=== PATIENT | male | born 1935 | race Caucasian/White ===

== ENCOUNTER 2019-06-09 07:48 | Inpatient (IN) | payer MEDICARE, SELFPAY ==
[2019-06-09] VITALS (8 sets, daily range): BP systolic 84–154; BP diastolic 40–87; PULSE 70–104; RESP 16–20; TEMP 36.6–36.8; O2SAT 96–100; BMI 33.0
--- NOTE | ~2019-06-09 | US_ITS ---
EXAMINATION: US thyroid DATE: 06/09/2019 13:23 INDICATION: Right thyroid nodule. TECHNIQUE: Multiple ultrasound images of the thyroid were obtained. COMPARISON: None. FINDINGS: The right thyroid lobe measures 4.8 x 2.3 x 3.2 cm. The left thyroid lobe measures 5.3 x 1.8 x 3.3 c m. There are multiple nodules in the thyroid. In the left thyroid lobe, there is a 15 mm solid, hypo echoic, efbio-mdvx-jcsx nodule with lobulated margin without echogenic foci (TI-RADS TR4). In the lef t thyroid lobe, there is a 12 mm solid, hypoechoic, pdulm-nkxl-zxyf nodule with lobulated margin with out echogenic foci (TR4). In the right thyroid lobe, there is a 15 mm solid and cystic, hypoechoic, w ggum-bxnh-hpiy nodule with smooth margin without echogenic foci (TR3). In the right thyroid lobe, the re is a 12 mm solid, hypoechoic, sddhv-taht-suug nodule with lobulated margin and punctate echogenic foci (TR5). IMPRESSION: 1. Thyroid nodules. Consider ultrasound-guided fine-needle aspiration of the 12 mm right thyroid nodu le and 15 mm left thyroid nodule. Reviewed, dictated and finalized at location A. IMPRESSION: 1. Thyroid nodules. Consider ultrasound-guided fine-needle aspiration of the 12 mm right thyroid nodule and 15 mm left thyroid nodule.
--- NOTE | ~2019-06-09 | XR_ITS ---
XR abdomen NG/feed tube insert INDICATION: Evaluate NG tube position. TECHNIQUE: Limited KUB perform for evaluating NG tube . COMPARISON: 10/29/2018 FINDINGS: NG tube tip in the stomach. Visualized bowel gas pattern is nonspecific. IMPRESSION: 1: NG tube tip in the stomach. Reviewed, dictated and finalized at location A.
--- NOTE | ~2019-06-09 | XR_ITS ---
EXAMINATION: XR UGI water soluble w sbs DATE: 06/10/2019 11:11 INDICATION: Small bowel obstruction. TECHNIQUE: The nasogastric tube was adjusted under fluoroscopic guidance. Water-soluble contrast was injected into the nasogastric tube. Fluoroscopy of the stomach and small bowel was performed. Fluoros copy exposure time was 0.2 minutes. Radiographs of the abdomen were obtained. The total number of rodrigo ges was 9. COMPARISON: CT abdomen and pelvis 06/09/2019 FINDINGS: UPPER GASTROINTESTINAL SERIES: The nasogastric tube tip is in the stomach. The stomach is normal. The duodenum is dilated. SMALL BOWEL SERIES: The proximal jejunum is dilated. The ileum is normal in caliber. Transit time to the colon was 30 min utes. IMPRESSION: 1. Dilated proximal small bowel without obstruction, consistent with adynamic ileus. 2. Nasogastric tube advancement, now with tip and proximal side port in the stomach. Reviewed, dictated and finalized at location A. IMPRESSION: 1. Dilated proximal small bowel without obstruction, consistent with adynamic i leus. 2. Nasogastric tube advancement, now with tip and proximal side port in the sto mach.
--- NOTE | ~2019-06-09 | XR_ITS ---
EXAMINATION: XR abdomen/kub 1V DATE: 06/10/2019 05:57 INDICATION: Small bowel obstruction. TECHNIQUE: A supine view of the abdomen on 2 radiographs was obtained. COMPARISON: CT abdomen and pelvis 06/09/2019 FINDINGS: There is dilated small bowel in left abdomen. The colon is normal in caliber. The nasogastr ic tube tip is in the stomach with proximal side port in the distal esophagus. There is a gallstone i n the gallbladder. IMPRESSION: 1. Persistently dilated small bowel in left abdomen, consistent with ileus versus small bowel obstruc tion. 2. Nasogastric tube tip in the stomach with proximal side port in the distal esophagus. Advancement 5 cm is recommended. 3. Cholelithiasis. Reviewed, dictated and finalized at location A. IMPRESSION: 1. Persistently dilated small bowel in left abdomen, consistent with ileus vers us small bowel obstruction. 2. Nasogastric tube tip in the stomach with proximal side port in the distal es ophagus. Advancement 5 cm is recommended. 3. Cholelithiasis.
--- NOTE | ~2019-06-09 | XR_ITS ---
XR abdomen NG/feed tube insert INDICATION: Evaluate NG tube position. TECHNIQUE: Limited KUB perform for evaluating NG tube . COMPARISON: 06/09/2019 FINDINGS: NG tube tip in the stomach. Visualized bowel gas pattern is unremarkable.There is a gallst one. IMPRESSION: 1: NG tube tip in the stomach. Reviewed, dictated and finalized at location A.
--- NOTE | ~2019-06-09 | CT_ITS ---
EXAMINATION: CT abdomen pelvis wo con DATE: 06/09/2019 08:34 INDICATION: Abdominal pain, nausea and vomiting. History of multiple bowel obstructions. TECHNIQUE: Computed tomography (CT) of the abdomen and pelvis was performed without intravenous contr ast. The dose-length product was 1131.66 mGy-cm. Automated exposure control and iterative reconstruct ion technique were employed. COMPARISON: CT dated 10/29/2018 FINDINGS: Bibasilar dependent atelectasis. Heart size normal. No significant pleural or pericardial e ffusion. There are gallstones. Calcified granulomas of the spleen. There is moderately distended stomach and p roximal small bowel with similar appearance to prior examination. No definitive transition point is i dentified, although the mid and distal small bowel are decompressed. Colonic diverticulosis without e vidence for diverticulitis. No lymphadenopathy. 1.7 cm right renal cyst. No lymphadenopathy. No free air or free fluid. Enlarged prostate gland. Bladder wall is mildly thickened, although decompressed. This is likely due to bladder outlet obstruction. There is lower lumbar spondylosis. IMPRESSION: 1. Similar appearance to prior CT dated 10/29/2018 with moderately dilated proximal small bowel withou t definitive transition point, suspicious for partial small bowel obstruction. 2: Cholelithiasis. 3: Enlarged prostate gland with chronic bladder wall thickening, likely hypertrophy secondary to outl et obstruction. Reviewed, dictated and finalized at location A. IMPRESSION: 1. Similar appearance to prior CT dated 10/29/2018 with moderately dilated proxi mal small bowel without definitive transition point, suspicious for partial sma ll bowel obstruction. 2: Cholelithiasis. 3: Enlarged prostate gland with chronic bladder wall thickening, likely hypertr ophy secondary to outlet obstruction.
--- NOTE | 2019-06-09 08:07 | ED.ABDPAIN ---
HPI - Abdominal Pain General Chief Complaint: Abdominal Pain Stated Complaint: Vomiting Time Seen by Provider: 06/09/19 07:50 Source: RN notes reviewed History of Present Illness HPI narrative: Patient presents emergency department from home for nausea vomiting. Patient states he began to have vomiting at approximately 1:30 AM today. He states numerous episodes of vomiting. States states he has associated diffuse abdominal pain. Patient states he has a history of numerous bowel obstructions before in the past. Denies any fevers or chills chest pain shortness of breath diarrhea or any other symptoms Related Data Allergies Allergy/AdvReac Type Severity Reaction Status Date / Time haloperidol Allergy Unknown Hallucinati Verified 06/09/19 08:08 ng Review of Systems Review of Systems: Narrative: Gen.: Denies fevers or chills ENT: Denies congestion Respiratory: Denies shortness of breath or cough CV: Denies chest pain or palpitations GI: See HPI denies burning, urgency, frequency or hematuria Musculoskeletal: Denies back pain or muscle pain Neuro: Denies numbness, tingling, weakness or focal weakness Skin: Denies rash Except as documented, all other systems reviewed and negative [facility] Past Medical History Medical History (Updated 06/09/19 @ 10:01 by Elio Painter DO) Hx of small bowel obstruction Type 2 diabetes mellitus with stage 1 chronic kidney disease Social History Social History Smoking status: Never smoker Second hand tobacco smoke exposure: No Alcohol intake: current Exam Narrative: Exam Narrative: APPEARANCE: No acute distress, nontoxic, resting in bed HEENT: Normocephalic, atraumatic, OMM RESPIRATORY: No respiratory distress, clear to auscultation bilaterally with no rhonchi wheezing or rales CARDIOVASCULAR: RRR s murmur ABDOMINAL: Soft, nondistended, diffusely tender to palpation, no rebound or guarding MUSCULOSKELETAl: Moves all extremities. No clubbing, cyanosis or edema. NEURO: Awake and alert. Following commands, speech normal, no focal deficits SKIN:: Warm, dry. Normal Color PSYCHIATRIC: Normal affect/mood Course Course Emergency Course: Reviewed old records Discussed Dr. Garcia presentation work-up. Agrees with plan for NG tube and will follow as disaster recovery consultant Discussed Dr Rossi presentation work-up. Agrees with admission at this time Discussed with patient and family results of workup and diagnosis. Discussed need for admission. Patient and family understand and agree to current treatment plan Vital Signs Vital signs: Vital Signs Temperature 97.9 F 06/09/19 07:50 Pulse Rate 104 H 06/09/19 07:50 Respiratory Rate 20 06/09/19 07:50 Blood Pressure 154/87 H 06/09/19 07:50 Pulse Oximetry 99 06/09/19 07:50 Temperature 97.9 F 06/09/19 07:50 Pulse Rate 104 H 06/09/19 07:50 Respiratory Rate 20 06/09/19 07:50 Blood Pressure 154/87 H 06/09/19 07:50 Pulse Oximetry 99 06/09/19 07:50 MDM - Abdominal Pain Lab Data Result diagrams: 06/09/19 08:14 06/09/19 08:14 Labs: Lab Results 06/09/19 06/09/19 06/09/19 Range/Units 08:14 08:14 08:14 WBC 14.7 H (4.5-10.0) K/mm3 RBC 5.15 (4.6-6.20) M/mm3 Hgb 15.0 (14.0-18.0) g/dL Hct 44.3 (42.0-52.0) % MCV 86.0 (80-100) fl MCH 29.1 (26-34) pg MCHC 33.9 (32-36) g/dl RDW 13.2 (11.5-14.5) % Plt Count 201 (150-375) k/mm3 MPV 9.1 (7.4-10.4) fl Immature Gran % (Auto) 0.3 (0-0.5) % Neut % (Auto) 72.3 (45.5-73.1) % Lymph % (Auto) 22.4 (18.3-44.2) % Burnet % (Auto) 4.2 (2.6-8.5) % Eos % (Auto) 0.5 (0-4.4) % Baso % (Auto) 0.3 (0.2-1.2) % Lymph # (Auto) 3.28 H (0.9-3.2) K/mm3 Burnet # (Auto) 0.6 (0.1-0.6) K/mm3 Eos # (Auto) 0.1 (0-0.3) K/mm3 Baso # (Auto) 0.1 (0.0-0.1) K/mm3 Abs Immat Gran (auto) 0.04 H (0.00-0.031) K/mm3 Absolute
[2019-06-09 08:21] LABS: Basophils Absolute Auto 0.1 K/mm3 (0.0-0.1); Basophils Percent Auto 0.3 % (0.2-1.2); Eosinophils Absolute Auto 0.1 K/mm3 (0-0.3); Eosinophils Percent Auto 0.5 % (0-4.4); Hematocrit 44.3 % (42.0-52.0); Immature Granulocyte Absolute 0.04 K/mm3 (0.00-0.031); Immature Granulocyte Percent A 0.3 % (0-0.5); Lymphocytes Absolute Auto 3.28 K/mm3 (0.9-3.2); Lymphocytes Percent Auto 22.4 % (18.3-44.2); Mean Corpuscular HGB Conc 33.9 g/dl (32-36); Mean Corpuscular Hemoglobin 29.1 pg (26-34); Mean Platelet Volume 9.1 fl (7.4-10.4); Monocytes Absolute Auto 0.6 K/mm3 (0.1-0.6); Monocytes Percent Auto 4.2 % (2.6-8.5); Neutrophils Absolute Auto 10.6 K/mm3 (1.3-6.7); Neutrophils Percent Auto 72.3 % (45.5-73.1); Platelet Count Result 201 k/mm3 (150-375); Red Blood Count 5.15 M/mm3 (4.6-6.20); Red Cell Distribution Width 13.2 % (11.5-14.5); White Blood Count 14.7 K/mm3 (4.5-10.0)
[2019-06-09] MEDS: SODIUM CHLORIDE 0.9% IV 1,000 ML 999 ML IV CONT (08:22)
[2019-06-09] MEDS: ONDANSETRON INJ 4 MG/2 ML VIAL IV PUSH ×4 (08:23→21:54)
[2019-06-09 08:31] LABS: INR 0.9; Prothrombin Time 12.1 Seconds (11.1-14.7)
[2019-06-09 08:32] LABS: Alanine Aminotransferase 22 U/L (4-50); Albumin Level 4.8 g/dL (3.5-5.1); Alkaline Phosphatase 55 U/L (38-126); Aspartate Amino Transferase 23 U/L (17-59); Bilirubin,Total 0.8 mg/dL (0.2-1.3); Blood Urea Nitrogen 20 mg/dL (9-20); Calcium 9.8 mg/dL (8.4-10.2); Carbon Dioxide 24 mmol/L (22-30); Chloride 101 mmol/L (98-107); Estimated CRCL calculation 50 ml/min; Estimated Glomerular Filt Rate 53; Glucose 234 mg/dL (75-110); Lipase 140 U/L (23-300); Partial Thromboplastin Time 22.7 SECONDS (22.3-36.8); Potassium 4.1 mmol/L (3.4-5.0); Sodium 138 mmol/L (137-145)
[2019-06-09] MEDS: BENZOCAINE/TETRACAINE SPRAY (*SP) 56 ML AEROSOL 1 SPRAY (09:42)
--- NOTE | 2019-06-09 10:02 | PM.CNGS ---
Assessment and Plan Assessment and plan (1) Small bowel obstruction: Code(s): K56.609 - Unspecified intestinal obstruction, unspecified as to partial versus complete obstruction Status: Acute Assessment and Plan: Continue NG suction, bowel rest, IV fluids and p.r.n. analgesics. I will follow with clinical exam as well as labs and x-rays. Hopefully he will resolve as he has multiple times in the past. There is always the potential that he may require surgical intervention again which of course would be very hazardous due to his history of a previous laparotomy with bowel perforation and reoperation 20 years ago. Thank you for asking me to see him in consultation. (2) Essential (primary) hypertension: Code(s): I10 - Essential (primary) hypertension Status: Chronic (3) Gastro-esophageal reflux disease without esophagitis: Code(s): K21.9 - Gastro-esophageal reflux disease without esophagitis Status: Chronic History of Present Illness Consult details Consult date: 06/09/19 Reason for consult: abdominal pain Narrative: The patient is an 84-year-old gentleman who is well known to me. He has a history of a small-bowel obstruction in 1998. He had adhesiolysis at that time. He then developed another small-bowel obstruction about 1 year later. This also required adhesiolysis. Unfortunately, after this surgery, he had a bowel perforation which required reoperation. He was quite ill for some time but eventually recovered. Since that time, he has had intermittent admissions for recurrent partial small-bowel obstruction. These have resolved with a brief course of IV fluids, NG tube suction, and bowel rest. He came to the emergency room this morning after developing diffuse abdominal pain and vomiting starting very early today at about 130 in the morning. He was noted in the emergency room to have diffuse tenderness with mild distension. His white blood cell count was elevated to 14,700. His CT scan showed evidence of a recurrent small-bowel obstruction although no real transition point was able to be visualized. The patient has had an NG tube placed. He is admitted now for treatment of his recurrent small-bowel obstruction. I am seeing him in consultation regarding this. I reviewed his abdominal film and the NG tube is in good position. He had a large volume of NG output in the emergency room and was feeling much better at the time of my evaluation. Review of Systems Review of Systems: All systems reviewed & are unremarkable except as noted in HPI and below Constitutional: Constitutional: Denies headache(s) ENT: Denies headache(s) Cardiovascular: Cardiovascular: Denies chest pain and Denies dyspnea Respiratory: Respiratory: Denies cough and Denies dyspnea Gastrointestinal: Gastrointestinal: Reports as per HPI Neurologic: Denies confusion and Denies headache(s) Psychiatric: Psychiatric: Denies confusion [facility] Past Medical History Medical History (Updated 06/09/19 @ 11:30 by Pramod Rossi MD) Diastolic CHF Diverticulosis Hx of diverticulitis Essential hypertension, benign GERD (gastroesophageal reflux disease) History of esophageal stricture s/p dilation Hx of small bowel obstruction 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
--- NOTE | 2019-06-09 10:15 | PC.NURSE ---
NG placement is confirmed per xray. Placed to suction note immediate return dark green fluid.
--- NOTE | 2019-06-09 10:25 | ADMGEN ---
This patient, Cali Vasquez, was admitted to Medical Room 349-01. Patient/family oriented to hospital policies and general routines including ID bracelet, bed and alarms, visiting hours, pain management, procedures, bathroom and other care routines, personal items, smoking policy, room service/diet, and visiting hours. Valuables list has been completed. Information on how to activate the Rapid Response Team has been discussed. Patient/Family are encouraged to report perceived risks to care and to ask questions if they do not understand what they are told or what they should do.
--- NOTE | 2019-06-09 10:37 | PM.IMHP ---
H&P: HPI History of Present Illness Chief complaint: small bowel obstruction Narrative: Cali Vasquez is a 84 year old male with hx of partial SBO here for nausea and vomiting and found to have recurrent partial SBO. Patient has frequent hospitalizations for partial small-bowel obstruction most recently in June and again in September of last year. Patient has been on MiraLax alternating with Metamucil over the past few months. He has been having 2-3 loose bowel movements a day on average. He did have some lower abdominal pain in March felt to have diverticulitis treated with antibiotics. Symptoms resolved. He has been doing well up until clinical rn liaison hours of admission. Patient states he has been eating cantaloupe and strawberries over the past few days. He had some mild abdominal pain last evening but awoke this morning around 130 in the morning with nausea and vomiting x5-6 times. He did have a small stool around that time. He took a suppository without much benefit. Because of the worsening abdominal pain and other symptoms he presented to the emergency room for evaluation. In the emergency room, he was hemodynamically stable. [place] [address] and a glucose of 234. CT of the abdomen and pelvis showing moderately dilated proximal small bowel suspicious for partial small-bowel obstruction. NG tube was placed in 1 L of fluid was removed. Patient feels much better today. He denies any fever, chills, chest pain, palpitations, shortness of breath, cough, melena, hematochezia, hematemesis, dysuria, hematuria, headache, sore throat, weight changes. Review of Systems Review of Systems: All systems reviewed & are unremarkable except as noted in HPI and below PMFSH Past Medical History Medical History (Updated 06/09/19 @ 11:30 by Pramod Rossi MD) Diastolic CHF Diverticulosis Hx of diverticulitis Essential hypertension, benign GERD (gastroesophageal reflux disease) History of esophageal stricture s/p dilation Hx of small bowel obstruction 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istory Social History (Updated 06/09/19 @ 11:24 by Pramod Rossi MD) Social History: Life long nonsmoker. No drug use. 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 Drinks alcohol infrequently. Full code. Nominates his to be the individual to make medical decision for him if he is unable. Smoking status: Never smoker Second hand tobacco smoke exposure: No Alcohol intake: current Drinks per week: 2 Substance use: never Spiritual care concerns: No Agree to blood products: Yes Meds Home Medications and Allergies Home Medications Medication Instructions Recorded Confirmed Type olmesartan 40 1 tablet PO DAILY #90 tablet 02/17/19 06/09/19 Rx mg-hydrochlorothiazide 12.5 mg tablet metoprolol tartrate 50 mg tablet 50 mg PO DAILY #180 tablet 02/23/19 06/09/19 Rx blood sugar diagnostic #50 each 04/13/19 06/09/19 Rx atorvastatin 10 mg tablet 10 mg PO DAILY #90 tablet 04/20/19 06/09/19 Rx omeprazole 40 mg capsule,delayed 40 mg PO DAILY #90 cap 04/20/19 06/09/19 Rx release sitagliptin 100 mg-metformin ER 1 tablet PO DAILY #90 tablet 05/31/19 06/09/19 Rx 1,000 mg tablet,extended [id number] Allergies Allergy/AdvReac Type Severity
[2019-06-09] MEDS: SODIUM CHLORIDE 0.9% IV 1,000 ML 125 ML IV CONT ×2 (10:40→19:49)
[2019-06-09] MEDS: METOPROLOL TARTRATE INJ 5 MG/5 ML VIAL IV PUSH ×2 (11:55→17:45)
[2019-06-09] MEDS: ENOXAPARIN 40 MG/0.4 ML SYRINGE SUB-Q (11:55)
[2019-06-09] MEDS: PANTOPRAZOLE SODIUM IV 40 MG VIAL IV PUSH (11:55)
[2019-06-09 12:22] LABS: Glucose Point of Care 147 (65-105)
[2019-06-09 16:31] LABS: Glucose Point of Care 141 (65-105)
[2019-06-09] MEDS: SODIUM CHLORIDE 0.9% IV 500 ML 999 ML IV CONT (21:26)
[2019-06-10] VITALS (7 sets, daily range): BP systolic 117–148; BP diastolic 57–74; PULSE 73–89; RESP 16–18; TEMP 36–36.4; O2SAT 96–100
[2019-06-10 00:19] LABS: Glucose Point of Care 157 (65-105)
[2019-06-10] MEDS: ONDANSETRON INJ 4 MG/2 ML VIAL IV PUSH ×2 (02:09→06:34)
[2019-06-10 05:33] LABS: Basophils Percent Auto 0.3 % (0.2-1.2); Eosinophils Absolute Auto 0.1 K/mm3 (0-0.3); Eosinophils Percent Auto 2.1 % (0-4.4); Hematocrit 42.3 % (42.0-52.0); Hemoglobin 13.8 g/dL (14.0-18.0); Immature Granulocyte Absolute 0.01 K/mm3 (0.00-0.031); Immature Granulocyte Percent A 0.2 % (0-0.5); Lymphocytes Absolute Auto 1.71 K/mm3 (0.9-3.2); Lymphocytes Percent Auto 29.7 % (18.3-44.2); Mean Corpuscular HGB Conc 32.6 g/dl (32-36); Mean Corpuscular Hemoglobin 28.9 pg (26-34); Mean Corpuscular Volume 88.7 fl (80-100); Mean Platelet Volume 9.2 fl (7.4-10.4); Monocytes Absolute Auto 0.7 K/mm3 (0.1-0.6); Monocytes Percent Auto 11.3 % (2.6-8.5); Neutrophils Absolute Auto 3.2 K/mm3 (1.3-6.7); Neutrophils Percent Auto 56.4 % (45.5-73.1); Platelet Count Result 156 k/mm3 (150-375); Red Blood Count 4.77 M/mm3 (4.6-6.20); Red Cell Distribution Width 13.2 % (11.5-14.5); White Blood Count 5.8 K/mm3 (4.5-10.0)
[2019-06-10 05:34] LABS: Alanine Aminotransferase 19 U/L (4-50); Alkaline Phosphatase 44 U/L (38-126); Aspartate Amino Transferase 19 U/L (17-59); Blood Urea Nitrogen 25 mg/dL (9-20); Calcium 8.5 mg/dL (8.4-10.2); Carbon Dioxide 25 mmol/L (22-30); Chloride 104 mmol/L (98-107); Estimated CRCL calculation 46 ml/min; Estimated Glomerular Filt Rate 48; Glucose 164 mg/dL (75-110); Potassium 4.2 mmol/L (3.4-5.0); Sodium 138 mmol/L (137-145)
[2019-06-10] MEDS: SODIUM CHLORIDE 0.9% IV 1,000 ML 125 ML IV CONT (05:51)
[2019-06-10 06:34] LABS: Glucose Point of Care 156 (65-105)
[2019-06-10] MEDS: METOPROLOL TARTRATE INJ 5 MG/5 ML VIAL IV PUSH ×3 (06:35→18:10)
[2019-06-10] MEDS: PANTOPRAZOLE SODIUM IV 40 MG VIAL IV PUSH (09:35)
[2019-06-10] MEDS: ENOXAPARIN 40 MG/0.4 ML SYRINGE SUB-Q (09:35)
--- NOTE | 2019-06-10 09:39 | PM.IMPN ---
Progress Note: A&P Assessment and Plan (1) Small bowel obstruction: Code(s): K56.609 - Unspecified intestinal obstruction, unspecified as to partial versus complete obstruction Status: Acute Assessment and Plan: CT scan 06/09/2019 showing moderately dilated proximal small bowel without definitive transition point most likely related to adhesions. NG tube was placed with symptomatic improvement. Patient is up walking the halls. Repeat KUB still showing dilated small bowel. Water-soluble upper GI ordered. Continue conservative management. (2) Essential (primary) hypertension: Code(s): I10 - Essential (primary) hypertension Status: Chronic Assessment and Plan: Patient with hypotension last night 84/52. Patient was given fluid bolus with improvement. Blood pressure more stable today. Home antihypertensive medications on hold. Will continue with the Lopressor IV for now. Resume oral medications when able. (3) Type 2 diabetes mellitus with stage 1 chronic kidney disease: Code(s): E11.22 - Type 2 diabetes mellitus with diabetic chronic kidney disease; N18.1 - Chronic kidney disease, stage 1 Status: Acute Assessment and Plan: Recent A1c 7.2 per patient. Glucose reviewed 06/10/2019. Glucose well controlled. Diabetic medications on hold. Continue sliding scale protocol. (4) Thyroid nodule: Code(s): E04.1 - Nontoxic single thyroid nodule Status: Acute Assessment and Plan: Possible thyroid nodule appreciated on exam. Thyroid ultrasound showing 2 thyroid nodules with the recommendation for biopsy. Plan for outpatietn referral. (5) Hyperlipidemia: Qualifiers: Hyperlipidemia type: unspecified Qualified Code(s): E78.5 - Hyperlipidemia, unspecified Code(s): E78.5 - Hyperlipidemia, unspecified Status: Acute Assessment and Plan: LFTs within normal limits. Atorvastatin on hold at this time. (6) Gastro-esophageal reflux disease without esophagitis: Code(s): K21.9 - Gastro-esophageal reflux disease without esophagitis Status: Chronic Assessment and Plan: Stable. Continue Protonix IV. Continue to monitor. (7) BPH (benign prostatic hyperplasia): Code(s): N40.0 - Benign prostatic hyperplasia without lower urinary tract symptoms Status: Acute Assessment and Plan: CT scan showing enlarged prostate gland with chronic bladder wall thickening. This was also seen in [address] scan so felt to be longstanding. Continue to monitor for outlet obstruction. (8) DVT prophylaxis: Code(s): Z29.9 - Encounter for prophylactic measures, unspecified Status: Acute Assessment and Plan: Alondra Subjective Date/time seen: 06/10/19 09:39 Interval history: 84yo male with hx of partial SBO here for nausea and vomiting and found to have recurrent partial SBO. Complains of nasal soreness. Also with nausea requiring Zofran. No flatus or BMs yet. Up walking. Had low BP overnight but patient asymptomatic. No CP or SOB. Exam Narrative: Exam Narrative: AF 97.5 148/72 89 16 96% Gen - NARD sitting up in a chair HEENT - NGT secured draining yellow brown fluid Chest - R>L bibasilar inspiratory crackles, nml RR CV - RRR S1/S2 Abd - soft, NT, ND, hypoactive BS Ext - No pedal edema Psych - Nml mood and affect Skin - Warm and dry Objective Data Vital Signs Vital Signs: Vital Signs - 24 hr 06/09/19 09:45 06/09/19 10:50 06/09/19 11:55 Temperature 98.2 F Pulse Rate 100 101 H 101 H Respiratory Rate 18 18 Blood Pressure 150/62 H 125/68 Pulse Oximetry 96 97 06/09/19 14:00 06/09/19 17:45 06/09/19 21:03 Temperature 98.2 F 98 F Pulse Rate 70 70 104 H Respiratory Rate 16 20 Blood Pressure 132/70 84/52 L Pulse Oximetry 100 96 06/09/19 22:00 06/10/19 00:20 06/10/19 05:48 Temperature 97.5 F L Pulse Rate 84 Respiratory Rate 16 Bl
[2019-06-10 13:05] LABS: Glucose Point of Care 137 (65-105)
[2019-06-10] MEDS: SODIUM CHLORIDE 0.9% IV 1,000 ML 80 ML IV CONT (16:38)
[2019-06-10 16:41] LABS: Glucose Point of Care 153 (65-105)
[2019-06-10 21:04] LABS: Glucose Point of Care 114 (65-105)
[2019-06-11 00:30] VITALS: PULSE 105
[2019-06-11] MEDS: METOPROLOL TARTRATE INJ 5 MG/5 ML VIAL IV PUSH ×2 (00:30→05:20)
[2019-06-11 00:36] VITALS: BP 137/74
[2019-06-11 04:28] VITALS: BP 113/63; PULSE 66; RESP 16; TEMP 36.5; O2SAT 98
[2019-06-11 05:20] VITALS: PULSE 66
[2019-06-11 05:28] LABS: Blood Urea Nitrogen 22 mg/dL (9-20); Calcium 7.8 mg/dL (8.4-10.2); Carbon Dioxide 25 mmol/L (22-30); Chloride 109 mmol/L (98-107); Estimated CRCL calculation 63 ml/min; Estimated Glomerular Filt Rate > 60; Glucose 151 mg/dL (75-110); Potassium 3.7 mmol/L (3.4-5.0); Sodium 138 mmol/L (137-145)
--- NOTE | 2019-06-11 07:21 | PM.PNGS ---
Progress Note: A&P Assessment and Plan (1) Small bowel obstruction: Code(s): K56.609 - Unspecified intestinal obstruction, unspecified as to partial versus complete obstruction Status: Acute Assessment and Plan: Fortunately this has resolved again. Patient can be discharged today. Resume usual diabetic diet. No surgical follow-up is needed. (2) Type 2 diabetes mellitus with stage 1 chronic kidney disease: Code(s): E11.22 - Type 2 diabetes mellitus with diabetic chronic kidney disease; N18.1 - Chronic kidney disease, stage 1 Status: Chronic Subjective Subjective Date/Time Seen: 06/11/19 07:21 Patient reports: no new complaints, feels better, pain is less, tolerating a regular diet and bowel movement Review of Systems Review of Systems: All systems reviewed & are unremarkable except as noted in HPI and below Constitutional: Constitutional: Denies headache(s) ENT: Denies headache(s) Cardiovascular: Cardiovascular: Denies chest pain and Denies dyspnea Respiratory: Respiratory: Denies cough and Denies dyspnea Gastrointestinal: Gastrointestinal: Reports as per HPI Exam Const: General: comfortable and no acute distress; No confusion Orientation/consciousness: patient oriented x3 and No confusion GI: GI Palp: Yes Soft to palpation, Yes Tenderness to palpation present (GI), No Guarding due to palpation present (GI) and No Rebound tenderness present Auscultation: normal bowel sounds Neuro: General: patient oriented x3, no focal motor deficits and No confusion Extrem: General: no calf tenderness and no edema Psych: Affect: normal affect Insight: Good insight present (Psych) Judgement: Good judgement present (Psych) Objective Data Vital Signs Vital Signs: Vital Signs - 24 hr 06/10/19 12:45 06/10/19 14:00 06/10/19 18:10 Temperature 36.0 C L Pulse Rate 89 80 85 Respiratory Rate 18 Blood Pressure 117/60 Pulse Oximetry 97 06/10/19 20:46 06/11/19 00:30 06/11/19 00:36 Temperature 36.4 C L Pulse Rate 73 105 H Respiratory Rate 18 Blood Pressure 141/74 H 137/74 Pulse Oximetry 100 06/11/19 04:28 06/11/19 05:20 Temperature 36.5 C Pulse Rate 66 66 Respiratory Rate 16 Blood Pressure 113/63 Pulse Oximetry 98 Intake/Output Intake/Output: Intake & Output 06/08/19 06/09/19 06/10/19 06/11/19 23:59 23:59 23:59 23:59 Intake Total 2500 2740 1500 Output Total 3100 1750 Balance -556 351 5349 Meds/Results Medications: Active Medications Generic Name Dose Route Start Last Admin Trade Name Freq PRN Reason Stop Dose Admin Dextrose 12.5 gm 06/09/19 11:36 Dextrose 50% Syringe IV PUSH PRN PRN Hypoglycemia Protocol Enoxaparin Sodium 40 mg 06/10/19 09:00 06/10/19 09:35 Lovenox SUB-Q 40 mg DAILY JACE Administration Fentanyl Citrate 25 mcg 06/09/19 10:16 Sublimaze IV PUSH Q2H PRN Pain Rated 7-10 Fentanyl Citrate 12.5 mcg 06/09/19 10:16 Sublimaze IV PUSH Q2H PRN Pain Rated 4-6 Glucagon 1 mg 06/09/19 11:36 Glucagon For Inj IM PRN PRN Hypoglycemia Protocol Glucose 15 gm 06/09/19 11:36 Glutose 15 PO PRN PRN Hypoglycemia Protocol Sodium Chloride 1,000 mls @ 80 mls/hr 06/09/19 09:20 06/11/19 05:51 Normal Saline Iv IV CONT 80 mls/hr .[id number] JACE Infusion Ibuprofen 800 mg in 200 mls @ 400 mls/hr 06/09/19 10:16 Caldolor 800 Mg/200 Ml IVPB Q6H PRN Pain Rated 1-3 Dextrose 1,000 mls @ 100 mls/hr 06/09/19 11:36 Dextrose 5% 1,000 Ml IVPB PRN PRN Hypoglycemia Protocol Insulin Aspart 2 - 5 units 06/09/19 12:00 06/10/19 16:37 Novolog SUB-Q Not Given TIDWM JACE Protocol Metoprolol Tartrate 5 mg 06/09/19 12:00 06/11/19 05:20 Lopressor Inj IV PUSH 5 mg Q6HR JACE Administration Naloxone HCl 0.1 mg 06/09/19 10:16 Narcan IV PUSH Q2M PRN Opiate Reversal Ondansetron
[2019-06-11 07:53] LABS: Glucose Point of Care 153 (65-105)
[2019-06-11] MEDS: ENOXAPARIN 40 MG/0.4 ML SYRINGE SUB-Q (08:06)
[2019-06-11] MEDS: PANTOPRAZOLE SODIUM IV 40 MG VIAL IV PUSH (08:07)
--- NOTE | 2019-06-11 10:00 | PM.DS ---
DS: Diagnosis Admitting Diagnosis Admitting Diagnosis: Unspecified intestinal obstruction, unspecified as to partial versus complete obstruction Discharge Diagnosis (1) Small bowel obstruction: Code(s): K56.609 - Unspecified intestinal obstruction, unspecified as to partial versus complete obstruction Status: Acute Assessment and Plan: CT scan 06/09/2019 showing moderately dilated proximal small bowel without definitive transition point most likely related to adhesions. NG tube was placed with symptomatic improvement. Patient was up walking the halls. Repeat KUB still showing dilated small bowel. Water-soluble upper GI ordered with a good number of BMs. NG tube removed and diet started. Tolerated this well and diet advanced. Patient seen by general surgery who felt patient could be discharged home safely. (2) Essential (primary) hypertension: Code(s): I10 - Essential (primary) hypertension Status: Chronic Assessment and Plan: Blood pressure stable today. He was covered with Lopressor IV. Home antihypertensive medications were on hold. (3) Type 2 diabetes mellitus with stage 1 chronic kidney disease: Code(s): E11.22 - Type 2 diabetes mellitus with diabetic chronic kidney disease; N18.1 - Chronic kidney disease, stage 1 Status: Chronic Assessment and Plan: Recent A1c 7.2 per patient. Glucose monitored and remained well controlled. Diabetic medications on hold. Covered with sliding scale protocol. (4) Thyroid nodule: Code(s): E04.1 - Nontoxic single thyroid nodule Status: Acute Assessment and Plan: Possible thyroid nodule appreciated on exam. Thyroid ultrasound showing 2 thyroid nodules with the recommendation for biopsy. TSH normal. Plan for outpatient referral. Discussed with primary care doctor. (5) Hyperlipidemia: Qualifiers: Hyperlipidemia type: unspecified Qualified Code(s): E78.5 - Hyperlipidemia, unspecified Code(s): E78.5 - Hyperlipidemia, unspecified Status: Acute Assessment and Plan: LFTs within normal limits. Atorvastatin was held. (6) Gastro-esophageal reflux disease without esophagitis: Code(s): K21.9 - Gastro-esophageal reflux disease without esophagitis Status: Chronic Assessment and Plan: Stable. Treated with Protonix IV. (7) BPH (benign prostatic hyperplasia): Code(s): N40.0 - Benign prostatic hyperplasia without lower urinary tract symptoms Status: Acute Assessment and Plan: CT scan showing enlarged prostate gland with chronic bladder wall thickening. This was also seen in [address] scan so felt to be longstanding. He was monitored for outlet obstruction. DS: Summary Hospital Course Reason for hospitalization: 84yo male here for pSBO. Debbi see H&P for details. Hospital Course: As above Time Spent with Patient Time attestation: Total time spent providing and/or coordinating discharge services:31 minutes Time spent: Greater than 30 minutes Exam Narrative: Exam Narrative: Patient feels well. No CP, SOB or cough. Gen - NARD sitting up in a chair Chest - mild Rt base inspiratory crackles, nml RR CV - RRR S1/S2 Abd - soft, NT, ND, +BS Ext - No pedal edema Skin - Warm and dry DS: Data Data Completed and Pending Labs on day of discharge: Labs from last 24 hours 06/11/19 06/11/19 06/10/19 07:50 04:54 20:00 Sodium 138 Potassium 3.7 Chloride 109 H Carbon Dioxide 25 BUN 22 H Creatinine 1.00 Estim Creat Clear Calc 63 Estimated GFR > 60 Glucose 151 H POC Capillary Glucose 153 H 114 H Calcium 7.8 L 06/10/19 06/10/19 16:33 12:46 Sodium Potassium Chloride Carbon Dioxide BUN Creatinine Estim Creat Clear Calc Estimated GFR Glucose POC Capillary Glucose 153 H 137 H Calcium Discharge Plan Discharge Attending physician on discharge: Ellie
[2019-06-11 11:10] LABS: Thyroid Stimulating Hormone Reflex 0.935 uIU/mL (0.465-4.68)
== END 2019-06-11 10:45 | disposition home or self-care (01) | DRG 389 ==
LOC: ANHED 09:24 → ANH3MED 09:40
PROVIDERS: Admitting Provider Internal Medicine; Emergency Provider Emergency Medicine; PCP Internal Medicine; Visit Provider Internal Medicine
DX: K56.50 Intestinal adhesions [bands], unspecified as to partial versus complete obstruction (principal); I50.32 Chronic diastolic (congestive) heart failure; I13.0 Hypertensive heart and chronic kidney disease with heart failure and stage 1 through stage 4 chronic kidney disease, or unspecified chronic kidney disease; K57.90 Diverticulosis of intestine, part unspecified, without perforation or abscess without bleeding; I10 Essential (primary) hypertension; K21.9 Gastro-esophageal reflux disease without esophagitis; E78.5 Hyperlipidemia, unspecified; K58.9 Irritable bowel syndrome, unspecified; E11.22 Type 2 diabetes mellitus with diabetic chronic kidney disease; Z90.49 Acquired absence of other specified parts of digestive tract; N18.1 Chronic kidney disease, stage 1; E04.1 Nontoxic single thyroid nodule; N40.0 Benign prostatic hyperplasia without lower urinary tract symptoms
CPT/HCPCS: 36415; 74018; 74176; 74240; 74248; 76536; 80048; 80053; 83605; 83690; 84443; 85025; 85610; 85730; 96361; 96374; 99285; A9270; C9113; J1650; J2405; J7030; J7040

== ENCOUNTER 2021-03-01 14:10 | Inpatient (IN) | payer MEDICARE, SELFPAY ==
[2021-03-01] VITALS (25 sets, daily range): BP systolic 116–159; BP diastolic 63–107; PULSE 86–115; RESP 10–38; TEMP 35.1; O2SAT 62–100
--- NOTE | ~2021-03-01 | CT_ITS ---
EXAMINATION: CT abdomen pelvis w con EXAM DATE: 03/01/2021 16:08 INDICATION: Abdominal pain, hx of SBO. TECHNIQUE: Spiral CT of the abdomen and pelvis was performed following intravenous injection of 100 m L Omnipaque 350. Axial, coronal and sagittal images of the abdomen and pelvis were reviewed. The do se-length product (DLP) for this examination was 1147.15 mGy-cm. The exposure was tailored according to patient size (auto mA exposure control), and iterative reconstruction (ASIR) was used as addition al dose reduction technique. Correlation is made to CT scan 06/09/2019. FINDINGS: Again there are multiple loops of severely distended jejunum, frothy contents consistent wi th fecal stasis. Dilation gradually tapers, ileum is nearly collapsed. Appearance most consistent wit h ileus versus recurrent partial small bowel obstruction; correlate with prior admission, hospital co urse. Stomach is also distended with air and fluid. The liver, spleen, adrenal glands and pancreas are unremarkable. Peripherally calcified gallstone in the gallbladder neck, otherwise unremarkable gallbladder. Portal and splenic veins are patent. Kid neys enhance symmetrically. There is no hydronephrosis. There is severe prostatomegaly, prostate me asuring 7 cm. Some diffuse bladder wall thickening, could indicate chronic cystitis. Acute cystitis not excludable. There is no retroperitoneal or pelvic lymphadenopathy. Small bilateral inguinal fa t-containing hernias. The appendix is normal. There is mild sigmoid colonic diverticulosis. There is no adjacent inflammat ory change to suggest diverticulitis. There is expected amount of colonic stool. No free intraperit brower gas. The heart is normal in size. There are no pericardial or pleural effusions. Mild basil ar intralobular septal thickening, suggesting interstitial lung disease. There are no osteoblastic o r osteolytic lesions identified. IMPRESSION: 1. Findings consistent with ileus versus recurrent partial small bowel obstruction. 2. Severe prostatomegaly. Bladder wall thickening consistent with chronic cystitis. 3. Mild sigmoid diverticulosis. 4. Cholelithiasis. Reviewed, dictated and finalized at location B. [facility]ERS IMPRESSION: 1. Findings consistent with ileus versus recurrent partial small bowel obstruc tion. 2. Severe prostatomegaly. Bladder wall thickening consistent with chronic cyst itis. 3. Mild sigmoid diverticulosis. 4. Cholelithiasis.
--- NOTE | ~2021-03-01 | XR_ITS ---
EXAMINATION: XR abdomen obstructive series EXAM DATE: 03/02/2021 07:30 INDICATION: partial SBO. TECHNIQUE: Frontal upright projection of the upper abdomen, frontal projection of the lower abdomen f or interpretation. There is no prior study for comparison. FINDINGS: No evidence of free intraperitoneal gas. Feeding tube is in position. Several loops of mod erately distended air-filled small bowel in the midabdomen, but with interval improvement. Some contr ast within the bowel. Peripherally calcified gallstone mild to moderate bony degenerative changes. IMPRESSION: Ileus or partial small bowel obstruction, mild improvement in distention. Feeding tube i n position. Reviewed, dictated and finalized at location B. ER FITTER IMPRESSION: Ileus or partial small bowel obstruction, mild improvement in dist ention. Feeding tube in position.
--- NOTE | ~2021-03-01 | XR_ITS ---
EXAMINATION: XR abdomen NG/feed tube insert INDICATION: Nasogastric tube placement TECHNIQUE: Portable AP KUB-NG at 1704 hours COMPARISON: CT from today FINDINGS: The nasogastric tube is in the stomach. There are multiple dilated loops of small bowel in the visualized upper abdomen. There is mild atelectasis of the lower lobes. Contrast from earlier CT partially opacifies the kidneys. IMPRESSION: 1. Nasogastric tube in the stomach. Reviewed, dictated and finalized at location F. WELDER
--- NOTE | ~2021-03-01 | XR_ITS ---
XR sm bowel follow through [facility] DATE: 03/02/2021 09:50 INDICATION: Partial small bowel obstruction TECHNIQUE: 450 cc Omnipaque 350 contrast material was administered through the existing nasogastric t ube, with serial overhead radiographic images of the abdomen up to 60 minutes afterward. Spot images of the terminal ileum. 0.3 minutes fluoroscopy time DAP: 112.936 10 images COMPARISON: 03/02/2021 obstruction series 03/01/2021 KUB 03/01/2021 CT abdomen pelvis FINDINGS: There is moderate dilatation of the jejunum proximally, possibly secondary to postoperative change of the mid small bowel noted at the anterior mid to lower abdomen right of midline on 03/01/19 CT abdomen pelvis examination.. The mid to distal small bowel is of normal caliber. The terminal i leum appears normal. Contrast material reaches the colon within 45 minutes, without obstruction. No s mall bowel mucosal fold thickening, stricture, ulceration, diverticulum or intraluminal mass lesion i s evident. IMPRESSION: Moderate nonobstructive dilatation of the proximal jejunum, possibly secondary to mid sma ll bowel resection; no evidence of bowel obstruction. Contrast material reaches the colon within 45 m inutes Reviewed, dictated and finalized at [facility] Reviewed, dictated and finalized at [facility] ER REPAIR TECHNICIAN IMPRESSION: Moderate nonobstructive dilatation of the proximal jejunum, possibl y secondary to mid small bowel resection; no evidence of bowel obstruction. Con trast material reaches the colon within 45 minutes
[2021-03-01] MEDS: ONDANSETRON INJ 4 MG/2 ML VIAL IV PUSH ×2 (14:34→18:53)
[2021-03-01] MEDS: SODIUM CHLORIDE 0.9% IV 1,000 ML 999 ML IV CONT (14:34)
[2021-03-01 14:55] LABS: Basophils Absolute Auto 0.1 K/mm3 (0.0-0.1); Basophils Percent Auto 0.5 % (0.2-1.2); Eosinophils Absolute Auto 0.1 K/mm3 (0-0.3); Eosinophils Percent Auto 0.6 % (0-4.4); Hematocrit 47.2 % (42.0-52.0); Hemoglobin 15.7 g/dL (14.0-18.0); Immature Granulocyte Absolute 0.05 K/mm3 (0.00-0.031); Immature Granulocyte Percent A 0.4 % (0-0.5); Mean Corpuscular HGB Conc 33.3 g/dl (32-36); Mean Corpuscular Volume 90.2 fl (80-100); Mean Platelet Volume 8.8 fl (7.4-10.4); Monocytes Absolute Auto 0.6 K/mm3 (0.1-0.6); Monocytes Percent Auto 4.7 % (2.6-8.5); Neutrophils Absolute Auto 9.2 K/mm3 (1.3-6.7); Neutrophils Percent Auto 73.8 % (45.5-73.1); Platelet Count Result 199 k/mm3 (150-375); Red Blood Count 5.23 M/mm3 (4.6-6.20); Red Cell Distribution Width 13.1 % (11.5-14.5); White Blood Count 12.5 K/mm3 (4.5-10.0)
[2021-03-01 15:06] LABS: Lactic Acid Reflex 1.2 mmol/L (0.7-2.1)
[2021-03-01 15:47] LABS: Alanine Aminotransferase 18 U/L (4-50); Albumin Level 4.1 g/dL (3.5-5.1); Alkaline Phosphatase 45 U/L (38-126); Anion Gap 11 mmol/L (8-16); Aspartate Amino Transferase 20 U/L (17-59); Bilirubin,Total 0.8 mg/dL (0.2-1.3); Blood Urea Nitrogen 19 mg/dL (9-20); Calcium 9.4 mg/dL (8.4-10.2); Carbon Dioxide 25 mmol/L (22-30); Chloride 100 mmol/L (98-107); Estimated CRCL calculation 47 ml/min; Estimated Glomerular Filt Rate 48; Glucose 146 mg/dL (65-110); Lipase 147 U/L (23-300); Potassium 4.2 mmol/L (3.4-5.0); Sodium 136 mmol/L (137-145)
--- NOTE | 2021-03-01 15:59 | ED.GENADULT ---
HPI - General Adult General Chief complaint: Abdominal Pain Stated complaint: N/V X2D, HX SBO Time Seen by Provider: 03/01/21 14:19 History of Present Illness HPI narrative: Patient 85-year-old gentleman who presents the emergency department with chief complaint of abdominal pain and nausea and vomiting. The patient reports that he has history of bowel obstructions in the past has had lysis of adhesions before done at our facility by Dr. Garcia the patient reports that today he started feeling very nauseated we will get a go see his primary care physician and started vomiting. Patient states that his abdomen is not as distended and not as painful as previous episodes. Related Data Home Medications Medication Instructions Recorded Confirmed omega-3 fatty acids 1,000 mg 1,000 mg PO DAILY 10/07/19 01/12/21 capsule Allergies Allergy/AdvReac Type Severity Reaction Status Date / Time haloperidol Allergy Unknown Hallucinati Verified 03/01/21 14:18 ng Review of Systems Review of Systems: A 10 system review of systems was completed on the patient and is negative except for what is stated in the HPI. Nursing and ancillary documentation was reviewed. 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 No drug use. 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 Drinks alcohol infrequently. Full code. Nominates his to be the individual to make medical decision for him if he is unable. Smoking status: Never smoker Second hand tobacco smoke exposure: No Alcohol intake: current Alcohol use details: A few beers over the last month Substance use: never Spiritual care concerns: No Agree to blood products: Yes Exam Narrative: GENERAL: Well-appearing, well-nourished, and in no acute distress. HEAD: Normocephalic, atraumatic. EYES: PERRLA and EOMI. ENT: Nares clear, no rhinorrhea or epistaxis. Mucous membranes moist. NECK: Supple. CHEST: Clear to auscultation. No respiratory distress. HEART: Regular rate and rhythm. No murmur heard. Normal peripheral pulses. ABDOMEN: Soft, minimal tenderness to palpation, nondistended, normal active bowel sounds. EXTREMITIES: Normal range of motion. No edema. SKIN: Warm, dry, no rash. NEURO: No focal deficits. Alert and oriented x3. PSYCH: Normal mood and affect. Course Vital Signs Vital signs: Vital Signs Temperature 35.1 C L 03/01/21 14:11 Pulse Rate 102 H 03/01/21 14:11 Respiratory Rate 18 03/01/21 14:11 Blood Pressure 153/66 H 03/01/21 14:11 Pulse Oximetry 99 03/01/21 14:11 Temperature 35.1 C L 03/01/21 14:11 Pulse Rate 100 03/01/21 16:49 Respiratory Rate 38 H 03/01/21 16:49 Blood Pressure 156/75 H 03/01/21 16:49 Pulse Oximetry 100 03/01/21 16:49 Medical Decision Making Vital Signs Vital Signs: Vital Signs Temperature 35.1 C L 03/01/21 14:11 Pulse R
[2021-03-01] MEDS: ONDANSETRON INJ 4 MG/2 ML VIAL (16:23)
[2021-03-01 16:27] LABS: Add Urine Microscopic? YES; Appearance Urine Clear (Clear); Bacteria Urine Trace /hpf; Bilirubin Urine 1+ (Negative); Blood Urine Negative (Negative); Color Urine Amber (Yellow); Glucose Urine UA 1+ mg/dL (Negative); Ketones Urine Negative (Negative); Leukocyte Esterase Ur Negative LEU/UL (Negative); Mucus Urine Few /lpf; Nitrate Urine Negative (Negative); Protein Urine 1+ mg/dL (Negative); RBC Urine 0-2 /hpf (0-2); Specific Grav Ur 1.028 (1.001-1.035); Squamous Epithelial Cell Urine Rare /hpf (Few); Urobilinogen Urine Negative mg/dL (<2.0); WBC Urine 0-3 /hpf
[2021-03-01] MEDS: MORPHINE SULFATE (*CRX) 4 MG/ML INJ IV PUSH (16:43)
--- NOTE | 2021-03-01 17:00 | PM.IMHP ---
H&P: HPI History of Present Illness Date/Time: 03/01/21 17:00 Chief Complaint: Nausea and vomiting. Narrative: This is a pleasant 85-year-old male with history of small-bowel obstruction who presented to the emergency department earlier today for evaluation of nausea and vomiting. He endorses nausea over the last 24 hours and this morning he spoke with his primary care provider as he was hoping to get a prescription for Zofran. Shortly thereafter he developed abdominal distension and discomfort and he had several episodes of emesis thereafter. The symptoms are similar to those he has had with previous small-bowel obstructions and thus he came to the emergency department where indeed he was found to have a partial small-bowel obstruction. An NG tube has since been inserted and yielded nearly 2 L of opaque brownish yellow fluid. He had normal bowel movements yesterday (typically 3 a day as he is pretty consistent with taking MiraLax or Metamucil each day) and reports having a very small bowel movement early this morning. At the time my evaluation he feels quite a bit better with decompression. He denies fever, chills, sweats, chest pain, and shortness of breath. Review of Systems Review of Systems: Twelve systems were reviewed and are negative except for as per HPI. [facility] Past Medical History Medical History (Updated 03/01/21 @ 21:50 by Charito Tsang PA-C) Benign prostatic hyperplasia Diastolic CHF Diverticulosis With history of diverticulitis. Esophageal stricture Status post dilatation. 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 Type 2 diabetes mellitus with stage 1 chronic kidney disease Surgical History Surgical History (Updated 03/01/21 @ 21:50 by Charito Tsang PA-C) History of cholecystectomy History of laparotomy With adhesiolysis in 1998 and 2006. History of removal of cyst From chest wall. History of resection of small bowel (2006) With anastomosis. Family History Family History Father Family history of lung cancer Family history of malignant neoplasm Mother Family history of malignant neoplasm of breast in first degree relative Family history of malignant neoplasm Social History Social History (Updated 03/01/21 @ 21:45 by Charito G. Gerling, PA-C) Social History: The patient is as of late 2020. He lives in his own home in [place] and cares for his late 's 2 cats. 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 He is a lifelong nonsmoker and drinks alcohol infrequently. No drug use. He designates his son Barrett as his surrogate decision makers. Code status: Full code. Meds Home Medications and Allergies Home Medications Medication Instructions Recorded Confirmed Type blood sugar diagnostic #50 each 04/13/19 01/12/21 Rx blood-glucose meter #1 each 06/21/19 01/12/21 Rx metronidazole 500 mg tablet 500 mg PO Q8H #21 tablet 10/07/19 01/12/21 Rx omega-3 fatty acids 1,000 mg 1,000 mg PO DAILY 10/07/19 01/12/21 History capsule blood sugar diagnostic #100 each 02/21/20 01/12/21 Rx atorvastatin 10 mg tablet See Rx Instructions .ROUTE 04/04/20 01/12/21 Rx .COMPLEX #90 tablet olmesartan 40 See Rx Instructions .ROUTE 04/04/20 01/12/21 Rx mg-hydrochlorothiazide 12.5 mg .COMPLEX #90 tablet tablet omeprazole 40 mg capsule,delayed See Rx Instructions .ROUTE 04/04/20 01/12/21 Rx release .COMPLEX #90 cap sitagliptin 100 mg tablet See Rx Instructions .ROUTE 04/04/20 01/12/21 Rx .COMPLEX #90 tablet metoprolol tartrate 50 mg tablet 50 mg PO DAILY #180 tablet 08/18/20 01/12/21 Rx lancets 30 gauge #100 each 10/03/20 01/12/21 Rx glipizide 5 mg tablet 2.5 mg PO DAILY #45 tablet 01/15/21 Rx Allergies Allergy/AdvReac Type Severity Reaction Status Date / T
[2021-03-01] MEDS: LIDOCAINE HCL 2% GEL UROJET 10 ML PKG (17:59)
[2021-03-01 18:03] LABS: SARS-CoV-2 RNA PCR Negative
[2021-03-01] MEDS: SODIUM CHLORIDE 0.9% IV 1,000 ML 125 ML IV CONT (18:56)
--- NOTE | 2021-03-01 22:31 | ADMGEN ---
This patient, Cali aVsquez, was admitted to 3 [facility] Surg Room 315-01. Patient/family oriented to hospital policies and general routines including ID bracelet, bed and alarms, visiting hours, pain management, procedures, bathroom and other care routines, personal items, smoking policy, room service/diet, and visiting hours. Information on how to activate the Rapid Response Team has been discussed. Patient/Family are encouraged to report perceived risks to care and to ask questions if they do not understand what they are told or what they should do.
[2021-03-02 05:22] VITALS: PULSE 100; RESP 13; O2SAT 98
[2021-03-02 06:00] VITALS: BP 119/58; PULSE 82; RESP 16; TEMP 36.3; O2SAT 99
[2021-03-02 06:55] LABS: Hematocrit 43.8 % (42.0-52.0); Hemoglobin 14.8 g/dL (14.0-18.0); Mean Corpuscular HGB Conc 33.8 g/dl (32-36); Mean Corpuscular Hemoglobin 30.4 pg (26-34); Mean Corpuscular Volume 89.9 fl (80-100); Mean Platelet Volume 8.7 fl (7.4-10.4); Platelet Count Result 161 k/mm3 (150-375); Red Blood Count 4.87 M/mm3 (4.6-6.20); Red Cell Distribution Width 13.2 % (11.5-14.5); White Blood Count 9.5 K/mm3 (4.5-10.0)
[2021-03-02 07:07] LABS: Anion Gap 10 mmol/L (8-16); Blood Urea Nitrogen 24 mg/dL (9-20); Carbon Dioxide 25 mmol/L (22-30); Chloride 102 mmol/L (98-107); Estimated CRCL calculation 44 ml/min; Estimated Glomerular Filt Rate 45; Potassium 4.2 mmol/L (3.4-5.0); Sodium 137 mmol/L (137-145)
[2021-03-02 07:08] LABS: Glucose 135 mg/dL (65-110); Magnesium 1.9 mg/dL (1.6-2.3)
[2021-03-02 08:00] VITALS: PULSE 82; RESP 16; O2SAT 99
[2021-03-02 08:16] LABS: Glucose Point of Care 137 mg/dl (65-105)
[2021-03-02] MEDS: SODIUM CHLORIDE 0.9% IV 1,000 ML 125 ML IV CONT (08:16)
[2021-03-02] MEDS: PANTOPRAZOLE SODIUM IV 40 MG VIAL IV PUSH (08:18)
--- NOTE | 2021-03-02 08:29 | PM.CNGS ---
Assessment and Plan Assessment and plan (1) Small bowel obstruction: Code(s): K56.609 - Unspecified intestinal obstruction, unspecified as to partial versus complete obstruction Status: Acute Assessment and Plan: exam benign this am, cont bowel rest, NG decompression for now, will get SBS for further evaluation History of Present Illness Consult details Consult date: 03/02/21 Reason for consult: abdominal pain Requesting physician: Chica Roberts PA-C Narrative: Pt is a 85 y/o M presenting to ED yesterday c/o crampy abd pain, N/V. Pt is well known to our service having presented many times for SBO. Pt has had multiple abd surgeries in the past. Pt reports this particular episode has been coming on for the last 24-48 hours. Pt reports abd dist, crampy pain, and N/V. Pt reports he was really unable to keep much down. Pt has since been admitted and NG has been placed. Pt reports he feels much better at this time. Pt reports last BM was yesterday am. Review of Systems Constitutional: Constitutional: Reports anorexia, Denies chills, Reports fatigue, Denies fever(s), Denies increased appetite, Reports lethargy, Denies malaise, Reports poor appetite, Denies stops breathing during sleep, Reports weakness, Denies weight gain and Denies weight loss Eyes: Eyes: Reports no additional eye complaints ENT: Reports system reviewed and no additional complaints, except as documented Cardiovascular: Cardiovascular: Reports no additional cardiovascular complaints Respiratory: Respiratory: Reports no additional respiratory complaints Gastrointestinal: Gastrointestinal: Reports as per HPI, Reports abdominal pain, Reports belching, Reports bloating, Reports constipation, Reports GI cramping, Reports early satiety, Reports nausea and Reports vomiting Genitourinary: Genitourinary: Reports no additional male genitourinary complaints Musculoskeletal: Musculoskeletal: Reports no additional musculoskeletal complaints Integumentary/Breasts: Skin/Breast: Reports system reviewed and no additional complaints, except as docu Neurologic: Reports system reviewed and no additional complaints, except as documented Psychiatric: Psychiatric: Reports no additional psychiatric complaints Endocrine: Endocrine: Reports no additional endocrine complaints Hematologic/Lymphatic: Hematologic/Lymphatic: Reports no additional hematologic/lymphatic complaints Allergic/Immunologic: Allergic/Immunologic: Reports no additional allergic/immunologic complaints PMFSH Past Medical History Medical History Benign prostatic hyperplasia Diastolic CHF Diverticulosis With history of diverticulitis. Esophageal stricture Status post dilatation. 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 Type 2 diabetes mellitus with stage 1 chronic kidney disease Surgical History Surgical History History of cholecystectomy History of laparotomy With adhesiolysis in 1998 and 2006. History of removal of cyst From chest wall. History of resection of small bowel (2006) With anastomosis. Family History Family History Father Family history of lung cancer Family history of malignant neoplasm Mother Family history of malignant neoplasm of breast in first degree relative Family history of malignant neoplasm Social History Social History Social History: The patient is as of late 2020. He lives in his own home in [place] and cares for his late 's 2 cats. 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 He is a lifelong nonsmoker and drinks alcohol infrequently. No drug use. He designates his so
--- NOTE | 2021-03-02 10:33 | PC.NURSE ---
N.o received MD Mario bueno NG, clr liquid diet advice as tolerated to dM diet, pull NG if clr liquid tolerated then advice diet as tolerated.Possible d.c home this evening.
--- NOTE | 2021-03-02 11:56 | PC.NURSE ---
NG tube pulled pt tolerating dm diet well.
[2021-03-02 12:09] LABS: Glucose Point of Care 214 mg/dl (65-105)
[2021-03-02] MEDS: INSULIN ASPART (*BKC) 100 UNITS/ML SUB-Q (12:35)
--- NOTE | 2021-03-14 10:32 | PM.DS ---
DS: Admitting Diagnosis Discharge Date 03/02/21 DS: Discharge Diagnosis Discharge Diagnosis (1) Partial small bowel obstruction: Code(s): K56.600 - Partial intestinal obstruction, unspecified as to cause Status: Acute Assessment and Plan: CT shows findings of ileus verses recurrent partial small-bowel obstruction. NG tube has been inserted for decompression and he reports feeling much better at this time. Continue bowel rest. Repeat obstructive series in a.m. (2) Benign prostatic hyperplasia: Code(s): N40.0 - Benign prostatic hyperplasia without lower urinary tract symptoms Status: Acute Assessment and Plan: No acute issues. CT shows severe prostatomegaly and thickened bladder wall consistent with chronic cystitis. (3) Gastroesophageal reflux disease: Code(s): K21.9 - Gastro-esophageal reflux disease without esophagitis Status: Acute Assessment and Plan: Change omeprazole to Protonix IV while NPO. (4) Essential (primary) hypertension: Code(s): I10 - Essential (primary) hypertension Status: Chronic Assessment and Plan: Blood pressures were reviewed and they are reasonable. Monitor closely as he is NPO will not be receiving his antihypertensives. (5) Type 2 diabetes mellitus with stage 1 chronic kidney disease: Code(s): E11.22 - Type 2 diabetes mellitus with diabetic chronic kidney disease; N18.1 - Chronic kidney disease, stage 1 Status: Chronic Assessment and Plan: Initiate sliding scale insulin, Accu-Cheks, and hypoglycemic protocol. DS: Summary Time Spent with Patient Time attestation: Total time spent providing and/or coordinating discharge services: 25min Exam Narrative: General: Mildly ill-appearing male sitting up in bed. Weight: 120 kg. BMI: 35.9. HEENT: PERRL, EOMI. Sclerae anicteric. Conjunctiva moderately injected. Oral mucosa moist. NG tube in the right naris. Tacky mucous membranes Neck: Supple. No JVD. Respiratory: Lungs are clear to auscultation bilaterally. Cardiovascular: Regular rate and rhythm with S1-S2. Gastrointestinal: Abdomen is mildly distended with hypoactive bowel sounds. No significant tenderness to palpation over the abdomen. No guarding or rebound tenderness. Skin: Warm and dry. No rash or lesions on limited exam. Extremities: No cyanosis, clubbing, or significant edema. Radial and pedal pulses intact. Neurological: Alert. Cranial nerves 2-12 are grossly intact. No gross focal deficits to casual conversation. Psychiatric: Appropriate mood and affect. Discharge Plan Discharge Attending physician on discharge: Karol Mao Consulting providers: Geeta Martin ; Galen Boogie ; Glen Ascencio ; Charito Tsang ; Chalino Valentin Discharging Clinician: Chica Roberts Anticipated Discharge Date/Time: 03/02/21 14:08 Patient Disposition: Home, Self-Care Activity: as tolerated Diet: low fiber Discharge Instructions: Chica Roberts PA-C Hospitalist You were admitted into the hospital for a partial small-bowel obstruction. You had an NG tube placed which helped with removing all of the food and fluid that had built up. You are feeling much better at this time and your small-bowel follow-through showed no obstruction at this time. Your otherwise tolerating a diet without any issues. Your stable for discharge at this time. Follow up with your Primary Care Provider within 1 week of discharge to further evaluate you on your recovery. Return to the ER if you have any new or worsening symptoms of chest pain, shortness of breath, fever, chills, abdominal pain, vomiting, diarrhea or any other concerning symptoms. Good luck with your recovery! Patient Instructions: Bowel Obstruction (DC) Stand Alone Forms: General Discharge Information
--- NOTE | 2021-03-28 17:44 | PM.DS ---
DS: Admitting Diagnosis Discharge Date 03/02/21 Admitting Diagnosis Abd distention/vomiting DS: Discharge Diagnosis Discharge Diagnosis (1) Partial small bowel obstruction: Code(s): K56.600 - Partial intestinal obstruction, unspecified as to cause Status: Acute Assessment and Plan: Patient is an 85-year-old man with a history of small-bowel obstruction, CHF, hypertension, dyslipidemia, diabetes with CKD, who presented to the emergency room for evaluation of nausea and vomiting for the last 24 hours. Symptoms felt similar to his prior small-bowel obstructions and after he began vomiting he needed to come to the emergency room for further evaluation. Initial vitals showed elevated blood pressure 153/66, slight tachycardia at 102 beats per minute, afebrile, normal oxygen saturation 99% on room air. Initial labs showed slight leukocytosis at 12,000, normal H&H, slight elevation neutrophil count is 73%. Baseline creatinine of 1.4, BUN normal at 19, normal lactic acid, normal LFTs. Normal lipase. Urinalysis shows no signs of infection. Negative COVID testing. Abdominal CT abdomen pelvis showed findings consistent with ileus versus recurrent small-bowel obstruction. Severe prostatomegaly. Bladder wall thickening consistent with chronic cystitis. An NG tube was placed and 2 L of material was suctioned out of his stomach. Patient was admitted into the hospital with a consult to General surgery with NG tube in place and IV fluid hydration. Surgery ordered a small-bowel follow-through which showed Moderate nonobstructive dilatation of the proximal jejunum, possibly secondary to mid small bowel resection; no evidence of bowel obstruction. Contrast material reaches the colon within 45 minutes. General surgery lab the patient to eat a regular diet any tolerated well without any issues. Patient is feeling much better he was able to be discharged home in stable condition to continue eating a regular diet and follow-up with General surgery if he has any more issues or concerns. Follow-up PCP in 1 week. Return to ER warnings given. The patient understands agrees the plan all questions answered. (2) Benign prostatic hyperplasia: Code(s): N40.0 - Benign prostatic hyperplasia without lower urinary tract symptoms Status: Acute Assessment and Plan: No acute issues. CT shows severe prostatomegaly and thickened bladder wall consistent with chronic cystitis. (3) Gastroesophageal reflux disease: Code(s): K21.9 - Gastro-esophageal reflux disease without esophagitis Status: Acute Assessment and Plan: PPI (4) Essential (primary) hypertension: Code(s): I10 - Essential (primary) hypertension Status: Chronic Assessment and Plan: Blood pressures were reviewed and they are reasonable. Continue on home medications. (5) Type 2 diabetes mellitus with stage 1 chronic kidney disease: Code(s): E11.22 - Type 2 diabetes mellitus with diabetic chronic kidney disease; N18.1 - Chronic kidney disease, stage 1 Status: Chronic Assessment and Plan: Continue on diabetes regimen at discharge DS: Summary Hospital Course Hospital Course: See above Status at Discharge Cognitive/behavioral status at discharge: Stable, improved. Time Spent with Patient Time attestation: Total time spent providing and/or coordinating discharge services: Time spent: Greater than 30 minutes Exam Narrative: General: 85-year-old man sitting up in the chair with his normal clothes on waiting to be discharged home. Appears comfortable. In no acute distress. Skin: No jaundice or cyanosis. Good skin turgor. Neck: Full range of motion. Supple. Respiratory: Lungs are clear to auscultation bilaterally. No bony chest wall tenderness. Cardiovascular: The heart has a regular rate and rhythm without murmur. Lower extremities: No lower extremity edema. Distal pulses are easily palp
== END 2021-03-02 14:45 | disposition home or self-care (01) | DRG 389 ==
LOC: ANHED 17:29 → ANH2MED 20:48 → ANH3MEDSUR 20:54
PROVIDERS: Physician Assistant; Admitting Provider Internal Medicine; Emergency Provider Emergency Medicine; PCP Internal Medicine; Visit Provider Internal Medicine
DX: K56.600 Partial intestinal obstruction, unspecified as to cause (principal); I13.0 Hypertensive heart and chronic kidney disease with heart failure and stage 1 through stage 4 chronic kidney disease, or unspecified chronic kidney disease; I50.32 Chronic diastolic (congestive) heart failure; E11.22 Type 2 diabetes mellitus with diabetic chronic kidney disease; N18.1 Chronic kidney disease, stage 1; Z20.822 Contact with and (suspected) exposure to COVID-19; K21.9 Gastro-esophageal reflux disease without esophagitis; K58.9 Irritable bowel syndrome, unspecified; K57.90 Diverticulosis of intestine, part unspecified, without perforation or abscess without bleeding; N40.0 Benign prostatic hyperplasia without lower urinary tract symptoms; E78.5 Hyperlipidemia, unspecified; Z79.84 Long term (current) use of oral hypoglycemic drugs; Z79.899 Other long term (current) drug therapy
CPT/HCPCS: 36415; 74019; 74177; 74250; 80048; 80053; 81001; 82948; 83605; 83690; 83735; 85025; 85027; 96361; 96374; 96375; 96376; 99285; C9113; C9803; G0378; J1815; J2270; J2405; J7030; Q9967; U0003; U0005

== ENCOUNTER 2021-11-06 08:15 | Outpatient (CLI) | payer MEDICARE, SELFPAY ==
--- NOTE | 2021-11-06 11:00 | NEURO_ITS ---
IM[RESSION: History of numbness/tingling over digits 1-3 This is an abnormal electrodiagnostic study due to the presence of: # Severe right carpal tunnel syndrome. # Right ulnar neuropathy (with sensorimotor involvement). # EMG examination showed evidence of active denervation involving the right abductor pollicis longus muscle. # Clinical correlation is recommended. Nerve Conduction Studies Anti Sensory Summary Table Stim Site NR Peak (ms) P-T Amp (?V) Site1 Site2 Delta-P (ms) Dist (cm) George (m/s) Right Median Anti Sensory (2-3nd Digit) Wrist NR Wrist 2-3nd Digit 14.0 Wrist NR Wrist 2-3nd Digit 14.0 Right Radial Anti Sensory (Base 1st Digit) Wrist 2.4 16.3 Wrist Base 1st Digit 2.4 0.0 Right Ulnar Anti Sensory (5th Digit) Wrist 3.4 8.9 Wrist 5th Digit 3.4 14.0 41 Motor Summary Table Stim Site NR Onset (ms) O-P Amp (mV) Site1 Site2 Delta-0 (ms) Dist (cm) George (m/s) Right Median Motor (Abd Poll Brev) Wrist 9.1 1.7 Right Ulnar Motor (Abd Dig Minimi) Wrist 3.8 2.8 A Elbow Wrist 6.0 34.5 57 A Elbow 9.8 1.5 B Elbow Wrist 3.8 26.0 68 B Elbow 7.6 1.6 F Wave Studies NR F-Lat (ms) L-R F-Lat (ms) Right Median (Mrkrs) (Abd Poll Brev) 25.20 Right Ulnar (Mrkrs) (Abd Dig Min) 20.61 EMG Side Muscle Nerve Root Ins Act Fibs Amp Dur Recrt Comment Right 1stDorInt Ulnar C8-T1 Nml Nml Nml Nml Nml Right Ext Indicis Radial (Post Int) C7-8 Nml Nml Nml Nml Nml Right Ext Digitorum Radial (Post Int) C7-8 Nml Nml Nml Nml Nml Right BrachioRad Radial C5-6 Nml Nml Nml Nml Nml Right PronatorTeres Median C6-7 Nml Nml Nml Nml Nml Right Abd Poll Brev Median C8-9 Inc Inc Nml Nml Nml . MTDD
== END 2021-11-06 08:16 | disposition home or self-care (01) ==
LOC: ANHNEURO 08:16
PROVIDERS: PCP Internal Medicine; Visit Provider Orthopaedic Surgery
DX: G56.01 Carpal tunnel syndrome, right upper limb (principal)
CPT/HCPCS: 95886; 95909

== ENCOUNTER 2022-04-05 10:58 | Inpatient (IN) | payer MEDICARE, SELFPAY ==
--- NOTE | ~2022-04-05 | XR_ITS ---
XR abdomen/kub 1V DATE: 04/06/2022 10:50 INDICATION: Evaluate NG tube position; NG tube not draining TECHNIQUE: Supine AP views COMPARISON: 04/06/2022 portable AP view at 0547 hours FINDINGS: The NG tube appears to make an acute nearly 180 degree right turn suggesting possible kink just beyond the diaphragmatic hiatus. The distal tip of the NG tube overlies the distal body of the s tomach. Large calcified gallstone. IMPRESSION: Possible kinked NG tube just beyond the diaphragmatic hiatus Reviewed, dictated and finalized at [facility]. Reviewed, dictated and finalized at location A. INE CANDLE MOLDER
--- NOTE | ~2022-04-05 | XR_ITS ---
EXAM: XR abdomen NG/feed tube rechec DATE: 04/07/2022 14:17 HISTORY: advanced ng placement . COMPARISON: 04/07/2022. FINDINGS: NG tube, tip in the gastric antrum, side port at the gastric body. Subsegmental bibasilar lung opacities. Dilated bowel loop over the left mid abdomen. No organomegaly. No abnormal abdominal calcification. Degenerative changes in the spine. IMPRESSION: NG tube terminates in the stomach. Reviewed, dictated and finalized at location [facility]. L SUPPORT SPECIALIST
--- NOTE | ~2022-04-05 | CT_ITS ---
EXAMINATION: CT abdomen pelvis w con DATE: 04/05/2022 13:03 INDICATION: Obstruction. TECHNIQUE: Computed tomography (CT) of the abdomen and pelvis was performed with 100 cc Omnipaque 350 intravenous contrast. The dose-length product was 1049.51 mGy-cm. Automated exposure control and ite rative reconstruction technique were employed. COMPARISON: CT dated 03/01/2021. FINDINGS: There is moderate distention of the stomach, duodenum and jejunum with probable transition in the left abdomen. The mid and distal small bowel are decompressed. The colon is decompressed. Fatty infiltration of the liver. Several small subcentimeter hypodensities of the liver, most likely benign. There are gallstones. There are calcified granulomas of the spleen. The pancreas, adrenal gla nds are unremarkable. There are bilateral renal cysts. There is atherosclerosis of the aorta without aneurysm. No lymphadenopathy. Bladder wall is thickened, likely secondary to outlet obstruction from enlarged prostate gland. No lymphadenopathy. No free air or free fluid. There is moderate lower lumba r spondylosis. IMPRESSION: 1. Small bowel obstruction. 2: Bladder wall thickening, likely due to outlet obstruction from enlarged prostate gland. 3: Cholelithiasis. Reviewed, dictated and finalized at location [facility]. UCT SAFETY TECHNICAL ASSISTANT IMPRESSION: 1. Small bowel obstruction. 2: Bladder wall thickening, likely due to outlet obstruction from enlarged pros francisco gland. 3: Cholelithiasis.
--- NOTE | ~2022-04-05 | XR_ITS ---
XR abdomen NG/feed tube rechec DATE: 04/07/2022 13:44 INDICATION: Recheck NG tube position TECHNIQUE: Portable upright AP view on April 07, 2022 at 1341 hours COMPARISON: None FINDINGS: NG tube tip overlies the gastric fundus, the proximal side-port approximately 2 cm proximal to the diaphragmatic hiatus. Calcified gallstone. Gas distended small bowel. IMPRESSION: Proximal side-port of NG tube is 2 cm proximal to the diaphragmatic hiatus, the distal ti p of the NG tube overlying the gastric fundus Reviewed, dictated and finalized at [facility]. Reviewed, dictated and finalized at location A. ROUTE DRIVER IMPRESSION: Proximal side-port of NG tube is 2 cm proximal to the diaphragmatic hiatus, the distal tip of the NG tube overlying the gastric fundus
--- NOTE | ~2022-04-05 | XR_ITS ---
XR abdomen NG/feed tube insert INDICATION: Evaluate NG tube position. TECHNIQUE: Limited KUB perform for evaluating NG tube . COMPARISON: 03/02/2021 FINDINGS: NG tube tip in the stomach. Visualized bowel gas pattern is unremarkable.There is residual contrast in nondilated renal collecting systems. IMPRESSION: 1: NG tube tip in the stomach. Reviewed, dictated and finalized at location [facility]. DER WORKER
--- NOTE | ~2022-04-05 | XR_ITS ---
XR abdomen/kub 1V DATE: 04/07/2022 06:35 INDICATION: Small bowel obstruction TECHNIQUE: 3 portable supine AP views of the abdomen and pelvis COMPARISON: 04/06/2022 KUB April 05, 2022 CT abdomen pelvis FINDINGS: NG tube in gastric fundus. There are some mildly dilated gas distended small bowel segments overlying the central and left mid t o upper abdomen. The psoas shadows are intact. No visceromegaly is evident. No significant abnormal calcification is n oted. IMPRESSION: NG tube in stomach Persistent partial small bowel obstruction is suspected Reviewed, dictated and finalized at [facility]. Reviewed, dictated and finalized at location A. TIZER OPERATOR
--- NOTE | ~2022-04-05 | XR_ITS ---
XR abdomen/kub 1V DATE: 04/06/2022 06:02 INDICATION: Small bowel obstruction TECHNIQUE: 2 portable supine AP views COMPARISON: April 05, 2022 KUB FINDINGS: NG tube tip in body of stomach. 1.8 cm calcified gallstone. Mildly gas distended small bowel overlies the left midabdomen. The psoas shadows are intact. No visceromegaly is evident. Heart size appears within normal limits. IMPRESSION: Mild small bowel distention NG tube in stomach Cholelithiasis Reviewed, dictated and finalized at [facility]. Reviewed, dictated and finalized at location A. APPARATUS SPRINKLER INSPECTOR
--- NOTE | ~2022-04-05 | XR_ITS ---
EXAMINATION: XR sm bowel follow through DATE: 04/08/2022 14:06 INDICATION: Small bowel obstruction. TECHNIQUE: Oral contrast was administered, and a time course of radiographs of the abdomen was obtain ed. Fluoroscopy of the small bowel was not performed. Fluoroscopy exposure time was 0 minutes. The to bassam number of images was 3. COMPARISON: CT abdomen and pelvis 04/05/2022 FINDINGS: The nasogastric tube tip is in the stomach. There are no dilated loops of bowel. Transit time from th e stomach to proximal colon was approximately 30 minutes. IMPRESSION: 1. Normal small bowel series. Reviewed, dictated and finalized at location A. RINARY PRACTICE MANAGER
--- NOTE | ~2022-04-05 | XR_ITS ---
Supine views of the abdomen Clinical history: Small bowel obstruction Findings: NG tube in place. Several minimally distended small bowel loops noted in the left midabdome n. No free air. No abnormal mass lesion or calcification is seen. Osseous structures are intact. Impression: NG tube with several minimally distended left-sided small bowel loops. Reviewed, dictated and finalized at [facility]. NTIST PROPAGATOR Impression: NG tube with several minimally distended left-sided small bowel loops.
--- NOTE | ~2022-04-05 | XR_ITS ---
EXAM: XR abdomen NG/feed tube insert DATE: 04/06/2022 14:50 HISTORY: NG tube placement . COMPARISON: Same date at 10:46 AM. FINDINGS: Streaky bibasilar scar/atelectasis. NG tube, tip and side port project over the stomach. U nremarkable bowel gas pattern. IMPRESSION: NG tube, in good position. Reviewed, dictated and finalized at location [facility]. REVIEWER IMPRESSION: NG tube, in good position.
[2022-04-05 10:59] VITALS: BP 125/69; PULSE 87; RESP 18; TEMP 35.7; O2SAT 98
[2022-04-05 11:16] LABS: Basophils Absolute Auto 0.1 K/mm3 (0.0-0.1); Basophils Percent Auto 0.4 % (0.2-1.2); Eosinophils Absolute Auto 0.1 K/mm3 (0-0.3); Hematocrit 44.7 % (42.0-52.0); Hemoglobin 15.6 g/dL (14.0-18.0); Immature Granulocyte Absolute 0.05 K/mm3 (0.00-0.031); Immature Granulocyte Percent A 0.4 % (0-0.5); Lymphocytes Absolute Auto 1.71 K/mm3 (0.9-3.2); Lymphocytes Percent Auto 12.6 % (18.3-44.2); Mean Corpuscular HGB Conc 34.9 g/dl (32-36); Mean Corpuscular Hemoglobin 30.5 pg (26-34); Mean Corpuscular Volume 87.3 fl (80-100); Mean Platelet Volume 8.4 fl (7.4-10.4); Monocytes Absolute Auto 0.3 K/mm3 (0.1-0.6); Monocytes Percent Auto 2.5 % (2.6-8.5); Neutrophils Absolute Auto 11.2 K/mm3 (1.3-6.7); Neutrophils Percent Auto 83.1 % (45.5-73.1); Platelet Count Result 201 k/mm3 (150-375); Red Blood Count 5.12 M/mm3 (4.6-6.20); Red Cell Distribution Width 13.5 % (11.5-14.5); White Blood Count 13.5 K/mm3 (4.5-10.0)
[2022-04-05 11:26] LABS: Alanine Aminotransferase 24 U/L (6-50); Albumin Level 4.5 g/dL (3.5-5.1); Alkaline Phosphatase 46 U/L (38-126); Anion Gap 6 mmol/L (8-16); Aspartate Amino Transferase 22 U/L (17-59); Bilirubin,Total 0.8 mg/dL (0.2-1.3); Blood Urea Nitrogen 14 mg/dL (9-20); Carbon Dioxide 28 mmol/L (22-30); Chloride 100 mmol/L (98-107); Estimated CRCL calculation 56 ml/min; Estimated Glomerular Filt Rate > 60; Glucose 173 mg/dL (65-110); Lipase 254 U/L (23-300); Potassium 3.9 mmol/L (3.4-5.0); Sodium 134 mmol/L (137-145)
[2022-04-05 12:45] VITALS: O2SAT 94
[2022-04-05 13:14] LABS: Appearance Urine Clear (Clear); Bacteria Urine None Seen /hpf; Bilirubin Urine Negative (Negative); Blood Urine Negative (Negative); Color Urine Dark Yellow (Yellow); Glucose Urine UA Negative (Negative); Ketones Urine Trace mg/dL (Negative); Leukocyte Esterase Ur Negative LEU/UL (Negative); Mucus Urine Present /lpf; Nitrate Urine Negative (Negative); Protein Urine 1+ mg/dL (Negative); Specific Grav Ur 1.024 (1.001-1.035); Squamous Epithelial Cell Urine None seen /hpf (Few); Urobilinogen Urine 0.2 mg/dL (<2.0); WBC Urine 0-5 /hpf
[2022-04-05 13:22] LABS: Hyaline Casts Urine Present /lpf
--- NOTE | 2022-04-05 13:23 | ED.ABDPAIN ---
HPI - Abdominal Pain General Chief Complaint: Abdominal Pain Stated Complaint: vomiting-history of SBO Time Seen by Provider: 04/05/22 12:29 History of Present Illness HPI narrative: Patient is an 86-year-old male who presents ER with abdominal pain and vomiting. Patient has history of small bowel obstruction. She has been seen by Dr. Garcia in the past. Reports he ate some pizza last night and then today started having the discomfort in his abdomen. No fevers or chills or sweats. 4 episodes of emesis today. No alleviating factors. Patient reports passing a small amount of gas this morning. Related Data Home Medications Medication Instructions Recorded Confirmed omega-3 fatty acids 1,000 mg 1,000 mg PO DAILY 10/07/19 04/05/22 capsule (Fish Oil Concentrate) metoprolol tartrate 50 mg tablet 50 mg PO DAILY 04/05/22 04/05/22 Allergies Allergy/AdvReac Type Severity Reaction Status Date / Time haloperidol Allergy Unknown Hallucinati Verified 01/18/22 12:56 ng Review of Systems Review of Systems: All systems reviewed & are unremarkable except as noted in HPI and below Constitutional: Constitutional: Denies chills, Denies fatigue and Denies fever(s) ENT: Denies nasal congestion and Denies sore throat Cardiovascular: Cardiovascular: Denies chest pain and Denies radiating jaw, neck or arm pain Respiratory: Respiratory: Denies cough and Denies dyspnea Gastrointestinal: Gastrointestinal: Reports abdominal pain, Denies diarrhea, Reports nausea and Reports vomiting PMF Past Medical History Medical History Benign prostatic hyperplasia Diastolic CHF Diverticulosis With history of diverticulitis. Esophageal stricture Status post dilatation. 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 Type 2 diabetes mellitus with stage 1 chronic kidney disease Surgical History Surgical History History of carpal tunnel surgery of right wrist History of cholecystectomy History of laparotomy With adhesiolysis in 1998 and 2006. History of removal of cyst From chest wall. History of resection of small bowel (2006) With anastomosis. Family History Family History Father Family history of lung cancer Family history of malignant neoplasm Mother Family history of malignant neoplasm of breast in first degree relative Family history of malignant neoplasm Social History Social History (Updated 04/05/22 @ 14:53 by Charito Tsang PA-C) Social History: The patient is as of late 2020. He lives in his own home in [place]. 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 No drug use. He designates his sons Jay and Angel as his surrogate decision makers. Code status: Full code. Smoking status: Never smoker Alcohol intake: current Drinks per week: 2 Substance use: never Lack of Transportation: No Lack of Food: Never True Current Housing: I Have Housing Concerned About Future Housing: No Difficulty Paying Gas/Electric Bills: No Difficulty Paying for Meds: No Currently Unemployed: No Education: Master's Degree or Higher Difficulty w/ Childcare or Family Care: No Spiritual care concerns: No Exam Narrative: GENERAL: Well-appearing, well-nourished, and in no acute distress. HEAD: Normocephalic, atraumatic. ENT: Mucous membranes moist. NECK: Supple. CHEST: Clear to auscultation. No respiratory distress. HEART: Regular rate and rhythm. Normal peripheral pulses. ABDOMEN: Soft, nontender, mildly distended with hypoactive bowel sounds. EXTREMITIES: Normal range of motion. No edema. SKIN: Warm, dry, no mel
[2022-04-05 13:30] LABS: Add Urine Microscopic? YES
[2022-04-05] MEDS: ONDANSETRON INJ 4 MG/2 ML VIAL IV PUSH ×2 (13:57→19:41)
[2022-04-05] MEDS: BENZOCAINE/TETRACAINE SPRAY (*SP) 56 ML AEROSOL 1 SPRAY (13:57)
--- NOTE | 2022-04-05 14:00 | PM.IMHP ---
H&P: HPI History of Present Illness Date/Time: 04/05/22 14:00 Chief Complaint: Nausea and vomiting. Narrative: This is a very pleasant 86-year-old gentleman with history of small-bowel obstructions, hypertension, and diabetes who presented to the emergency department from home for evaluation of nausea and vomiting. Patient provides the following history. Around 09:00 he developed nausea followed by multiple episodes of emesis in addition to generalized abdominal distension and discomfort. Symptoms are the same as those he has experienced with prior bowel obstructions and CT of the abdomen/pelvis indeed showed evidence of small-bowel obstruction with moderate distension of the stomach, duodenum, and jejunum with probable transition the left abdomen. An NG tube has since been inserted and in a short period of time at least 500 mL of opaque brownish fluid have drained. He reports having a normal bowel movement in the last 24 hours. Vital signs have been stable. No significant electrolyte noted on labs. He is being admitted in this setting for further care and surgery consultation. Review of Systems Review of Systems: Twelve systems were reviewed. No fever, chills, or sweats. No recent cold or flu symptoms. No chest pain or shortness of breath. Denies hematemesis. Except as documented, all other systems were reviewed and are negative. [facility] Past Medical History Medical History Benign prostatic hyperplasia Diastolic CHF Diverticulosis With history of diverticulitis. Esophageal stricture Status post dilatation. 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 Type 2 diabetes mellitus with stage 1 chronic kidney disease Surgical History Surgical History History of carpal tunnel surgery of right wrist History of cholecystectomy History of laparotomy With adhesiolysis in 1998 and 2006. History of removal of cyst From chest wall. History of resection of small bowel (2006) With anastomosis. Family History Family History Father Family history of lung cancer Family history of malignant neoplasm Mother Family history of malignant neoplasm of breast in first degree relative Family history of malignant neoplasm Social History Social History (Updated 04/05/22 @ 14:53 by Charito Tsang PA-C) Social History: The patient is as of late 2020. He lives in his own home in [place]. 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 No drug use. He designates his sons Jay and Angel as his surrogate decision makers. Code status: Full code. Lack of Transportation: No Lack of Food: Never True Current Housing: I Have Housing Concerned About Future Housing: No Difficulty Paying Gas/Electric Bills: No Difficulty Paying for Meds: No Currently Unemployed: No Education: Master's Degree or Higher Difficulty w/ Childcare or Family Care: No Spiritual care concerns: No Meds Home Medications and Allergies Home Medications Medication Instructions Recorded Confirmed Type omega-3 fatty acids 1,000 mg 1,000 mg PO DAILY 10/07/19 01/18/22 History capsule (Fish Oil Concentrate) blood sugar diagnostic (OneTouch #100 ea 04/24/21 01/18/22 Rx Ultra Test strips) glipizide 5 mg tablet 2.5 mg PO DAILY #45 tabs 07/19/21 01/18/22 Rx atorvastatin 10 mg tablet 10 mg PO QPM #90 tabs 09/26/21 01/18/22 Rx omeprazole 40 mg capsule,delayed 40 mg PO DAILY #90 caps 09/26/21 01/18/22 Rx release sitagliptin phosphate 100 mg 100 mg PO DAILY #90 tabs 09/26/21 01/18/22 Rx tablet (Januvia) blood sugar diagnostic (OneTouch #100 strips 10/22/2101/18
[2022-04-05 14:19] LABS: Influenza A QL RT-PCR Negative (Negative); Influenza B QL RT-PCR Negative (Negative); SARS-CoV-2 RNA PCR Negative
[2022-04-05] MEDS: SODIUM CHLORIDE 0.9% IV 1,000 ML 100 ML IV CONT (14:38)
--- NOTE | 2022-04-05 15:57 | ADMGEN ---
This patient, Cali Vasquez, was admitted to [facility] Surg Room [id number]. Patient/family oriented to hospital policies and general routines including ID bracelet, bed and alarms, visiting hours, pain management, procedures, bathroom and other care routines, personal items, smoking policy, room service/diet, and visiting hours. Information on how to activate the Rapid Response Team has been discussed. Patient/Family are encouraged to report perceived risks to care and to ask questions if they do not understand what they are told or what they should do.
[2022-04-05 16:00] VITALS: BP 136/72; PULSE 92; RESP 16; TEMP 36.4; O2SAT 99
[2022-04-05 17:00] LABS: Glucose Point of Care 126 mg/dl (65-105)
--- NOTE | 2022-04-05 19:17 | PM.CNGS ---
Assessment and Plan Assessment and plan (1) Small bowel obstruction: Code(s): K56.609 - Unspecified intestinal obstruction, unspecified as to partial versus complete obstruction Status: Acute Assessment and Plan: Hopefully will resolve as it has many times in the past. He would very much like to make an appointment with his eye doctor on Friday. I hope we can accommodate. Continue NPO except ice chips, NG suction, serial plain films of the abdomen and IV fluids. 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 He started having episodes of mild abdominal pain and nausea. He then started vomiting. He has had multiple bowel obstructions and pretty much nose when he has another 1. He has had about 4 episodes of vomiting. In the emergency room he had a CT scan which confirmed a small bowel obstruction. A nasogastric tube was placed in a large amount of gastric content came out. Since being admitted to the floor he has also had at least another 400 cc of NG tube output and definitely feels better. He had really very little abdominal pain. He is seen now in consultation regarding recurrent small-bowel obstruction. Review of Systems Review of Systems: All systems reviewed & are unremarkable except as noted in HPI and below (P HPI and those items noted below) Constitutional: Constitutional: Denies chills and Denies fever(s) Cardiovascular: Cardiovascular: Denies chest pain, Denies diaphoresis, Denies dyspnea and Denies paroxysmal nocturnal dyspnea Respiratory: Respiratory: Denies chest congestion, Denies cough and Denies dyspnea Integumentary/Breasts: Skin/Breast: Denies lesions and Denies rash [facility] Past Medical History Medical History Benign prostatic hyperplasia Diastolic CHF Diverticulosis With history of diverticulitis. Esophageal stricture Status post dilatation. 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 Type 2 diabetes mellitus with stage 1 chronic kidney disease Surgical History Surgical History History of carpal tunnel surgery of right wrist History of cholecystectomy History of laparotomy With adhesiolysis in 1998 and 2006. History of removal of cyst From chest wall. History of resection of small bowel (2006) With anastomosis. Family History Family History Father Family history of lung cancer Family history of malignant neoplasm Mother Family history of malignant neoplasm of breast in first degree relative Family history of malignant neoplasm Social History Social History (Updated 04/05/22 @ 14:53 by Charito Tsang PA-C) Social History: The patient is as of late 2020. He lives in his own home in [place]. 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 No drug use. He designates his sons Jay and Angel as his surrogate decision makers. Code status: Full code. Smoking status: Never smoker Alcohol intake: current Drinks per week: 2 Substance use: never Lack of Transportation: No Lack of Food: Never True Current Housing: I Have Housing Concerned About Future Housing: No Difficulty Paying Gas/Electric Bills: No Difficulty Paying for Meds: No Currently Unemployed: No Education: Master's Degree or Higher Difficulty w/ Childcare or Family Care: No Spiritual care concerns: No Meds Home Medications and Allergies Home Medications Medi
[2022-04-05 20:00] VITALS: BP 140/62; PULSE 84; RESP 16; TEMP 35.8; O2SAT 97
[2022-04-06] VITALS: BP 135/61; PULSE 92; RESP 20; TEMP 36.3; O2SAT 96
--- NOTE | 2022-04-06 01:06 | PC.NURSE ---
According to pt chart the pt left the ER at 1623. The chart is still on the ED tracker at 0107 and will be removed by this RN at this time.
[2022-04-06 01:12] LABS: Glucose Point of Care 132 mg/dl (65-105)
[2022-04-06] MEDS: SODIUM CHLORIDE 0.9% IV 1,000 ML 100 ML IV CONT ×2 (03:13→16:23)
[2022-04-06 04:00] VITALS: BP 132/99; PULSE 110; RESP 20; TEMP 35.5; O2SAT 97
[2022-04-06] MEDS: ONDANSETRON INJ 4 MG/2 ML VIAL IV PUSH ×2 (05:01→16:30)
[2022-04-06 06:12] LABS: Glucose Point of Care 177 mg/dl (65-105)
[2022-04-06 08:06] LABS: Hematocrit 42.6 % (42.0-52.0); Hemoglobin 14.3 g/dL (14.0-18.0); Mean Corpuscular HGB Conc 33.6 g/dl (32-36); Mean Corpuscular Hemoglobin 30.6 pg (26-34); Mean Corpuscular Volume 91.2 fl (80-100); Mean Platelet Volume 8.9 fl (7.4-10.4); Platelet Count Result 168 k/mm3 (150-375); Red Blood Count 4.67 M/mm3 (4.6-6.20); Red Cell Distribution Width 13.6 % (11.5-14.5); White Blood Count 9.3 K/mm3 (4.5-10.0)
[2022-04-06] MEDS: PANTOPRAZOLE SODIUM IV 40 MG VIAL IV PUSH (08:10)
[2022-04-06] MEDS: ENOXAPARIN 40 MG/0.4 ML SYRINGE SUB-Q (08:11)
[2022-04-06 08:12] LABS: Anion Gap 6 mmol/L (8-16); Blood Urea Nitrogen 19 mg/dL (9-20); Calcium 9.1 mg/dL (8.4-10.2); Carbon Dioxide 29 mmol/L (22-30); Chloride 103 mmol/L (98-107); Estimated CRCL calculation 51 ml/min; Estimated Glomerular Filt Rate 58; Glucose 145 mg/dL (65-110); Potassium 3.9 mmol/L (3.4-5.0); Sodium 138 mmol/L (137-145)
[2022-04-06 08:20] VITALS: BP 120/68; PULSE 93; RESP 18; TEMP 36.3; O2SAT 96
--- NOTE | 2022-04-06 11:42 | PM.IMPN ---
Progress Note: A&P Assessment and Plan (1) Small bowel obstruction: Code(s): K56.609 - Unspecified intestinal obstruction, unspecified as to partial versus complete obstruction Status: Acute (2) Type 2 diabetes mellitus with stage 1 chronic kidney disease: Code(s): E11.22 - Type 2 diabetes mellitus with diabetic chronic kidney disease; N18.1 - Chronic kidney disease, stage 1 Status: Chronic (3) Essential (primary) hypertension: Code(s): I10 - Essential (primary) hypertension Status: Chronic (4) Benign prostatic hyperplasia: Code(s): N40.0 - Benign prostatic hyperplasia without lower urinary tract symptoms Status: Acute Plan The patient presented to the emergency department for evaluation of nausea, vomiting, and abdominal discomfort which started about 09:00. Labs, imaging, and all reports were personally reviewed. CT of the abdomen and pelvis shows evidence of small-bowel obstruction as per HPI. NG tube has been inserted for decompression, hopefully this will resolve with supportive treatment. General surgery has been consulted as well. He has not any significant amounts of pain but IV Tylenol is available as needed. Random glucose today was 173. Hold oral hypoglycemics as he is currently NPO. Initiate sliding scale insulin, Accu-Cheks, and hypoglycemic protocol. Recent hemoglobin A1c was 5.7%. Blood pressures are stable and will be monitored closely while he is NPO. No acute issues with urinary retention. Subjective Date/time seen: 04/06/22 11:42 No new complaints Exam Narrative: General:?Mildly ill-appearing male sitting up in bed. Weight: 112.49 kg. BMI: 33.6. HEENT:??PERRL, EOMI.? Sclerae anicteric. NG tube in the right naris draining opaque brown fluid. There is a small amount of blood coming from the right naris as well. Tacky mucous membranes Neck:??Supple. No JVD. Respiratory:?Lungs are clear to auscultation bilaterally. Cardiovascular:??Regular rate and rhythm with S1-S2. Gastrointestinal:??Abdomen is mildly distended with quiet bowel sounds. No significant tenderness to palpation over the abdomen.? No guarding or rebound tenderness. Skin:??Warm and dry.? No rash or lesions on limited exam. Extremities:??No cyanosis, clubbing, or significant edema. Radial and pedal pulses intact. Neurological:??Alert.? Cranial nerves 2-12 are grossly intact. No gross focal deficits to casual conversation. Psychiatric:?Appropriate mood and affect. Objective Data Vital Signs Vital Signs: Vital Signs - 24 hr 04/05/22 12:45 04/05/22 16:12 04/05/22 16:00 Temperature 97.5 F L Pulse Rate 92 Respiratory Rate 16 Blood Pressure 136/72 Pulse Oximetry 94 99 Oxygen Delivery Room Air 04/05/22 20:00 04/06/22 00:00 04/06/22 04:00 Temperature 96.5 F L 97.3 F L 96 F L Pulse Rate 84 92 110 H Respiratory Rate 16 20 20 Blood Pressure 140/62 135/61 132/99 H Pulse Oximetry 97 96 97 Oxygen Delivery 04/06/22 08:20 04/06/22 08:15 Temperature 97.4 F L Pulse Rate 93 Respiratory Rate 18 Blood Pressure 120/68 Pulse Oximetry 96 Oxygen Delivery Room Air Intake/Output Intake/Output: Intake & Output 04/03/22 04/04/22 04/05/22 04/06/22 23:59 23:59 23:59 23:59 Intake Total 1000 50 Output Total 1150 Balance 1000 -1100 Meds/Results Medications: Active Medications Generic Name Dose Route Start Last Admin Trade Name Freq PRN Reason Stop Dose Admin Dextrose 12.5 gm 04/05/22 15:01 Dextrose 50% 25 Gm/50 Ml Syringe IV PUSH PRN PRN Hypoglycemia Protocol Enoxaparin Sodium 40 mg 04/06/22 09:00 04/06/22 08:11 Enoxaparin 40 Mg/0.4 Ml Syringe SUB-Q 40 mg DAILY JACE Administration Glucagon 1 mg 04/05/22 15:01 Glucagon For Inj 1 Mg Vial IM PRN PRN Hypoglycemia Protocol Glucose 15 gm 04/05/22 15:01 Glucose Oral Gel 15 Gm Of Glucse In 37.5 Gm Tube PO PRN PRN Hypoglycemia Protocol Acetaminop
[2022-04-06 11:53] LABS: Glucose Point of Care 135 mg/dl (65-105)
[2022-04-06 12:00] VITALS: BP 115/53; PULSE 122; RESP 18; TEMP 36.1; O2SAT 99
--- NOTE | 2022-04-06 13:55 | PC.NURSE ---
NG was not suctioning right. order for KUB which came back as a kink in tubing. this nurse and another nurse attempted to get tubing straightened, ng still not suctioning right. pt requested that we take current ng out and give him awhile and place a new one. ng tube removed. pt tolerated well.
--- NOTE | 2022-04-06 15:33 | PM.PNGS ---
Progress Note: A&P Assessment and Plan (1) Small bowel obstruction: Code(s): K56.609 - Unspecified intestinal obstruction, unspecified as to partial versus complete obstruction Status: Acute Assessment and Plan: Making progress but does not appear to be cleared as yet. Will continue NG to suction, IV fluids, labs serial exam and KUB. Probably get water-soluble small bowel series tomorrow. Subjective Subjective Date/Time Seen: 04/06/22 15:33 Patient reports: feels better, pain is less, no flatus, no bowel movement and afebrile Interval history: NG tube came out and has been replaced. KUB shows new NG tube in good position. Small bowel dilatation has improved. He had over a 1000 cc out the NG tube since midnight. Review of Systems Review of Systems: All systems reviewed & are unremarkable except as noted in HPI and below (HPI and those items noted below) Constitutional: Constitutional: Denies chills and Denies fever(s) Cardiovascular: Cardiovascular: Denies chest pain, Denies diaphoresis, Denies dyspnea and Denies paroxysmal nocturnal dyspnea Respiratory: Respiratory: Denies chest congestion, Denies cough and Denies dyspnea Integumentary/Breasts: Skin/Breast: Denies lesions and Denies rash Exam Const: General: comfortable and no acute distress; No confusion Orientation/consciousness: patient oriented x3 and No confusion GI: Inspection: distended and scar GI Palp: Yes Soft to palpation, No Tenderness to palpation present (GI) (Less distended and less tender today. Very soft), No Guarding due to palpation present (GI) and No Rebound tenderness present Auscultation: absent bowel sounds Neuro: General: patient oriented x3, no focal motor deficits and No confusion Extrem: General: no calf tenderness and no edema Psych: Affect: normal affect Insight: Good insight present (Psych) Judgement: Good judgement present (Psych) Objective Data Vital Signs Vital Signs: Vital Signs - 24 hr 04/05/22 16:12 04/05/22 16:00 04/05/22 20:00 Temperature 36.4 C L 35.8 C L Pulse Rate 92 84 Respiratory Rate 16 16 Blood Pressure 136/72 140/62 Pulse Oximetry 99 97 Oxygen Delivery Room Air 04/06/22 00:00 04/06/22 04:00 04/06/22 08:20 Temperature 36.3 C L 35.5 C L 36.3 C L Pulse Rate 92 110 H 93 Respiratory Rate 20 20 18 Blood Pressure 135/61 132/99 H 120/68 Pulse Oximetry 96 97 96 Oxygen Delivery 04/06/22 08:15 04/06/22 12:00 Temperature 36.1 C L Pulse Rate 122 H Respiratory Rate 18 Blood Pressure 115/53 L Pulse Oximetry 99 Oxygen Delivery Room Air Intake/Output Intake/Output: Intake & Output 04/03/22 04/04/22 04/05/22 04/06/22 23:59 23:59 23:59 23:59 Intake Total 1000 50 Output Total 1150 Balance 1000 -1100 Meds/Results Medications: Active Medications Generic Name Dose Route Start Last Admin Trade Name Freq PRN Reason Stop Dose Admin Dextrose 12.5 gm 04/05/22 15:01 Dextrose 50% 25 Gm/50 Ml Syringe IV PUSH PRN PRN Hypoglycemia Protocol Enoxaparin Sodium 40 mg 04/06/22 09:00 04/06/22 08:11 Enoxaparin 40 Mg/0.4 Ml Syringe SUB-Q 40 mg DAILY JACE Administration Glucagon 1 mg 04/05/22 15:01 Glucagon For Inj 1 Mg Vial IM PRN PRN Hypoglycemia Protocol Glucose 15 gm 04/05/22 15:01 Glucose Oral Gel 15 Gm Of Glucse In 37.5 Gm Tube PO PRN PRN Hypoglycemia Protocol Sodium Chloride 1,000 mls @ 100 mls/hr 04/05/22 13:35 04/06/22 03:13 Normal Saline Iv IV CONT 100 mls/hr .Q10H JACE Administration Dextrose 1,000 mls @ 100 mls/hr 04/05/22 15:01 Dextrose 5% 1,000 Ml IVPB PRN PRN Hypoglycemia Protocol Insulin Aspart 2 - 5 units 04/05/22 18:00 04/06/22 11:54 Insulin Aspart (*Bkc) 100 Units/Ml SUB-Q Not Given Q6HR JACE Protocol Morphine Sulfate 2 mg 04/05/22 15:03 Morphine Sulfate (*Crx) 2 Mg/Ml Inj IV PUSH Q4H PRN Pain Rated 7-10
[2022-04-06 16:00] VITALS: BP 124/69; PULSE 103; RESP 16; TEMP 36.4; O2SAT 97
[2022-04-06 17:50] LABS: Glucose Point of Care 147 mg/dl (65-105)
[2022-04-06 20:00] VITALS: BP 105/61; PULSE 130; RESP 14; TEMP 36.1; O2SAT 96
[2022-04-07] VITALS (7 sets, daily range): BP systolic 111–150; BP diastolic 61–97; PULSE 101–125; RESP 14–20; TEMP 35.7–37.1; O2SAT 99–100
[2022-04-07 01:01] LABS: Glucose Point of Care 176 mg/dl (65-105)
[2022-04-07 07:05] LABS: Glucose Point of Care 152 mg/dl (65-105)
[2022-04-07 07:38] LABS: Hematocrit 42.5 % (42.0-52.0); Hemoglobin 14.1 g/dL (14.0-18.0); Mean Corpuscular HGB Conc 33.2 g/dl (32-36); Mean Corpuscular Volume 90.4 fl (80-100); Mean Platelet Volume 8.9 fl (7.4-10.4); Platelet Count Result 177 k/mm3 (150-375); Red Cell Distribution Width 13.5 % (11.5-14.5); White Blood Count 6.9 K/mm3 (4.5-10.0)
[2022-04-07 07:55] LABS: Anion Gap 9 mmol/L (8-16); Blood Urea Nitrogen 32 mg/dL (9-20); Calcium 9.2 mg/dL (8.4-10.2); Carbon Dioxide 28 mmol/L (22-30); Chloride 100 mmol/L (98-107); Estimated CRCL calculation 39 ml/min; Estimated Glomerular Filt Rate 41; Glucose 144 mg/dL (65-110); Potassium 3.8 mmol/L (3.4-5.0); Sodium 137 mmol/L (137-145)
[2022-04-07] MEDS: SODIUM CHLORIDE 0.9% IV 1,000 ML 100 ML IV CONT (08:00)
[2022-04-07] MEDS: ENOXAPARIN 40 MG/0.4 ML SYRINGE SUB-Q (08:01)
[2022-04-07] MEDS: PANTOPRAZOLE SODIUM IV 40 MG VIAL IV PUSH (08:01)
[2022-04-07] MEDS: SODIUM CHLORIDE 0.9% IV 1,000 ML 999 ML IV CONT (09:43)
--- NOTE | 2022-04-07 11:11 | PM.IMPN ---
Progress Note: A&P Assessment and Plan (1) Small bowel obstruction: Code(s): K56.609 - Unspecified intestinal obstruction, unspecified as to partial versus complete obstruction Status: Acute (2) Type 2 diabetes mellitus with stage 1 chronic kidney disease: Code(s): E11.22 - Type 2 diabetes mellitus with diabetic chronic kidney disease; N18.1 - Chronic kidney disease, stage 1 Status: Chronic (3) Essential (primary) hypertension: Code(s): I10 - Essential (primary) hypertension Status: Chronic (4) Benign prostatic hyperplasia: Code(s): N40.0 - Benign prostatic hyperplasia without lower urinary tract symptoms Status: Acute Plan The patient presented to the emergency department for evaluation of nausea, vomiting, and abdominal discomfort which started about 09:00. Labs, imaging, and all reports were personally reviewed. CT of the abdomen and pelvis shows evidence of small-bowel obstruction as per HPI. NG tube has been inserted for decompression, hopefully this will resolve with supportive treatment. General surgery has been consulted as well. He has not any significant amounts of pain but IV Tylenol is available as needed. Random glucose today was 173. Hold oral hypoglycemics as he is currently NPO. Initiate sliding scale insulin, Accu-Cheks, and hypoglycemic protocol. Recent hemoglobin A1c was 5.7%. Blood pressures are stable and will be monitored closely while he is NPO. No acute issues with urinary retention. Subjective Date/time seen: 04/07/22 11:11 No new complaints. NG tube still in place Exam Narrative: General:?Mildly ill-appearing male sitting up in bed. Weight: 112.49 kg. BMI: 33.6. HEENT:??PERRL, EOMI.? Sclerae anicteric. NG tube in the right naris draining opaque brown fluid. There is a small amount of blood coming from the right naris as well. Tacky mucous membranes Neck:??Supple. No JVD. Respiratory:?Lungs are clear to auscultation bilaterally. Cardiovascular:??Regular rate and rhythm with S1-S2. Gastrointestinal:??Abdomen is mildly distended with quiet bowel sounds. No significant tenderness to palpation over the abdomen.? No guarding or rebound tenderness. Skin:??Warm and dry.? No rash or lesions on limited exam. Extremities:??No cyanosis, clubbing, or significant edema. Radial and pedal pulses intact. Neurological:??Alert.? Cranial nerves 2-12 are grossly intact. No gross focal deficits to casual conversation. Psychiatric:?Appropriate mood and affect. Objective Data Vital Signs Vital Signs: Vital Signs - 24 hr 04/06/22 12:00 04/06/22 16:00 04/06/22 20:00 Temperature 97 F L 97.6 F 96.9 F L Pulse Rate 122 H 103 H 130 H Respiratory Rate 18 16 14 Blood Pressure 115/53 L 124/69 105/61 Pulse Oximetry 99 97 96 Oxygen Delivery 04/07/22 00:00 04/07/22 04:00 04/07/22 06:01 Temperature 97.1 F L 97.2 F L 98.7 F Pulse Rate 125 H 121 H Respiratory Rate 14 14 Blood Pressure 111/61 146/73 H Pulse Oximetry 99 100 Oxygen Delivery 04/07/22 08:00 04/07/22 08:00 Temperature 97.7 F Pulse Rate 101 H Respiratory Rate 14 Blood Pressure 135/71 Pulse Oximetry 100 Oxygen Delivery Room Air Intake/Output Intake/Output: Intake & Output 04/04/22 04/05/22 04/06/22 04/07/22 23:59 23:59 23:59 23:59 Intake Total 1000 1050 1000 Output Total 2500 900 Balance 1000 -1450 100 Meds/Results Medications: Active Medications Generic Name Dose Route Start Last Admin Trade Name Freq PRN Reason Stop Dose Admin Dextrose 12.5 gm 04/05/22 15:01 Dextrose 50% 25 Gm/50 Ml Syringe IV PUSH PRN PRN Hypoglycemia Protocol Enoxaparin Sodium 40 mg 04/06/22 09:00 04/07/22 08:01 Enoxaparin 40 Mg/0.4 Ml Syringe SUB-Q 40 mg DAILY JACE Administration Glucagon 1 mg 04/05/22 15:01 Glucagon For Inj 1 Mg Vial IM PRN PRN Hypoglycemia Protocol Glucose 15 gm 04/05/22 15:01 Glucose Oral Gel 15 Gm Of Glucse In 37.5 Gm
[2022-04-07] MEDS: KCL 20 MEQ/D5/0.9% SOD CHL 1,000 ML 150 ML IV CONT ×2 (11:13→17:50)
[2022-04-07 12:04] LABS: Glucose Point of Care 154 mg/dl (65-105)
--- NOTE | 2022-04-07 14:12 | PM.PNGS ---
Progress Note: A&P Assessment and Plan (1) Small bowel obstruction: Code(s): K56.609 - Unspecified intestinal obstruction, unspecified as to partial versus complete obstruction Status: Acute Assessment and Plan: NG to be repositioned. Very high NG outputs yesterday and so far today. By exam and imaging, patient still has significant ileus if not small-bowel obstruction. Continue NG suction and NPO except ice chips. His NG output does not look bloody particularly in the tube. He is on Protonix for GERD anyway. H&H has remained stable. Large NG output has caused 2. And 3 below. (2) LEAH (acute kidney injury): Code(s): N17.9 - Acute kidney failure, unspecified Status: Acute Assessment and Plan: Creatinine has increased to 1.6. BUN increased to 32. Will give bolus normal saline and increase IV fluids. Continue to monitor with daily labs. (3) Volume depletion, gastrointestinal loss: Code(s): E86.9 - Volume depletion, unspecified Status: Acute Assessment and Plan: See above, tachycardic last night with heart rates as high as 120. (4) Gastroesophageal reflux disease: Code(s): K21.9 - Gastro-esophageal reflux disease without esophagitis Status: Chronic Assessment and Plan: On IV Protonix. Subjective Subjective Date/Time Seen: 04/07/22 14:12 Patient reports: feels better, pain is less (No abdominal pain at all), flatus, no bowel movement and afebrile Review of Systems Review of Systems: All systems reviewed & are unremarkable except as noted in HPI and below (HPI and those items noted below) Constitutional: Constitutional: Denies chills and Denies fever(s) Cardiovascular: Cardiovascular: Denies chest pain, Denies diaphoresis, Denies dyspnea and Denies paroxysmal nocturnal dyspnea Respiratory: Respiratory: Denies chest congestion, Denies cough and Denies dyspnea Integumentary/Breasts: Skin/Breast: Denies lesions and Denies rash Exam Const: General: cooperative, comfortable, no acute distress, alert and awake; No confusion Orientation/consciousness: patient oriented x3 and No confusion GI: Inspection: distended, scar and no visible herniation GI Palp: Yes Soft to palpation, No Tenderness to palpation present (GI), No Guarding due to palpation present (GI), No Hernia present, No Palpable mass present, No Rebound tenderness present and Yes Other GI palpation findings present (Nursing reports NG output looked red. Output in canister slightly dark) Auscultation: absent bowel sounds Neuro: General: patient oriented x3, no focal motor deficits and No confusion Extrem: General: no calf tenderness and no edema Psych: Affect: normal affect Insight: Good insight present (Psych) Judgement: Good judgement present (Psych) Objective Data Vital Signs Vital Signs: Vital Signs - 24 hr 04/06/22 16:00 04/06/22 20:00 04/07/22 00:00 Temperature 36.4 C 36.1 C L 36.2 C L Pulse Rate 103 H 130 H 125 H Respiratory Rate 16 14 14 Blood Pressure 124/69 105/61 111/61 Pulse Oximetry 97 96 99 Oxygen Delivery 04/07/22 04:00 04/07/22 06:01 04/07/22 08:00 Temperature 36.2 C L 37.1 C 36.5 C Pulse Rate 121 H 101 H Respiratory Rate 14 14 Blood Pressure 146/73 H 135/71 Pulse Oximetry 100 100 Oxygen Delivery 04/07/22 08:00 04/07/22 12:00 Temperature 36.5 C Pulse Rate 111 H Respiratory Rate 14 Blood Pressure 119/66 Pulse Oximetry 100 Oxygen Delivery Room Air More tachycardic last night Intake/Output Intake/Output: Intake & Output 04/04/22 04/05/22 04/06/22 04/07/22 23:59 23:59 23:59 23:59 Intake Total 1000 1050 2000 Output Total 2500 900 Balance 1000 -1450 1100 Large NG output yesterday, 2750 Meds/Results Medications: Active Medications Generic Name Dose Route Start Last Admin Trade Name Freq PRN Reason Stop Dose Admin Dextrose 12.5 gm 04/05/22 15:01 Dextrose 50% 25 Gm/50 Ml Syringe IV PUSH PRN PRN
[2022-04-07 18:11] LABS: Glucose Point of Care 163 mg/dl (65-105)
[2022-04-08] VITALS: BP 171/97; PULSE 94; RESP 18; TEMP 36.6; O2SAT 97
[2022-04-08 00:46] LABS: Glucose Point of Care 152 mg/dl (65-105)
[2022-04-08] MEDS: KCL 20 MEQ/D5/0.9% SOD CHL 1,000 ML 150 ML IV CONT (03:59)
[2022-04-08 04:00] VITALS: BP 153/57; PULSE 87; RESP 18; TEMP 36.1; O2SAT 96
[2022-04-08 06:18] LABS: Glucose Point of Care 167 mg/dl (65-105)
[2022-04-08 06:33] LABS: Basophils Percent Auto 0.4 % (0.2-1.2); Eosinophils Absolute Auto 0.1 K/mm3 (0-0.3); Eosinophils Percent Auto 1.2 % (0-4.4); Hematocrit 38.5 % (42.0-52.0); Hemoglobin 12.9 g/dL (14.0-18.0); Immature Granulocyte Absolute 0.02 K/mm3 (0.00-0.031); Immature Granulocyte Percent A 0.3 % (0-0.5); Lymphocytes Percent Auto 27.4 % (18.3-44.2); Mean Corpuscular HGB Conc 33.5 g/dl (32-36); Mean Corpuscular Hemoglobin 30.5 pg (26-34); Mean Platelet Volume 8.7 fl (7.4-10.4); Monocytes Absolute Auto 0.7 K/mm3 (0.1-0.6); Monocytes Percent Auto 9.7 % (2.6-8.5); Neutrophils Absolute Auto 4.2 K/mm3 (1.3-6.7); Platelet Count Result 145 k/mm3 (150-375); Red Blood Count 4.23 M/mm3 (4.6-6.20); Red Cell Distribution Width 13.5 % (11.5-14.5); White Blood Count 6.9 K/mm3 (4.5-10.0)
[2022-04-08 07:03] LABS: Anion Gap 2 mmol/L (8-16); Blood Urea Nitrogen 22 mg/dL (9-20); Calcium 8.6 mg/dL (8.4-10.2); Carbon Dioxide 29 mmol/L (22-30); Chloride 106 mmol/L (98-107); Estimated CRCL calculation 67 ml/min; Estimated Glomerular Filt Rate > 60; Glucose 164 mg/dL (65-110); Potassium 3.7 mmol/L (3.4-5.0); Sodium 137 mmol/L (137-145)
[2022-04-08] MEDS: PANTOPRAZOLE SODIUM IV 40 MG VIAL IV PUSH (08:12)
[2022-04-08] MEDS: ENOXAPARIN 40 MG/0.4 ML SYRINGE SUB-Q (08:12)
[2022-04-08 08:25] VITALS: BP 145/69; PULSE 107; RESP 17; TEMP 36.2; O2SAT 100
--- NOTE | 2022-04-08 11:11 | PM.IMPN ---
Progress Note: A&P Assessment and Plan (1) Small bowel obstruction: Code(s): K56.609 - Unspecified intestinal obstruction, unspecified as to partial versus complete obstruction Status: Deleted Assessment and Plan: Continue conservative treatment with NG tube to low intermittent suction. Abdominal x-rays reviewed. Management per surgery (2) Type 2 diabetes mellitus with stage 1 chronic kidney disease: Code(s): E11.22 - Type 2 diabetes mellitus with diabetic chronic kidney disease; N18.1 - Chronic kidney disease, stage 1 Status: Chronic (3) Essential (primary) hypertension: Code(s): I10 - Essential (primary) hypertension Status: Chronic (4) Benign prostatic hyperplasia: Code(s): N40.0 - Benign prostatic hyperplasia without lower urinary tract symptoms Status: Acute Subjective Date/time seen: 04/08/22 11:11 no new complaints Exam Narrative: General:?Mildly ill-appearing male sitting up in bed. Weight: 112.49 kg. BMI: 33.6. HEENT:??PERRL, EOMI.? Sclerae anicteric. NG tube in the right naris draining opaque brown fluid. There is a small amount of blood coming from the right naris as well. Tacky mucous membranes Neck:??Supple. No JVD. Respiratory:?Lungs are clear to auscultation bilaterally. Cardiovascular:??Regular rate and rhythm with S1-S2. Gastrointestinal:??Abdomen is mildly distended with quiet bowel sounds. No significant tenderness to palpation over the abdomen.? No guarding or rebound tenderness. Skin:??Warm and dry.? No rash or lesions on limited exam. Extremities:??No cyanosis, clubbing, or significant edema. Radial and pedal pulses intact. Neurological:??Alert.? Cranial nerves 2-12 are grossly intact. No gross focal deficits to casual conversation. Psychiatric:?Appropriate mood and affect. Objective Data Vital Signs Vital Signs: Vital Signs - 24 hr 04/07/22 12:00 04/07/22 16:00 04/07/22 20:00 Temperature 97.7 F 96.6 F L 96.3 F L Pulse Rate 111 H 120 H 119 H Respiratory Rate 14 20 14 Blood Pressure 119/66 145/75 H 150/97 H Pulse Oximetry 100 100 100 Oxygen Delivery 04/08/22 00:00 04/08/22 04:00 04/08/22 08:25 Temperature 97.8 F 96.9 F L 97.1 F L Pulse Rate 94 87 107 H Respiratory Rate 18 18 17 Blood Pressure 171/97 H 153/57 H 145/69 H Pulse Oximetry 97 96 100 Oxygen Delivery 04/08/22 08:00 Temperature Pulse Rate Respiratory Rate Blood Pressure Pulse Oximetry Oxygen Delivery Room Air Intake/Output Intake/Output: Intake & Output 04/05/22 04/06/22 04/07/22 04/08/22 23:59 23:59 23:59 23:59 Intake Total 1000 1050 3000 1250 Output Total 2500 1800 1310 Balance 1000 -1450 1200 -60 Meds/Results Medications: Active Medications Generic Name Dose Route Start Last Admin Trade Name Freq PRN Reason Stop Dose Admin Dextrose 12.5 gm 04/05/22 15:01 Dextrose 50% 25 Gm/50 Ml Syringe IV PUSH PRN PRN Hypoglycemia Protocol Enoxaparin Sodium 40 mg 04/06/22 09:00 04/08/22 08:12 Enoxaparin 40 Mg/0.4 Ml Syringe SUB-Q 40 mg DAILY JACE Administration Glucagon 1 mg 04/05/22 15:01 Glucagon For Inj 1 Mg Vial IM PRN PRN Hypoglycemia Protocol Glucose 15 gm 04/05/22 15:01 Glucose Oral Gel 15 Gm Of Glucse In 37.5 Gm Tube PO PRN PRN Hypoglycemia Protocol Dextrose 1,000 mls @ 100 mls/hr 04/05/22 15:01 Dextrose 5% 1,000 Ml IVPB PRN PRN Hypoglycemia Protocol Potassium Chloride/Dextrose/Sod Cl 1,000 mls @ 150 mls/hr 04/07/22 09:35 04/08/22 03:59 Kcl 20 Meq/D5/0.9% Sod Chl IV CONT 150 mls/hr .[id number] JACE Administration Insulin Aspart 2 - 5 units 04/05/22 18:00 04/08/22 06:06 Insulin Aspart (*Bkc) 100 Units/Ml SUB-Q Not Given Q6HR [facility] Protocol Morphine Sulfate 2 mg 04/05/22 15:03 Morphine Sulfate (*Crx) 2 Mg/Ml Inj IV PUSH Q4H PRN Pain Rated 7-10 Ondansetron HCl 4 mg 04/05/22 13:33 04/06/22 16:30 Ond
--- NOTE | 2022-04-08 12:35 | PM.PNGS ---
Progress Note: A&P Assessment and Plan (1) Small bowel obstruction: Code(s): K56.609 - Unspecified intestinal obstruction, unspecified as to partial versus complete obstruction Status: Acute Assessment and Plan: patient now has good bowel sounds, no pain, no abdominal distension. Will get water-soluble small bowel series this afternoon. (2) Volume depletion, gastrointestinal loss: Code(s): E86.9 - Volume depletion, unspecified Status: Acute Assessment and Plan: Much improved, continue IV fluids at 150cc/h for now (3) LEAH (acute kidney injury): Code(s): N17.9 - Acute kidney failure, unspecified Status: Acute Assessment and Plan: improved, creatinine down to 0.9 today (4) Gastroesophageal reflux disease: Code(s): K21.9 - Gastro-esophageal reflux disease without esophagitis Status: Chronic Assessment and Plan: remains on IV Protonix. Subjective Subjective Date/Time Seen: 04/08/22 12:35 Patient reports: feels better, pain is less (No abdominal pain again this morning), flatus, no bowel movement and afebrile Interval history: patient admits he is eating a lot of ice chips. Thinks this may be the reason for the high NG tube output. Review of Systems Review of Systems: All systems reviewed & are unremarkable except as noted in HPI and below ( HPI and those items noted below) Constitutional: Constitutional: Denies chills and Denies fever(s) Cardiovascular: Cardiovascular: Denies chest pain, Denies diaphoresis, Denies dyspnea and Denies paroxysmal nocturnal dyspnea Respiratory: Respiratory: Denies chest congestion, Denies cough and Denies dyspnea Integumentary/Breasts: Skin/Breast: Denies lesions and Denies rash Exam Const: General: comfortable and no acute distress; No confusion Orientation/consciousness: patient oriented x3 and No confusion GI: Inspection: non-distended, scar and no visible herniation GI Palp: Yes Soft to palpation, No Tenderness to palpation present (GI), No Guarding due to palpation present (GI), No Hernia present, No Palpable mass present and No Rebound tenderness present Auscultation: normal bowel sounds Neuro: General: patient oriented x3, no focal motor deficits and No confusion Extrem: General: no calf tenderness and no edema Psych: Affect: normal affect Insight: Good insight present (Psych) Judgement: Good judgement present (Psych) Objective Data Vital Signs Vital Signs: Vital Signs - 24 hr 04/07/22 16:00 04/07/22 20:00 04/08/22 00:00 Temperature 35.9 C L 35.7 C L 36.6 C Pulse Rate 120 H 119 H 94 Respiratory Rate 20 14 18 Blood Pressure 145/75 H 150/97 H 171/97 H Pulse Oximetry 100 100 97 Oxygen Delivery 04/08/22 04:00 04/08/22 08:25 04/08/22 08:00 Temperature 36.1 C L 36.2 C L Pulse Rate 87 107 H Respiratory Rate 18 17 Blood Pressure 153/57 H 145/69 H Pulse Oximetry 96 100 Oxygen Delivery Room Air Intake/Output Intake/Output: Intake & Output 04/05/22 04/06/22 04/07/22 04/08/22 23:59 23:59 23:59 23:59 Intake Total 1000 1050 3000 1250 Output Total 2500 1800 1310 Balance 1000 -1450 1200 -60 NG output 1000 cc yesterday, 700 cc since midnight Meds/Results Medications: Active Medications Generic Name Dose Route Start Last Admin Trade Name Freq PRN Reason Stop Dose Admin Dextrose 12.5 gm 04/05/22 15:01 Dextrose 50% 25 Gm/50 Ml Syringe IV PUSH PRN PRN Hypoglycemia Protocol Enoxaparin Sodium 40 mg 04/06/22 09:00 04/08/22 08:12 Enoxaparin 40 Mg/0.4 Ml Syringe SUB-Q 40 mg DAILY JACE Administration Glucagon 1 mg 04/05/22 15:01 Glucagon For Inj 1 Mg Vial IM PRN PRN Hypoglycemia Protocol Glucose 15 gm 04/05/22 15:01 Glucose Oral Gel 15 Gm Of Glucse In 37.5 Gm Tube PO PRN PRN Hypoglycemia Protocol Dextrose 1,000 mls @ 100 mls/hr 04/05/22 15:01 Dextrose 5% 1,000 Ml IVPB PRN PRN
[2022-04-08 12:43] VITALS: BP 150/68; PULSE 101; RESP 17; TEMP 36.6; O2SAT 100
[2022-04-08 12:46] LABS: Glucose Point of Care 168 mg/dl (65-105)
[2022-04-08 17:16] VITALS: BP 127/81; PULSE 140; RESP 16; TEMP 36.7; O2SAT 94
[2022-04-08 20:00] VITALS: BP 118/39; PULSE 111; RESP 14; TEMP 36.2; O2SAT 100
[2022-04-08] MEDS: KCL 20 MEQ/D5/0.9% SOD CHL 1,000 ML 80 ML IV CONT (23:39)
[2022-04-08 23:59] LABS: Glucose Point of Care 165 mg/dl (65-105)
[2022-04-09] VITALS: BP 137/78; PULSE 96; RESP 18; TEMP 35.7; O2SAT 100
[2022-04-09 04:00] VITALS: BP 133/93; PULSE 82; RESP 12; TEMP 35.9; O2SAT 100
[2022-04-09] MEDS: ENOXAPARIN 40 MG/0.4 ML SYRINGE SUB-Q (08:39)
[2022-04-09] MEDS: PANTOPRAZOLE 40 MG TABLET PO (08:39)
--- NOTE | 2022-04-09 10:49 | PM.DS ---
DS: Admitting Diagnosis Discharge Date April 09, 2022 Admitting Diagnosis Small-bowel obstruction DS: Discharge Diagnosis Discharge Diagnosis (1) Small bowel obstruction: Code(s): K56.609 - Unspecified intestinal obstruction, unspecified as to partial versus complete obstruction Status: Deleted Assessment and Plan: Continue conservative treatment with NG tube to low intermittent suction. Abdominal x-rays reviewed. Management per surgery (2) Type 2 diabetes mellitus with stage 1 chronic kidney disease: Code(s): E11.22 - Type 2 diabetes mellitus with diabetic chronic kidney disease; N18.1 - Chronic kidney disease, stage 1 Status: Chronic (3) Essential (primary) hypertension: Code(s): I10 - Essential (primary) hypertension Status: Chronic (4) Benign prostatic hyperplasia: Code(s): N40.0 - Benign prostatic hyperplasia without lower urinary tract symptoms Status: Acute DS: Summary Hospital Course Hospital Course: Patient is a 6-year-old gentleman came to small-bowel obstruction. He was treated with conservative therapy including NG tube to suction. Surgery was consulted. Patient did exceptionally well with conservative treatment. He is tolerating a normal diet can be discharged home. Follow-up with surgery after discharge Time Spent with Patient Time attestation: Total time spent providing and/or coordinating discharge services: Exam Narrative: General:?Mildly ill-appearing male sitting up in bed. Weight: 112.49 kg. BMI: 33.6. HEENT:??PERRL, EOMI.? Sclerae anicteric. NG tube in the right naris draining opaque brown fluid. There is a small amount of blood coming from the right naris as well. Tacky mucous membranes Neck:??Supple. No JVD. Respiratory:?Lungs are clear to auscultation bilaterally. Cardiovascular:??Regular rate and rhythm with S1-S2. Gastrointestinal:??Abdomen is mildly distended with quiet bowel sounds. No significant tenderness to palpation over the abdomen.? No guarding or rebound tenderness. Skin:??Warm and dry.? No rash or lesions on limited exam. Extremities:??No cyanosis, clubbing, or significant edema. Radial and pedal pulses intact. Neurological:??Alert.? Cranial nerves 2-12 are grossly intact. No gross focal deficits to casual conversation. Psychiatric:?Appropriate mood and affect. DS: Data Data Completed and Pending Labs on day of discharge: Labs from last 24 hours 04/08/22 04/08/22 23:39 12:40 POC Capillary Glucose 165 H 168 H Discharge Plan Discharge Attending physician on discharge: Archie Mcfarlane Consulting providers: Tulio Garcia Discharging Clinician: Archie Mcfarlane Patient Disposition: Home, Self-Care Activity: no preference Diet: as tolerated Patient Instructions: Antibiotic Form Stand Alone Forms: General Discharge Information Follow-up/Referrals: Tulio Garcia MD [Physician] - Discharge Medications: Continued omega-3 fatty acids [Fish Oil Concentrate] 1,000 mg capsule 1,000 mg PO DAILY metoprolol tartrate 50 mg tablet 50 mg PO DAILY (DME) OneTouch Ultra Test Strip See Rx Instructions .Route Qty: 100 2RF Rx Instructions: Use to check blood blood sugar once per day glipizide 5 mg tablet 2.5 mg PO DAILY Qty: 45 1RF Rx Instructions: with dinner atorvastatin 10 mg tablet 10 mg PO QPM Qty: 90 1RF omeprazole 40 mg capsule,delayed release(DR/EC) 40 mg PO DAILY Qty: 90 1RF Rx Instructions: TAKE 1 CAPSULE BY MOUTH DAILY Januvia 100 mg tablet 100 mg PO DAILY Qty: 90 1RF Rx Instructions: TAKE 1 TABLET BY MOUTH DAILY (DME) OneTouch Verio test strips Strip See Rx Instructions .ROUTE .COMPLEX Qty: 100 1RF Dose Instruction: USE TO TEST ONCE A DAY Rx Instructions: USE TO TEST ONCE A DAY (DME) lancets Misc See Rx Instructions .Route Qty: 100 1RF Rx Instructions: As directed
--- NOTE | 2022-04-09 11:23 | PM.PNGS ---
Progress Note: A&P Assessment and Plan (1) Small bowel obstruction: Code(s): K56.609 - Unspecified intestinal obstruction, unspecified as to partial versus complete obstruction Status: Acute Assessment and Plan: Continues to improve. SBS was normal. Diet has been advanced and he is tolerating solids today. Okay from our standpoint to discharge the patient. Follow-up only as needed. (2) Volume depletion, gastrointestinal loss: Code(s): E86.9 - Volume depletion, unspecified Status: Acute (3) LEAH (acute kidney injury): Code(s): N17.9 - Acute kidney failure, unspecified Status: Acute Assessment and Plan: Resolved. (4) Gastroesophageal reflux disease: Code(s): K21.9 - Gastro-esophageal reflux disease without esophagitis Status: Chronic Plan I have discussed the patient's case and plan of care with Dr. Garcia. Subjective Subjective Date/Time Seen: 04/09/22 11:23 Patient reports: no new complaints, tolerating a regular diet, flatus and bowel movement Interval history: Patient feeling well today. No new complaints. Tolerating his diet. No acute events overnight. Exam Const: General: comfortable, no acute distress and awake Orientation/consciousness: patient oriented x3 GI: Inspection: non-distended GI Palp: Yes Soft to palpation, No Tenderness to palpation present (GI) and No Guarding due to palpation present (GI) Auscultation: normal bowel sounds Objective Data Vital Signs Vital Signs: Vital Signs - 24 hr 04/08/22 12:43 04/08/22 17:16 04/08/22 20:00 Temperature 97.8 F 98.0 F 97.1 F L Pulse Rate 101 H 140 H 111 H Respiratory Rate 17 16 14 Blood Pressure 150/68 H 127/81 118/39 L Pulse Oximetry 100 94 100 Oxygen Delivery 04/09/22 00:00 04/09/22 04:00 04/09/22 08:35 Temperature 96.2 F L 96.7 F L Pulse Rate 96 82 Respiratory Rate 18 12 Blood Pressure 137/78 133/93 H Pulse Oximetry 100 100 Oxygen Delivery Room Air Intake/Output Intake/Output: Intake & Output 04/06/22 04/07/22 04/08/22 04/09/22 23:59 23:59 23:59 23:59 Intake Total 1050 3000 3210 1984 Output Total 2500 1800 1510 Balance -1450 1200 1700 1983 Meds/Results Medications: Active Medications Generic Name Dose Route Start Last Admin Trade Name Freq PRN Reason Stop Dose Admin Dextrose 12.5 gm 04/05/22 15:01 Dextrose 50% 25 Gm/50 Ml Syringe IV PUSH PRN PRN Hypoglycemia Protocol Enoxaparin Sodium 40 mg 04/06/22 09:00 04/09/22 08:39 Enoxaparin 40 Mg/0.4 Ml Syringe SUB-Q 40 mg DAILY JACE Administration Glucagon 1 mg 04/05/22 15:01 Glucagon For Inj 1 Mg Vial IM PRN PRN Hypoglycemia Protocol Glucose 15 gm 04/05/22 15:01 Glucose Oral Gel 15 Gm Of Glucse In 37.5 Gm Tube PO PRN PRN Hypoglycemia Protocol Dextrose 1,000 mls @ 100 mls/hr 04/05/22 15:01 Dextrose 5% 1,000 Ml IVPB PRN PRN Hypoglycemia Protocol Potassium Chloride/Dextrose/Sod Cl 1,000 mls @ 80 mls/hr 04/07/22 09:35 04/09/22 11:00 Kcl 20 Meq/D5/0.9% Sod Chl IV CONT 0 mls/hr .[id number] JACE Infusion Insulin Aspart 2 - 5 units 04/05/22 18:00 04/09/22 07:49 Insulin Aspart (*Bkc) 100 Units/Ml SUB-Q Not Given Q6HR [facility] Protocol Morphine Sulfate 2 mg 04/05/22 15:03 Morphine Sulfate (*Crx) 2 Mg/Ml Inj IV PUSH Q4H PRN Pain Rated 7-10 Ondansetron HCl 4 mg 04/05/22 13:33 04/06/22 16:30 Ondansetron Inj 4 Mg/2 Ml Vial IV PUSH 4 mg Q4H PRN Administration Nausea Pantoprazole Sodium 40 mg 04/09/22 09:00 04/09/22 08:39 Pantoprazole 40 Mg Tablet PO 40 mg QAM JACE Administration Radiology Results: ITS Impressions Abdomen/Pelvis CT 04/05/22 13:05 IMPRESSION: 1. Small bowel obstruction. 2: Bladder wall thickening, likely due to outlet obstruction from enlarged prostate gland. 3: Cholelithiasis. Abdomen X-Ray 04/08/22 06:39 Impression: NG
== END 2022-04-09 12:00 | disposition home or self-care (01) | DRG 389 ==
LOC: ANHED 12:58 → ANH3MEDSUR 15:16
PROVIDERS: Surgery; Admitting Provider Internal Medicine; Emergency Provider Emergency Medicine; PCP Internal Medicine; Visit Provider Chiropractor
DX: K56.609 Unspecified intestinal obstruction, unspecified as to partial versus complete obstruction (principal); I13.0 Hypertensive heart and chronic kidney disease with heart failure and stage 1 through stage 4 chronic kidney disease, or unspecified chronic kidney disease; I50.32 Chronic diastolic (congestive) heart failure; N17.9 Acute kidney failure, unspecified; E11.22 Type 2 diabetes mellitus with diabetic chronic kidney disease; N18.1 Chronic kidney disease, stage 1; N40.0 Benign prostatic hyperplasia without lower urinary tract symptoms; I12.9 Hypertensive chronic kidney disease with stage 1 through stage 4 chronic kidney disease, or unspecified chronic kidney disease; K21.9 Gastro-esophageal reflux disease without esophagitis; K58.9 Irritable bowel syndrome, unspecified; K57.90 Diverticulosis of intestine, part unspecified, without perforation or abscess without bleeding; Z90.49 Acquired absence of other specified parts of digestive tract; Z20.822 Contact with and (suspected) exposure to COVID-19
CPT/HCPCS: 36415; 74018; 74177; 74250; 80048; 80053; 81001; 82948; 83690; 85025; 85027; 87636; 99285; A9270; C9113; J1650; J2405; J3480; J7030; Q9967

== ENCOUNTER 2022-07-03 10:34 | Inpatient (IN) | payer MEDICARE, SELFPAY ==
[2022-07-03] VITALS (13 sets, daily range): BP systolic 74–116; BP diastolic 58–70; PULSE 81–93; RESP 16–19; TEMP 36.5–36.6; O2SAT 97–100; BMI 33.5
--- NOTE | ~2022-07-03 | XR_ITS ---
Supine and upright views of the abdomen Clinical history: Adynamic ileus Findings: Bowel gas pattern is nonspecific. No evidence for obstruction or free air. No abnormal mass lesion or calcification is seen. Osseous structures are intact. Impression: Nonspecific bowel gas pattern. Reviewed, dictated and finalized at [facility]. Impression: Nonspecific bowel gas pattern.
--- NOTE | ~2022-07-03 | CT_ITS ---
EXAMINATION: CT abdomen pelvis w con DATE: 07/03/2022 13:35 INDICATION: Bowel obstruction. TECHNIQUE: Computed tomography (CT) of the abdomen and pelvis was performed with 100 mL Omnipaque 350 intravenous contrast. Automated exposure control and iterative reconstruction technique were employe d. The dose-length product was 1126.00 mGy-cm. COMPARISON: CT abdomen and pelvis 04/05/2022 FINDINGS: The visualized portions of the lung bases demonstrate mild emphysema and mild chronic inter stitial lung disease. No pleural effusion. Calcified subcarinal lymph nodes are consistent with old g ranulomatous disease. The heart size is normal. There are coronary artery calcifications. The calcifi cations aortic valve. No pericardial effusion. There are cysts in the liver measuring up to 7 mm. The re is a gallstone in the gallbladder, which is normal in size. Calcifications in the spleen are consi stent with old granulomatous disease. The pancreas and adrenal glands are normal. There are cysts in the kidneys measuring up to 2.6 cm on the right. There is diffuse bladder wall thickening, likely sec ondary to chronic outlet obstruction from the severely enlarged prostate. There is diverticulosis of the colon without evidence of diverticulitis. The appendix is normal. There are dilated loops of smal l bowel without focal transition point, likely adynamic ileus. There are no pathologically enlarged l ymph nodes. There is no free intraperitoneal fluid. There is prominent fat in the inguinal canals guille t may be hernias. There is severe lumbar spondylosis. There is a benign bone island in L1 vertebral b cuca. There is a hemangioma in L3 vertebral body. IMPRESSION: 1. Dilated small bowel without focal transition point, likely adynamic ileus. Reviewed, dictated and finalized at location A.
[2022-07-03 11:54] LABS: Basophils Percent Auto 0.5 % (0.2-1.2); Eosinophils Percent Auto 0.5 % (0-4.4); Hematocrit 41.8 % (42.0-52.0); Hemoglobin 14.1 g/dL (14.0-18.0); Immature Granulocyte Absolute 0.01 K/mm3 (0.00-0.031); Immature Granulocyte Percent A 0.2 % (0-0.5); Lymphocytes Absolute Auto 1.08 K/mm3 (0.9-3.2); Lymphocytes Percent Auto 16.3 % (18.3-44.2); Mean Corpuscular HGB Conc 33.7 g/dl (32-36); Mean Corpuscular Hemoglobin 30.3 pg (26-34); Mean Corpuscular Volume 89.9 fl (80-100); Mean Platelet Volume 8.7 fl (7.4-10.4); Monocytes Absolute Auto 0.8 K/mm3 (0.1-0.6); Monocytes Percent Auto 12.3 % (2.6-8.5); Neutrophils Absolute Auto 4.7 K/mm3 (1.3-6.7); Neutrophils Percent Auto 70.2 % (45.5-73.1); Platelet Count Result 156 k/mm3 (150-375); Red Blood Count 4.65 M/mm3 (4.6-6.20); Red Cell Distribution Width 13.1 % (11.5-14.5); White Blood Count 6.6 K/mm3 (4.5-10.0)
[2022-07-03 12:04] LABS: Alanine Aminotransferase 21 U/L (6-50); Albumin Level 4.2 g/dL (3.5-5.1); Alkaline Phosphatase 35 U/L (38-126); Anion Gap 11 mmol/L (8-16); Aspartate Amino Transferase 25 U/L (17-59); Bilirubin,Total 1.3 mg/dL (0.2-1.3); Blood Urea Nitrogen 29 mg/dL (9-20); Calcium 8.5 mg/dL (8.4-10.2); Carbon Dioxide 26 mmol/L (22-30); Chloride 96 mmol/L (98-107); Estimated CRCL calculation 44 ml/min; Estimated Glomerular Filt Rate 48; Glucose 158 mg/dL (65-110); Lipase 139 U/L (23-300); Potassium 4.2 mmol/L (3.4-5.0); Sodium 133 mmol/L (137-145)
[2022-07-03 12:28] LABS: Appearance Urine Cloudy (Clear); Bilirubin Urine 2+ (Negative); Blood Urine Negative (Negative); Color Urine Dark Yellow (Yellow); Glucose Urine UA Negative (Negative); Ketones Urine Trace mg/dL (Negative); Leukocyte Esterase Ur Trace LEU/UL (Negative); Nitrate Urine Negative (Negative); Protein Urine 1+ mg/dL (Negative); Specific Grav Ur 1.028 (1.001-1.035); Squamous Epithelial Cell Urine None seen /hpf (Few); WBC Urine 0-5 /hpf; pH Urine 5.5 (5.0-9.0)
[2022-07-03 12:34] LABS: Calcium Carbonate Crystals Ur Present /hpf
[2022-07-03 12:36] LABS: Add Urine Microscopic? YES; Bacteria Urine 2+ /hpf
--- NOTE | 2022-07-03 13:12 | ED.NAVMDI ---
HPI - Nausea/Vomiting/Diarrhea General Chief complaint: Nausea/Vomiting/Diarrhea Stated complaint: blockage in my small intestine Time Seen by Provider: 07/03/22 13:00 Source: patient History of Present Illness HPI Narrative: Patient is 87 years old white male referred to the emergency room from his family physician office because of nausea, vomiting and diarrhea. Patient is telling me that he developed dry heaves all day yesterday, today vomited 4 times. Patient reports watery diarrhea 6 times yesterday and 6 times today. He denies any abdominal pain. History of recurrent small bowel obstruction. He denies any fever or chills, chest pain, back pain or abdominal pain. Related Data Home Medications Medication Instructions Recorded Confirmed omega-3 fatty acids 1,000 mg 1,000 mg PO DAILY 10/07/19 04/05/22 capsule (Fish Oil Concentrate) Allergies Allergy/AdvReac Type Severity Reaction Status Date / Time haloperidol AdvReac Unknown Hallucinati Verified 07/03/22 08:06 ng Review of Systems Review of Systems: All systems reviewed & are unremarkable except as noted in HPI and below PMFSH Past Medical History Medical History Benign prostatic hyperplasia Diastolic CHF Diverticulosis With history of diverticulitis. Esophageal stricture Status post dilatation. 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 Type 2 diabetes mellitus with stage 1 chronic kidney disease Surgical History Surgical History History of carpal tunnel surgery of right wrist History of cholecystectomy History of laparotomy With adhesiolysis in 1998 and 2006. History of removal of cyst From chest wall. History of resection of small bowel (2006) With anastomosis. Family History Family History Father Family history of lung cancer Family history of malignant neoplasm Mother Family history of malignant neoplasm of breast in first degree relative Family history of malignant neoplasm Social History Social History Social History: The patient is as of late 2020. He lives in his own home in [place]. 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 No drug use. He designates his sons Jay and Angel as his surrogate decision makers. Code status: Full code. Smoking status: Never smoker Alcohol intake: current Drinks per week: 2 Substance use: never Lack of Transportation: No Lack of Food: Never True Current Housing: I Have Housing Concerned About Future Housing: No Difficulty Paying Gas/Electric Bills: No Difficulty Paying for Meds: No Currently Unemployed: No Education: Master's Degree or Higher Difficulty w/ Childcare or Family Care: No Spiritual care concerns: No Exam Narrative: General appearance: Well-developed, well-nourished, does not look in pain or distress Skin: Normal color Head: Normocephalic, nontraumatic Eyes: Clear conjunctiva ENT: Oropharynx normal, ears normal, nose normal Neck: Supple, nontender Chest and respiratory: Airway patent, no respiratory distress, no accessory muscle use Heart: Regular rate/rhythm Abdomen: Soft, nontender, no organomegaly, increased bowel sounds Vascular: Normal peripheral pulses, normal capillary refill. Musculoskeletal: Normal range of motion, nontender back Neurologic: Alert and oriented ?3, QA ANALYST is normal as tested, no gross motor deficit
[2022-07-03] MEDS: SODIUM CHLORIDE 0.9% IV 1,000 ML 999 ML IV CONT (13:41)
[2022-07-03] MEDS: ONDANSETRON INJ 4 MG/2 ML VIAL IV PUSH (13:41)
--- NOTE | 2022-07-03 15:33 | PC.NURSE ---
NGT dc per Dr. Barron.
[2022-07-03] MEDS: SODIUM CHLORIDE 0.9% IV 1,000 ML 100 ML IV CONT ×2 (16:09→18:22)
--- NOTE | 2022-07-03 17:51 | ADMGEN ---
This patient, Cali Vasquez, was admitted to Virtual Bed 3rd Floor-3. Patient/family oriented to hospital policies and general routines including ID bracelet, bed and alarms, visiting hours, pain management, procedures, bathroom and other care routines, personal items, smoking policy, room service/diet, and visiting hours. Information on how to activate the Rapid Response Team has been discussed. Patient/Family are encouraged to report perceived risks to care and to ask questions if they do not understand what they are told or what they should do.
[2022-07-03 21:06] LABS: Glucose Point of Care 142 mg/dl (65-105)
--- NOTE | 2022-07-03 22:57 | PM.IMHP ---
H&P: HPI History of Present Illness Date/Time: 07/03/22 16:30 Chief Complaint: Nausea, dry heaves, vomiting, and diarrhea. Narrative: This is a very pleasant?87-year-old gentleman with history of small-bowel obstructions, hypertension, and diabetes who presented to the emergency department from his doctor's office for evaluation of nausea, dry heaves, vomiting, and diarrhea. He began having nausea yesterday with occasional dry heaves. He took several doses of Taya-Hardin without much benefit and he ended up having a couple of episodes of emesis. He has also had 5 to 6 loose, watery stools over the last couple of days which is unusual for him. He made an appointment with his doctor due to pretty significant nausea and given his history of bowel obstructions in the fact that he was vomiting, he was instructed to come to the ED. He is not having any significant abdominal pain or distension and he symptoms are not similar to when he has had previous bowel obstructions. He lives alone and denies sick contacts. He has had no fever, chills, or sweats. He denies recent travel antibiotic use. He has not noticed any blood or mucus in his stool. No hematemesis. No chest pain or shortness of breath. Vital signs were stable on arrival to the ED. Labs showed evidence of dehydration with hyponatremia and an increase in BUN and creatinine. CT scan showed dilated small bowel without focal transition point, likely adynamic ileus. He received normal saline and Zofran with improvement in his symptoms. He is being admitted overnight for continued supportive care and close monitoring given his history of obstruction. Review of Systems Review of Systems: Twelve systems were reviewed and are negative except for as per HPI. [facility] Past Medical History Medical History Benign prostatic hyperplasia Diastolic CHF Diverticulosis With history of diverticulitis. Esophageal stricture Status post dilatation. 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 Type 2 diabetes mellitus with stage 1 chronic kidney disease Surgical History Surgical History History of carpal tunnel surgery of right wrist History of cholecystectomy History of laparotomy With adhesiolysis in 1998 and 2006. History of removal of cyst From chest wall. History of resection of small bowel (2006) With anastomosis. Family History Family History Father Family history of lung cancer Family history of malignant neoplasm Mother Family history of malignant neoplasm of breast in first degree relative Family history of malignant neoplasm Social History Social History (Updated 07/03/22 @ 23:02 by Charito Tsang PA-C) Social History: The patient is as of late 2020. He lives in his own home in [place]. He has 2 cats at home. 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 No drug use. He designates his sons Jay and Angel as his surrogate decision makers. Code status: Full code. Lack of Transportation: No Lack of Food: Never True Current Housing: I Have Housing Concerned About Future Housing: No Difficulty Paying Gas/Electric Bills: No Difficulty Paying for Meds: No Currently Unemployed: No Education: Master's Degree or Higher Difficulty w/ Childcare or Family Care: No Spiritual care concerns: No Meds Home Medications and Allergies Home Medications Medication Instructions Recorded Confirmed Type omega-3 fatty acids 1,000 mg 1,200 mg PO BID 10/07/19 07/03/22 History capsule (Fish Oil Concentrate) atorvastatin 10 mg tablet 10 mg PO QPM #90 tabs 05/20/22 07/03/22 Rx metoprolol tartrate 50 mg
[2022-07-04] MEDS: ONDANSETRON INJ 4 MG/2 ML VIAL IV PUSH ×5 (01:37→21:28)
[2022-07-04 04:27] VITALS: BP 136/62; PULSE 100; RESP 16; TEMP 36.4; O2SAT 99
[2022-07-04 05:53] LABS: Hematocrit 42.1 % (42.0-52.0); Hemoglobin 13.8 g/dL (14.0-18.0); Mean Corpuscular HGB Conc 32.8 g/dl (32-36); Mean Corpuscular Hemoglobin 29.9 pg (26-34); Mean Corpuscular Volume 91.1 fl (80-100); Mean Platelet Volume 8.6 fl (7.4-10.4); Platelet Count Result 149 k/mm3 (150-375); Red Blood Count 4.62 M/mm3 (4.6-6.20); Red Cell Distribution Width 13.2 % (11.5-14.5); White Blood Count 5.2 K/mm3 (4.5-10.0)
[2022-07-04 05:58] LABS: Hemoglobin A1C 5.5 % (<5.7)
[2022-07-04 06:01] LABS: Anion Gap 8 mmol/L (8-16); Blood Urea Nitrogen 25 mg/dL (9-20); Calcium 8.1 mg/dL (8.4-10.2); Carbon Dioxide 29 mmol/L (22-30); Chloride 97 mmol/L (98-107); Estimated CRCL calculation 61 ml/min; Estimated Glomerular Filt Rate > 60; Glucose 134 mg/dL (65-110); Magnesium 1.7 mg/dL (1.6-2.3); Sodium 134 mmol/L (137-145)
[2022-07-04 07:02] LABS: Thyroid Stimulating Hormone Reflex 0.936 uIU/mL (0.465-4.68)
[2022-07-04 07:40] VITALS: O2SAT 97
[2022-07-04 08:07] LABS: Glucose Point of Care 138 mg/dl (65-105)
[2022-07-04] MEDS: PANTOPRAZOLE SODIUM IV 40 MG VIAL IV PUSH (08:29)
[2022-07-04] MEDS: SODIUM CHLORIDE 0.9% IV 1,000 ML 100 ML IV CONT (08:33)
--- NOTE | 2022-07-04 12:01 | PM.IMPN ---
Progress Note: A&P Assessment and Plan (1) Adynamic ileus: Code(s): K56.0 - Paralytic ileus Status: Acute Assessment and Plan: CT scans shows findings of adynamic ileus. Continue supportive care with antiemetics as needed. Continue full liquid diet. Advance as tolerated. (2) Dehydration: Code(s): E86.0 - Dehydration Status: Acute Assessment and Plan: Resolved. Discontinue IV fluids. (3) Type 2 diabetes mellitus: Code(s): E11.9 - Type 2 diabetes mellitus without complications Status: Acute Assessment and Plan: Hold glipizide. Initiate sliding scale insulin, Accu-Cheks, and hypoglycemic protocol. (4) Essential (primary) hypertension: Code(s): I10 - Essential (primary) hypertension Status: Chronic Assessment and Plan: Blood pressure was as low as 74/60 in the emergency department. It has improved significantly with IV fluids. Hold antihypertensives for now and continue to monitor closely. (5) Gastroesophageal reflux disease: Code(s): K21.9 - Gastro-esophageal reflux disease without esophagitis Status: Chronic Assessment and Plan: He is on omeprazole at home. Start Protonix IV Subjective Date/time seen: 07/04/22 12:01 Interval history: No abdominal pain. Had 2 small bowel movements this morning Review of Systems Review of Systems: Twelve systems were reviewed and are negative except for as per HPI. Exam Narrative: General:?Mildly ill-appearing male sitting in a chair. Weight: 112. Three 3 kg. BMI: 33.6. HEENT:??PERRL, EOMI.? Sclerae anicteric. Changes of prior cataract surgery. Tacky mucous membranes. Neck:??Supple. No JVD. Respiratory:?Lungs are clear to auscultation bilaterally. Cardiovascular:??Regular rate and rhythm with S1-S2. Gastrointestinal:??Abdomen is mildly distended with hypoactive bowel sounds. No significant tenderness to palpation over the abdomen.? No guarding or rebound tenderness. Skin:??Warm and dry.? No rash or lesions on limited exam. Extremities:??No cyanosis, clubbing, or significant edema. Radial and pedal pulses intact. Neurological:??Alert.? Cranial nerves 2-12 are grossly intact. No gross focal deficits to casual conversation. Psychiatric:?Pleasant and cooperative with appropriate mood and affect. Objective Data Vital Signs Vital Signs: Vital Signs - 24 hr 07/03/22 12:08 07/03/22 12:09 07/03/22 12:11 Temperature Pulse Rate 82 92 93 Respiratory Rate Blood Pressure 98/58 L 102/63 74/60 L Pulse Oximetry Oxygen Delivery 07/03/22 12:10 07/03/22 12:45 07/03/22 13:15 Temperature Pulse Rate 85 81 83 Respiratory Rate 16 19 19 Blood Pressure 102/63 112/67 109/65 Pulse Oximetry 99 99 99 Oxygen Delivery 07/03/22 14:21 07/03/22 15:17 07/03/22 16:30 Temperature 97.8 F Pulse Rate 86 88 89 Respiratory Rate 19 17 16 Blood Pressure 107/66 104/61 108/70 Pulse Oximetry 98 98 98 Oxygen Delivery 07/03/22 18:38 07/03/22 20:42 07/03/22 20:00 Temperature 97.7 F Pulse Rate 88 88 Respiratory Rate 18 18 Blood Pressure 116/60 Pulse Oximetry 100 100 Oxygen Delivery Room Air Room Air 07/04/22 04:27 07/03/22 21:26 07/04/22 07:40 Temperature 97.5 F L Pulse Rate 100 Respiratory Rate 16 Blood Pressure 136/62 Pulse Oximetry 99 99 97 Oxygen Delivery Room Air Room Air 07/04/22 08:00 Temperature Pulse Rate Respiratory Rate Blood Pressure Pulse Oximetry Oxygen Delivery Room Air Intake/Output Intake/Output: Intake & Output 07/01/22 07/02/22 07/03/22 07/04/22 23:59 23:59 23:59 23:59 Intake Total 1999 1600 / 1600 Balance 1999 / 1599 Meds/Results Medications: Active Medications Generic Name Dose Route Start Last Admin Trade Name Freq PRN Reason Stop Dose Admin Acetaminophen 650 mg 07/03/22 15:42 Acetaminophen 325 Mg Tablet PO Q4H PRN Mild Pain (1-3
[2022-07-04 12:26] LABS: Glucose Point of Care 158 mg/dl (65-105)
[2022-07-04 14:00] VITALS: BP 143/61; PULSE 104; RESP 16; TEMP 36.8; O2SAT 97
[2022-07-04 17:18] LABS: Glucose Point of Care 133 mg/dl (65-105)
[2022-07-04 19:41] LABS: Glucose Point of Care 150 mg/dl (65-105)
[2022-07-04 20:01] VITALS: BP 116/57; PULSE 109; RESP 16; TEMP 36.9; O2SAT 99
[2022-07-05 06:00] VITALS: BP 133/69; PULSE 87; RESP 16; O2SAT 99
[2022-07-05 08:33] LABS: Glucose Point of Care 180 mg/dl (65-105)
[2022-07-05] MEDS: PANTOPRAZOLE SODIUM IV 40 MG VIAL IV PUSH (08:51)
--- NOTE | 2022-07-05 10:33 | PM.DS ---
DS: Admitting Diagnosis Discharge Date 07/05/2022 Admitting Diagnosis Ileus LEAH DS: Discharge Diagnosis Discharge Diagnosis (1) Adynamic ileus: Code(s): K56.0 - Paralytic ileus Status: Acute (2) Type 2 diabetes mellitus with stage 1 chronic kidney disease: Code(s): E11.22 - Type 2 diabetes mellitus with diabetic chronic kidney disease; N18.1 - Chronic kidney disease, stage 1 Status: Chronic DS: Summary Hospital Course Hospital Course: This is a very pleasant?87-year-old gentleman with history of small-bowel obstructions, hypertension, and diabetes who presented to the emergency department from his doctor's office for evaluation of nausea, dry heaves, vomiting, and diarrhea. He has also had 5 to 6 loose, watery stools over the last couple of days which is unusual for him. Vital signs were stable on arrival to the ED. Labs showed evidence of dehydration with hyponatremia and an increase in BUN and creatinine. CT scan showed dilated small bowel without focal transition point, likely adynamic ileus. He received normal saline and Zofran with improvement in his symptoms. Patient was continued on IV fluids overnight. His LEAH resolved. He was gradually started on clear liquid diet and diet was advanced to full diet. At this time he is tolerating a regular diet and reports some nausea but no other complaints. Patient is clinically stable and is being discharged home Time Spent with Patient Time attestation: Total time spent providing and/or coordinating discharge services: Exam Narrative: General:?Mildly ill-appearing male sitting in a chair. Weight: 112. Three 3 kg. BMI: 33.6. HEENT:??PERRL, EOMI.? Sclerae anicteric. Changes of prior cataract surgery. Tacky mucous membranes. Neck:??Supple. No JVD. Respiratory:?Lungs are clear to auscultation bilaterally. Cardiovascular:??Regular rate and rhythm with S1-S2. Gastrointestinal:??Abdomen is mildly distended with hypoactive bowel sounds. No significant tenderness to palpation over the abdomen.? No guarding or rebound tenderness. Skin:??Warm and dry.? No rash or lesions on limited exam. Extremities:??No cyanosis, clubbing, or significant edema. Radial and pedal pulses intact. Neurological:??Alert.? Cranial nerves 2-12 are grossly intact. No gross focal deficits to casual conversation. Psychiatric:?Pleasant and cooperative with appropriate mood and affect. DS: Data Data Completed and Pending Labs on day of discharge: Labs from last 24 hours 07/05/22 07/04/22 07/04/22 08:24 19:38 17:16 POC Capillary Glucose 180 H 150 H 133 H 07/04/22 12:23 POC Capillary Glucose 158 H Discharge Plan Discharge Discharging Clinician: Nilson Louise Anticipated Discharge Date/Time: 07/05/22 10:32 Patient Disposition: Home, Self-Care Activity: no preference Diet: heart healthy Patient Instructions: Antibiotic Form Stand Alone Forms: General Discharge Information Follow-up/Referrals: Wilfrid Valentin MD [Primary Care Provider] - Discharge Medications: New ondansetron 4 mg tablet,disintegrating 4 mg PO Q8H PRN (Reason: nausea and vomiting) Qty: 10 0RF Continued omega-3 fatty acids [Fish Oil Concentrate] 1,000 mg capsule 1,200 mg PO BID glipizide 5 mg tablet 2.5 mg PO HS Rx Instructions: with dinner naproxen sodium [Aleve] 220 mg Tablet 220 mg PO BID PRN (Reason: Pain) diphenhydramine-acetaminophen [Tylenol PM Extra Strength] 25-500 mg Tablet 1 tablet PO HS PRN (Reason: Insomnia) atorvastatin 10 mg tablet 10 mg PO QPM Qty: 90 1RF metoprolol tartrate 50 mg tablet 50 mg PO DAILY Qty: 90 1RF Januvia 100 mg tablet 100 mg PO DAILY Qty: 90 1RF Rx Instructions: TAKE 1 TABLET BY MOUTH DAILY omeprazole 40 mg capsule,delayed release(DR/EC) 40 mg PO DAILY Qty: 90 1RF Rx Instructions: TAKE 1 CAPSULE BY MOUTH DAILY olmesartan-hydrochlorothiazide 40-12.5 mg tablet
--- NOTE | 2022-07-05 13:34 | PC.NURSE ---
Pt called having problems with the prescription for zofran. Call made to pharmacy, medication confirmed. Called back to pt. Informed him that meds will be ready soon.
== END 2022-07-05 11:51 | disposition home or self-care (01) | DRG 389 ==
LOC: ANHED 14:03 → ANH3MEDSUR 16:27 → ANH3MED 18:03
PROVIDERS: Emergency Medicine; Physician Assistant; Admitting Provider Family Medicine; Emergency Provider Emergency Medicine; PCP Family Medicine; Visit Provider Hospitalist
DX: K56.0 Paralytic ileus (principal); E87.1 Hypo-osmolality and hyponatremia; I13.0 Hypertensive heart and chronic kidney disease with heart failure and stage 1 through stage 4 chronic kidney disease, or unspecified chronic kidney disease; I50.32 Chronic diastolic (congestive) heart failure; N18.1 Chronic kidney disease, stage 1; E11.22 Type 2 diabetes mellitus with diabetic chronic kidney disease; I12.9 Hypertensive chronic kidney disease with stage 1 through stage 4 chronic kidney disease, or unspecified chronic kidney disease; N40.0 Benign prostatic hyperplasia without lower urinary tract symptoms; K52.9 Noninfective gastroenteritis and colitis, unspecified; E86.0 Dehydration; K57.90 Diverticulosis of intestine, part unspecified, without perforation or abscess without bleeding; K21.9 Gastro-esophageal reflux disease without esophagitis; K58.9 Irritable bowel syndrome, unspecified; Z90.49 Acquired absence of other specified parts of digestive tract
CPT/HCPCS: 36415; 74019; 74177; 80048; 80053; 81001; 82948; 83036; 83690; 83735; 84443; 85025; 85027; 96361; 96374; 96375; 96376; 99285; C9113; G0378; J2405; J7030; Q9967

== ENCOUNTER 2022-09-26 13:30 | Outpatient (CLI) | payer MEDICARE, SELFPAY ==
[2022-09-26 14:29] LABS: SARS-CoV-2 RNA PCR Positive (Negative)
== END 2022-09-26 13:31 | disposition home or self-care (01) ==
LOC: ANHLAB 13:32
PROVIDERS: PCP Nurse Practitioner; Visit Provider Nurse Practitioner
DX: R68.89 Other general symptoms and signs (principal); U07.1 COVID-19
CPT/HCPCS: 87635

== ENCOUNTER 2023-01-09 12:30 | Outpatient (CLI) | payer MEDICARE, SELFPAY | END 2023-01-09 12:31 | disposition home or self-care (01) | LOC: ANHAUDIO 12:32 | PROVIDERS: PCP Nurse Practitioner; Visit Provider Otolaryngology | DX: H90.12 Conductive hearing loss, unilateral, left ear, with unrestricted hearing on the contralateral side (principal); H72.92 Unspecified perforation of tympanic membrane, left ear; H90.41 Sensorineural hearing loss, unilateral, right ear, with unrestricted hearing on the contralateral side; H90.72 Mixed conductive and sensorineural hearing loss, unilateral, left ear, with unrestricted hearing on the contralateral side | CPT/HCPCS: 92557; 92567 ==

== ENCOUNTER 2023-01-17 09:45 | Outpatient (CLI) | payer MEDICARE, SELFPAY | END 2023-01-17 09:46 | disposition home or self-care (01) | LOC: ANHAUDIO 09:46 | PROVIDERS: PCP Nurse Practitioner | DX: Z01.110 Encounter for hearing examination following failed hearing screening (principal) | CPT/HCPCS: 99199 ==

== ENCOUNTER 2023-03-14 12:49 | Outpatient (RCR) | payer MEDICARE, SELFPAY | END 2023-03-14 23:59 | disposition home or self-care (01) | LOC: ANHAUDIO 12:49 | PROVIDERS: PCP Nurse Practitioner; Visit Provider Nurse Practitioner | DX: Z46.1 Encounter for fitting and adjustment of hearing aid (principal) | CPT/HCPCS: 99199; V5261 ==

== ENCOUNTER 2023-06-11 00:38 | Emergency (ER) | payer MEDICARE, SELFPAY ==
[2023-06-11 00:41] VITALS: BP 157/89; PULSE 77; RESP 16; TEMP 36.2; O2SAT 98
--- NOTE | 2023-06-11 02:00 | ED.GENADULT ---
HPI - General Adult General Chief complaint: Urogenital-Male Stated complaint: hematuria Time Seen by Provider: 06/11/23 01:53 History of Present Illness HPI narrative: This is an 88-year-old male presenting with painless hematuria. At 4:00 p.m. today is notice some blood in his trousers. He then went to the bathroom and had mary ann blood come out of his penis. No pain. No dysuria urgency or frequency. No history of kidney cancer. He does have prostate issues for which he sees Dr. Villanueva. No fever chills nausea vomiting diarrhea or pain. no issues initiating stream. no blood thinners Related Data Home Medications Medication Instructions Recorded Confirmed omega-3 fatty acids 1,000 mg 1,200 mg PO BID 10/07/19 05/13/23 capsule (Fish Oil Concentrate) naproxen sodium 220 mg tablet 220 mg PO BID PRN Pain 07/03/22 05/13/23 (Aleve) Allergies Allergy/AdvReac Type Severity Reaction Status Date / Time haloperidol AdvReac Unknown Hallucinati Verified 05/13/23 14:19 ng PMF Past Medical History Medical History Benign prostatic hyperplasia Diastolic CHF Diverticulosis With history of diverticulitis. Esophageal stricture Status post dilatation. 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 Type 2 diabetes mellitus with stage 1 chronic kidney disease Surgical History Surgical History History of carpal tunnel surgery of right wrist History of cholecystectomy History of laparotomy With adhesiolysis in 1998 and 2006. History of removal of cyst From chest wall. History of resection of small bowel (2006) With anastomosis. Family History Family History Father Family history of lung cancer Family history of malignant neoplasm Mother Family history of malignant neoplasm of breast in first degree relative Family history of malignant neoplasm Breast cancer Sibling Brain cancer Social History Social History Social History: The patient is as of late 2020. He lives in his own home in [place]. He has 2 cats at home. 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 No drug use. He designates his sons Jay and Angel as his surrogate decision makers. Code status: Full code. Caffeine-coffee Smoking status: Never smoker Alcohol intake: current Drinks per week: 2 Alcohol use details: occasionally Substance use: never Substance use type: does not use Lack of Transportation: No Lack of Food: Never True Current Housing: I Have Housing Concerned About Future Housing: No Difficulty Paying Gas/Electric Bills: No Difficulty Paying for Meds: No Currently Unemployed: No Education: Master's Degree or Higher Difficulty w/ Childcare or Family Care: No Spiritual care concerns: No Exam Narrative: APPEARANCE: No apparent distress. Head: atraumatic. EYES: EOMI, NOSE: Atraumatic NECK: Trachea midline RESPIRATORY: No increased rate of breathing CARDIOVASCULAR: RRR, ABDOMINAL: Non-distended , soft nontender no guarding or rebound. No suprapubic fullness. No CVA tenderness. General exam, grossly normal external some dried blood at the urinary meatus, testicle exam normal MUSCULOSKELETAl: No obvious deformities NEURO: Alert. Moving 4/4 extremities SKIN:: Warm, dry. Normal color PSYCHIATRIC: Normal affect Course Vital Signs Vital signs: Vital Signs Temperature 97.1 F L 06/11/23 00:41 Pulse Rate 77 06/11/23 00:41 Respiratory Rate 16 06/11/23 00:41 Blood Pressure 157/89 H 06/11/23 00:41 Pulse Oximetry 98 06/11/23 00:41 Oxygen Delivery Room Air
[2023-06-11 02:05] VITALS: BP 148/83; PULSE 71; RESP 16; TEMP 36.8; O2SAT 99
[2023-06-11 02:18] LABS: Add Urine Microscopic? YES; Appearance Urine Clear (Clear); Bacteria Urine None Seen /hpf; Bilirubin Urine Negative (Negative); Blood Urine 3+ (Negative); Color Urine Yellow (Yellow); Glucose Urine UA Negative (Negative); Ketones Urine Negative (Negative); Leukocyte Esterase Ur Negative LEU/UL (Negative); Nitrate Urine Negative (Negative); Non Pathogenic Casts 0-2; Protein Urine Negative (Negative); RBC Urine >100 /hpf (0-2); Specific Grav Ur 1.011 (1.001-1.035); Squamous Epithelial Cell Urine None Seen /hpf (Few); Urobilinogen Urine 0.2 mg/dL (<2.0); WBC Urine 0-5 /hpf (0-3); pH Urine 6.5 (5.0-9.0)
== END 2023-06-11 02:46 | disposition home or self-care (01) ==
LOC: ANHED 02:41
PROVIDERS: Emergency Provider Emergency Medicine; PCP Nurse Practitioner
DX: R31.9 Hematuria, unspecified (principal); I50.30 Unspecified diastolic (congestive) heart failure; K21.9 Gastro-esophageal reflux disease without esophagitis; E11.22 Type 2 diabetes mellitus with diabetic chronic kidney disease; I13.0 Hypertensive heart and chronic kidney disease with heart failure and stage 1 through stage 4 chronic kidney disease, or unspecified chronic kidney disease; N18.1 Chronic kidney disease, stage 1
CPT/HCPCS: 81001; 99283

== ENCOUNTER 2023-06-27 19:54 | Observation (INO) | payer MEDICARE, SELFPAY ==
--- NOTE | ~2023-06-27 | XR_ITS ---
EXAMINATION: XR abdomen/kub 1V DATE: 06/28/2023 08:41 INDICATION: Adynamic ileus. TECHNIQUE: A supine view of the abdomen on 2 radiographs was obtained. COMPARISON: Abdomen radiographs 07/04/2022, CT abdomen and pelvis 06/27/2023 FINDINGS: There is dilated jejunum in the left abdomen. The colon is normal in caliber. There is a ga llstone in the gallbladder. IMPRESSION: 1. Dilated jejunum again seen, likely adynamic ileus. 2. Cholelithiasis. Reviewed, dictated and finalized at location A.
--- NOTE | ~2023-06-27 | CT_ITS ---
EXAMINATION: CT abdomen pelvis w con DATE: 06/27/2023 21:46 INDICATION: Nausea and vomiting. TECHNIQUE: Computed tomography (CT) of the abdomen and pelvis was performed with 100 mL Omnipaque 350 intravenous contrast. Automated exposure control and iterative reconstruction technique were employe d. The dose-length product was 1280.49 mGy-cm. COMPARISON: CT abdomen and pelvis 07/03/2022 FINDINGS: The visualized portions of the lung bases demonstrate emphysema and chronic interstitial daniela ng disease. No pleural effusion. The heart size is normal. There are calcifications of the aortic jennifer ve and coronary arteries. No pericardial effusion. Calcified left hilar lymph nodes are consistent wi th old granulomatous disease. Calcifications in the liver and spleen are consistent with old granulom atous disease. There are cysts in the liver measuring up to 5 mm. There is a gallstone in the gallbla dder, which is normal in size. The pancreas and adrenal glands are normal. There are cysts in the kid neys measuring up to 2.7 cm on the right. The prostate is severely enlarged. There is diffuse bladder wall thickening, likely secondary to chronic outlet obstruction. There is diverticulosis of the colo n without evidence of diverticulitis. The appendix is a right-sided spigelian hernia. There are dilat ed loops of small bowel without focal transition point, consistent with adynamic ileus. There is prom inent fat in the inguinal canals that may be hernias. There are no pathologically enlarged lymph node s. There is no free intraperitoneal fluid. There is severe lower lumbar spondylosis. IMPRESSION: 1. Dilated proximal small bowel without focal transition point, consistent with adynamic ileus. 2. Right-sided spigelian hernia containing the appendix. Reviewed, dictated and finalized at location E.
[2023-06-27 19:56] VITALS: BP 169/107; PULSE 118; RESP 20; TEMP 36.8; O2SAT 99
--- NOTE | 2023-06-27 20:07 | ED.NAVMDI ---
HPI - Nausea/Vomiting/Diarrhea General Chief complaint: Nausea/Vomiting/Diarrhea <ALEYDA Lim Last Filed: 06/28/23 00:30> Stated complaint: vomiting <ALEYDA Lim Last Filed: 06/28/23 00:30> Time Seen by Provider: 06/27/23 20:04 <ALEYDA Lim Last Filed: 06/28/23 00:30> Source: patient <ALEYDA Lim Last Filed: 06/28/23 00:30> Mode of arrival: ambulatory <ALEYDA Lim Last Filed: 06/28/23 00:30> Limitations: no limitations <ALEYDA Lim Last Filed: 06/28/23 00:30> History of Present Illness HPI Narrative: Patient is an 88-year-old male who presents the ED with report of nausea and vomiting. Patient reports he has been nauseous most of the day today. Has history of similar symptoms in the past related to bowel obstructions. Hx small bowel resection, diverticulitis, adhesiolysis. He took Zofran at home with minimal relief. Began vomiting upon arrival to the ED. He denies significant abdominal pain or distension. He has had several bowel movements today, soft. Denies rectal bleeding or melena. Denies fevers. Denies urinary complaints. <ALEYDA Lim Last Filed: 06/28/23 00:30> Related Data Home medications: Home Medications Medication Instructions Recorded Confirmed omega-3 fatty acids 1,000 mg 1,200 mg PO BID 10/07/19 05/13/23 capsule (Fish Oil Concentrate) naproxen sodium 220 mg tablet 220 mg PO BID PRN Pain 07/03/22 05/13/23 (Aleve) <ALEYDA Lim Last Filed: 06/28/23 00:30> Allergies/Adverse reactions: Allergies Allergy/AdvReac Type Severity Reaction Status Date / Time haloperidol AdvReac Unknown Hallucinati Verified 06/27/23 20:01 ng <ALEYDA Lim Last Filed: 06/28/23 00:30> Review of Systems Review of Systems: CONSTITUTIONAL: Denies fever, chills, or sweats. GASTROINTESTINAL: See HPI. GENITOURINARY: Denies dysuria or hematuria. <Deisi Boateng PA-C - Last Filed: 06/28/23 00:30> All systems reviewed & are unremarkable except as noted in HPI and below <Deisi Boateng PA-C - Last Filed: 06/28/23 00:30> [facility] Past Medical History Medical History: Medical History Benign prostatic hyperplasia Diastolic CHF Diverticulosis With history of diverticulitis. Esophageal stricture Status post dilatation. 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 Type 2 diabetes mellitus with stage 1 chronic kidney disease <Deisi Boateng PA-C - Last Filed: 06/28/23 00:30> Surgical History Surgical History: Surgical History History of carpal tunnel surgery of right wrist History of cholecystectomy History of laparotomy With adhesiolysis in 1998 and 2006. History of removal of cyst From chest wall. History of resection of small bowel (2006) With anastomosis. <Deisi Boateng PA-C - Last Filed: 06/28/23 00:30> Family History Family History: Family History Father Family history of lung cancer Family history of malignant neoplasm Mother Family history of malignant neoplasm of breast in first degree relative Family history of malignant neoplasm Breast cancer Sibling Brain cancer <Deisi Boateng PA-C - Last Filed: 06/28/23 00:30> Social History Social History: Social History Social History: The patient is as of late 2020. He lives in his own home in [place]. He has 2 cats at home. 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
[2023-06-27 20:41] LABS: Basophils Percent Auto 0.3 % (0.2-1.2); Eosinophils Absolute Auto 0.1 K/mm3 (0-0.3); Eosinophils Percent Auto 0.9 % (0-4.4); Hematocrit 44.8 % (42.0-52.0); Immature Granulocyte Absolute 0.02 K/mm3 (0.00-0.031); Immature Granulocyte Percent A 0.3 % (0-0.5); Lymphocytes Absolute Auto 0.73 K/mm3 (0.9-3.2); Lymphocytes Percent Auto 10.5 % (18.3-44.2); Mean Corpuscular HGB Conc 33.5 g/dl (32-36); Mean Corpuscular Hemoglobin 29.8 pg (26-34); Mean Corpuscular Volume 88.9 fl (80-100); Mean Platelet Volume 8.3 fl (7.4-10.4); Monocytes Absolute Auto 0.2 K/mm3 (0.1-0.6); Monocytes Percent Auto 3.2 % (2.6-8.5); Neutrophils Absolute Auto 5.9 K/mm3 (1.3-6.7); Neutrophils Percent Auto 84.8 % (45.5-73.1); Platelet Count Result 124 k/mm3 (150-375); Red Blood Count 5.04 M/mm3 (4.6-6.20); Red Cell Distribution Width 13.6 % (11.5-14.5)
[2023-06-27 20:45] VITALS: PULSE 108; RESP 22; O2SAT 97
[2023-06-27 20:51] LABS: Appearance Urine Clear (Clear); Bacteria Urine None Seen /hpf; Bilirubin Urine 1+ (Negative); Blood Urine Negative (Negative); Color Urine Dark Yellow (Yellow); Glucose Urine UA Negative (Negative); Ketones Urine Trace mg/dL (Negative); Leukocyte Esterase Ur Negative LEU/UL (Negative); Need Manual Microscopic Reviewed; Nitrate Urine Negative (Negative); Protein Urine 1+ mg/dL (Negative); Specific Grav Ur 1.027 (1.001-1.035); Squamous Epithelial Cell Urine None Seen /hpf (Few); WBC Urine 0-5 /hpf (0-3); pH Urine 6.5 (5.0-9.0)
[2023-06-27 20:52] LABS: Add Urine Microscopic? YES
[2023-06-27 20:52] LABS: Alanine Aminotransferase 23 U/L (6-50); Alkaline Phosphatase 46 U/L (38-126); Anion Gap 5 mmol/L (4-12); Aspartate Amino Transferase 26 U/L (17-59); Bilirubin,Total 1.2 mg/dL (0.2-1.3); Blood Urea Nitrogen 25 mg/dL (9-20); Calcium 9.1 mg/dL (8.4-10.2); Carbon Dioxide 27 mmol/L (22-30); Chloride 99 mmol/L (98-107); Estimated CRCL calculation 48 ml/min; Estimated Glomerular Filt Rate 52; Glucose 147 mg/dL (65-110); Lactic Acid Reflex 1.4 mmol/L (0.7-2.0); Lipase 172 U/L (23-300); Potassium 4.6 mmol/L (3.4-5.0); Sodium 131 mmol/L (137-145)
[2023-06-27 20:58] VITALS: PULSE 102; RESP 20; O2SAT 96
[2023-06-27] MEDS: SODIUM CHLORIDE 0.9% IV 1,000 ML 999 ML IV CONT (20:58)
[2023-06-27 22:33] VITALS: PULSE 108; RESP 25; O2SAT 95
--- NOTE | 2023-06-27 23:06 | PC.NURSE ---
patient care and report given to STANISLAV Kay. all questions answered.
--- NOTE | 2023-06-27 23:12 | PC.NURSE ---
this rn assumed care of patient. this rn took patient report from STANISLAV Ag.
[2023-06-27] MEDS: ONDANSETRON INJ 4 MG/2 ML VIAL IV PUSH (23:19)
[2023-06-27] MEDS: SODIUM CHLORIDE 0.9% IV 1,000 ML 100 ML IV CONT (23:19)
[2023-06-27 23:36] VITALS: BP 134/72; PULSE 101; RESP 24; O2SAT 99
[2023-06-28] VITALS (9 sets, daily range): BP systolic 110–129; BP diastolic 54–62; PULSE 81–95; RESP 16–18; TEMP 36.4–36.8; O2SAT 94–98; BMI 35.3
--- NOTE | 2023-06-28 01:09 | ADMGEN ---
This patient, Cali Vasquez, was admitted to Medical Room 256-01. Patient/family oriented to hospital policies and general routines including ID bracelet, bed and alarms, visiting hours, pain management, procedures, bathroom and other care routines, personal items, smoking policy, room service/diet, and visiting hours. Information on how to activate the Rapid Response Team has been discussed. Patient/Family are encouraged to report perceived risks to care and to ask questions if they do not understand what they are told or what they should do.
--- NOTE | 2023-06-28 08:10 | PM.IMHP ---
H&P: HPI History of Present Illness Date/Time: 06/28/23 08:10 Chief Complaint: Abdominal pain Narrative: This is an 88-year-old male with a past medical history of BPH, diastolic CHF, diverticulosis, esophageal stricture post dilatation, hypertension, GERD, IBS, diabetes, CKD, and history of small-bowel resection with multiple recurrent small bowel obstructions presents to the ER overnight with complaints of abdominal pain. [facility] Past Medical History Medical History Benign prostatic hyperplasia Diastolic CHF Diverticulosis With history of diverticulitis. Esophageal stricture Status post dilatation. 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 Type 2 diabetes mellitus with stage 1 chronic kidney disease Surgical History Surgical History History of carpal tunnel surgery of right wrist History of cholecystectomy History of laparotomy With adhesiolysis in 1998 and 2006. History of removal of cyst From chest wall. History of resection of small bowel (2006) With anastomosis. Family History Family History Father Family history of lung cancer Family history of malignant neoplasm Mother Family history of malignant neoplasm of breast in first degree relative Family history of malignant neoplasm Breast cancer Sibling Brain cancer Social History Social History Social History: The patient is as of late 2020. He lives in his own home in [place]. He has 2 cats at home. 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 No drug use. He designates his sons Jay and Angel as his surrogate decision makers. Code status: Full code. Caffeine-coffee Smoking status: Never smoker Second hand tobacco smoke exposure: No Alcohol intake: current Drinks per week: 2 Alcohol use details: occasionally Substance use: never Substance use type: does not use Do You Feel Safe in your Home?: Yes Lack of Transportation: No Lack of Food: Never True Current Housing: I Have Housing Concerned About Future Housing: No Difficulty Paying Gas/Electric Bills: No Difficulty Paying for Meds: No Currently Unemployed: No Education: Master's Degree or Higher Difficulty w/ Childcare or Family Care: No Spiritual care concerns: No Meds Home Medications and Allergies Home Medications Medication Instructions Recorded Confirmed Type omega-3 fatty acids 1,000 mg 1,200 mg PO BID 10/07/19 06/28/23 History capsule (Fish Oil Concentrate) naproxen sodium 220 mg tablet 220 mg PO BID PRN Pain 07/03/22 06/28/23 History (Aleve) lancets 30 gauge #200 ea 11/26/22 06/28/23 Rx atorvastatin 10 mg tablet 10 mg PO QPM #90 tabs 11/28/22 06/28/23 Rx metoprolol tartrate 50 mg tablet 50 mg PO DAILY #90 tabs 11/28/22 06/28/23 Rx olmesartan 40 1 tablet PO DAILY #90 tabs 11/28/22 06/28/23 Rx mg-hydrochlorothiazide 12.5 mg tablet omeprazole 40 mg capsule,delayed 40 mg PO DAILY #90 caps 11/28/22 06/28/23 Rx release sitagliptin phosphate 100 mg 100 mg PO DAILY #90 tabs 11/28/22 06/28/23 Rx tablet (Januvia) blood sugar diagnostic (OneTouch #100 strips 04/21/23 06/28/23 Rx Verio test strips) glipizide 2.5 mg tablet 2.5 mg PO BID #60 tabs 05/13/23 06/28/23 Rx diphenhydramine HCl 25 mg capsule 50 mg PO HS PRN Sleep 06/28/23 06/28/23 History (Benadryl) Allergies Allergy/AdvReac Type Severity Reaction Status Date / Time haloperidol AdvReac Unknown Hallucinati Verified 06/27/23 20:01 ng Vital Signs Vital Signs - 24 hr 06/27/23 19:56 06/27/23 20:58 06/27/23 20:45
[2023-06-28] MEDS: SODIUM CHLORIDE 0.9% IV 1,000 ML 100 ML IV CONT ×2 (09:41→20:06)
[2023-06-28 11:55] LABS: Glucose Point of Care 113 mg/dl (65-105)
--- NOTE | 2023-06-28 13:46 | PM.IMHP ---
H&P: HPI History of Present Illness Date/Time: 06/28/23 13:46 Chief Complaint: Nausea/vomiting Narrative: Patient is an 88-year-old male who presented to the emergency department with complaints nausea vomiting. Patient states that the nausea has been continuous for most of the day prior to arrival however he also then began vomiting with no relief. Patient reports he has had multiple bowel obstructions, diverticulitis adhesiolysis in the past and was concerned for another bowel obstruction. Per ER notes patient was vomiting upon arrival but since have subsided with Zofran. Patient does have a past medical history of HLD, diabetes, HTN, BPH, and recurrent SBO. Patient had normal wbc's, lipase is WNL, mild hyponatremia likely secondary to dehydration, however CT abdomen did show dilated proximal small bowel without focal transition point consistent with paralytic ileus. Upon assessment patient reports he has stool x4 liquid now but feels fine with no further nausea or vomiting. Patient states he feels good no nausea no vomiting denies chest pain shortness a breath, dizziness or weakness. KUB this a.m. still shows paralytic ileus however that was prior to patient's stools, surgery consulted for any further recommendations will advance patient's diet as tolerated and continue with abdominal series. Review of Systems Review of Systems: All systems reviewed & are unremarkable except as noted in HPI and below PMFSH Past Medical History Medical History Benign prostatic hyperplasia Diastolic CHF Diverticulosis With history of diverticulitis. Esophageal stricture Status post dilatation. 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 Type 2 diabetes mellitus with stage 1 chronic kidney disease Surgical History Surgical History History of carpal tunnel surgery of right wrist History of cholecystectomy History of laparotomy With adhesiolysis in 1998 and 2006. History of removal of cyst From chest wall. History of resection of small bowel (2006) With anastomosis. Family History Family History Father Family history of lung cancer Family history of malignant neoplasm Mother Family history of malignant neoplasm of breast in first degree relative Family history of malignant neoplasm Breast cancer Sibling Brain cancer Social History Social History Social History: The patient is as of late 2020. He lives in his own home in [place]. He has 2 cats at home. 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 No drug use. He designates his sons Jay and Angel as his surrogate decision makers. Code status: Full code. Caffeine-coffee Smoking status: Never smoker Second hand tobacco smoke exposure: No Alcohol intake: current Drinks per week: 2 Alcohol use details: occasionally Substance use: never Substance use type: does not use Do You Feel Safe in your Home?: Yes Lack of Transportation: No Lack of Food: Never True Current Housing: I Have Housing Concerned About Future Housing: No Difficulty Paying Gas/Electric Bills: No Difficulty Paying for Meds: No Currently Unemployed: No Education: Master's Degree or Higher Difficulty w/ Childcare or Family Care: No Spiritual care concerns: No Meds Home Medications and Allergies Home Medications Medication Instructions Recorded Confirmed Type omega-3 fatty acids 1,000 mg 1,200 mg PO BID 10/07/19 06/28/23 History capsule (Fish Oil Concentrate) naproxen sodium 220 mg tablet 220 mg PO BID PRN Pain 07/03/2206/10
[2023-06-28 14:30] LABS: Hemoglobin 14.2 g/dL (14.0-18.0); Mean Corpuscular HGB Conc 32.3 g/dl (32-36); Mean Corpuscular Hemoglobin 29.4 pg (26-34); Mean Corpuscular Volume 91.1 fl (80-100); Mean Platelet Volume 8.5 fl (7.4-10.4); Platelet Count Result 111 k/mm3 (150-375); Red Blood Count 4.83 M/mm3 (4.6-6.20); Red Cell Distribution Width 13.7 % (11.5-14.5); White Blood Count 3.6 K/mm3 (4.5-10.0)
[2023-06-28 14:34] LABS: Alanine Aminotransferase 48 U/L (6-50); Albumin Level 3.8 g/dL (3.5-5.1); Alkaline Phosphatase 44 U/L (38-126); Anion Gap 7 mmol/L (4-12); Aspartate Amino Transferase 51 U/L (17-59); Blood Urea Nitrogen 21 mg/dL (9-20); Calcium 8.5 mg/dL (8.4-10.2); Carbon Dioxide 24 mmol/L (22-30); Chloride 103 mmol/L (98-107); Estimated CRCL calculation 61 ml/min; Estimated Glomerular Filt Rate > 60; Glucose 116 mg/dL (65-110); Potassium 4.2 mmol/L (3.4-5.0); Sodium 134 mmol/L (137-145)
[2023-06-28] MEDS: PANTOPRAZOLE SODIUM IV 40 MG VIAL IV PUSH ×2 (14:56→20:06)
--- NOTE | 2023-06-28 15:20 | WPDCN ---
Assessment and Plan Assessment and plan (1) Adynamic ileus: Code(s): K56.0 - Paralytic ileus Status: Acute Assessment and Plan: Patient admitted with abdominal pain as well as some nausea vomiting. This has now all resolved. He is began to have bowel movements again. He certainly could have had low-grade partial small-bowel obstruction. He certainly has had many surgeries and has reasons to have abdominal adhesions. He had also had adynamic ileus for some unknown reason. In any case he is now resolved and having bowel movement. I would do is go ahead advancing diet and see how he does. No obvious need for surgical intervention at this time. HPI Data of Consult Date/Time: 06/28/23 15:20 Requesting Physician: Deyanira Le DO Primary Care Provider: Yusuf Herndon APRN Consult Narrative Reason for consult: Abdominal pain, nausea and vomiting Narrative: Cali Vasquez is a 88 year old male was admitted to the hospital with abdominal pain and nausea vomiting. He has had multiple abdominal surgeries in the past many of which had been performed by Dr. Garcia going back to 1998. Patient has had prior episodes of partial bowel obstruction resolved without surgical management. CT scan abdomen pelvis showed mildly dilated loops of small bowel without transition point. White blood count normal. No tachycardia fever. Lactic acid level is normal. Since he has been admitted patient has had multiple bowel movements now. His pain is completely resolved he has no nausea. He has tolerated few sips of liquids without problems. KUB this morning show just a mildly dilated jejunum. Review of Systems Review of Systems: The remainder of the review of systems to include constitutional, HEENT, cardiovascular, respiratory, GI, , integumentary, musculoskeletal, endocrine, immunologic, hematologic, psychiatric, and neurologic are all negative except for which is mentioned above in the HPI. [facility] Past Medical History Medical History Benign prostatic hyperplasia Diastolic CHF Diverticulosis With history of diverticulitis. Esophageal stricture Status post dilatation. 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 Type 2 diabetes mellitus with stage 1 chronic kidney disease Surgical History Surgical History History of carpal tunnel surgery of right wrist History of cholecystectomy History of laparotomy With adhesiolysis in 1998 and 2006. History of removal of cyst From chest wall. History of resection of small bowel (2006) With anastomosis. Family History Family History Father Family history of lung cancer Family history of malignant neoplasm Mother Family history of malignant neoplasm of breast in first degree relative Family history of malignant neoplasm Breast cancer Sibling Brain cancer Social History Social History Social History: The patient is as of late 2020. He lives in his own home in [place]. He has 2 cats at home. 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 No drug use. He designates his sons Jay and Angel as his surrogate decision makers. Code status: Full code. Caffeine-coffee Smoking status: Never smoker Second hand tobacco smoke exposure: No Alcohol intake: current Drinks per week: 2 Alcohol use details: occasionally Substance use: never Substance use type: does not use Do You Feel Safe in your Home?: Yes Lack of Transportation: No Lack of Food: Never True Current Housing: I Have Housing Concerned About Future Housi
[2023-06-28 16:44] LABS: Glucose Point of Care 112 mg/dl (65-105)
[2023-06-28] MEDS: ATORVASTATIN 10 MG TABLET PO (17:06)
[2023-06-28 21:28] LABS: Glucose Point of Care 91 mg/dl (65-105)
[2023-06-29] VITALS: PULSE 84
[2023-06-29 04:00] VITALS: PULSE 81
[2023-06-29 05:21] LABS: Hematocrit 41.8 % (42.0-52.0); Hemoglobin 13.7 g/dL (14.0-18.0); Mean Corpuscular HGB Conc 32.8 g/dl (32-36); Mean Corpuscular Volume 91.5 fl (80-100); Mean Platelet Volume 8.4 fl (7.4-10.4); Platelet Count Result 113 k/mm3 (150-375); Red Blood Count 4.57 M/mm3 (4.6-6.20); Red Cell Distribution Width 13.6 % (11.5-14.5); White Blood Count 4.1 K/mm3 (4.5-10.0)
[2023-06-29 05:24] VITALS: BP 134/69; PULSE 80; RESP 18; TEMP 36.4; O2SAT 95
[2023-06-29 05:51] LABS: Alanine Aminotransferase 45 U/L (6-50); Albumin Level 3.2 g/dL (3.5-5.1); Alkaline Phosphatase 41 U/L (38-126); Anion Gap 3 mmol/L (4-12); Aspartate Amino Transferase 36 U/L (17-59); Bilirubin,Total 0.6 mg/dL (0.2-1.3); Blood Urea Nitrogen 15 mg/dL (9-20); Calcium 8.4 mg/dL (8.4-10.2); Carbon Dioxide 29 mmol/L (22-30); Chloride 103 mmol/L (98-107); Estimated CRCL calculation 61 ml/min; Estimated Glomerular Filt Rate > 60; Glucose 125 mg/dL (65-110); Potassium 4.3 mmol/L (3.4-5.0); Sodium 135 mmol/L (137-145)
[2023-06-29 06:26] LABS: Glucose Point of Care 135 mg/dl (65-105)
[2023-06-29 08:00] VITALS: PULSE 77
[2023-06-29 08:03] LABS: Glucose Point of Care 158 mg/dl (65-105)
[2023-06-29] MEDS: OLMESARTAN MEDOXOMIL 20 MG TABLET 40 MG PO (08:11)
[2023-06-29 08:12] VITALS: PULSE 77
[2023-06-29] MEDS: PANTOPRAZOLE SODIUM IV 40 MG VIAL IV PUSH (08:12)
[2023-06-29] MEDS: METOPROLOL TARTRATE 50 MG TAB PO (08:12)
[2023-06-29] MEDS: hydroCHLOROthiazide 12.5 MG CAPSULE PO (08:12)
--- NOTE | 2023-06-29 10:12 | PM.DS ---
DS: Admitting Diagnosis Discharge Date 06/29/2023 Admitting Diagnosis adynamic ileus DS: Discharge Diagnosis Discharge Diagnosis (1) Adynamic ileus: Code(s): K56.0 - Paralytic ileus Status: Acute (2) Type 2 diabetes mellitus: Qualifiers: Diabetes mellitus complication status: without complication Diabetes mellitus entry examiner insulin use: without entry examiner use Qualified Code(s): E11.9 - Type 2 diabetes mellitus without complications Code(s): E11.9 - Type 2 diabetes mellitus without complications Status: Acute (3) Gastroesophageal reflux disease: Code(s): K21.9 - Gastro-esophageal reflux disease without esophagitis Status: Chronic (4) Mixed hyperlipidemia: Code(s): E78.2 - Mixed hyperlipidemia Status: Acute (5) CKD (chronic kidney disease): Code(s): N18.9 - Chronic kidney disease, unspecified Status: Acute Plan Adynamic ileus CT showing a dilated proximal small bowel without focal transition point consistent with paralytic ileus Patient with history small-bowel resection 2006 Surgery consulted Will continue with conservative management Will advance diet as tolerated after having BM IV fluids Pain control Antiemetics KUB abdominal series daily Diabetes Accu-Cheks a.c. HS sliding scale insulin hold oral diabetic medications Diabetic diet when tolerated Optimize Dago inhibitors and statins. Watch for hypoglycemia/hypoglycemic protocol ordered Hyponatremia Secondary to dehydration IV fluids Encouraged oral hydration when tolerating HX HTN: Resume beta-brook HX HLD: Resumed patient's home statin HX GERD: Omeprazole switch to pantoprazole IV Disposition: Discharge to home DS: Summary Hospital Course Reason for hospitalization: adynamic ileus Hospital Course: Patient is an 88-year-old male who presented to the emergency department with complaints nausea vomiting.? Patient states that the nausea has been continuous for most of the day prior to arrival however he also then began vomiting with no relief.? Patient reports he has had multiple bowel obstructions, diverticulitis adhesiolysis in the past and was concerned for another bowel obstruction.? Per ER notes patient was vomiting upon arrival but since have subsided with Zofran.? Patient does have a past medical history of HLD, diabetes, HTN, BPH, and recurrent SBO.? Patient had normal wbc's, lipase is WNL, mild hyponatremia likely secondary to dehydration, however CT abdomen did show dilated proximal small bowel without focal transition point consistent with paralytic ileus.? Upon assessment patient reports he has stool x4 liquid now but feels fine with no further nausea or vomiting.? Patient states he feels good no nausea no vomiting denies chest pain shortness a breath, dizziness or weakness.? KUB this a.m. still shows paralytic ileus however that was prior to patient's stools, surgery consulted for any further recommendations will advance patient's diet as tolerated and continue with abdominal series. 06/28: DISCHARGED Patient was tolerating oral intake with no complaints or abdominal pain reported continue BMs in in gas in overall improvement was discharged home and follow-up with GI or surgery outpatient as needed. Patient educated to seek medical attention however if nausea vomiting or constipation return. Status at Discharge Functional status at discharge: independent ambulation Time Spent with Patient Time attestation: Total time spent providing and/or coordinating discharge services: Time spent: Less than 30 minutes Exam Narrative: Physical Exam: GENERAL: Alert and oriented x 3. No acute distress. EYES: EOMI. No scleral icterus. PERRLA. HEENT: Moist mucous membranes. LUNGS: Clear to auscultation bilaterally. No accessory muscle use. CARDIOVASCULAR: Regular rate and rhythm. No murmur. No JVD. S1-S2 ABDOMEN: Soft, no ten
== END 2023-06-29 10:48 | disposition home or self-care (01) ==
LOC: ANHED 21:04 → ANH2MED 06-28 00:30
PROVIDERS: Nurse Practitioner Family; Admitting Provider Internal Medicine; Emergency Provider Physician Assistant; PCP Nurse Practitioner; Visit Provider General Practice
DX: K56.0 Paralytic ileus (principal); E87.1 Hypo-osmolality and hyponatremia; E86.0 Dehydration; I13.0 Hypertensive heart and chronic kidney disease with heart failure and stage 1 through stage 4 chronic kidney disease, or unspecified chronic kidney disease; I50.30 Unspecified diastolic (congestive) heart failure; E11.22 Type 2 diabetes mellitus with diabetic chronic kidney disease; N18.1 Chronic kidney disease, stage 1; K21.9 Gastro-esophageal reflux disease without esophagitis; E78.5 Hyperlipidemia, unspecified; N40.0 Benign prostatic hyperplasia without lower urinary tract symptoms; K58.9 Irritable bowel syndrome, unspecified; Z90.49 Acquired absence of other specified parts of digestive tract; Z87.19 Personal history of other diseases of the digestive system; Z98.0 Intestinal bypass and anastomosis status; Z79.84 Long term (current) use of oral hypoglycemic drugs
CPT/HCPCS: 36415; 74018; 74177; 80053; 81001; 82948; 83605; 83690; 85025; 85027; 96361; 96374; 96376; 99285; A9270; C9113; G0378; J2405; J7030; Q9967

== ENCOUNTER 2023-10-08 09:00 | Inpatient (IN) | payer MEDICARE, SELFPAY ==
--- NOTE | ~2023-10-08 | XR_ITS ---
EXAMINATION: XR abdomen gastric tube insert DATE: 10/08/2023 13:38 INDICATION: Nasogastric tube placement TECHNIQUE: A supine view of the abdomen and lower chest was obtained for evaluation of feeding tube placement. COMPARISON: None. FINDINGS: Nasogastric tube tip in proximal side port in the body of the stomach. Mildly dilated loops of gas-fi lled small bowel in the central abdomen. Minimal bibasilar atelectasis. Heart size is normal. IMPRESSION: 1. Nasogastric tube in stomach. Reviewed, dictated and finalized at location A.
--- NOTE | ~2023-10-08 | XR_ITS ---
EXAMINATION: XR sm bowel follow through DATE: 10/09/2023 12:16 INDICATION: Recurrent small bowel obstruction. TECHNIQUE: Oral contrast was administered, and a time course of radiographs of the abdomen was obtain ed. Fluoroscopy of the small bowel was not performed. Fluoroscopy exposure time was 0 minutes. The to bassam number of images was 6. COMPARISON: Small bowel series 04/08/2022, CT abdomen and pelvis 10/08/23 FINDINGS: The nasogastric tube tip is in the stomach. There are dilated loops of proximal small bowel. Transit time from the stomach to proximal colon was approximately 1 hour 45 minutes. IMPRESSION: 1. Persistently dilated proximal small bowel, consistent with adynamic ileus. Reviewed, dictated and finalized at location A.
--- NOTE | ~2023-10-08 | CT_ITS ---
CT of the Abdomen and Pelvis: Indication: Nausea and vomiting Technique: 2.5 mm axial scans were obtained through the abdomen and pelvis following intravenous adm inistration of 100 cc of Omnipaque 350. Dose reduction technique was used on this scan by utilizing a utomated exposure control and iterative reconstruction technique. The dose-length product (DLP) was 1 412.19 mGy-cm. COMPARISON: 06/27/2023 Findings: Scans through the lung bases demonstrate mild bibasilar peripheral chronic interstitial ch anges. The liver, spleen, pancreas, adrenals and kidneys are within normal limits. Calcified gallstone prese nt. There are atherosclerotic calcifications of the aorta. No lymphadenopathy. There are proximal dilated small bowel loops with probable transition point in the anterior mid abdom en. Appearance is similar to prior exam. Large bowel unremarkable. Images through the pelvis were performed. Urinary bladder unremarkable. Prostate gland is markedly en larged. No ascites. Impression: Proximal dilated small bowel loops with relative transition the anterior mid abdomen, similar to prio r exam. 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 Reviewed, dictated and finalized at location M. Impression: Proximal dilated small bowel loops with relative transition the anterior mid ab domen, similar to prior exam. Findings suggest chronic partial small bowel obst ruction.
[2023-10-08 09:28] VITALS: BP 110/60; PULSE 98; RESP 16; TEMP 36.6; O2SAT 98
[2023-10-08 09:31] LABS: Basophils Percent Auto 0.3 % (0.2-1.2); Eosinophils Absolute Auto 0.1 K/mm3 (0-0.3); Eosinophils Percent Auto 0.8 % (0-4.4); Hemoglobin 16.3 g/dL (14.0-18.0); Immature Granulocyte Absolute 0.03 K/mm3 (0.00-0.031); Immature Granulocyte Percent A 0.3 % (0-0.5); Lymphocytes Absolute Auto 1.25 K/mm3 (0.9-3.2); Lymphocytes Percent Auto 11.9 % (18.3-44.2); Mean Corpuscular Hemoglobin 30.2 pg (26-34); Mean Corpuscular Volume 88.9 fl (80-100); Mean Platelet Volume 8.8 fl (7.4-10.4); Monocytes Absolute Auto 0.6 K/mm3 (0.1-0.6); Monocytes Percent Auto 6.1 % (2.6-8.5); Neutrophils Absolute Auto 8.5 K/mm3 (1.3-6.7); Neutrophils Percent Auto 80.6 % (45.5-73.1); Platelet Count Result 137 k/mm3 (150-375); Red Cell Distribution Width 13.2 % (11.5-14.5); White Blood Count 10.5 K/mm3 (4.5-10.0)
[2023-10-08] MEDS: ONDANSETRON INJ 4 MG/2 ML VIAL IV PUSH ×2 (09:33→12:18)
[2023-10-08 09:34] LABS: Add Urine Microscopic? YES; Appearance Urine Clear (Clear); Bacteria Urine None Seen /hpf; Bilirubin Urine Negative (Negative); Blood Urine Negative (Negative); Color Urine Dark Yellow (Yellow); Glucose Urine UA Negative (Negative); Ketones Urine Trace mg/dL (Negative); Leukocyte Esterase Ur Negative LEU/UL (Negative); Nitrate Urine Negative (Negative); Protein Urine 1+ mg/dL (Negative); RBC Urine 0-2 /hpf (0-2); Specific Grav Ur 1.029 (1.001-1.035); Squamous Epithelial Cell Urine None Seen /hpf (Few); WBC Urine 0-5 /hpf (0-3)
[2023-10-08 09:39] LABS: Alanine Aminotransferase 21 U/L (6-50); Albumin Level 4.1 g/dL (3.5-5.1); Alkaline Phosphatase 58 U/L (38-126); Anion Gap 13 mmol/L (4-12); Aspartate Amino Transferase 29 U/L (17-59); Bilirubin,Total 1.1 mg/dL (0.2-1.3); Blood Urea Nitrogen 24 mg/dL (9-20); Calcium 9.1 mg/dL (8.4-10.2); Carbon Dioxide 24 mmol/L (22-30); Chloride 96 mmol/L (98-107); Estimated CRCL calculation 48 ml/min; Estimated Glomerular Filt Rate 52; Glucose 157 mg/dL (65-110); Lactic Acid Reflex 1.3 mmol/L (0.7-2.0); Lipase 103 U/L (23-300); Potassium 4.2 mmol/L (3.4-5.0); Sodium 133 mmol/L (137-145)
--- NOTE | 2023-10-08 09:43 | ED.GENADULT ---
HPI - General Adult General Chief complaint: Nausea/Vomiting/Diarrhea Stated complaint: ?SBO Time Seen by Provider: 10/08/23 09:06 History of Present Illness HPI narrative: 88-year-old male presents emergency department for evaluation for abdominal distension, diarrhea. Patient states on Friday he began developing symptoms. Patient reports he does have a significant history of small-bowel obstructions. Patient's most recent obstruction requiring surgery was done in 2006 and that was here at [place]. Patient states that he was having some diarrhea on Friday and began taking some Pepto-Bismol and this did slow down his bowels. Related Data Home Medications Medication Instructions Recorded Confirmed omega-3 fatty acids 1,000 mg 1,200 mg PO BID 10/07/19 10/08/23 capsule (Fish Oil Concentrate) naproxen sodium 220 mg tablet 220 mg PO BID PRN Pain 07/03/22 10/08/23 (Aleve) Allergies Allergy/AdvReac Type Severity Reaction Status Date / Time haloperidol AdvReac Unknown Hallucinati Verified 10/08/23 14:56 ng Review of Systems Review of Systems: All systems reviewed & are unremarkable except as noted in HPI and below PMFSH Past Medical History Medical History Benign prostatic hyperplasia Diastolic CHF Diverticulosis With history of diverticulitis. Esophageal stricture Status post dilatation. 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 Type 2 diabetes mellitus with stage 1 chronic kidney disease Surgical History Surgical History History of carpal tunnel surgery of right wrist History of cholecystectomy History of laparotomy With adhesiolysis in 1998 and 2006. History of removal of cyst From chest wall. History of resection of small bowel (2006) With anastomosis. Family History Family History Father Family history of lung cancer Family history of malignant neoplasm Mother Family history of malignant neoplasm of breast in first degree relative Family history of malignant neoplasm Breast cancer Sibling Brain cancer Social History Social History Social History: The patient is as of late 2020. He lives in his own home in [place]. He has 2 cats at home. 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 No drug use. He designates his sons Jay and Angel as his surrogate decision makers. Code status: Full code. Caffeine-coffee Smoking status: Never smoker Second hand tobacco smoke exposure: No Alcohol intake: never Drinks per week: 2 Alcohol use details: occasionally Substance use: never Substance use type: does not use Do You Feel Safe in your Home?: Yes Lack of Transportation: No Lack of Food: Never True Current Housing: I Have Housing Concerned About Future Housing: No Difficulty Paying Gas/Electric Bills: No Difficulty Paying for Meds: No Currently Unemployed: No Education: Don't Know Difficulty w/ Childcare or Family Care: No Spiritual care concerns: No Exam Narrative: APPEARANCE: Well appearing, no pain, no distress, well-nourished. HEAD: normocephalic, atraumatic. EYES: PERRLA/EOMI, conjunctivae clear. NOSE: Normal no drainage EARS:TMS clear with good light reflex. THROAT: Pharynx clear, no exudate. NECK: Supple. No adenopathy, no masses. RESPIRATORY: Airway patent, respirations nonlabored. Clear to auscultation bilaterally, no rales, rhonchi, wheezing. CARDIOVASCULAR: Regular rate and rhythm without murmurs rubs or gallops. ABDOMINAL: Soft nontender normal bowel sounds MUSCULOSKELETAL: Moves all extremities. Strength/ROM intact, No e
[2023-10-08 11:11] VITALS: BP 110/60; PULSE 87; RESP 18; O2SAT 95
[2023-10-08] MEDS: SODIUM CHLORIDE 0.9% IV 1,000 ML 125 ML IV CONT (12:18)
[2023-10-08] MEDS: BENZOCAINE/TETRACAINE SPRAY (*SP) 56 ML AEROSOL 1 SPRAY (13:49)
[2023-10-08 13:55] VITALS: TEMP 37.1
--- NOTE | 2023-10-08 14:25 | ADMGEN ---
This patient, Cali Vasquez, was admitted to Medical Room 257-01. Patient/family oriented to hospital policies and general routines including ID bracelet, bed and alarms, visiting hours, pain management, procedures, bathroom and other care routines, personal items, smoking policy, room service/diet, and visiting hours. Information on how to activate the Rapid Response Team has been discussed. Patient/Family are encouraged to report perceived risks to care and to ask questions if they do not understand what they are told or what they should do.
--- NOTE | 2023-10-08 14:54 | PM.IMHP ---
H&P: HPI History of Present Illness Date/Time: 10/08/23 14:54 Chief Complaint: Nausea and Vomiting Narrative: 88 y/o M presents here with nausea and vomiting with PMH of BPH, CHF, diverticulosis, esophageal stricture s/p dilation, hypertension, GERD, IBS, multiple small-bowel obstructions, and type 2 diabetes. The patient presents here for further evaluation of nausea and vomiting. Initially started with constipation, last BM was 3-4 days ago. Then developed diarrhea over the last few days, starting on Friday (10/05). Patient took Pepto-Bismol which resolved his diarrhea. He reports 1 episode of emesis, and nonbilious/nonbloody, this morning at 06:00 a.m. Endorsed brief subjective feverish feeling that resolved with sitting in front of a fan. Patient denies no associated abdominal pain, fever, chills, or body aches. Patient became concerned due to his history of multiple bowel obstructions with most recent in 2006 that required surgical intervention, done at [facility]. After arrival, patient has been able to produce one normal bowel movement around 2:00 p.m. this afternoon. Reports he has not been experiencing any of the usual abdominal pain that he has with obstructions. No current complaints. Initial VS at presentation: 97.9? F, HR 90, R 16, 110/60, and 98% on RA. ED workup showed: WBC 10.5, no anemia, sodium 133, creatinine 1.3 and GFR 52 (previously 1.3 and GFR 53 on 07/30/2023), lactic 1.3, UA showed 1+ protein and trace ketones. CT of the abdomen/pelvis showed proximal dilated small bowel loops with relative transition in the anterior mid abdomen, similar to previous exam. Finding suggestive of chronic partial small-bowel obstruction. Review of Systems Review of Systems: All systems reviewed & are unremarkable except as noted in HPI and below PMFSH Past Medical History Medical History Benign prostatic hyperplasia Diastolic CHF Diverticulosis With history of diverticulitis. Esophageal stricture Status post dilatation. 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 Type 2 diabetes mellitus with stage 1 chronic kidney disease Surgical History Surgical History History of carpal tunnel surgery of right wrist History of cholecystectomy History of laparotomy With adhesiolysis in 1998 and 2006. History of removal of cyst From chest wall. History of resection of small bowel (2006) With anastomosis. Family History Family History Father Family history of lung cancer Family history of malignant neoplasm Mother Family history of malignant neoplasm of breast in first degree relative Family history of malignant neoplasm Breast cancer Sibling Brain cancer Social History Social History Social History: The patient is as of late 2020. He lives in his own home in [place]. He has 2 cats at home. 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 No drug use. He designates his sons Jay and Angel as his surrogate decision makers. Code status: Full code. Caffeine-coffee Smoking status: Never smoker Second hand tobacco smoke exposure: No Alcohol intake: never Drinks per week: 2 Alcohol use details: occasionally Substance use: never Substance use type: does not use Do You Feel Safe in your Home?: Yes Lack of Transportation: No Lack of Food: Never True Current Housing: I Have Housing Concerned About Future Housing: No Difficulty Paying Gas/Electric Bills: No Difficulty Paying for Meds: No Currently Unemployed: No Education: Don't Know Difficulty w/ Childcare or Family C
[2023-10-08 15:11] VITALS: BP 107/56; PULSE 95; RESP 16; TEMP 36.5; O2SAT 97
[2023-10-08 16:00] VITALS: PULSE 95; RESP 16; O2SAT 97
[2023-10-08] MEDS: OFLOXACIN 0.3% OPHTH SOLN 5 ML BTL 2 DROP EACH EAR (18:15)
[2023-10-08 18:26] LABS: Glucose Point of Care 121 mg/dl (65-105)
[2023-10-08 20:15] VITALS: BP 140/70; PULSE 81; RESP 20; TEMP 37.1; O2SAT 95
[2023-10-08] MEDS: LACTATED RINGERS 1,000 ML 100 ML IV CONT (23:38)
[2023-10-09 00:32] LABS: Glucose Point of Care 119 mg/dl (65-105)
[2023-10-09 05:10] LABS: Basophils Percent Auto 0.7 % (0.2-1.2); Eosinophils Absolute Auto 0.2 K/mm3 (0-0.3); Eosinophils Percent Auto 2.7 % (0-4.4); Hematocrit 45.2 % (42.0-52.0); Hemoglobin 15.4 g/dL (14.0-18.0); Immature Granulocyte Absolute 0.02 K/mm3 (0.00-0.031); Immature Granulocyte Percent A 0.3 % (0-0.5); Lymphocytes Absolute Auto 1.47 K/mm3 (0.9-3.2); Lymphocytes Percent Auto 24.6 % (18.3-44.2); Mean Corpuscular HGB Conc 34.1 g/dl (32-36); Mean Corpuscular Volume 91.1 fl (80-100); Mean Platelet Volume 8.7 fl (7.4-10.4); Monocytes Absolute Auto 0.7 K/mm3 (0.1-0.6); Monocytes Percent Auto 12.4 % (2.6-8.5); Neutrophils Absolute Auto 3.6 K/mm3 (1.3-6.7); Neutrophils Percent Auto 59.3 % (45.5-73.1); Platelet Count Result 129 k/mm3 (150-375); Red Blood Count 4.96 M/mm3 (4.6-6.20); Red Cell Distribution Width 13.3 % (11.5-14.5)
[2023-10-09 05:28] LABS: Alanine Aminotransferase 41 U/L (6-50); Albumin Level 3.8 g/dL (3.5-5.1); Alkaline Phosphatase 51 U/L (38-126); Anion Gap 10 mmol/L (4-12); Aspartate Amino Transferase 47 U/L (17-59); Bilirubin,Total 1.2 mg/dL (0.2-1.3); Blood Urea Nitrogen 26 mg/dL (9-20); Carbon Dioxide 28 mmol/L (22-30); Chloride 96 mmol/L (98-107); Estimated CRCL calculation 45 ml/min; Estimated Glomerular Filt Rate 48; Glucose 134 mg/dL (65-110); Potassium 4.3 mmol/L (3.4-5.0); Sodium 134 mmol/L (137-145)
[2023-10-09 05:39] VITALS: BP 117/66; PULSE 100; RESP 20; TEMP 36.2; O2SAT 96
[2023-10-09 07:19] LABS: Glucose Point of Care 140 mg/dl (65-105)
--- NOTE | 2023-10-09 07:39 | P.PNIM_ITS ---
Progress Note: A&P Assessment and Plan (1) SBO (small bowel obstruction): Code(s): K56.609 - Unspecified intestinal obstruction, unspecified as to partial versus complete obstruction Status: Acute Assessment and Plan: * CT abd/pelvis: Proximal dilated small bowel loops with relative transition the anterior mid abdomen, similar to prior exam. 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 * NG placed, confirmation via KUB. NPO. Nonessential PO medications held, resume once no longer NPO as appropriate. * CT showing a dilated proximal small bowel without focal transition point consistent with paralytic ileus * Patient with history small-bowel resection 2006 * Surgery consulted * Will continue with conservative management * Will advance diet as tolerated after having BM * IV fluids * Pain control * Antiemetics * water-soluble small bowel follow-through contrast study (2) Adynamic ileus: Code(s): K56.0 - Paralytic ileus Status: Acute Assessment and Plan: SEE ABOVE (3) CKD (chronic kidney disease): Qualifiers: Chronic kidney disease stage: unspecified stage Qualified Code(s): N18.9 - Chronic kidney disease, unspecified Code(s): N18.9 - Chronic kidney disease, unspecified Status: Chronic Assessment and Plan: * creatinine 1.3 and GFR 52, previously 1.3 and GFR 53 on 07/30/2023 * baseline appears to be 1-1.3 * trend renal function * trend electrolytes, correct as needed (4) Type 2 diabetes mellitus: Qualifiers: Diabetes mellitus complication status: without complication Diabetes mellitus long term care pharmacist insulin use: without long term care pharmacist use Qualified Code(s): E11.9 - Type 2 diabetes mellitus without complications Code(s): E11.9 - Type 2 diabetes mellitus without complications Status: Chronic Assessment and Plan: * hypoglycemia protocol * POC blood glucose Q6H until no longer NPO * home medication: hold glipizide and Januvia, resume once no longer NPO * correct regimen ordered - low dose TIDWM * A1C 6.2% on 07/30/23 (5) Essential (primary) hypertension: Code(s): I10 - Essential (primary) hypertension Status: Chronic Assessment and Plan: * chronic, currently 110/60 * home medications: continue metoprolol, holding home losartan - hydrochlorothiazide. * Hydralazine p.r.n. for hypertension in place. * Bp per unit protocol Plan Code status: Full code per patient DVT prophylaxis: SCD Stress ulcer prophylaxis: Protonix 40 daily PT/OT notes: Ambulatory Disposition: Patient continues admission for SBO chronic patient to discharge back home when medically stable Time Spent With Patient Time with patient: 15 - 25 minutes Subjective Date/time seen: 10/09/23 07:39 Interval history: Admission: Medical Record 88 y/o M presents here with nausea and vomiting with PMH of BPH, CHF,
--- NOTE | 2023-10-09 07:39 | PM.IMPN ---
Progress Note: A&P Assessment and Plan (1) SBO (small bowel obstruction): Code(s): K56.609 - Unspecified intestinal obstruction, unspecified as to partial versus complete obstruction Status: Acute Assessment and Plan: CT abd/pelvis: Proximal dilated small bowel loops with relative transition the anterior mid abdomen, similar to prior exam. 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 NG placed, confirmation via KUB. NPO. Nonessential PO medications held, resume once no longer NPO as appropriate. CT showing a dilated proximal small bowel without focal transition point consistent with paralytic ileus Patient with history small-bowel resection 2006 Surgery consulted Will continue with conservative management Will advance diet as tolerated after having BM IV fluids Pain control Antiemetics water-soluble small bowel follow-through contrast study (2) Adynamic ileus: Code(s): K56.0 - Paralytic ileus Status: Acute Assessment and Plan: SEE ABOVE (3) CKD (chronic kidney disease): Qualifiers: Chronic kidney disease stage: unspecified stage Qualified Code(s): N18.9 - Chronic kidney disease, unspecified Code(s): N18.9 - Chronic kidney disease, unspecified Status: Chronic Assessment and Plan: creatinine 1.3 and GFR 52, previously 1.3 and GFR 53 on 07/30/2023 baseline appears to be 1-1.3 trend renal function trend electrolytes, correct as needed (4) Type 2 diabetes mellitus: Qualifiers: Diabetes mellitus complication status: without complication Diabetes mellitus termination clerk insulin use: without termination clerk use Qualified Code(s): E11.9 - Type 2 diabetes mellitus without complications Code(s): E11.9 - Type 2 diabetes mellitus without complications Status: Chronic Assessment and Plan: hypoglycemia protocol POC blood glucose Q6H until no longer NPO home medication: hold glipizide and Januvia, resume once no longer NPO correct regimen ordered - low dose TIDWM A1C 6.2% on 07/30/23 (5) Essential (primary) hypertension: Code(s): I10 - Essential (primary) hypertension Status: Chronic Assessment and Plan: chronic, currently 110/60 home medications: continue metoprolol, holding home losartan -hydrochlorothiazide. Hydralazine p.r.n. for hypertension in place. Bp per unit protocol Plan Code status: Full code per patient DVT prophylaxis: SCD Stress ulcer prophylaxis: Protonix 40 daily PT/OT notes: Ambulatory Disposition: Patient continues admission for SBO chronic patient to discharge back home when medically stable Time Spent With Patient Time with patient: 15 - 25 minutes Subjective Date/time seen: 10/09/23 07:39 Interval history: Admission: Medical Record 88 y/o M presents here with nausea and vomiting with PMH of BPH, CHF, diverticulosis, esophageal stricture s/p dilation, hypertension, GERD, IBS, multiple small-bowel obstructions, and type 2 diabetes. The patient presents here for further evaluation of nausea and vomiting. Initially started with constipation, last BM was 3-4 days ago. Then developed diarrhea over the last few days, starting on Friday (10/05). Patient took Pepto-Bismol which resolved his diarrhea. He reports 1 episode of emesis, and nonbilious/nonbloody, this morning at 06:00 a.m. Endorsed brief subjective feverish feeling that resolved with sitting in front of a fan. Patient denies no associated abdominal pain, fever, chills, or body aches. Patient became concerned due to his history of multiple bowel obstructions with most recent in 2006 that required surgical intervention, done at [facility]. After arrival, patient has been able to produce one normal bowel movement around 2:00 p.m. this afternoon. Reports he has not been experiencing any of the usual abdominal pain that he has with obstructio
--- NOTE | 2023-10-09 09:31 | WPDCN ---
Assessment and Plan Assessment and plan (1) SBO (small bowel obstruction): Code(s): K56.609 - Unspecified intestinal obstruction, unspecified as to partial versus complete obstruction Status: Acute Assessment and Plan: Patient has recurrent partial small-bowel obstruction. He has had many episodes like this in the past and usually resolves without operative management. He has no evidence of acute surgical abdomen this time and he is being decompress a nasogastric tube. He has not had any more bowel movements. We will go ahead and get a water-soluble small bowel follow-through study. If it goes through without significant obstruction then removed nasogastric tube later today and started on clear liquids. He has had many admissions for partial small-bowel obstructions likely due to adhesions. His last laparotomy in 2006 for adhesiolysis resulted in a bowel resection anastomotic leak and a prolonged stay in the hospital with significant debilitation afterwards. For this reason he is understandably not very interested in operative management for his recurrent small-bowel obstructions unless is absolutely necessary. Continue supportive management. Surgery will follow. HPI Data of Consult Date/Time: 10/08/23 Requesting Physician: Tammi Pyle APRN Primary Care Provider: Yusuf Herndon APRN Consult Narrative Reason for consult: Recurrent small-bowel obstruction Narrative: Cali Vasquez is a 88 year old male who was admitted on October 08, 2023 for recurrent small-bowel obstruction. I saw him in the evening of October 07 and at that time he was very comfortable with a nasogastric tube in place. 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 Many of those admissions have been for partial small-bowel obstructions which resolved without any operative management. He stated started having some abdominal pain and nausea yesterday. He felt like his typical small-bowel obstruction type symptoms he consented to the emergency room. In the emergency room he was found have a normal white blood cell count and normal electrolytes. His creatinine was a little elevated 1.3. Historically his creatinine is about 1 so he seemed to be a little dry. CT scan abdomen pelvis was done showing transition port in the mid abdomen with dilated proximal small bowel. No free air noted. Appearance is very similar to his previous CT showing partial small-bowel obstructions. Later on the day of admission after he was on the floor he has a had a large bowel movement which was of normal consistency and nonbloody. He does not feel particularly distended. Review of Systems Review of Systems: The remainder of the review of systems to include constitutional, HEENT, cardiovascular, respiratory, GI, , integumentary, musculoskeletal, endocrine, immunologic, hematologic, psychiatric, and neurologic are all negative except for which is mentioned above in the HPI. [facility] Past Medical History Medical History Benign prostatic hyperplasia Diastolic CHF Diverticulosis With history of diverticulitis. Esophageal stricture Status post dilatation. 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 Type 2 diabetes mellitus with stage 1 chronic kidney disease Surgical History Surgical History History of carpal tunnel surgery of right wrist History of cholecystectomy History of laparotomy With adhesiolysis in 1998 and 2006. History of removal of cyst From chest wall. History of resection of small bowel (2006) With anastomosis. Family History Family History (Reviewed 10/08/23 @ 17:13 by Kayleen Youngblood APRN
--- NOTE | 2023-10-09 09:39 | WPDPN ---
Progress Note: A&P Assessment and Plan (1) SBO (small bowel obstruction): Code(s): K56.609 - Unspecified intestinal obstruction, unspecified as to partial versus complete obstruction Status: Acute Assessment and Plan: Patient seems to be about the same today as last evening. White blood count is normal. She has had a bowel movement passing flatus yet this morning. We will go ahead and get a water-soluble small bowel follow-through contrast study through the nasogastric tube today. If it goes to quickly than remove NG tube and advance diet. Subjective Date/time seen: 10/09/23 09:39 Interval history: Patient without really acute changes today was abdomen. He stated he had an episode of hematuria this morning. He seen in the past by Dr. Villanueva for this problem. He has not had a bowel movement since yesterday is not passing any flatus. However it does not seem to be any more distended or having any more nausea. He is sitting up in a chair and his nasogastric tube currently is disconnected as he was ambulated to the bathroom. Exam Const: General: comfortable and no acute distress GI: Other: Abdomen is soft mildly distended. Unchanged from last evening's exam. Minimal tenderness throughout. No guarding. Objective Data Vital Signs Vital Signs: Vital Signs - 24 hr 10/08/23 11:11 10/08/23 13:55 10/08/23 15:11 Temperature 37.1 C 36.5 C Pulse Rate 87 95 Respiratory Rate 18 16 Blood Pressure 110/60 107/56 L Pulse Oximetry 95 97 Oxygen Delivery 10/08/23 16:00 10/08/23 20:15 10/09/23 05:39 Temperature 37.1 C 36.2 C L Pulse Rate 95 81 100 Respiratory Rate 16 20 20 Blood Pressure 140/70 117/66 Pulse Oximetry 97 95 96 Oxygen Delivery Room Air Intake/Output Intake/Output: Intake & Output 10/06/23 10/07/23 10/08/23 10/09/23 23:59 23:59 23:59 23:59 Intake Total 1000 Balance 1000 Meds/Results Medications: Active Medications Generic Name Dose Route Start Last Admin Trade Name Freq PRN Reason Stop Dose Admin Dextrose 12.5 gm 10/08/23 15:16 Dextrose 50% 25 Gm/50 Ml Syringe IV PUSH PRN PRN Hypoglycemia Protocol Glucagon 1 mg 10/08/23 15:16 Glucagon For Inj 1 Mg Vial IM PRN PRN Hypoglycemia Protocol Glucose 15 gm 10/08/23 15:16 Glucose Oral Gel 15 Gm Of Glucse In 37.5 Gm Tube PO PRN PRN Hypoglycemia Protocol Hydralazine HCl 10 mg 10/08/23 15:14 Hydralazine Hcl 20 Mg/Ml Vial IV PUSH Q8H PRN BP greater than 180/90 Dextrose 1,000 mls @ 100 mls/hr 10/08/23 15:16 Dextrose 5% 1,000 Ml IVPB PRN PRN Hypoglycemia Protocol Insulin Aspart 2 - 5 units 10/08/23 17:00 10/08/23 18:15 Insulin Aspart (*Bkc) 100 Units/Ml SUB-Q Not Given TIDWM [facility] Protocol Metoprolol Tartrate 50 mg 10/09/23 09:00 Metoprolol Tartrate 50 Mg Tab PO DAILY JACE Ofloxacin 2 drop 10/08/23 17:00 10/08/23 18:15 Ofloxacin 0.3% Ophth Soln 5 Ml Btl EACH EAR 2 drop TID JACE Administration Ondansetron HCl 4 mg 10/08/23 11:31 10/08/23 12:18 Ondansetron Inj 4 Mg/2 Ml Vial IV PUSH 4 mg Q4H PRN Administration Nausea Pantoprazole Sodium 40 mg 10/09/23 09:00 Pantoprazole Sodium Iv 40 Mg Vial IV PUSH QAM [facility] Radiology Results: ITS Impressions Abdomen/Pelvis CT 10/08/23 10:16 Impression: Proximal dilated small bowel loops with relative transition the anterior mid abdomen, similar to prior exam. 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 Abdomen X-Ray 10/08/23 14:05 IMPRESSION: 1. Nasogastric tube in stomach. Labs Labs: Laboratory Results - last 24 hr 10/08/23 10/08/23 10/09/23 09:24 18:23 00:08 WBC RBC Hgb Hct MCV MCH MCHC RDW Plt Count MPV Immature Gran % (Auto) Neut % (Auto) Lymph % (Auto) Howard % (Auto) Eos % (Auto) Baso % (Auto)
[2023-10-09] MEDS: PANTOPRAZOLE SODIUM IV 40 MG VIAL IV PUSH (09:56)
[2023-10-09] MEDS: OFLOXACIN 0.3% OPHTH SOLN 5 ML BTL 2 DROP EACH EAR (09:56)
[2023-10-09 10:00] VITALS: O2SAT 96
[2023-10-09] MEDS: ONDANSETRON INJ 4 MG/2 ML VIAL IV PUSH (10:00)
[2023-10-09 10:02] VITALS: PULSE 103
[2023-10-09] MEDS: METOPROLOL TARTRATE 50 MG TAB PO (10:02)
[2023-10-09 12:06] LABS: Glucose Point of Care 158 mg/dl (65-105)
--- NOTE | 2023-10-09 12:35 | PC.NURSE ---
Nurse entered pts room to find ng tube tape not holding ng in place. This nurse wanted to advance and fix ng tube. Pt refused. NG tube fell out while attempting to explain to pt the importance of the tube.
[2023-10-09 14:00] VITALS: BP 121/60; PULSE 83; RESP 16; TEMP 36.4; O2SAT 98
[2023-10-09 17:57] LABS: Glucose Point of Care 118 mg/dl (65-105)
[2023-10-09 20:45] VITALS: BP 138/67; PULSE 82; RESP 20; TEMP 37.6; O2SAT 97
[2023-10-09 23:48] LABS: Glucose Point of Care 132 mg/dl (65-105)
[2023-10-10 06:00] VITALS: BP 126/48; PULSE 77; RESP 20; TEMP 36.4; O2SAT 100
[2023-10-10 06:25] LABS: Glucose Point of Care 126 mg/dl (65-105)
[2023-10-10 08:23] LABS: Glucose Point of Care 131 mg/dl (65-105)
[2023-10-10 08:52] VITALS: PULSE 80
[2023-10-10] MEDS: PANTOPRAZOLE SODIUM IV 40 MG VIAL IV PUSH (08:52)
[2023-10-10] MEDS: METOPROLOL TARTRATE 50 MG TAB PO (08:52)
[2023-10-10 08:55] LABS: Hematocrit 45.5 % (42.0-52.0); Hemoglobin 15.1 g/dL (14.0-18.0); Mean Corpuscular HGB Conc 33.2 g/dl (32-36); Mean Corpuscular Hemoglobin 30.4 pg (26-34); Mean Corpuscular Volume 91.7 fl (80-100); Platelet Count Result 136 k/mm3 (150-375); Red Blood Count 4.96 M/mm3 (4.6-6.20); Red Cell Distribution Width 13.3 % (11.5-14.5)
[2023-10-10 09:15] LABS: Alanine Aminotransferase 32 U/L (6-50); Albumin Level 3.9 g/dL (3.5-5.1); Alkaline Phosphatase 48 U/L (38-126); Anion Gap 9 mmol/L (4-12); Aspartate Amino Transferase 29 U/L (17-59); Bilirubin,Total 0.9 mg/dL (0.2-1.3); Blood Urea Nitrogen 32 mg/dL (9-20); Calcium 8.9 mg/dL (8.4-10.2); Carbon Dioxide 29 mmol/L (22-30); Chloride 98 mmol/L (98-107); Estimated CRCL calculation 56 ml/min; Estimated Glomerular Filt Rate > 60; Glucose 139 mg/dL (65-110); Potassium 4.1 mmol/L (3.4-5.0); Sodium 136 mmol/L (137-145)
--- NOTE | 2023-10-10 10:06 | WPDPN ---
Progress Note: A&P Assessment and Plan (1) SBO (small bowel obstruction): Code(s): K56.609 - Unspecified intestinal obstruction, unspecified as to partial versus complete obstruction Status: Acute Assessment and Plan: Partial small-bowel obstruction seems to be resolving. Can advance to solid food today. If tolerating solid food then he can discharge home this afternoon. Patient does not need to follow up in the surgery Clinic after discharge. Subjective Date/time seen: 10/10/23 10:06 Interval history: Patient continues do well. Having bowel movements. No nausea or vomiting. He tolerated clear liquids last night and full liquids this morning. Small bowel series yesterday showed passage of contrast in the colon without evidence of significant bowel obstruction. Exam GI: Other: Abdomen is obese but soft. No tenderness to palpation. Benign. Objective Data Vital Signs Vital Signs: Vital Signs - 24 hr 10/09/23 14:00 10/09/23 20:45 10/10/23 06:00 Temperature 36.4 C 37.6 C 36.4 C Pulse Rate 83 82 77 Respiratory Rate 16 20 20 Blood Pressure 121/60 138/67 126/48 L Pulse Oximetry 98 97 100 10/10/23 08:52 Temperature Pulse Rate 80 Respiratory Rate Blood Pressure Pulse Oximetry Intake/Output Intake/Output: Intake & Output 10/07/23 10/08/23 10/09/23 10/10/23 23:59 23:59 23:59 23:59 Intake Total 1000 480 540 Output Total 4 Balance 1000 480 536 Meds/Results Medications: Active Medications Generic Name Dose Route Start Last Admin Trade Name Freq PRN Reason Stop Dose Admin Dextrose 12.5 gm 10/08/23 15:16 Dextrose 50% 25 Gm/50 Ml Syringe IV PUSH PRN PRN Hypoglycemia Protocol Glucagon 1 mg 10/08/23 15:16 Glucagon For Inj 1 Mg Vial IM PRN PRN Hypoglycemia Protocol Glucose 15 gm 10/08/23 15:16 Glucose Oral Gel 15 Gm Of Glucse In 37.5 Gm Tube PO PRN PRN Hypoglycemia Protocol Hydralazine HCl 10 mg 10/08/23 15:14 Hydralazine Hcl 20 Mg/Ml Vial IV PUSH Q8H PRN BP greater than 180/90 Dextrose 1,000 mls @ 100 mls/hr 10/08/23 15:16 Dextrose 5% 1,000 Ml IVPB PRN PRN Hypoglycemia Protocol Insulin Aspart 2 - 5 units 10/08/23 17:00 10/10/23 08:25 Insulin Aspart (*Bkc) 100 Units/Ml SUB-Q Not Given TIDWM [facility] Protocol Metoprolol Tartrate 50 mg 10/09/23 09:00 10/10/23 08:52 Metoprolol Tartrate 50 Mg Tab PO 50 mg DAILY JACE Administration Ofloxacin 2 drop 10/08/23 17:00 10/10/23 09:03 Ofloxacin 0.3% Ophth Soln 5 Ml Btl EACH EAR Not Given TID JACE Ondansetron HCl 4 mg 10/08/23 11:31 10/09/23 10:00 Ondansetron Inj 4 Mg/2 Ml Vial IV PUSH 4 mg Q4H PRN Administration Nausea Pantoprazole Sodium 40 mg 10/09/23 09:00 10/10/23 08:52 Pantoprazole Sodium Iv 40 Mg Vial IV PUSH 40 mg QAM JACE Administration Radiology Results: ITS Impressions Abdomen/Pelvis CT 10/08/23 10:16 Impression: Proximal dilated small bowel loops with relative transition the anterior mid abdomen, similar to prior exam. 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 Abdomen X-Ray 10/08/23 14:05 IMPRESSION: 1. Nasogastric tube in stomach. Small Bowel X-Ray 10/09/23 15:14 IMPRESSION: 1. Persistently dilated proximal small bowel, consistent with adynamic ileus. Labs Labs: Laboratory Results - last 24 hr 10/09/23 10/09/23 10/09/23 11:54 17:52 23:37 WBC RBC Hgb Hct MCV MCH MCHC RDW Plt Count MPV Sodium Potassium Chloride Carbon Dioxide Anion Gap BUN Creatinine Estim Creat Clear Calc Estimated GFR Glucose POC Capillary Glucose 158 H 118 H 132 H Calcium Total Bilirubin AST ALT Alkaline Phosphatase Total Protein Albumin 10/10/23 10/10/23 10/10/23 06:01 08:18 08:29 WBC 6.0 RBC 4.96 Hgb
--- NOTE | 2023-10-10 11:27 | P.DS_ITS ---
DS: Admitting Diagnosis Discharge Date 10/10/2023 Admitting Diagnosis SBO DS: Discharge Diagnosis Discharge Diagnosis (1) SBO (small bowel obstruction): Code(s): K56.609 - Unspecified intestinal obstruction, unspecified as to partial versus complete obstruction Status: Acute Assessment and Plan: * CT abd/pelvis: Proximal dilated small bowel loops with relative transition the anterior mid abdomen, similar to prior exam. 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 * NG placed, confirmation via KUB. NPO. Nonessential PO medications held, resume once no longer NPO as appropriate. * CT showing a dilated proximal small bowel without focal transition point consistent with paralytic ileus * Patient with history small-bowel resection 2006 * Surgery consulted * Will continue with conservative management * Will advance diet as tolerated after having BM * IV fluids * Pain control * Antiemetics * water-soluble small bowel follow-through contrast study (2) Adynamic ileus: Code(s): K56.0 - Paralytic ileus Status: Acute Assessment and Plan: SEE ABOVE (3) CKD (chronic kidney disease): Qualifiers: Chronic kidney disease stage: unspecified stage Qualified Code(s): N18.9 - Chronic kidney disease, unspecified Code(s): N18.9 - Chronic kidney disease, unspecified Status: Chronic Assessment and Plan: * creatinine 1.3 and GFR 52, previously 1.3 and GFR 53 on 07/30/2023 * baseline appears to be 1-1.3 * trend renal function * trend electrolytes, correct as needed (4) Type 2 diabetes mellitus: Qualifiers: Diabetes mellitus complication status: without complication Diabetes mellitus [facility] insulin use: without project coordinator use Qualified Code(s): E11.9 - Type 2 diabetes mellitus without complications Code(s): E11.9 - Type 2 diabetes mellitus without complications Status: Chronic Assessment and Plan: * hypoglycemia protocol * POC blood glucose Q6H until no longer NPO * home medication: hold glipizide and Januvia, resume once no longer NPO * correct regimen ordered - low dose TIDWM * A1C 6.2% on 07/30/23 (5) Essential (primary) hypertension: Code(s): I10 - Essential (primary) hypertension Status: Chronic Assessment and Plan: * chronic, currently 110/60 * home medications: continue metoprolol, holding home losartan - hydrochlorothiazide. * Hydralazine p.r.n. for hypertension in place. * Bp per unit protocol Plan Disposition: Patient discharged to home DS: Summary Hospital Course Reason for hospitalization: Adynamic ileus/Partial SBO Hospital Course: 88 y/o M presents here with nausea and vomiting with PMH of BPH, CHF, diverticulosis, esophageal stricture s/p dilation, hypertension, GERD, IBS, multiple small-bowel obstructions, and type 2 diabetes. The patient presents here
--- NOTE | 2023-10-10 11:27 | PM.DS ---
DS: Admitting Diagnosis Discharge Date 10/10/2023 Admitting Diagnosis SBO DS: Discharge Diagnosis Discharge Diagnosis (1) SBO (small bowel obstruction): Code(s): K56.609 - Unspecified intestinal obstruction, unspecified as to partial versus complete obstruction Status: Acute Assessment and Plan: CT abd/pelvis: Proximal dilated small bowel loops with relative transition the anterior mid abdomen, similar to prior exam. 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 NG placed, confirmation via KUB. NPO. Nonessential PO medications held, resume once no longer NPO as appropriate. CT showing a dilated proximal small bowel without focal transition point consistent with paralytic ileus Patient with history small-bowel resection 2006 Surgery consulted Will continue with conservative management Will advance diet as tolerated after having BM IV fluids Pain control Antiemetics water-soluble small bowel follow-through contrast study (2) Adynamic ileus: Code(s): K56.0 - Paralytic ileus Status: Acute Assessment and Plan: SEE ABOVE (3) CKD (chronic kidney disease): Qualifiers: Chronic kidney disease stage: unspecified stage Qualified Code(s): N18.9 - Chronic kidney disease, unspecified Code(s): N18.9 - Chronic kidney disease, unspecified Status: Chronic Assessment and Plan: creatinine 1.3 and GFR 52, previously 1.3 and GFR 53 on 07/30/2023 baseline appears to be 1-1.3 trend renal function trend electrolytes, correct as needed (4) Type 2 diabetes mellitus: Qualifiers: Diabetes mellitus complication status: without complication Diabetes mellitus superintendent marine oil terminal insulin use: without superintendent marine oil terminal use Qualified Code(s): E11.9 - Type 2 diabetes mellitus without complications Code(s): E11.9 - Type 2 diabetes mellitus without complications Status: Chronic Assessment and Plan: hypoglycemia protocol POC blood glucose Q6H until no longer NPO home medication: hold glipizide and Januvia, resume once no longer NPO correct regimen ordered - low dose TIDWM A1C 6.2% on 07/30/23 (5) Essential (primary) hypertension: Code(s): I10 - Essential (primary) hypertension Status: Chronic Assessment and Plan: chronic, currently 110/60 home medications: continue metoprolol, holding home losartan -hydrochlorothiazide. Hydralazine p.r.n. for hypertension in place. Bp per unit protocol Plan Disposition: Patient discharged to home DS: Summary Hospital Course Reason for hospitalization: Adynamic ileus/Partial SBO Hospital Course: 88 y/o M presents here with nausea and vomiting with PMH of BPH, CHF, diverticulosis, esophageal stricture s/p dilation, hypertension, GERD, IBS, multiple small-bowel obstructions, and type 2 diabetes. The patient presents here for further evaluation of nausea and vomiting. Initially started with constipation, last BM was 3-4 days ago. Then developed diarrhea over the last few days, starting on Friday (10/05). Patient took Pepto-Bismol which resolved his diarrhea. He reports 1 episode of emesis, and nonbilious/nonbloody, this morning at 06:00 a.m. Endorsed brief subjective feverish feeling that resolved with sitting in front of a fan. Patient denies no associated abdominal pain, fever, chills, or body aches. Patient became concerned due to his history of multiple bowel obstructions with most recent in 2006 that required surgical intervention, done at [facility]. After arrival, patient has been able to produce one normal bowel movement around 2:00 p.m. this afternoon. Reports he has not been experiencing any of the usual abdominal pain that he has with obstructions. No current complaints. 10/09/23: Assumed Care Patient has chronic adynamic ileus with multiple admissions for SBO. BM reported yesterday, normal WBC and afebr
== END 2023-10-10 13:00 | disposition home or self-care (01) | DRG 389 ==
LOC: ANHED 11:30 → ANH3MEDSUR 12:36 → ANH2MED 13:06
PROVIDERS: Student in an Organized Health Care Education/Training Program; Admitting Provider General Practice; Emergency Provider Emergency Medicine; PCP Nurse Practitioner; Visit Provider Nurse Practitioner Family
DX: K56.0 Paralytic ileus (principal); I13.0 Hypertensive heart and chronic kidney disease with heart failure and stage 1 through stage 4 chronic kidney disease, or unspecified chronic kidney disease; I50.32 Chronic diastolic (congestive) heart failure; K57.90 Diverticulosis of intestine, part unspecified, without perforation or abscess without bleeding; E11.22 Type 2 diabetes mellitus with diabetic chronic kidney disease; K21.9 Gastro-esophageal reflux disease without esophagitis; K58.9 Irritable bowel syndrome, unspecified; N18.1 Chronic kidney disease, stage 1; N40.0 Benign prostatic hyperplasia without lower urinary tract symptoms; Z79.84 Long term (current) use of oral hypoglycemic drugs
CPT/HCPCS: 36415; 74177; 74250; 80053; 81001; 82948; 83605; 83690; 85025; 85027; 96361; 96374; 96375; 96376; 99285; A9270; G0378; J2405; J2470; J7030; J7120; Q9967

== ENCOUNTER 2024-02-24 09:00 | Inpatient (IN) | payer MEDICARE, SELFPAY ==
[2024-02-24] VITALS (7 sets, daily range): BP systolic 132–148; BP diastolic 64–87; PULSE 83–93; RESP 13–20; TEMP 36.4–37; O2SAT 92–100; BMI 34.8
--- NOTE | ~2024-02-24 | XR_ITS ---
EXAMINATION: XR abdomen obstructive series DATE: 02/25/2024 07:51 INDICATION: Small bowel obstruction. TECHNIQUE: Upright and supine views of the abdomen were obtained. COMPARISON: Small bowel series 10/09/23, CT abdomen and pelvis 02/24/2024. FINDINGS: There are dilated loops of jejunum. The colon is normal in caliber. The nasogastric tube ti p is in the stomach with proximal side-port in the distal esophagus. No free intraperitoneal gas. IMPRESSION: 1. Persistently dilated jejunum, consistent with small bowel obstruction. 2. Nasogastric tube tip in the stomach with proximal side port in the distal esophagus. Advancement 5 cm is recommended. Reviewed, dictated and finalized at location [] ER BLENDER AND POURER IMPRESSION: 1. Persistently dilated jejunum, consistent with small bowel obstruction. 2. Nasogastric tube tip in the stomach with proximal side port in the distal es ophagus. Advancement 5 cm is recommended.
--- NOTE | ~2024-02-24 | XR_ITS ---
XR abdomen gastric tube insert Ordering provider: Paulina Yusuf PA-C History: . ng placement verification . Comparison: None. FINDINGS/impression: BOWEL: Nasogastric tube is seen in the stomach and kinking back into the esophagus. Nonobstructive kita wel gas pattern. Reviewed, dictated and finalized at location A. BUNCH TRIMMER
--- NOTE | ~2024-02-24 | XR_ITS ---
EXAMINATION: XR sm bowel follow through WS DATE: 02/25/2024 13:59 INDICATION: Small bowel obstruction TECHNIQUE: Water-soluble oral contrast was administered, and sequential radiographs of the abdomen we re obtained until oral contrast was noted to be in the proximal colon. COMPARISON: CT dated 02/24/2024 FINDINGS: Nasogastric tube extends into the stomach. There is mild dilation of the duodenum and proximal jejunu m on the initial imaging which decreases to normal caliber on the subsequent imaging with progression of contrast into the more distal small bowel. Transit time from the stomach to proximal colon was ap proximately 2 hours. There is normal caliber and mucosal fold pattern throughout the small bowel on t he prior imaging. Terminal ileum is normal. Calcified gallstone in the right upper quadrant. IMPRESSION: 1. Normal small bowel follow-through. 2. Cholelithiasis. Reviewed, dictated and finalized at location B. SPRING SETTER
--- NOTE | ~2024-02-24 | CT_ITS ---
EXAMINATION: CT abdomen pelvis w con DATE: 02/24/2024 09:40 INDICATION: Small bowel obstruction. TECHNIQUE: Computed tomography (CT) of the abdomen and pelvis was performed with 100 mL Omnipaque 350 intravenous contrast. Automated exposure control and iterative reconstruction technique were employe d. The dose-length product was 1357.82 mGy-cm. COMPARISON: CT abdomen and pelvis 10/08/2023 FINDINGS: The visualized portions of the lung bases demonstrate mild emphysema and mild chronic inter stitial lung disease. No pleural effusion. Calcified left hilar and mediastinal lymph nodes are consi stent with old granulomatous disease. The heart size is normal. There are calcifications of the aorti c valve. There are coronary artery calcifications. No pericardial effusion. There are cysts in the li kash measuring up to 8 mm. Calcifications in the liver and spleen are consistent with old granulomatou s disease. There is a gallstone in the gallbladder, which is normal in size. The pancreas and adrenal glands are normal. There are cysts in the kidneys measuring up to 2.8 cm on the right. The prostate is severely enlarged. There is diffuse bladder wall thickening, likely secondary to chronic outlet ob struction. There is diverticulosis of the colon without evidence of diverticulitis. The appendix is n ormal. The tip of the appendix is in a spigelian hernia. There are dilated loops of small bowel jejun um with transition point in left upper quadrant. There are no pathologically enlarged lymph nodes. Th ere is no free intraperitoneal fluid. There is severe lower thoracic spondylosis and lower lumbar spo ndylosis. There is a benign bone island in L1 vertebral body. IMPRESSION: 1. Small bowel obstruction with transition point in jejunum in left upper quadrant. 2. 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 Reviewed, dictated and finalized at location A. STANT PROFESSOR IN FAMILY STUDIES IMPRESSION: 1. Small bowel obstruction with transition point in jejunum in left upper quadr ant. 2. 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
--- NOTE | ~2024-02-24 | XR_ITS ---
EXAMINATION: XR abdomen gastric tube rechec DATE: 02/24/2024 12:09 INDICATION: Nasogastric tube recheck. TECHNIQUE: A supine view of the abdomen and lower chest was obtained for evaluation of feeding tube placement. COMPARISON: None. FINDINGS: Nasogastric tube extends to near the gastroesophageal junction where it coils back upon itself with d istal tip in the mid esophagus. No dilated loops of bowel in the visualized abdomen. IMPRESSION: 1. Is a gastric tube coiled back upon itself in the distal esophagus. Recommend withdrawal and advanc ement. Reviewed, dictated and finalized at location B. ECT CONTROL ANALYST IMPRESSION: 1. Is a gastric tube coiled back upon itself in the distal esophagus. Recommend withdrawal and advancement.
--- NOTE | ~2024-02-24 | XR_ITS ---
XR abdomen gastric tube rechec Ordering provider: Paulina Yusuf PA-C History: . recheck . Comparison: None. FINDINGS/impression: BOWEL: Nasogastric tube is seen with the tip in the stomach. The sidehole is near to the gastroesopha geal junction. Nonobstructive bowel gas pattern. Reviewed, dictated and finalized at location A. ICAL WASTE MANAGEMENT TECHNICIAN
[2024-02-24 09:30] LABS: Basophils Absolute Auto 0.1 K/mm3 (0.0-0.1); Basophils Percent Auto 0.5 % (0.2-1.2); Eosinophils Absolute Auto 0.1 K/mm3 (0-0.3); Eosinophils Percent Auto 1.3 % (0-4.4); Hematocrit 47.5 % (42.0-52.0); Hemoglobin 16.2 g/dL (14.0-18.0); Immature Granulocyte Absolute 0.04 K/mm3 (0.00-0.031); Immature Granulocyte Percent A 0.4 % (0-0.5); Lymphocytes Absolute Auto 1.67 K/mm3 (0.9-3.2); Mean Corpuscular HGB Conc 34.1 g/dl (32-36); Mean Corpuscular Hemoglobin 30.6 pg (26-34); Mean Corpuscular Volume 89.6 fl (80-100); Mean Platelet Volume 8.7 fl (7.4-10.4); Monocytes Absolute Auto 0.4 K/mm3 (0.1-0.6); Monocytes Percent Auto 3.3 % (2.6-8.5); Neutrophils Absolute Auto 8.2 K/mm3 (1.3-6.7); Neutrophils Percent Auto 78.5 % (45.5-73.1); Platelet Count Result 156 k/mm3 (150-375); Red Cell Distribution Width 13.3 % (11.5-14.5); White Blood Count 10.5 K/mm3 (4.5-10.0)
[2024-02-24 09:32] LABS: Estimated CRCL calculation 51 ml/min; Estimated Glomerular Filt Rate 57
[2024-02-24 09:39] LABS: Lactic Acid Reflex 1.6 mmol/L (0.7-2.0)
[2024-02-24 09:40] LABS: Alanine Aminotransferase 21 U/L (6-50); Albumin Level 4.1 g/dL (3.5-5.1); Alkaline Phosphatase 55 U/L (38-126); Anion Gap 6 mmol/L (4-12); Aspartate Amino Transferase 21 U/L (17-59); Bilirubin,Total 0.9 mg/dL (0.2-1.3); Blood Urea Nitrogen 18 mg/dL (9-20); Calcium 9.5 mg/dL (8.4-10.2); Carbon Dioxide 28 mmol/L (22-30); Chloride 101 mmol/L (98-107); Estimated CRCL calculation 57 ml/min; Estimated Glomerular Filt Rate > 60; Glucose 173 mg/dL (65-110); Lipase 146 U/L (23-300); Potassium 4.3 mmol/L (3.4-5.0); Sodium 135 mmol/L (137-145)
[2024-02-24] MEDS: ONDANSETRON INJ 4 MG/2 ML VIAL IV PUSH ×2 (09:46→22:50)
--- NOTE | 2024-02-24 10:14 | ED_ITS ---
HPI - Nausea/Vomiting/Diarrhea General Chief complaint: Nausea/Vomiting/Diarrhea Stated complaint: poss sbo Time Seen by Provider: 02/24/24 09:14 Source: patient Mode of arrival: ambulatory Limitations: no limitations History of Present Illness HPI Narrative: This is an 88-year-old male that presents to the emergency department for possible small-bowel obstruction. Reports extensive history of obstructions. He follows with our general surgeons here. Reports this morning he started to developed abdominal bloating, discomfort, nausea and vomiting. Similar to his previous obstructions. Denies fevers. Related Data Home Medications ?Medication ?Instructions ?Recorded ?Confirmed ?Last Taken ?Type omega-3 fatty acids 1,000 mg 1,200 mg PO BID 10/07/19 02/18/24 Unknown History capsule (Fish Oil Concentrate) naproxen sodium 220 mg tablet 220 mg PO BID PRN Pain 07/03/22 02/18/24 Unknown History (Aleve) Allergies Allergy/AdvReac Type Severity Reaction Status Date / Time haloperidol AdvReac Unknown Hallucinati Verified 02/24/24 09:42 ng Review of Systems 2 Review of Systems: CONSTITUTIONAL: Denies fever GASTROINTESTINAL: Reports abdominal pain, nausea, vomiting All systems reviewed & are unremarkable except as noted in HPI and below PMFSH Past Medical History Medical History Small bowel obstruction 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 Esophageal stricture Status post dilatation. Gastroesophageal reflux disease Benign prostatic hyperplasia Essential hypertension, benign Diastolic CHF Diverticulosis With history of diverticulitis. Irritable bowel syndrome Type 2 diabetes mellitus with stage 1 chronic kidney disease Surgical History Surgical History History of carpal tunnel surgery of right wrist History of removal of cyst From chest wall. History of resection of small bowel (2006) With anastomosis. History of cholecystectomy History of laparotomy With adhesiolysis in 1998 and 2006. Family History Family History Father Family history of lung cancer Family history of malignant neoplasm Mother Family history of malignant neoplasm of breast in first degree relative Family history of malignant neoplasm Breast cancer Sibling Brain cancer Social History Social History Social History: The patient is as of late 2020. He lives in his own home in [place]. He has 2 cats at home. 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 No drug use. He designates his sons Jay and Angel as his surrogate decision makers. Code status: Full code. Caffeine-coffee Smoking status: Never smoker Second hand tobacco smoke exposure: No Alcohol intake: never Drinks per week: 2 Alcohol use details: occasionally Substance use: never Substance use type: does not use Do You Feel Safe in your Home?: Yes Lack of Transportation: No Lack of Food: Never True Current Housing: I Have Housing Concerned About Future Housing: No Difficulty Paying Gas/Electric Bills: No Difficulty Paying for Meds: No Currently Unemployed: No Education: Don't Know Difficulty w/ Childcare or Family Care: No Spiritual care concerns: No Exam 2 Narrative: GENERAL: Uncomfortable, well-nourished, and in no acute distress. HEAD: Normocephalic, atraumatic. EYES: EOMI. ENT: Nares clear, no rhinorrhea or epistaxis. Mucous membranes dry. Oropharynx without tonsillar hypertrophy exudate or other lesions. CHEST: Clear to auscultation. No respiratory distress. No wheezes rales or rhonchi HEART: Regular rate and rhythm. No murmur heard. Normal peripheral pulses. ABDOMEN: Distended, tender to palpation throughout the abdomen, without guarding. Hypoactive bowel sounds. EXTREMITIES: Normal range of motion. No edema. SKIN: Warm, dry, no rash. NEURO: No focal deficits. Alert and oriented x3. PSYCH: Normal mood and affect Course Course Emergency Course: Patient updated on his workup and recommendation for admission Consultations Consultation #1: Spoke with general surgery who will consult Date: 02/24/24 Consultation #2: Spoke with hospitalist about patient and workup who accepts admission Date: 02/24/24 Vital Signs Vital signs: Vital Signs Temperature 97.5 F L 02/24/24 09:05 Pulse Rate 83 02/24/24 09:05 Respiratory Rate 16 02/24/24 09:05 Blood Pressure 148/80 H 02/24/24 09:05 Pulse Oximetry 97 02/24/24 09:05 Temperature 97.6 F 02/24/24 13:34 Pulse Rate 93 02/24/24 13:34 Respiratory Rate 17 02/24/24 13:34 Blood Pressure 134/80 02/24/24 13:34 Pulse Oximetry 99 02/24/24 13:34 MDM - Nausea/Vomiting/Diarrhea MDM Narrative Medical decision making narrative: Patient presents to the emergency department for abdominal pain, nausea vomiting. History of small-bowel obstruction. He is afebrile and nontoxic appearing. His vitals are stable. CBC with mild leukocytosis to 10.5. Metabolic panel without concerning findings. Lipase is normal. CT abdomen and pelvis shows a small-bowel obstruction with transition point in jejunum. NG tube was placed. We did have to replace it, but eventually got good placement shown by KUB. Spoke with general surgery who will consult. Spoke with hospitalist about patient and workup who accepts admission Differential Diagnosis Differential diagnosis: Likely food poisoning, gastroenteritis, dehydration and other (SBO, ileus) Lab Data Attestation: I reviewed the patient's lab results. 02/24/24 09:23 02/24/24 09:31 Labs: Lab Results 02/24/24 02/24/24 Range/Units 09:23 09:31 WBC 10.5 H (4.5-10.0) K/mm3 RBC 5.30 (4.6-6.20) M/mm3 Hgb 16.2 (14.0-18.0) g/dL Hct 47.5 (42.0-52.0) % MCV 89.6 (80-100) fl MCH 30.6 (26-34) pg MCHC 34.1 (32-36) g/dl RDW 13.3 (11.5-14.5) % Plt Count 156 (150-375) k/mm3 MPV 8.7 (7.4-10.4) fl Immature Gran % (Auto) 0.4 (0-0.5) % Neut % (Auto) 78.5 H (45.5-73.1) % Lymph % (Auto) 16.0 L (18.3-44.2) % [place] % (Auto) 3.3 (2.6-8.5) % Eos % (Auto) 1.3 (0-4.4) % Baso % (Auto) 0.5 (0.2-1.2) % Lymph # (Auto) 1.67 (0.9-3.2) K/mm3 [place] # (Auto) 0.4 (0.1-0.6) K/mm3 Eos # (Auto) 0.1 (0-0.3) K/mm3 Baso # (Auto) 0.1 (0.0-0.1) K/mm3 Abs Immat Gran (auto) 0.04 H (0.00-0.031) K/mm3 Absolute Neuts (auto) 8.2 H (1.3-6.7) K/mm3 Absolute Nucleated RBC 0.000 (0.0-0.012) K/mm3 Nucleated RBC % 0.0 (0.0-0.2) % Sodium 135 L (137-145) mmol/L Potassium 4.3 (3.4-5.0) mmol/L Chloride 101 (98-107) mmol/L Carbon Dioxide 28 (22-30) mmol/L Anion Gap 6 (4-12) mmol/L BUN 18 D (9-20) mg/dL Creatinine 1.06 1.20 (0.7-1.3) mg/dL Estim Creat Clear Calc 57 51 ml/min Estimated GFR > 60 57 L (59 - ) Glucose 173 H (65-110) mg/dL Lactic Acid 1.6 (0.7-2.0) mmol/L Calcium 9.5 (8.4-10.2) mg/dL Total Bilirubin 0.9 (0.2-1.3) mg/dL AST 21 (17-59) U/L ALT 21 (6-50) U/L Alkaline Phosphatase 55 (38-126) U/L Total Protein 7.0 (6.3-8.2) g/dL Albumin 4.1 (3.5-5.1) g/dL Lipase 146 (23-300) U/L Imaging Data Radiologist's impression: ITS Impressions Abdomen/Pelvis CT 02/24/24 09:40 IMPRESSION: 1. Small bowel obstruction with transition point in jejunum in left upper quadrant. 2. 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 Abdomen X-Ray 02/24/24 12:10 IMPRESSION: 1. Is a gastric tube coiled back upon itself in the distal esophagus. Recommend withdrawal and advancement. ITS Impressions Abdomen/Pelvis CT 02/24/24 09:40 IMPRESSION: 1. Small bowel obstruction with transition point in jejunum in left upper quadrant. 2. 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 Abdomen X-Ray 02/24/24 12:10 IMPRESSION: 1. Is a gastric tube coiled back upon itself in the distal esophagus. Recommend withdrawal and advancement. Critical Care Time Critical Care Time Critical Care Time: No Discharge Plan Discharge Clinical Impression: Small bowel obstruction Patient Disposition: Still a Patient Condition: Stable
[2024-02-24] MEDS: SODIUM CHLORIDE 0.9% IV 500 ML 999 ML IV CONT (12:27)
--- NOTE | 2024-02-24 12:45 | P.HP_ITS ---
H&P: HPI History of Present Illness Date/Time: 02/24/24 12:45 Chief Complaint: Nausea and vomiting. Narrative: This is a very pleasant?88-year-old gentleman with history of multiple small- bowel obstructions, hypertension, and diabetes who presented to the emergency department for evaluation of nausea and vomiting. The patient provides the following history. He was not feeling well when he got up this morning with symptoms to include abdominal bloating generalized discomfort, nausea, and multiple episodes of emesis. These symptoms are similar to prior episodes of bowel obstructions and he came in for evaluation. He denies fever, chills sweats, chest pain, shortness of breath, diarrhea, melena, and hematochezia. At the time of my evaluation he is feeling better after his gastric contents have been drained. In the ED: He was afebrile on arrival with stable vital signs. Labs were significant for WBC count of 10.5, sodium 135, BUN 18, creatinine 1.20. CT of the abdomen pelvis showed a small-bowel obstruction with transition point in the jejunum in the left upper quadrant and a right-sided spigelian hernia containing the tip of the appendix. NG tube was inserted for decompression and he is being admitted in this setting for supportive care, close monitoring, and surgery consultation. Review of Systems Review of Systems: 12 systems were reviewed and are negative except for as per HPI. [facility] Past Medical History Medical History Small bowel obstruction 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 Esophageal stricture Status post dilatation. Gastroesophageal reflux disease Benign prostatic hyperplasia Essential hypertension, benign Diastolic CHF Diverticulosis With history of diverticulitis. Irritable bowel syndrome Type 2 diabetes mellitus with stage 1 chronic kidney disease Surgical History Surgical History History of carpal tunnel surgery of right wrist History of removal of cyst From chest wall. History of resection of small bowel (2006) With anastomosis. History of cholecystectomy History of laparotomy With adhesiolysis in 1998 and 2006. Family History Family History (Updated 02/24/24 @ 14:39 by Charito Tsang PA-C) Father Family history of lung cancer Family history of malignant neoplasm Mother Family history of malignant neoplasm of breast in first degree relative Family history of malignant neoplasm Breast cancer Sibling Brain cancer Other Colon polyp Social History Social History (Updated 02/24/24 @ 14:40 by Charito Tsang PA-C) Social History: Surrogate medical decision maker: Jay and Angel Vasquez (sons). Code status: Full code. Smoking status: Never smoker Second hand tobacco smoke exposure: No Alcohol intake: current Drinks per week: 2 Alcohol use details: occasionally Substance use: never Substance use type: does not use Last use: 02/18/24 Do You Feel Safe in your Home?: Yes Lack of Transportation: No Lack of Food: Never True Current Housing: I Have Housing Concerned About Future Housing: No Difficulty Paying Gas/Electric Bills: No Difficulty Paying for Meds: No Currently Unemployed: No Education: Decline to Answer Difficulty w/ Childcare or Family Care: No Additional living arrangements comments: as of late 2020. He lives in his own home in [place]. He has 2 sons. 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 Spiritual care concerns: No Meds Home Medications and Allergies Home Medications ?Medication ?Instructions ?Recorded ?Confirmed ?Type omega-3 fatty acids 1,000 mg 1,200 mg PO BID 10/07/19 02/24/24 History capsule (Fish Oil Concentrate) naproxen sodium 220 mg tablet 220 mg PO BID PRN Pain 07/03/22 02/24/24 History (Aleve) blood sugar diagnostic (OneTouch #100 strips 11/05/23 02/24/24 Rx Verio test strips) ofloxacin 0.3 % eye drops 4 drp otic (ear) TID chronic 12/01/23 02/24/24 Rx otitis media #10 mL glipizide 2.5 mg tablet 2.5 mg PO BID #180 tabs 01/12/24 02/24/24 Rx olmesartan 40 1 tablet PO DAILY #90 tabs 02/13/24 02/24/24 Rx mg-hydrochlorothiazide 12.5 mg tablet sitagliptin phosphate 100 mg 100 mg PO DAILY #90 tabs 02/13/24 02/24/24 Rx tablet (Januvia) omeprazole 40 mg capsule,delayed 40 mg PO DAILY #90 caps 02/17/24 02/24/24 Rx release tadalafil 20 mg tablet 20 mg PO DAILY PRN sexual activity 02/18/24 02/24/24 Rx #14 tabs atorvastatin 10 mg tablet 10 mg PO QHS 02/24/24 02/24/24 History metoprolol tartrate 50 mg tablet 50 mg PO QHS 02/24/24 02/24/24 History ofloxacin 0.3 % eye drops 2 drp otic (ear) TID PRN ear wax 02/24/24 02/24/24 History Allergies Allergy/AdvReac Type Severity Reaction Status Date / Time haloperidol AdvReac Unknown Hallucinati Verified 02/24/24 09:42 ng Vital Signs Vital Signs - 24 hr 02/24/24 09:05 02/24/24 12:19 Temperature 97.5 F L Pulse Rate 83 83 Respiratory Rate 16 16 Blood Pressure 148/80 H 143/64 H Pulse Oximetry 97 97 Exam Narrative: General:?Mildly ill-appearing male lying on his left side in bed. Weight: 116.5 kg. BMI: 34.8. HEENT:??PERRL, EOMI.? Sclerae anicteric. Changes of prior cataract surgery. Ta cky mucous membranes. NG tube in the right naris draining opaque brown fluid with scattered particulate matter. Neck:??Supple. No JVD. Respiratory:?Lungs are clear to auscultation bilaterally. Cardiovascular:??Regular rate and rhythm with S1-S2. Gastrointestinal:??Abdomen is mildly distended with hypoactive bowel sounds. No significant tenderness to palpation over the abdomen.? No guarding or rebound tenderness. Skin:??Warm and dry.? No rash or lesions on limited exam. Extremities:??No cyanosis, clubbing, or significant edema. Radial and pedal pulses intact. Neurological:??Alert.? Cranial nerves 2-12 are grossly intact. No gross focal deficits to casual conversation. Psychiatric:?Pleasant and cooperative with appropriate mood and affect. H&P: Results Labs Labs: Short CBC 02/24/24 Range/Units 09:23 WBC 10.5 H (4.5-10.0) K/mm3 Hgb 16.2 (14.0-18.0) g/dL Hct 47.5 (42.0-52.0) % Plt Count 156 (150-375) k/mm3 [facility] 02/24/24 02/24/24 09:23 09:31 Sodium 135 L Potassium 4.3 Chloride 101 Carbon Dioxide 28 BUN 18 D Creatinine 1.06 1.20 Glucose 173 H Calcium 9.5 Liver Function 02/24/24 Range/Units 09:23 Total Bilirubin 0.9 (0.2-1.3) mg/dL AST 21 (17-59) U/L ALT 21 (6-50) U/L Alkaline Phosphatase 55 (38-126) U/L Albumin 4.1 (3.5-5.1) g/dL Assessment and Plan Assessment and plan (1) Small bowel obstruction: Code(s): K56.609 - Unspecified intestinal obstruction, unspecified as to partial versus complete obstruction Status: Acute 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 - Ventral hernia without obstruction or gangrene Status: Acute (3) Type 2 diabetes mellitus: Qualifiers: Diabetes mellitus complication status: without complication Diabetes mellitus terminal worker insulin use: without skilled nursing use Qualified Code(s): E11.9 - Type 2 diabetes mellitus without complications Code(s): E11.9 - Type 2 diabetes mellitus without complications Status: Chronic (4) Essential (primary) hypertension: Code(s): I10 - Essential (primary) hypertension Status: Chronic Plan The patient presented to the emergency department for evaluation of nausea, vomiting, and abdominal bloating since this morning as detailed HPI. Labs, imaging, EKG, and all reports were personally reviewed. he has had numerous small bowel obstructions in CT once again demonstrates the same. He has had multiple surgeries including a bowel resection and laparotomy with adhesi olysis.NG tube has been inserted for decompression and he will be on bowel rest. Analgesics and antiemetics are available as needed. Surgery has been consulted and their input is appreciated. His home medications will be reviewed and transition to IV form if available. Initiate sliding scale insulin, Accu-Cheks, and hypoglycemic protocol. Vital signs were reviewed and they are stable. Findings and treatment plan were discussed with the patient. Questions were solicited and answered to satisfaction. The patient's medical management will be taken over by the hospitalist team in a.m. Quality VTE Prophylaxis VTE prophylaxis: mechanical ordered If No VTE Prophylaxis Answer both mechanical and pharmacologic: Reason no pharmacologic proph: medical contraindication (hold for now in case he requires surgery) Hospitalist MIPS Advance Care Plan I have confirmed that the patient's Advanced Care Plan is present, code status is documented, or surrogate decision maker is listed in patient medical record.: Yes Medication Reconciliation I have utilized all available resources to obtain, update and review the patients current medications (includes all prescriptions, OTC, herbals, cannabis, and nutritional supplements).: Yes
--- NOTE | 2024-02-24 13:02 | P.CONGS_ITS ---
Assessment and Plan Assessment and plan (1) Small bowel obstruction: Code(s): K56.609 - Unspecified intestinal obstruction, unspecified as to partial versus complete obstruction Status: Acute Assessment and Plan: * CT showing evidence of a small bowel obstruction with transition point in the jejunum in the LUQ. He has had multiple abdominal surgeries and multiple previous small bowel obstructions, majority of which resolved with conservative management. His abdominal exam is benign. No indication for urgent surgical intervention. We would recommend to continue conservative management with NG tube decompression, bowel rest, and IV fluids for hydration. Will continue to monitor with serial abdominal exams and imaging as needed. (2) Type 2 diabetes mellitus with stage 1 chronic kidney disease: Code(s): E11.22 - Type 2 diabetes mellitus with diabetic chronic kidney disease; N18.1 - Chronic kidney disease, stage 1 Status: Chronic (3) Essential (primary) hypertension: Code(s): I10 - Essential (primary) hypertension Status: Chronic (4) Benign prostatic hyperplasia: Code(s): N40.0 - Benign prostatic hyperplasia without lower urinary tract symptoms Status: Acute (5) Spigelian hernia: Code(s): K43.9 - Ventral hernia without obstruction or gangrene Status: Acute Assessment and Plan: * Right-sided spigelian hernia noted on CT containing the distal tip of the appendix. He is not having any abdominal pain or tenderness in the RLQ on exam. Although his appendix is within the hernia, it does not appear dilated or inflamed. This appears to be an incidental findings and does not require any intervention at this time, but discussed these findings with the patient. Plan I have discussed the patient's case and plan of care with Dr. Xavier. History of Present Illness Consult details Consult date: 02/24/24 Reason for consult: other (Small bowel obstruction) Requesting physician: Paulina Yusuf PA-C Narrative: This is an 88-year-old man who is well known to our service from multiple previous small bowel obstructions, who we have been asked to see in surgical consultation for another small bowel obstruction. His initial surgery was a laparotomy in [address] Garcia for small bowel obstruction with single band adhesiolysis. He has had multiple small bowel obstructions since his initial surgery with only one episode requiring surgical intervention in 2006. He had a laparotomy with extensive adhesiolysis. He developed sepsis and peritonitis one week postop with findings of a bowel perforation, and subsequently was taken back to surgery for small bowel resection. He denies any additional abdominal surgeries, but reports a total of 30 previous small bowel obstructions that otherwise have been treated conservatively. This morning, he woke up with nausea and did not eat breakfast. He reports having two small formed BMs at home. He then began vomiting with multiple episodes of NBNB emesis. His symptoms felt similar to previous bowel obstructions and he came into the ED for evaluation. He denies any abdominal pain with this episode and reports there have been past episodes where he has only had nausea and vomiting. In the ED, he is afebrile and vital signs stable. Labs showed WBC count of 10,500. Lactic acid normal. CT Scan of the abdomen/pelvis showed small bowel obstruction with transition point in jejunum in the LUQ, as well as a right- sided spigelian hernia containing the tip of the appendix. He is now seen in the ER for surgical consultation. They have attempted NG tube placement with it coiled in the distal esophagus on plain films. Nursing is going to attempt to replace NG. He reports having a bowel movement once in the ER that was small but formed. Still not having any abdominal pain. 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 Esophageal stricture Status post dilatation. Gastroesophageal reflux disease Benign prostatic hyperplasia Essential hypertension, benign Diastolic CHF Diverticulosis With history of diverticulitis. Irritable bowel syndrome Type 2 diabetes mellitus with stage 1 chronic kidney disease Surgical History Surgical History History of carpal tunnel surgery of right wrist History of removal of cyst From chest wall. History of resection of small bowel (2006) With anastomosis. History of cholecystectomy History of laparotomy With adhesiolysis in 1998 and 2006. Family History Family History Father Family history of lung cancer Family history of malignant neoplasm Mother Family history of malignant neoplasm of breast in first degree relative Family history of malignant neoplasm Breast cancer Sibling Brain cancer Social History Social History Social History: The patient is as of late 2020. He lives in his own home in [place]. He has 2 cats at home. 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 No drug use. He designates his sons Jay and Angel as his surrogate decision makers. Code status: Full code. Caffeine-coffee Smoking status: Never smoker Second hand tobacco smoke exposure: No Alcohol intake: never Drinks per week: 2 Alcohol use details: occasionally Substance use: never Substance use type: does not use Do You Feel Safe in your Home?: Yes Lack of Transportation: No Lack of Food: Never True Current Housing: I Have Housing Concerned About Future Housing: No Difficulty Paying Gas/Electric Bills: No Difficulty Paying for Meds: No Currently Unemployed: No Education: Don't Know Difficulty w/ Childcare or Family Care: No Spiritual care concerns: No Meds Home Medications and Allergies Home Medications ?Medication ?Instructions ?Recorded ?Confirmed ?Type omega-3 fatty acids 1,000 mg 1,200 mg PO BID 10/07/19 02/18/24 History capsule (Fish Oil Concentrate) naproxen sodium 220 mg tablet 220 mg PO BID PRN Pain 07/03/22 02/18/24 History (Aleve) ofloxacin 0.3 % eye drops 2 drp otic (ear) TID #10 mL 08/26/23 02/18/24 Rx blood sugar diagnostic (OneTouch #100 strips 11/05/23 02/18/24 Rx Verio test strips) ofloxacin 0.3 % eye drops 4 drp otic (ear) TID chronic 12/01/23 02/18/24 Rx otitis media #10 mL glipizide 2.5 mg tablet 2.5 mg PO BID #180 tabs 01/12/24 02/18/24 Rx atorvastatin 10 mg tablet 10 mg PO QPM #90 tabs 02/13/24 02/18/24 Rx metoprolol tartrate 50 mg tablet 50 mg PO DAILY #90 tabs 02/13/24 02/18/24 Rx olmesartan 40 1 tablet PO DAILY #90 tabs 02/13/24 02/18/24 Rx mg-hydrochlorothiazide 12.5 mg tablet sitagliptin phosphate 100 mg 100 mg PO DAILY #90 tabs 02/13/24 02/18/24 Rx tablet (Januvia) omeprazole 40 mg capsule,delayed 40 mg PO DAILY #90 caps 02/17/24 02/18/24 Rx release tadalafil 20 mg tablet 20 mg PO DAILY PRN sexual activity 02/18/24 02/18/24 Rx #14 tabs Allergies Allergy/AdvReac Type Severity Reaction Status Date / Time haloperidol AdvReac Unknown Hallucinati Verified 02/24/24 09:42 ng Vital Signs Vital Signs - 24 hr 02/24/24 09:05 02/24/24 12:19 Temperature 97.5 F L Pulse Rate 83 83 Respiratory Rate 16 16 Blood Pressure 148/80 H 143/64 H Pulse Oximetry 97 97 Exam 2 Const: General: comfortable and no acute distress Nutritional Appearance: o verweight Orientation/consciousness: patient oriented x3 HENMT: Head: normocephalic and atraumatic Ears: hearing grossly normal bilaterally Mouth: Yes moist mucous membranes Eyes: General: appearance normal, both eyes and all related structures P upils: Equal, round and reactive pupils present Neck: Neck: normal visual inspection and full ROM Resp: Effort & Inspection: no respiratory distress Auscultation: clear to auscultation bilaterally Cardio: Rate: regular rate Rhythm: regular rhythm Heart sounds: S1 normal heart sound present and S2 normal heart sound present Peripheral pulses: Peripheral pulses 2+ throughout GI: Inspection: distended, obesity, scar (wide midline scar with scarring from what looks like retention sutures) and no visible herniation GI Palp: Yes Soft to palpation, No Tenderness to palpation present (GI), No Guarding due to palpation present (GI) and No Rebound tenderness present Percussion: Yes tympanic to percussion Auscultation: Hypoactive bowel sounds present R ectal Exam: deferred Skin: General skin exam: normal color Neuro: General: moves all extremities and no focal motor deficits Speech: n ormal speech Motor exam (neuro): 5/5 motor strength present throughout Extrem: General: normal to inspection and no edema Psych: Mental Status: mental status grossly normal Attitude: cooperative Insight: Good insight present (Psych) Judgement: Good judgement present (Psych) Results Labs 02/24/24 09:23 02/24/24 09:31 Labs: Abnormal lab results 02/24/24 02/24/24 Range/Units 09:23 09:31 WBC 10.5 H (4.5-10.0) K/mm3 Neut % (Auto) 78.5 H (45.5-73.1) % Lymph % (Auto) 16.0 L (18.3-44.2) % Abs Immat Gran (auto) 0.04 H (0.00-0.031) K/mm3 Absolute Neuts (auto) 8.2 H (1.3-6.7) K/mm3 Sodium 135 L (137-145) mmol/L Estimated GFR 57 L (59 - ) Glucose 173 H (65-110) mg/dL Diabetes panel 02/24/24 02/24/24 Range/Units 09:23 09:31 Sodium 135 L (137-145) mmol/L Potassium 4.3 (3.4-5.0) mmol/L Chloride 101 (98-107) mmol/L Carbon Dioxide 28 (22-30) mmol/L BUN 18 D (9-20) mg/dL Creatinine 1.06 1.20 (0.7-1.3) mg/dL Glucose 173 H (65-110) mg/dL Calcium 9.5 (8.4-10.2) mg/dL AST 21 (17-59) U/L ALT 21 (6-50) U/L Alkaline Phosphatase 55 (38-126) U/L Total Protein 7.0 (6.3-8.2) g/dL Albumin 4.1 (3.5-5.1) g/dL Calcium panel 02/24/24 Range/Units 09:23 Calcium 9.5 (8.4-10.2) mg/dL Albumin 4.1 (3.5-5.1) g/dL Pituitary panel 02/24/24 02/24/24 Range/Units 09:23 09:31 Sodium 135 L (137-145) mmol/L Potassium 4.3 (3.4-5.0) mmol/L Chloride 101 (98-107) mmol/L Carbon Dioxide 28 (22-30) mmol/L BUN 18 D (9-20) mg/dL Creatinine 1.06 1.20 (0.7-1.3) mg/dL Glucose 173 H (65-110) mg/dL Calcium 9.5 (8.4-10.2) mg/dL Adrenal panel 02/24/24 02/24/24 Range/Units 09:23 09:31 Sodium 135 L (137-145) mmol/L Potassium 4.3 (3.4-5.0) mmol/L Chloride 101 (98-107) mmol/L Carbon Dioxide 28 (22-30) mmol/L BUN 18 D (9-20) mg/dL Creatinine 1.06 1.20 (0.7-1.3) mg/dL Glucose 173 H (65-110) mg/dL Calcium 9.5 (8.4-10.2) mg/dL Total Bilirubin 0.9 (0.2-1.3) mg/dL AST 21 (17-59) U/L ALT 21 (6-50) U/L Alkaline Phosphatase 55 (38-126) U/L Total Protein 7.0 (6.3-8.2) g/dL Albumin 4.1 (3.5-5.1) g/dL All other labs normal. Imaging Additional studies: ITS Impressions Abdomen/Pelvis CT 02/24/24 09:40 IMPRESSION: 1. Small bowel obstruction with transition point in jejunum in left upper quadrant. 2. 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 Abdomen X-Ray 02/24/24 12:10 IMPRESSION: 1. Is a gastric tube coiled back upon itself in the distal esophagus. Recommend withdrawal and advancement.
[2024-02-24] MEDS: SODIUM CHLORIDE 0.9% IV 1,000 ML 100 ML IV CONT (16:26)
[2024-02-24 18:42] LABS: Glucose Point of Care 144 mg/dl (65-105)
[2024-02-24 23:55] LABS: Glucose Point of Care 186 mg/dl (65-105)
[2024-02-25] MEDS: SODIUM CHLORIDE 0.9% IV 1,000 ML 100 ML IV CONT (03:24)
[2024-02-25 04:17] LABS: Hemoglobin A1C 6.3 % (<5.7)
[2024-02-25 05:28] LABS: Glucose Point of Care 160 mg/dl (65-105)
[2024-02-25 06:00] VITALS: BP 139/77; PULSE 94; RESP 14; TEMP 36.2; O2SAT 95
[2024-02-25 06:38] LABS: Hematocrit 47.8 % (42.0-52.0); Hemoglobin 15.6 g/dL (14.0-18.0); Mean Corpuscular HGB Conc 32.6 g/dl (32-36); Mean Corpuscular Hemoglobin 29.8 pg (26-34); Mean Corpuscular Volume 91.4 fl (80-100); Mean Platelet Volume 8.6 fl (7.4-10.4); Platelet Count Result 138 k/mm3 (150-375); Red Blood Count 5.23 M/mm3 (4.6-6.20); Red Cell Distribution Width 13.3 % (11.5-14.5); White Blood Count 6.3 K/mm3 (4.5-10.0)
[2024-02-25 07:13] LABS: Anion Gap 6 mmol/L (4-12); Blood Urea Nitrogen 28 mg/dL (9-20); Calcium 9.2 mg/dL (8.4-10.2); Carbon Dioxide 29 mmol/L (22-30); Chloride 100 mmol/L (98-107); Estimated CRCL calculation 40 ml/min; Estimated Glomerular Filt Rate 43; Glucose 154 mg/dL (65-110); Potassium 4.9 mmol/L (3.4-5.0); Sodium 135 mmol/L (137-145)
[2024-02-25 10:27] VITALS: BMI 34.6
--- NOTE | 2024-02-25 10:49 | PM.PNGS ---
Progress Note: A&P Assessment and Plan (1) Small bowel obstruction: Code(s): K56.609 - Unspecified intestinal obstruction, unspecified as to partial versus complete obstruction Status: Acute Assessment and Plan: Appears to be likely a partial SBO. Bowel function returning, but X-ray shows dilated proximal jejunum and he was still having significant NG output. Will get Gastrografin SBFT today to further assess. Hopefully will resolve with continued conservative management. Surgery will be reserved for signs of complete bowel obstruction. 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 - Ventral hernia without obstruction or gangrene Status: Acute (3) Type 2 diabetes mellitus: Qualifiers: Diabetes mellitus ferryboat captain insulin use: without ferryboat captain use Diabetes mellitus complication status: without complication Qualified Code(s): E11.9 - Type 2 diabetes mellitus without complications Code(s): E11.9 - Type 2 diabetes mellitus without complications Status: Chronic (4) Essential (primary) hypertension: Code(s): I10 - Essential (primary) hypertension Status: Chronic (5) CKD (chronic kidney disease): Qualifiers: Chronic kidney disease stage: unspecified stage Qualified Code(s): N18.9 - Chronic kidney disease, unspecified Code(s): N18.9 - Chronic kidney disease, unspecified Status: Chronic Subjective Subjective Date/Time Seen: 02/25/24 10:49 Interval history: Had 2 BM's yesterday and a BM this AM. Still having significant NG output though. No abdominal pain or bloating. Exam GI: Inspection: distended and obesity GI Palp: Yes Soft to palpation, No Tenderness to palpation present (GI) and No Guarding due to palpation present (GI) Objective Data Vital Signs Vital Signs: Vital Signs - 24 hr 02/24/24 12:19 02/24/24 13:13 02/24/24 13:34 Temperature 97.6 F Pulse Rate 83 90 93 Respiratory Rate 16 15 17 Blood Pressure 143/64 H 143/87 H 134/80 Pulse Oximetry 97 100 99 Oxygen Delivery 02/24/24 14:20 02/24/24 20:00 02/24/24 20:45 Temperature 97.7 F 98.6 F Pulse Rate 88 89 89 Respiratory Rate 20 13 13 Blood Pressure 139/69 132/67 Pulse Oximetry 97 92 92 Oxygen Delivery Room Air 02/25/24 06:00 Temperature 97.1 F L Pulse Rate 94 Respiratory Rate 14 Blood Pressure 139/77 Pulse Oximetry 95 Oxygen Delivery Intake/Output Intake/Output: Intake & Output 02/22/24 02/23/24 02/24/24 02/25/24 23:59 23:59 23:59 23:59 Intake Total 500 1000 Output Total 1650 1800 Balance -1150 -800 Meds/Results Medications: Active Medications Generic Name Dose Route Start Last Admin Trade Name Freq PRN Reason Stop Dose Admin Dextrose 12.5 gm 02/24/24 14:42 Dextrose 50% 25 Gm/50 Ml Syringe IV PUSH PRN PRN Hypoglycemia Protocol Glucagon 1 mg 02/24/24 14:42 Glucagon For Inj 1 Mg Vial IM PRN PRN Hypoglycemia Protocol Glucose 15 gm 02/24/24 14:42 Glucose Oral Gel 15 Gm Of Glucse In 37.5 Gm Tube PO PRN PRN Hypoglycemia Protocol Sodium Chloride 1,000 mls @ 100 mls/hr 02/24/24 12:35 02/25/24 03:24 Normal Saline Iv IV CONT 100 mls/hr .Q10H JACE Administration Dextrose 1,000 mls @ 100 mls/hr 02/24/24 14:42 Dextrose 5% 1,000 Ml IVPB PRN PRN Hypoglycemia Protocol Insulin Aspart 3 - 6 units 02/24/24 18:00 02/25/24 05:30 Insulin Aspart (*Bkc) 100 Units/Ml SUB-Q Not Given Q6HR [facility] Protocol Morphine Sulfate 2 mg 02/24/24 14:42 Morphine Sulfate (*Crx) 2 Mg/Ml Inj IV PUSH Q2H PRN Pain Rated 7-10 Ondansetron HCl 4 mg 02/24/24 14:42 02/24/24 22:50 Ondansetron Inj 4 Mg/2 Ml Vial IV PUSH 4 mg Q6H PRN Administration Nausea And Vomiting Pantoprazole Sodium 40 mg 02/25/24 09:00 Pantoprazole Sodium Iv 40 Mg Vial IV PUSH QAM [facility] Radiology Results: ITS Impressions Abdomen/Pelvis CT 02/24/24 09:40 IMPRESSION: 1. Small bowel obstruction with transition point in jejunum in left upper quadrant. 2. 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 Abdomen X-Ray 02/25/24 08:07 IMPRESSION: 1. Persistently dilated jejunum, consistent with small bowel obstruction. 2. Nasogastric tube tip in the stomach with proximal side port in the distal esophagus. Advancement 5 cm is recommended. Labs Labs: Laboratory Results - last 24 hr 02/24/24 02/24/24 02/24/24 09:22 18:40 23:50 WBC RBC Hgb Hct MCV MCH MCHC RDW Plt Count MPV Sodium Potassium Chloride Carbon Dioxide Anion Gap BUN Creatinine Estim Creat Clear Calc Estimated GFR Glucose POC Capillary Glucose 144 H 186 H Hemoglobin A1c 6.3 H Calcium Magnesium 02/25/24 02/25/24 05:22 06:23 WBC 6.3 RBC 5.23 Hgb 15.6 Hct 47.8 MCV 91.4 MCH 29.8 MCHC 32.6 RDW 13.3 Plt Count 138 L MPV 8.6 Sodium 135 L Potassium 4.9 Chloride 100 Carbon Dioxide 29 Anion Gap 6 BUN 28 H D Creatinine 1.53 H Estim Creat Clear Calc 40 Estimated GFR 43 L Glucose 154 H POC Capillary Glucose 160 H Hemoglobin A1c Calcium 9.2 Magnesium 2.0
--- NOTE | 2024-02-25 11:29 | P.PNIM_ITS ---
Progress Note: A&P Assessment and Plan (1) Small bowel obstruction: Code(s): K56.609 - Unspecified intestinal obstruction, unspecified as to partial versus complete obstruction Status: Acute Assessment and Plan: * Surgery following. * NG tube decompression, bowel rest, and IV fluids for hydration. * Gastrografin SBFT today. * Pantoprazole 40 mg IV daily. 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 (3) Type 2 diabetes mellitus: Qualifiers: Diabetes mellitus complication status: without complication Diabetes mellitus exterminator termite insulin use: without jail use Qualified Code(s): E11.9 - Type 2 diabetes mellitus without complications Code(s): E11.9 - Type 2 diabetes mellitus without complications Status: Chronic Assessment and Plan: * SSI. Hypoglycemic protocol. (4) Essential (primary) hypertension: Code(s): I10 - Essential (primary) hypertension Status: Chronic Assessment and Plan: * NPO * Monitor blood pressures, last 139/77. Subjective Date/time seen: 02/25/24 11:29 Interval history: Patient denies abdominal pain, shortness of breath, nausea, or vomiting. Patient reports that this is his 31st small bowel obstruction. Patient reports that they are going to check abdomen with contrast today. Review of Systems Review of Systems: All systems reviewed & are unremarkable except as noted in HPI and below Exam Const: General: comfortable and no acute distress Eyes: Sclera: sclerae normal Resp: Effort & Inspection: normal respiratory effort Auscultation: clear to auscultation bilaterally Cardio: Rate: regular rate Rhythm: regular rhythm GI: Inspection: distended GI Palp: Yes Soft to palpation and No Tenderness to palpation present (GI) Other: obesity. hypo active bowel sounds. Skin: General skin exam: no rashes or lesions noted Neuro: Speech: normal speech Extrem: General: no pedal edema Psych: Mental Status: mental status grossly normal Affect: normal affect Objective Data Vital Signs Vital Signs: Vital Signs - 24 hr 02/24/24 12:19 02/24/24 13:13 02/24/24 13:34 Temperature 97.6 F Pulse Rate 83 90 93 Respiratory Rate 16 15 17 Blood Pressure 143/64 H 143/87 H 134/80 Pulse Oximetry 97 100 99 Oxygen Delivery 02/24/24 14:20 02/24/24 20:00 02/24/24 20:45 Temperature 97.7 F 98.6 F Pulse Rate 88 89 89 Respiratory Rate 20 13 13 Blood Pressure 139/69 132/67 Pulse Oximetry 97 92 92 Oxygen Delivery Room Air 02/25/24 06:00 Temperature 97.1 F L Pulse Rate 94 Respiratory Rate 14 Blood Pressure 139/77 Pulse Oximetry 95 Oxygen Delivery Intake/Output Intake/Output: Intake & Output 02/22/24 02/23/24 02/24/24 02/25/24 23:59 23:59 23:59 23:59 Intake Total 500 1000 Output Total 1650 1800 Balance -1150 -800 Meds/Results Medications: Active Medications Generic Name Dose Route Start Last Admin Trade Name Freq PRN Reason Stop Dose Admin Dextrose 12.5 gm 02/24/24 14:42 Dextrose 50% 25 Gm/50 Ml Syringe IV PUSH PRN PRN Hypoglycemia Protocol Glucagon 1 mg 02/24/24 14:42 Glucagon For Inj 1 Mg Vial IM PRN PRN Hypoglycemia Protocol Glucose 15 gm 02/24/24 14:42 Glucose Oral Gel 15 Gm Of Glucse In 37.5 Gm Tube PO PRN PRN Hypoglycemia Protocol Sodium Chloride 1,000 mls @ 100 mls/hr 02/24/24 12:35 02/25/24 03:24 Normal Saline Iv IV CONT 100 mls/hr .Q10H JACE Administration Dextrose 1,000 mls @ 100 mls/hr 02/24/24 14:42 Dextrose 5% 1,000 Ml IVPB PRN PRN Hypoglycemia Protocol Insulin Aspart 3 - 6 units 02/24/24 18:00 02/25/24 05:30 Insulin Aspart (*Bkc) 100 Units/Ml SUB-Q Not Given Q6HR [facility] Protocol Morphine Sulfate 2 mg 02/24/24 14:42 Morphine Sulfate (*Crx) 2 Mg/Ml Inj IV PUSH Q2H PRN Pain Rated 7-10 Ondansetron HCl 4 mg 02/24/24 14:42 02/24/24 22:50 Ondansetron Inj 4 Mg/2 Ml Vial IV PUSH 4 mg Q6H PRN Administration Nausea And Vomiting Pantoprazole Sodium 40 mg 02/25/24 09:00 Pantoprazole Sodium Iv 40 Mg Vial IV PUSH QAM [facility] Radiology Results: ITS Impressions Abdomen/Pelvis CT 02/24/24 09:40 IMPRESSION: 1. Small bowel obstruction with transition point in jejunum in left upper quadrant. 2. 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 Abdomen X-Ray 02/25/24 08:07 IMPRESSION: 1. Persistently dilated jejunum, consistent with small bowel obstruction. 2. Nasogastric tube tip in the stomach with proximal side port in the distal esophagus. Advancement 5 cm is recommended. Labs Labs: Laboratory Results - last 24 hr 02/24/24 02/24/24 02/24/24 09:22 18:40 23:50 WBC RBC Hgb Hct MCV MCH MCHC RDW Plt Count MPV Sodium Potassium Chloride Carbon Dioxide Anion Gap BUN Creatinine Estim Creat Clear Calc Estimated GFR Glucose POC Capillary Glucose 144 H 186 H Hemoglobin A1c 6.3 H Calcium Magnesium 02/25/24 02/25/24 05:22 06:23 WBC 6.3 RBC 5.23 Hgb 15.6 Hct 47.8 MCV 91.4 MCH 29.8 MCHC 32.6 RDW 13.3 Plt Count 138 L MPV 8.6 Sodium 135 L Potassium 4.9 Chloride 100 Carbon Dioxide 29 Anion Gap 6 BUN 28 H D Creatinine 1.53 H Estim Creat Clear Calc 40 Estimated GFR 43 L Glucose 154 H POC Capillary Glucose 160 H Hemoglobin A1c Calcium 9.2 Magnesium 2.0 Quality VTE Prophylaxis VTE prophylaxis: mechanical ordered
[2024-02-25 17:03] LABS: Glucose Point of Care 196 mg/dl (65-105)
[2024-02-25 17:32] VITALS: BP 166/81; PULSE 105; RESP 20; TEMP 36.2; O2SAT 96
[2024-02-25 20:00] VITALS: PULSE 100; RESP 16; O2SAT 94
[2024-02-25 21:33] VITALS: BP 132/69; PULSE 100; RESP 16; TEMP 36.2; O2SAT 94
[2024-02-26 00:02] LABS: Glucose Point of Care 161 mg/dl (65-105)
[2024-02-26 05:33] LABS: Glucose Point of Care 165 mg/dl (65-105)
[2024-02-26 05:40] VITALS: BP 142/72; PULSE 86; RESP 12; TEMP 36.3; O2SAT 96
[2024-02-26 07:02] LABS: Basophils Percent Auto 0.6 % (0.2-1.2); Eosinophils Absolute Auto 0.1 K/mm3 (0-0.3); Eosinophils Percent Auto 2.2 % (0-4.4); Hematocrit 44.8 % (42.0-52.0); Hemoglobin 14.7 g/dL (14.0-18.0); Immature Granulocyte Absolute 0.02 K/mm3 (0.00-0.031); Immature Granulocyte Percent A 0.3 % (0-0.5); Lymphocytes Absolute Auto 2.05 K/mm3 (0.9-3.2); Lymphocytes Percent Auto 32.7 % (18.3-44.2); Mean Corpuscular HGB Conc 32.8 g/dl (32-36); Mean Corpuscular Volume 91.4 fl (80-100); Monocytes Absolute Auto 0.7 K/mm3 (0.1-0.6); Monocytes Percent Auto 11.8 % (2.6-8.5); Neutrophils Absolute Auto 3.3 K/mm3 (1.3-6.7); Neutrophils Percent Auto 52.4 % (45.5-73.1); Platelet Count Result 141 k/mm3 (150-375); Red Cell Distribution Width 13.3 % (11.5-14.5); White Blood Count 6.3 K/mm3 (4.5-10.0)
[2024-02-26 07:11] LABS: Alanine Aminotransferase 19 U/L (6-50); Albumin Level 3.7 g/dL (3.5-5.1); Alkaline Phosphatase 54 U/L (38-126); Anion Gap 6 mmol/L (4-12); Aspartate Amino Transferase 17 U/L (17-59); Blood Urea Nitrogen 34 mg/dL (9-20); Calcium 9.1 mg/dL (8.4-10.2); Carbon Dioxide 31 mmol/L (22-30); Chloride 99 mmol/L (98-107); Estimated CRCL calculation 50 ml/min; Estimated Glomerular Filt Rate 56; Glucose 148 mg/dL (65-110); Sodium 136 mmol/L (137-145)
[2024-02-26 07:55] LABS: Glucose Point of Care 168 mg/dl (65-105)
[2024-02-26] MEDS: PANTOPRAZOLE SODIUM IV 40 MG VIAL IV PUSH (09:08)
--- NOTE | 2024-02-26 10:35 | P.PNGS_ITS ---
Progress Note: A&P Assessment and Plan (1) Small bowel obstruction: Code(s): K56.609 - Unspecified intestinal obstruction, unspecified as to partial versus complete obstruction Status: Acute Assessment and Plan: * Resolving. SBS normal yesterday and NG tube was removed. Bowels are moving. Tolerated full liquids for breakfast. * Will advance to a soft diet for lunch. * If he is able to tolerate solids, then he can be discharged later today from a surgical standpoint. F/u with surgery only PRN. 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 - Ventral hernia without obstruction or gangrene Status: Acute (3) Type 2 diabetes mellitus: Qualifiers: Diabetes mellitus nursing home insulin use: without nursing home use Diabetes mellitus complication status: without complication Qualified Code(s): E11.9 - Type 2 diabetes mellitus without complications Code(s): E11.9 - Type 2 diabetes mellitus without complications Status: Chronic (4) Essential (primary) hypertension: Code(s): I10 - Essential (primary) hypertension Status: Chronic (5) CKD (chronic kidney disease): Qualifiers: Chronic kidney disease stage: unspecified stage Qualified Code(s): N18.9 - Chronic kidney disease, unspecified Code(s): N18.9 - Chronic kidney disease, unspecified Status: Chronic Plan I have discussed the patient's case and plan of care with Dr. Xavier. Subjective Subjective Date/Time Seen: 02/26/24 10:35 Patient reports: no new complaints, feels better, tolerating liquids well, flatus, bowel movement and afebrile Interval history: Patient seen this morning after having full liquids for breakfast. He is tolerating liquids well without any nausea, vomiting, or bloating. Still no abdominal pain. Moving his bowels with multiple BMs yesterday and he has had at least 1 this morning. Exam Const: General: comfortable and no acute distress GI: Inspection: non-distended GI Palp: Yes Soft to palpation, No Tenderness to palpation present (GI), No Guarding due to palpation present (GI) and No Rebound tenderness present Auscultation: normal bowel sounds Objective Data Vital Signs Vital Signs: Vital Signs - 24 hr 02/25/24 17:32 02/25/24 20:00 02/25/24 21:33 Temperature 97.2 F L 97.2 F L Pulse Rate 105 H 100 100 Respiratory Rate 20 16 16 Blood Pressure 166/81 H 132/69 Pulse Oximetry 96 94 94 Oxygen Delivery Room Air 02/26/24 05:40 02/26/24 08:00 Temperature 97.3 F L Pulse Rate 86 Respiratory Rate 12 Blood Pressure 142/72 H Pulse Oximetry 96 Oxygen Delivery Room Air Intake/Output Intake/Output: Intake & Output 02/23/24 02/24/24 02/25/24 02/26/24 23:59 23:59 23:59 23:59 Intake Total 500 2440 1695 Output Total 1650 1800 Balance -8144 933 1071 Meds/Results Medications: Active Medications Generic Name Dose Route Start Last Admin Trade Name Freq PRN Reason Stop Dose Admin Dextrose 12.5 gm 02/24/24 14:42 Dextrose 50% 25 Gm/50 Ml Syringe IV PUSH PRN PRN Hypoglycemia Protocol Glucagon 1 mg 02/24/24 14:42 Glucagon For Inj 1 Mg Vial IM PRN PRN Hypoglycemia Protocol Glucose 15 gm 02/24/24 14:42 Glucose Oral Gel 15 Gm Of Glucse In 37.5 Gm Tube PO PRN PRN Hypoglycemia Protocol Dextrose 1,000 mls @ 100 mls/hr 02/24/24 14:42 Dextrose 5% 1,000 Ml IVPB PRN PRN Hypoglycemia Protocol Morphine Sulfate 2 mg 02/24/24 14:42 Morphine Sulfate (*Crx) 2 Mg/Ml Inj IV PUSH Q2H PRN Pain Rated 7-10 Ondansetron HCl 4 mg 02/24/24 14:42 02/24/24 22:50 Ondansetron Inj 4 Mg/2 Ml Vial IV PUSH 4 mg Q6H PRN Administration Nausea And Vomiting Pantoprazole Sodium 40 mg 02/25/24 09:00 02/26/24 09:08 Pantoprazole Sodium Iv 40 Mg Vial IV PUSH 40 mg QAM JACE Administration Radiology Results: ITS Impressions Abdomen/Pelvis CT 02/24/24 09:40 IMPRESSION: 1. Small bowel obstruction with transition point in jejunum in left upper quadrant. 2. 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 Abdomen X-Ray 02/25/24 08:07 IMPRESSION: 1. Persistently dilated jejunum, consistent with small bowel obstruction. 2. Nasogastric tube tip in the stomach with proximal side port in the distal esophagus. Advancement 5 cm is recommended. Small Bowel X-Ray 02/25/24 14:35 IMPRESSION: 1. Normal small bowel follow-through. 2. Cholelithiasis. Labs Labs: Laboratory Results - last 24 hr 02/25/24 02/25/24 02/26/24 16:49 23:54 05:19 WBC RBC Hgb Hct MCV MCH MCHC RDW Plt Count MPV Immature Gran % (Auto) Neut % (Auto) Lymph % (Auto) [place] % (Auto) Eos % (Auto) Baso % (Auto) Lymph # (Auto) [place] # (Auto) Eos # (Auto) Baso # (Auto) Abs Immat Gran (auto) Absolute Neuts (auto) Absolute Nucleated RBC Nucleated RBC % Sodium Potassium Chloride Carbon Dioxide Anion Gap BUN Creatinine Estim Creat Clear Calc Estimated GFR Glucose POC Capillary Glucose 196 H 161 H 165 H Calcium Total Bilirubin AST ALT Alkaline Phosphatase Total Protein Albumin 02/26/24 02/26/24 06:12 07:43 WBC 6.3 RBC 4.90 Hgb 14.7 Hct 44.8 MCV 91.4 MCH 30.0 MCHC 32.8 RDW 13.3 Plt Count 141 L MPV 9.0 Immature Gran % (Auto) 0.3 Neut % (Auto) 52.4 Lymph % (Auto) 32.7 [place] % (Auto) 11.8 H Eos % (Auto) 2.2 Baso % (Auto) 0.6 Lymph # (Auto) 2.05 [place] # (Auto) 0.7 H Eos # (Auto) 0.1 Baso # (Auto) 0.0 Abs Immat Gran (auto) 0.02 Absolute Neuts (auto) 3.3 Absolute Nucleated RBC 0.000 Nucleated RBC % 0.0 Sodium 136 L Potassium 4.0 Chloride 99 Carbon Dioxide 31 H Anion Gap 6 BUN 34 H Creatinine 1.23 Estim Creat Clear Calc 50 Estimated GFR 56 L Glucose 148 H POC Capillary Glucose 168 H Calcium 9.1 Total Bilirubin 1.0 AST 17 ALT 19 Alkaline Phosphatase 54 Total Protein 6.0 L Albumin 3.7
--- NOTE | 2024-02-26 11:53 | P.DS_ITS ---
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 - Ventral hernia without obstruction or gangrene Status: Acute (3) Type 2 diabetes mellitus: Qualifiers: Diabetes mellitus moth exterminator insulin use: without moth exterminator use Diabetes mellitus complication status: without complication Qualified Code(s): E11.9 - Type 2 diabetes mellitus without complications Code(s): E11.9 - Type 2 diabetes mellitus without complications Status: Chronic (4) CKD (chronic kidney disease): Qualifiers: Chronic kidney disease stage: unspecified stage Qualified Code(s): N18.9 - Chronic kidney disease, unspecified Code(s): N18.9 - Chronic kidney disease, unspecified Status: Chronic DS: Summary Hospital Course Hospital Course: * CT abdomen pelvis with contrast: IMPRESSION: 1. Small bowel obstruction with transition point in jejunum in left upper quadrant. 2. 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 * NGT placed to suction. * 02/25/24 Small bowel follow through showed IMPRESSION: 1. Normal small bowel follow-through. 2. Cholelithiasis. * NG tube removed * Tolerated full liquids for breakfast and low fiber diet for lunch. * Follow up with surgery PRN. Status at Discharge Functional status at discharge: independent ambulation Overall status at discharge: patient is progressing back to baseline Time Spent with Patient Time attestation: Total time spent providing and/or coordinating discharge services: Exam Const: General: comfortable and no acute distress Eyes: Sclera: sclerae normal Resp: Effort & Inspection: normal respiratory effort Auscultation: clear to auscultation bilaterally Cardio: Rate: regular rate Rhythm: regular rhythm GI: GI Palp: Yes Soft to palpation Auscultation: normal bowel sounds Skin: General skin exam: no rashes or lesions noted Psych: Mental Status: mental status grossly normal Affect: normal affect DS: Data Data Completed and Pending Labs on day of discharge: Labs from last 24 hours 02/26/24 02/26/24 02/26/24 07:43 06:12 05:19 WBC 6.3 RBC 4.90 Hgb 14.7 Hct 44.8 MCV 91.4 MCH 30.0 MCHC 32.8 RDW 13.3 Plt Count 141 L MPV 9.0 Immature Gran % (Auto) 0.3 Neut % (Auto) 52.4 Lymph % (Auto) 32.7 [place] % (Auto) 11.8 H Eos % (Auto) 2.2 Baso % (Auto) 0.6 Lymph # (Auto) 2.05 [place] # (Auto) 0.7 H Eos # (Auto) 0.1 Baso # (Auto) 0.0 Abs Immat Gran (auto) 0.02 Absolute Neuts (auto) 3.3 Absolute Nucleated RBC 0.000 Nucleated RBC % 0.0 Sodium 136 L Potassium 4.0 Chloride 99 Carbon Dioxide 31 H Anion Gap 6 BUN 34 H Creatinine 1.23 Estim Creat Clear Calc 50 Estimated GFR 56 L Glucose 148 H POC Capillary Glucose 168 H 165 H Calcium 9.1 Total Bilirubin 1.0 AST 17 ALT 19 Alkaline Phosphatase 54 Total Protein 6.0 L Albumin 3.7 02/25/24 02/25/24 23:54 16:49 WBC RBC Hgb Hct MCV MCH MCHC RDW Plt Count MPV Immature Gran % (Auto) Neut % (Auto) Lymph % (Auto) [place] % (Auto) Eos % (Auto) Baso % (Auto) Lymph # (Auto) [place] # (Auto) Eos # (Auto) Baso # (Auto) Abs Immat Gran (auto) Absolute Neuts (auto) Absolute Nucleated RBC Nucleated RBC % Sodium Potassium Chloride Carbon Dioxide Anion Gap BUN Creatinine Estim Creat Clear Calc Estimated GFR Glucose POC Capillary Glucose 161 H 196 H Calcium Total Bilirubin AST ALT Alkaline Phosphatase Total Protein Albumin Discharge Plan Discharge Attending physician on discharge: Julian Jones Consulting providers: Santi Xavier Discharging Clinician: Maria Dolores Reyes Anticipated Discharge Date/Time: 02/26/24 14:00 Patient Disposition: Home, Self-Care Activity: may shower and as tolerated Diet: low fiber Discharge Instructions: Seek care immediately if: * You have severe abdominal pain that does not get better. * The heart is beating faster than normal for you. * You have a fever greater than 101.5. * You have nausea and vomiting. * Your abdomen is enlarged. * You cannot pass a bowel movement or gas. * You lose weight without trying. * You have blood in your bowel movement. * You have questions or concerns about your care. * Follow-up with the primary care physician within 1-2 weeks * Follow-up with surgery only if needed and having issues. Dr. Xavier [phone]. Thank you for choosing [facility] for your healthcare needs Patient Instructions: Low Fiber Diet (DC), Bowel Obstruction (DC) Patient Language: [place] Stand Alone Forms: General Discharge Information Follow-up/Referrals: Yusuf Herndon APRN [Primary Care Provider] - 1 Week Discharge Medications: Continued omega-3 fatty acids [Fish Oil Concentrate] 1,000 mg capsule 1,200 mg PO BID tadalafil 20 mg tablet 20 mg PO DAILY PRN (Reason: sexual activity) Qty: 14 0RF Rx Instructions: administer approximately 30min before sexual activity; do not use more than 1 dose per 24hrs ofloxacin 0.3 % drops 4 drp otic (ear) TID Qty: 10 2RF Rx Instructions: put 4 drops in draining ear t.i.d. with ear up for 1 minute afterwards naproxen sodium [Aleve] 220 mg Tablet 220 mg PO BID PRN (Reason: Pain) atorvastatin 10 mg tablet 10 mg PO QHS ofloxacin 0.3 % drops 2 drp otic (ear) TID PRN (Reason: ear wax) Rx Instructions: put 4 drops in left ear with ear up toward the ceiling 3 times daily prn metoprolol tartrate 50 mg tablet 50 mg PO QHS (DME) OneTouch Verio test strips Strip See Rx Instructions .ROUTE .COMPLEX Qty: 100 1RF Dose Instruction: USE TO TEST ONCE A DAY Rx Instructions: USE TO TEST ONCE A DAY glipizide 2.5 mg tablet 2.5 mg PO BID Qty: 180 1RF olmesartan-hydrochlorothiazide 40-12.5 mg tablet 1 tablet PO DAILY Qty: 90 1RF Januvia 100 mg tablet 100 mg PO DAILY Qty: 90 1RF Rx Instructions: TAKE 1 TABLET BY MOUTH DAILY omeprazole 40 mg capsule,delayed release(DR/EC) 40 mg PO DAILY Qty: 90 1RF Rx Instructions: TAKE 1 CAPSULE BY MOUTH DAILY Date of admission: 02/24/24 12:35 Primary Care Provider: Yusuf Herndon Admitting Provider: Taqueria Casanova Attending physician on admission: Taqueria Casanova Condition: Stable Hospitalist MIPS Heart Failure (Exclusion) Patient has history of Heart Transplant or Left Ventricular Assistive Device?: No IF YES, STOP HERE Heart Failure (Qualifier) Patient has current or prior documentation of LVEF less than or equal to 40%, or mod/servere depressed LVSF?: No IF NO, STOP HERE
[2024-02-26 11:59] LABS: Glucose Point of Care 236 mg/dl (65-105)
== END 2024-02-26 14:00 | disposition home or self-care (01) | DRG 389 ==
LOC: ANHED 12:50 → ANH3MEDSUR 13:08
PROVIDERS: Emergency Medicine; Physician Assistant; Admitting Provider Hospitalist; Emergency Provider Physician Assistant; PCP Nurse Practitioner; Visit Provider Nurse Practitioner Family
DX: K56.609 Unspecified intestinal obstruction, unspecified as to partial versus complete obstruction (principal); I50.32 Chronic diastolic (congestive) heart failure; I12.9 Hypertensive chronic kidney disease with stage 1 through stage 4 chronic kidney disease, or unspecified chronic kidney disease; E11.22 Type 2 diabetes mellitus with diabetic chronic kidney disease; N18.1 Chronic kidney disease, stage 1; K22.2 Esophageal obstruction; K21.9 Gastro-esophageal reflux disease without esophagitis; K57.30 Diverticulosis of large intestine without perforation or abscess without bleeding; K58.9 Irritable bowel syndrome, unspecified; N40.0 Benign prostatic hyperplasia without lower urinary tract symptoms; K43.9 Ventral hernia without obstruction or gangrene
CPT/HCPCS: 36415; 74019; 74177; 74250; 80048; 80053; 82948; 83036; 83605; 83690; 83735; 85025; 85027; 96374; 99285; A9270; J2405; J2470; J7030; J7040; Q9967

== ENCOUNTER 2024-03-09 09:17 | Outpatient (CLI) | payer MEDICARE, SELFPAY ==
--- NOTE | ~2024-03-09 | XR_ITS ---
Clinical Indication: Cough PA and lateral views of the chest: Comparison: 10/18/2006 Findings: There is bibasilar interstitial prominence. No other consolidation or pleural effusion evid ent. Cardiomediastinal silhouette is within normal limits. Bones and soft tissues are unremarkable. 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 Reviewed, dictated and finalized at location . 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
--- OUTSIDE RECORDS SUMMARY | 2024-03-09 09:44 | XMS_ITS | Continuity of Care Document ---
Author Organization [facility] Address [address] [place] [address] [place] [address] Phone Care Team Providers Care Powder Nipper Name Role Phone Ambreen Isaac Unavailable Unavailable Procedures Procedure Date Eye Exam Established Pt Eye Exam & Treatment Refraction Advance Directives Directive Yes / No Effective Date File Name No Information Encounters Encounter Description Practice Location Reason(s) For Visit Diagnoses Date Provider Providers Copied on Encounter [facility], [address] [place] [address] [address], [place], [place], [id number], tel:[phone] [facility] No Information 2-201 0 Marlin Willams [address] , [address], [place], [place], [facility], . tel:[phone] [facility], [address] [place] [address] [address], [place], [place], [id number], tel:[phone] [facility] No Information 9-201 0 Marlin Willams [address] , [address], [place], [address], [place]. tel:[phone] Referring Provider: Ry Montes MD , [address] [facility] [address], [place], [address]. tel:[phone] Family History Family Member Type Diagnosis Age At Onset No Information Payers Payer name Insurance type Covered green party ID Authoriza tion(s) [place] [id number] Social History Type Description Quantity Date Captured [...]
== END 2024-03-09 09:18 | disposition home or self-care (01) ==
PROVIDERS: PCP Nurse Practitioner; Visit Provider Nurse Practitioner
DX: R06.02 Shortness of breath (principal)
CPT/HCPCS: 71046

== ENCOUNTER 2024-04-02 04:48 | Emergency (ER) | payer MEDICARE, SELFPAY ==
[2024-04-02 04:57] LABS: Influenza A QL RT-PCR Negative (Negative); Influenza B QL RT-PCR Negative (Negative); RSV RNA, RT-PCR Negative (Negative); SARS-CoV-2 RNA PCR Negative (Negative)
[2024-04-02 05:01] LABS: Basophils Percent Auto 0.4 % (0.2-1.2); Eosinophils Absolute Auto 0.3 K/mm3 (0-0.3); Eosinophils Percent Auto 2.5 % (0-4.4); Hematocrit 40.6 % (42.0-52.0); Hemoglobin 13.5 g/dL (14.0-18.0); Immature Granulocyte Absolute 0.03 K/mm3 (0.00-0.031); Immature Granulocyte Percent A 0.3 % (0-0.5); Lymphocytes Absolute Auto 2.13 K/mm3 (0.9-3.2); Lymphocytes Percent Auto 21.1 % (18.3-44.2); Mean Corpuscular HGB Conc 33.3 g/dl (32-36); Mean Corpuscular Hemoglobin 29.5 pg (26-34); Mean Corpuscular Volume 88.8 fl (80-100); Mean Platelet Volume 8.6 fl (7.4-10.4); Monocytes Absolute Auto 0.6 K/mm3 (0.1-0.6); Monocytes Percent Auto 5.6 % (2.6-8.5); Neutrophils Absolute Auto 7.1 K/mm3 (1.3-6.7); Neutrophils Percent Auto 70.1 % (45.5-73.1); Platelet Count Result 157 k/mm3 (150-375); Red Blood Count 4.57 M/mm3 (4.6-6.20); Red Cell Distribution Width 13.9 % (11.5-14.5); White Blood Count 10.1 K/mm3 (4.5-10.0)
--- OUTSIDE RECORDS SUMMARY | 2024-04-02 05:04 | XMS_ITS | Continuity of Care Document ---
Author Organization [facility] Address [address] [place] [address] [place] [address] Phone Care Team Providers Care Hostess Party Sales Representative Name Role Phone Ambreen Isaac Unavailable Unavailable Procedures Procedure Date Eye Exam Established Pt Eye Exam & Treatment Refraction Advance Directives Directive Yes / No Effective Date File Name No Information Encounters Encounter Description Practice Location Reason(s) For Visit Diagnoses Date Provider Providers Copied on Encounter [facility], [address] [place] [address] [address], [place], [place], [id number], tel:[phone] [facility] No Information 2-201 0 Marlin Willams [address] [facility] , [address], [place], [place], [facility], . tel:[phone] [facility], [address] [place] [address] [address], [place], [place], [id number], tel:[phone] [facility] No Information 9-201 0 Marlin Willams [address] [facility] , [address], [place], [address], [place]. tel:[phone] Referring Provider: Ry Montes MD , [address] [facility] [address], [place], [address]. tel:[phone] Family History Family Member Type Diagnosis Age At Onset No Information Payers Payer name Insurance type Covered democrat ID Authoriza tion(s) [place] [id number] Social History Type Description Quantity Date Captured [...]
[2024-04-02 05:09] VITALS: BP 119/60; PULSE 84; RESP 14; TEMP 36.4; O2SAT 100
[2024-04-02 05:09] LABS: Alanine Aminotransferase 24 U/L (6-50); Albumin Level 3.7 g/dL (3.5-5.1); Alkaline Phosphatase 60 U/L (38-126); Anion Gap 11 mmol/L (4-12); Aspartate Amino Transferase 20 U/L (17-59); Bilirubin,Total 0.7 mg/dL (0.2-1.3); Blood Urea Nitrogen 17 mg/dL (9-20); Calcium 9.4 mg/dL (8.4-10.2); Carbon Dioxide 24 mmol/L (22-30); Chloride 97 mmol/L (98-107); Estimated Glomerular Filt Rate 55; Glucose 200 mg/dL (65-110); Potassium 4.7 mmol/L (3.4-5.0); Sodium 132 mmol/L (137-145); Troponin I < 0.012 ng/mL (0.000-0.034)
--- OUTSIDE RECORDS SUMMARY | 2024-04-02 05:12 | XMS_ITS | Continuity of Care Document ---
Author Organization [facility] Address [address] [place] [address] [place] [address] Phone Care Team Providers Care Advertising Consultant Name Role Phone Ambreen Isaac Unavailable Unavailable Procedures Procedure Date Eye Exam Established Pt Eye Exam & Treatment Refraction Advance Directives Directive Yes / No Effective Date File Name No Information Encounters Encounter Description Practice Location Reason(s) For Visit Diagnoses Date Provider Providers Copied on Encounter [facility], [address] [place] [address] [address], [place], [place], [id number], tel:[phone] [facility] No Information 2-201 0 Marlin Willams [address] [facility] , [address], [place], [place], [facility], . tel:[phone] [facility], [address] [place] [address] [address], [place], [place], [id number], tel:[phone] [facility] No Information 9-201 0 Marlin Willams [address] [facility] , [address], [place], [address], [place]. tel:[phone] Referring Provider: Ry Montes MD , [address] [facility] [address], [place], [address]. tel:[phone] Family History Family Member Type Diagnosis Age At Onset No Information Payers Payer name Insurance type Covered democrat ID Authoriza tion(s) [place] [id number] Social History Type Description Quantity Date Captured [...]
[2024-04-02] MEDS: ONDANSETRON INJ 4 MG/2 ML VIAL IV PUSH (05:16)
[2024-04-02] MEDS: SODIUM CHLORIDE 0.9% IV 1,000 ML 999 ML IV CONT (05:16)
[2024-04-02 05:46] VITALS: BP 110/61; PULSE 82; RESP 14; O2SAT 100
== END 2024-04-02 05:46 | disposition home or self-care (01) ==
PROVIDERS: Emergency Provider Emergency Medicine; PCP Nurse Practitioner
DX: B34.9 Viral infection, unspecified (principal); R11.2 Nausea with vomiting, unspecified; Z20.822 Contact with and (suspected) exposure to COVID-19
CPT/HCPCS: 36415; 80053; 84484; 85025; 87637; 93306; 96361; 96374; 99284; J2405; J7040

== ENCOUNTER 2024-04-02 13:51 | Outpatient (CLI) | payer MEDICARE, SELFPAY ==
--- NOTE | 2024-04-02 | ECHO_ITS ---
Patient Info Name: Cali Vasquez Age: 88 years : 1935 Gender: Male Ht: 72 in Wt: 242 lbs BSA: 2.39 m2 HR: 95 bpm BP: 111 / 56 mmHg Technical Quality: Poor Exam Date: 04/02/2024 3:56 PM Exam Location: Echo Lab Patient Status: Outpatient Admit Date: 04/02/2024 Staff Ordering Physician: HIENCINTIA Attending Urologist: Fabrizio Amaya RDCS Attending Provider: NOEMICINTIA Referring Physician: ELLA, HIEN; Exam Type: CA echo doppler color flow Study Info Indications - HEART FAILURE Complete two-dimensional, color flow and Doppler transthoracic echocardiogram is performed. Summary 1. Complete two-dimensional, color flow and Doppler transthoracic echocardiogram is performed. 2. Technically suboptimal study due to poor sonographic images. 3. Left ventricular chamber dimension is normal. 4. Left ventricular systolic function is normal, estimated at 65-70%. 5. There is moderate concentric increased left ventricular wall thickness. 6. The left ventricular diastolic function is grade I diastolic dysfunction. 7. E/e' 5 is not elevated. 8. There is moderate aortic valve sclerosis. 9. There is trace tricuspid valve regurgitation. 10. No pulmonary hypertension, estimated pulmonary arterial systolic pressure is 34 mmHg. 11. There is trace pulmonic regurgitation. Left Ventricle Technically suboptimal study due to poor sonographic images. E/e' 5 is not elevated. Left ventricular chamber dimension is normal. Left ventricular systolic function is normal, estimated at 65-70%. There is moderate concentric increased left ventricular wall thickness. The left ventricular diastolic function is grade I diastolic dysfunction. Right Ventricle Right ventricular systolic function is normal and with normal TAPSE 2.6 cm. Right ventricular chamber dimension is normal. Left Atria Left atrial chamber dimension is normal. Right Atria Right atrial chamber dimension is normal. Aortic Valve The aortic valve is trileaflet. There is moderate aortic valve sclerosis. There is no aortic valve stenosis. There is no aortic valve regurgitation. Pulmonic Valve There is trace pulmonic regurgitation. Mitral Valve There is no mitral valve stenosis. There is no mitral valve regurgitation. Tricuspid Valve There is trace tricuspid valve regurgitation. No pulmonary hypertension, estimated pulmonary arterial systolic pressure is 34 mmHg. Pericardium/Pleural There is no pericardial effusion. Inferior Vena Cava Normal inferior vena cava with >50% collapse upon inspiration consistent with normal right atrial pressure, 5 mmHg. Aorta The aortic root size at the sinus of Valsalva is normal. Left Ventricular Outflow Tract Name Value Normal LVOT 2D LVOT Diameter 2.0 cm LVOT Doppler LVOT Peak Gradient 5 mmHg LVOT Mean Gradient 3 mmHg LVOT VTI 25 cm LVOT VTI/AV VTI Ratio 0.7 LVOT Stroke Volume 80 ml Pulmonic Valve Name Value Normal RVOT Doppler RVOT Peak Gradient 4 mmHg PV Doppler PV Peak Gradient 5 mmHg Mitral Valve Name Value Normal MV Doppler MV Decel Marion 255 cm/s2 MV PHT 49 ms MV Area (PHT) 4.5 cm2 4.0-5.0 MV Diastolic Function MV E Peak Velocity 43 cm/s MV A Peak Velocity 90 cm/s MV E/A 0.5 MV Decel Time 170 ms Tricuspid Valve Name Value Normal TV Regurgitation Doppler TR Peak Velocity 269 cm/s TR Peak Gradient 26 mmHg Estimated PAP/RSVP RA Pressure 5 mmHg <=5 PA Systolic Pressure 34 mmHg <36 RV Systolic Pressure 34 mmHg <36 Aorta Name Value Normal Ascending Aorta Ao Root Diameter (MM) 3.3 cm Ao Root Diam Index (MM) 1.4 cm/m2 Aortic Valve Name Value Normal AV Doppler AV Peak Velocity 193 cm/s AV Peak Gradient 13 mmHg AV Mean Gradient 7 mmHg AV VTI 34 cm AV Area (Cont Eq VTI) 2.3 cm2 >=3.0 AV Area (Cont Eq George) 2.0 cm2 AV Regurgitation 2D LVOT Area 3.1 cm2 Ventricles Name Value Normal LV Dimensions 2D/MM IVS Diastolic Thickness (2D) 2.8 cm 0.6-1.0 LVID Diastole (2D) 2.8 cm 4.2-5.8 LVIW Diastolic Thickness (2D) 1.7 cm 0.6-1.0 LVID Systole (2D) 2.2 cm 2.5-4.0 LVOT Diameter 2.0 cm LV Mass (2D Cubed) 301.19 g 88.00-224.00 LV Mass Index (2D Cubed) 126 g/m2 49-115 Relative Wall Thickness (2D) 1.23 LV Fractional Shortening/Ejection Fraction 2D/MM LV Fractional Shortening (2D) 22 % 25-43 LV EF (2D Teicholz) 46 % 52-72 LV Diastolic Volume (4C MOD) 78 ml LV EF (4C MOD) 39 % LV Diastolic Volume (2C MOD) 102 ml LV EF (2C MOD) 51 % LV Diastolic Volume (BP MOD) 90 ml 62-150 LV Diastolic Volume Index (BP MOD) 38 ml/m2 34-74 LV Systolic Volume (BP MOD) 50 ml 21-61 LV Systolic Volume Index (BP MOD) 21 ml/m2 11-31 LV EF (BP MOD) 45 % 52-72 LV Diastolic Length (4C) 7.9 cm LV Systolic Length (4C) 6.9 cm LV Stroke Volume (4C MOD) 30 ml Atria Name Value Normal LA Dimensions LA Dimension (MM) 4.0 cm 3.0-4.1 LA Volume (4C A-L) 38 ml LA Volume (BP A-L) 46 ml RA Dimensions RA Area (4C) 10.5 cm2 <=18.0 Report Signatures
--- OUTSIDE RECORDS SUMMARY | 2024-04-02 13:55 | XMS_ITS | Continuity of Care Document ---
Author Organization [facility] Address [address] [place] [address] [place] [address] Phone Care Team Providers Care Electric Container Tester Name Role Phone Ambreen Isaac Unavailable Unavailable Procedures Procedure Date Eye Exam Established Pt Eye Exam & Treatment Refraction Advance Directives Directive Yes / No Effective Date File Name No Information Encounters Encounter Description Practice Location Reason(s) For Visit Diagnoses Date Provider Providers Copied on Encounter [facility], [address] [place] [address] [address], [place], [place], [id number], tel:[phone] [facility] No Information 2-201 0 Marlin Willams [address] [facility] , [address], [place], [place], [facility], . tel:[phone] [facility], [address] [place] [address] [address], [place], [place], [id number], tel:[phone] [facility] No Information 9-201 0 Marlin Willams [address] [facility] , [address], [place], [address], [place]. tel:[phone] Referring Provider: Ry Montes MD , [address] [facility] [address], [place], [address]. tel:[phone] Family History Family Member Type Diagnosis Age At Onset No Information Payers Payer name Insurance type Covered libertarian ID Authoriza tion(s) [place] [id number] Social History Type Description Quantity Date Captured [...]
== END 2024-04-02 13:52 | disposition home or self-care (01) ==
LOC: ANHCARD 13:52
PROVIDERS: PCP Nurse Practitioner
DX: R06.02 Shortness of breath (principal); I50.43 Acute on chronic combined systolic (congestive) and diastolic (congestive) heart failure
CPT/HCPCS: 93306

== ENCOUNTER 2024-07-02 06:46 | Inpatient (IN) | payer MEDICARE, SELFPAY ==
[2024-07-02] VITALS (24 sets, daily range): BP systolic 100–144; BP diastolic 51–97; PULSE 78–104; RESP 16–22; TEMP 35.8–36.8; O2SAT 94–100; BMI 33.9
--- NOTE | ~2024-07-02 | XR_ITS ---
XR abdomen gastric tube insert Ordering provider: Bárbara Haley III, History: . NG PLACEMENT . Comparison: None. FINDINGS/impression: Nasogastric tube is kinked in the distal esophagus. Repositioning advised. Reviewed, dictated and finalized at location A.
--- NOTE | ~2024-07-02 | CT_ITS ---
CT abdomen pelvis w con Ordering provider: Bárbara Haley III, DO History: 89 years Male with . vomiting . Comparison: 02/24/2024 Technique: CT abdomen and pelvis with IV and without oral contrast. Automated exposure control and it erative reconstruction technique were employed. The dose-length product was 1321.51 mGy-cm. 100 mL Om nipaque 350 was given IV. Findings: VISUALIZED LOWER CHEST: Emphysematous changes of the lungs. UPPER ABDOMINAL ORGANS: Liver: Normal. Gallbladder: Cholelithiasis. Spleen: Normal. Calcifications. Stomach/duodenum: Normal. Pancreas: Atrophic. Adrenals: Normal. Kidneys: 2.4 cm cyst is seen in the right kidney upper pole. Tiny cyst is seen in the left kidney low er pole. PELVIC ORGANS: The bladder shows thickened wall with underfilling. Evaluation for cystitis or infiltr ative process. Cystoscopy is advised. Enlarged prostate. BOWEL AND MESENTERY: Colon: No evidence of diverticulitis. Normal appendix. Small Bowel: Dilated jejunal loops are noted with the transition zone in the left side of the pelvis anteriorly. Postoperative changes are seen in the area which may indicate partial obstruction.. Peritoneum/mesentery: No free air or free fluid. No mesenteric lymphadenopathy. RETROPERITONEUM: Mild atheromatous disease of the abdominal aorta. No retroperitoneal lymphadenopat hy. MUSCULOSKELETAL: Superficial soft tissues: Bilateral fat containing inguinal hernias. Right Spigelian hernia is seen w ith the tip of the appendix seen in the area. Otherwise, The superficial soft tissues are normal. Bones: Age appropriate degenerative changes of the spine. Small sclerotic area in the left side of L1 . Follow-up advised. Left sacroiliitis with fusion. IMPRESSION: 1. Dilated jejunal loops with transition zone seen in the left side of the pelvis which may indicate partial obstruction. Follow-up advised. Postoperative changes are seen in the area of transition. 2. Cholelithiasis. 3. Bilateral inguinal hernia with fat content. Right Spigelian hernia with the tip of the appendix i n the area. Reviewed, dictated and finalized at location A. IMPRESSION: 1. Dilated jejunal loops with transition zone seen in the left side of the pel vis which may indicate partial obstruction. Follow-up advised. Postoperative ch anges are seen in the area of transition. 2. Cholelithiasis. 3. Bilateral inguinal hernia with fat content. 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
--- NOTE | ~2024-07-02 | XR_ITS ---
XR abdomen/kub 1V Ordering provider: Santi Xavier DO History: . SBO FU . Comparison: July 03, 2024 FINDINGS: BOWEL: Nonobstructive bowel gas pattern. ORGANOMEGALY: None. SIGNIFICANT PATHOLOGIC CALCIFICATIONS: None. OTHER: No free air is seen under the diaphragm. Degenerative the spine. Bilateral sacroiliacs. IMPRESSION: NO ACUTE ABDOMINAL FINDINGS. Reviewed, dictated and finalized at location A.
--- NOTE | ~2024-07-02 | XR_ITS ---
XR abdomen gastric tube rechec Ordering provider: Annette Paredes MD History: . NG placement . Comparison: None. FINDINGS/impression: Nasogastric tube is seen kinked in the mid esophagus. Repositioning is advised. Reviewed, dictated and finalized at location A.
--- NOTE | ~2024-07-02 | XR_ITS ---
XR abdomen gastric tube rechec Ordering provider: Charito Tsang PA-C History: . NG placement . Comparison: July 02, 2024 at 2:24 PM FINDINGS/impression: Nasogastric tube is seen with the tip in the distal stomach. Reviewed, dictated and finalized at location A.
--- NOTE | ~2024-07-02 | XR_ITS ---
EXAMINATION: XR abdomen obstructive series DATE: 07/03/2024 09:50 INDICATION: Small bowel obstruction and one week of constipation. TECHNIQUE: Frontal supine and upright views of the abdomen were obtained. COMPARISON: CT dated 07/02/2024 FINDINGS: Nasogastric tube tip near the gastric pylorus with proximal side-port in the body of the stomach. Lar ge calcified gallstone in the right upper quadrant. Moderate amount of colonic stool. Couple dilated loops of gas-filled proximal jejunum in the left abdomen. No other dilated loops of gas-filled bowel. Multiple tiny metallic radiopaque foreign bodies projecting over the tip the cecum. No free intraper itoneal gas. Visualized lung bases are clear. IMPRESSION: 1. A couple mildly dilated loops of proximal jejunum in the left abdomen consistent with persistent ileus versus partial small bowel obstruction. 2. Cholelithiasis. 2. Nasogastric tube tip near the gastric pylorus. Could consider withdrawal by [address] the distal tip in proximal side port in the body of the stomach. Reviewed, dictated and finalized at location A. IMPRESSION: 1. A couple mildly dilated loops of proximal jejunum in the left abdomen consi stent with persistent ileus versus partial small bowel obstruction. 2. Cholelithiasis. 2. Nasogastric tube tip near the gastric pylorus. Could consider withdrawal by [address] the distal tip in proximal side port in the body of the stomach.
--- OUTSIDE RECORDS SUMMARY | 2024-07-02 06:48 | XMS_ITS | Data Portability ---
Author Organization [place] [employer], Main Office Address [address] [place] [address] Care Team Providers Care Multimedia Teacher Name Role Phone DEBI PEREZ Primary Care Provider [phone] DEBI PEREZ Referring Provider [phone] Assessment Encounter Date Assessment Date Assessment LastModified by Organization Details LastModified Time 12/10/2022 12/10/2022 The patient has severe primary osteoarthritis both shoulders with spgc-ep-vsfu changes glenohumeral joints left has more reactive changes in the right. We talked about treatment options in detail today he wanted proceed with cortisone gets by with these. It has been quite awhile since he has had injections. Under sterile conditions I injected the patient's bilateral shoulder joints in the office with 4 cc 0.5% bupivacaine and 20 mg of Kenalog each. The patient tolerated the procedure well. We will see him back as needed he voiced understanding agrees above plan will call for any further problems difficulties or questions. [age] years of age he is not interested in shoulder arthroplasty. Not available 12/10/2022 14:40:06 05/29/2023 05/29/2023 The patient has severe glenohumeral osteoarthritis both shoulders as described. At his request under sterile conditions I injected both shoulder joints in the office today with 4 cc 0.5% bupivacaine and 20 mg of Kenalog each. Patient tolerated procedure well. We will see him back as needed we could do this again as soon as 3 months for now he states he will wait probably another 6 months he wants to minimize the injections only take him when he has really a lot of pain. I will see him back at any time he voiced understanding agrees above plan call for any further problems difficulties or questions. Not available 05/29/2023 15:28:44 09/26/2023 09/26/2023 The patient has severe glenohumeral primary osteoarthritis both shoulders as described above. At his request under sterile conditions I injected the patient's bilateral shoulder joints in the office today with 4 cc 0.5% bupivacaine and 20 mg of Kenalog each. The patient tolerated the procedures well. He takes Aleve urqz-ggp-xvuzide occasionally he is going to stick with that for now. He will modify his activities as necessary although he likes to lots of yd work and be very active. He voiced understanding agrees above plan he will call when he is ready for more shots we can do this either in 3 months if necessary and he is aware of this. Not available 09/26/2023 12:37:42 01/26/2024 01/26/2024 The patient has severe primary osteoarthritis of the glenohumeral joints bilaterally with severe AC joint arthrosis spurring and chronic pain. He does well with cortisone he would like to repeat those today it has been 4 months since his last injections. Under sterile conditions I injected the patient's bilateral shoulder joints in the office today with 4 cc of 0.5% bupivacaine and 20 mg of Kenalog each. The patient tolerated the procedures well. We can do this again as soon as 3 months if necessary he is going to see how it goes he likes to wait longer than 3 months if he can. We will see him back as needed he voiced understanding and agreed with the above plan he will call for any further problems difficulties or questions. Not available 01/26/2024 11:47:06 05/25/2024 05/25/2024 The patient has severe primary osteoarthritis of the glenohumeral joints both shoulders as described. At his request under sterile conditions I injected patient has bilateral shoulder joints in the office with 4 cc of 0.5% bupivacaine and 20 mg of Kenalog each. The patient tolerated the procedures well. He will continue with hlwl-jep-tabquxi Aleve when necessary he takes it occasionally. I will see him back in 3-4 months /as needed when his pain returns. He voiced understanding and agreed with the above plan he will call for any further problems difficulties or questions. Not available 05/25/2024 14:53:12 Plan of Treatment Reminders Order Date Submit Date Provider Last Modified By Organization Details Last Modified Time Details Appointments None recorded. Lab None recorded. Referral None recorded. Procedures injection/a spiration joint/bursa (PROC) 2024 025 [email or web address] In-Office Order, Internal Use Only DO Not Attach Compendium DO Not Attach Compendium, Do Not Delete/merge, [id number] 14:37:12 injection/a spiration joint/bursa (PROC) 2023 024 [email or web address] In-Office Order, Internal Use Only DO Not Attach Compendium DO Not Attach Compendium, Do Not Delete/merge, [id number] 11:12:44 injection/a spiration joint/bursa (PROC) 2023 024 [email or web address] In-Office Order, Internal Use Only DO Not Attach Compendium DO Not Attach Compendium, Do Not Delete/merge, [id number] 12:29:07 injection/a spiration joint/bursa (PROC) 2023 024 [email or web address] In-Office Order, Internal Use Only DO Not Attach Compendium DO Not Attach Compendium, Do Not Delete/merge, [id number] 14:53:28 injection/a spiration joint/bursa (PROC) 2022 023 [email or web address] In-Office Order, Internal Use Only DO Not Attach Compendium DO Not Attach Compendium, Do Not Delete/merge, [id number] 14:07:03 Surgeries None recorded. Imaging XR, shoulder 2023 024 [email or web address] [facility] [place], [address], [place], [address], 4 12:28:49 XR, shoulder 2022 023 [email or web address] [facility] [place], [address], [place], [address], 3 15:58:02 Medication Orders bupivacaine HCl 0.5 % (5 mg/mL) injection solution 2024 025 [facility] #[id number], [address] [place] [address], [id number], 5 14:54:27 Kenalog 10 mg/mL suspension for injection 2024 025 [facility] #[id number], [address] [place] [address], [id number], 5 14:54:27 bupivacaine HCl 0.5 % (5 mg/mL) injection solution 2023 024 [facility] #07994, [address] [place] [address], [id number], 4 11:55:00 Kenalog 10 mg/mL suspension for injection 2023 024 [facility] #66362, [address] [place] [address], [id number], 4 11:55:00 bupivacaine HCl 0.5 % (5 mg/mL) injection solution 2023 024 [facility] #36047, [address] [place] [address], [id number], 4 12:43:40 Kenalog 10 mg/mL suspension for injection 2023 024 [facility] #29041, [address] [place] [address], [id number], 4 12:43:40 bupivacaine HCl 0.5 % (5 mg/mL) injection solution 2023 024 [email or web address] [facility] #99675, [address] [place] [address], [id number], 4 12:13:45 Kenalog 10 mg/mL suspension for injection [address] [facility] #63575, [address] [facility] [address] [place] [address], [id number], 4 12:14:06 bupivacaine HCl 0.5 % (5 mg/mL) injection solution [address] [facility] #29309, [address] [facility] [address] [place] [address], [id number], 4 12:13:45 Kenalog 10 mg/mL suspension for injection [address] [facility] #52174, [address] [facility] [address] [place] [address], [id number], 4 12:14:06 Patient TargetsNo targets recorded. Patient InstructionsNo instructions recorded. Reason for Referral None Reported. Results Created Date Observation Date Name Description Value Unit Range Abnormal Flag Note LastModifiedBy Organization Detail LastModifiedTime 12/11/19 23 XR, shoul khushboo No observ ation record ed. [facility] [place] [address], [place], [address], 12/10/2022 14:34:59 01/26/20 24 XR, shoul khushboo No observ ation record ed. [facility] [place] [address], [address], 01/26/2024 11:49:57 Result Notes None recorded. Problems Name Problem SNOMED Code Status Onset Date Resolution Date Notes Provider Name and Address Organization Details Recorded Time Disorder of shoulder 319876583 Active Not Available [facility] 3 13:30:34 Localized, primary osteoarthr itis of the shoulder region 172675099 Active Not Available [facility] 3 13:30:34 Localized, secondary osteoarthr itis of the shoulder region 811297517 Active Not Available [facility] 3 13:30:34 Full thickness rotator cuff tear 836112698 Active 2021 Not Available [employer] 3 13:30:34 Osteoarthr itis of knee 045394267 Active Not Available [facility] 3 13:30:34 Carpal tunnel syndrome of right wrist 6468307140661 08 Active 2021 Not Available [facility] 3 13:30:34 Current tear of medial cartilage AND/OR meniscus of knee Active Not Available [facility] 3 13:30:34 Pain in right hand 9344541974729 09 Active 2021 Not Available [facility] 3 13:30:34 Osteoarthr itis of joint of left shoulder region 7961036637241 08 Active 2021 Not Available [facility] 3 13:30:34 Osteoarthr itis of joint of right shoulder region 4779610910831 00 Active 2021 Not Available [facility] 3 13:30:34 Inflammato ry disorder of extremity 014338756 Active Not Available [facility] 3 13:30:34 Osteoarthr itis 805465533 Active Not Available [facility] 3 13:30:35 Disorder of bursa of shoulder region 19002285 Active Not Available [facility] 3 13:30:35 Derangemen t of knee 97952891 Active Not Available [facility] 3 13:30:35 Osteoarthr itis of shoulder region 68930487 Active 2021 Not Available [facility] 3 13:30:35 Bilateral shoulder joint pain 2496568670528 9104 Active 2022 Jewell Pal CNA null, [place] [facility] 3 14:04:49 Localized, primary osteoarthr itis of the shoulder region 280807690 Active 2023 MARIANA Milner [address] [place] [address], [place] [address], [place], [address] , [facility] [employer] [facility] 4 15:29:01 Problem Notes None recorded. Procedures Surgical History Date Name Laterality Status Provider Name and Address Organization Details Recorded Time Colon Surgery completed Not Available [facility] 04/10/2022 13:29:41 Back Surgery completed Jewell Pal CNA [employer] [facility] 12/10/2022 14:03:52 procedure on small intestine completed Jewell Pal CNA [employer] [facility] 12/10/2022 14:04:13 Imaging Results Imaging Date Name Status LastModified by Organiz ation Details LastModified Time 12/10/2022 XR, shoulder completed [facility] [place] [address] [facility] [address], [place], [address], 12/10/2022 14:34:59 01/26/2024 XR, shoulder completed [facility] [place] [address] [facility] [address], [place], [address], 01/26/2024 11:49:57 Procedure Notes None recorded. Medical Equipment None Reported. Allergies Allergen ID Allergen Name Allergen Category Reaction Reaction Severity Criticality Documentation Date Start Date Code Code System Note Provider Name and Address Organization Details Recorded Time 00502 Haldol medicatio n hallucina tions Not available Not available 04/10/2022 08079 9 RxNorm Not Available [facility] 3 13:32:46 Medications Name Sig Start Date Stop Date Status Note LastModified by Organization Details LastModified Time prednisone 10 mg tablet 12/10 completed Not Available Not Available Not Available candesartan 32 mg-hydrochl orothiazide 12.5 mg tablet 11/17 completed Not Available Not Available Not Available cefuroxime axetil 250 mg tablet 11/17 completed Not Available Not Available Not Available atorvastati n 10 mg tablet TAKE 1 TABLET EVERY EVENING active Not Available Not Available No t Available ofloxacin 0.3 % eye drops INSTILL 4 DROPS INTO THE LEFT EAR THREE TIMES DAILY WITH LEFT EAR UP TOWARDS CEILING FOR 1 MINUTE active Not Available Not Available No t Available bupivacaine HCl 0.5 % (5 mg/mL) injection solution Take 40 mg by injection route. 2024 active Not Available Not Available Not Avai lable penicillin V potassium 500 mg tablet TAKE 1 TABLET BY MOUTH EVERY 6 HOURS UNTIL ALL TAKEN 12/10 completed Not Available Not Available Not Available metronidazo le 500 mg tablet 05/03 completed Not Available Not Available Not Available ciprofloxac in 500 mg tablet 11/17 completed Not Available Not Available Not Available sulfamethox azole 800 mg-trimetho prim 160 mg tablet TAKE 1 TABLET BY MOUTH EVERY 12 HOURS active Not Available Not Available No t Available omeprazole 40 mg capsule,del ayed release TAKE 1 CAPSULE DAILY active Not Available Not Available No t Available tramadol 50 mg tablet TAKE 1 TO 2 TABLETS BY MOUTH EVERY 4 TO 6 HOURS NEEDED 12/10 completed Not Available Not Available Not Available sildenafil 100 mg tablet TAKE 1 TABLET BY MOUTH NEEDED DIRECTED active Not Available Not Available No t Available ketorolac 0.5 % eye drops 05/03 completed Not Available Not Available Not Available prednisone 10 mg tablets in a dose pack Take 1 tab by mouth, 3 times a day for 3 daysTake 1 tab by mouth 2 times a day for 2 daysTake 1 tab by mouth once a day for 1 day 12/10 completed Not Available Not Available Not Available prednisolon e acetate 1 % eye drops,suspe nsion 05/03 completed Not Available Not Available Not Available cefaclor 250 mg capsule TAKE 1 CAPSULE BY MOUTH EVERY 8 HOURS FOR 7 DAYS 12/10 completed Not Available Not Available Not Available Kenalog 10 mg/mL suspension for injection Take 40 mg by injection route. 2024 active [facility]: 0003- 0494- 20 Not Available Not Available Not Available cephalexin 500 mg capsule 11/17 completed Not Available Not Available Not Available metoprolol tartrate 50 mg tablet TAKE 1 TABLET DAILY active Not Available Not Available No t Available levofloxaci n 500 mg tablet TAKE 1 TABLET BY MOUTH DAILY active Not Available Not Available No t Available methylpredn isolone 4 mg tablets in a dose pack FOLLOW PACKAGE DIRECTION S active Not Available Not Available No t Available albuterol sulfate HFA 90 mcg/actuati on aerosol inhaler INHALE 2 PUFFS BY MOUTH EVERY 4 HOURS NEEDED FOR SHORTNESS OF BREATH OR WHEEZING active Not Available Not Available No t Available ketoconazol e 2 % topical cream APPLY TO RIGHT HAND TWICE DAILY active Not Available Not Available No t Available ondansetron 4 mg disintegrat ing tablet DISSOLVE 1 TABLET BY MOUTH NEEDED EVERY 8 HOURS FOR NAUSEA/VO MITING active Not Available Not Available No t Available glipizide 5 mg tablet TAKE 1/2 TABLET AT BEDTIME WITH DINNER active Not Available Not Available No t Available amoxicillin 875 mg-potassiu m clavulanate 125 mg tablet TAKE 1 TABLET TWICE A DAY FOR ACUTE MAXILLARY SINUSITIS active Not Available Not Available No t Available amoxicillin 500 mg-potassiu m clavulanate 125 mg tablet TAKE 1 TABLET BY MOUTH EVERY 12 HOURS active Not Available Not Available No t Available neomycin-po lymyxin-hyd rocort 3.5 mg-10,000 unit/mL-1 % ear drops,susp SHAKE LIQUID AND INSTILL 4 DROPS TO LEFT EAR EVERY 6 HOURS FOR 7 DAYS 12/10 completed Not Available Not Available Not Available Benadryl Allergy 25 mg tablet Take 2 tablets every day by oral route at bedtime. active Not Available Not Available No t Available olmesartan 40 mg-hydrochl orothiazide 12.5 mg tablet TAKE 1 TABLET DAILY active Not Available Not Available No t Available ciprofloxac in 0.3 %-dexametha sone 0.1 % ear drops,suspe nsion SHAKE LIQUID AND INSTILL 4 DROPS INTO LEFT EAR EVERY 12 HOURS FOR 7 DAYS 12/10 completed Not Available Not Available Not Available Metamucil 1 spoonful in 8 oz water as directed 11/17 completed Not Available Not Available Not Available multivitami n with iron 1 tablet by oral as directed 2018 active Not Available Not Available Not Avai lable Tylenol PM 2 at bedtime 12/10 completed Not Available Not Available Not Available lidocaine (PF) 10 mg/mL (1 %) injection solution In office injection administe red by the provider 05/03 completed [facility]: 0409- 4276- 17 Not Available Not Available Not Available Januvia 100 mg tablet TAKE 1 TABLET DAILY active Not Available Not Available No t Available ropivacaine (PF) 5 mg/mL (0.5 %) injection solution Take 40 mg by injection route. 12/10 completed Not Available Not Available Not Available OneTouch Verio test strips USE TO MONITOR BLOOD SUGAR LEVELS DAILY active Not Available Not Available No t Available Janumet XR 100 mg-1,000 mg tablet,exte nded release 05/03 completed Not Available Not Available Not Available Fluzone High-Dose 2014- (PF) 180 mcg/0.5 mL intramuscul ar syringe 01/19 completed Not Available Not Available Not Available Fluzone High-Dose (PF) 180 mcg/0.5 mL intramuscul ar syringe active Not Available Not Available N ot Available Fish Oil 1,000 mg (120 mg-180 mg) capsule Take 2 capsules every day by oral route as directed. 2018 active Not Available Not Available Not Avai lable OneTouch Ultra Blue Test Strip 05/28 completed Not Available Not Available Not Available Flucelvax Quad 60 mcg (15 mcg x 4)/0.5 mL IM suspension 01/19 completed Not Available Not Available Not Available OneTouch Ultra2 Meter 05/28 completed Not Available Not Available Not Available OneTouch Delica Plus Lancet 33 gauge USE TO TEST BLOOD SUGARS ONCE DAILY active Not Available Not Available No t Available OneTouch Delica Plus Lancet 30 gauge USE TO CHECK BLOOD SUGAR LEVELS DAILY active Not Available Not Available No t Available Fluad 65yr up(PF)45 mcg(15 mcgx3)/0.5 mL intramuscul ar syringe ADM 0.5ML IM UTD active Not Available Not Available No t Available Fluad Quad (6 5yr up)(PF) 60 mcg (15 mcg x 4)/0.5mL IM syringe ADM 0.5ML IM UTD active Not Available Not Available No t Available glipizide 2.5 mg tablet TAKE 1 TABLET BY MOUTH TWICE DAILY active Not Available Not Available No t Available Vitals Date Recorded Body height Body mass index (BMI) Body weight Provider Name and Address Organization Details Last Updated DateTime 12/10/2022 182.88 cm 33.9 kg/m2 950928.09 g Jewell Pal CNA [place] [employer] 12/10/2022 13:56:16 Date Recorded Body height Body mass index (BMI) Body weight Provider Name and Address Organization Details Last Updated DateTime 05/29/2023 182.88 cm 21 kg/m2 46809.82 g Jewell Pal CNA [facility] [employer] [facility] 05/29/2023 14:47:54 Date Recorded Body height Body mass index (BMI) Body weight Provider Name and Address Organization Details Last Updated DateTime 09/26/2023 182.88 cm 35.3 kg/m2 245070.[address]an Hailey [facility] [employer] [facility] 09/26/2023 12:13:12 Date Recorded Body height Body mass index (BMI) Body weight Provider Name and Address Organization Details Last Updated DateTime 01/26/2024 182.88 cm 33.9 kg/m2 454504.09 allegra [place] [facility] [employer] 01/26/2024 11:08:39 Date Recorded Body height Body mass index (BMI) Body weight Provider Name and Address Organization Details Last Updated DateTime 05/25/2024 182.88 cm 33.9 kg/m2 364106.09 allegra Pal [facility] [employer] [facility] 05/25/2024 14:35:27 Social History None recorded. Functional Status Question Answer Note LastModified by Organization D etails LastModified Time What is your level of alcohol consumption? None [email or web address] Information not available 12/10/2022 Mental Status None recorded. Family History Relationship Description Onset Age of this Age Resolved Age Notes LastModified by Organization Details LastModified Time Father Family history of malignant neoplasm [id number] Not available 04/10/2022 13:29:42 Mother Family history of malignant neoplasm [id number] Not available 04/10/2022 13:29:42 Medical History Condition Response ARTHRITIS Y DIABETES, TYPE Y Past Encounters Encounter ID Performer Location Encounter Start Date Encounter Closed Date Diagnosis/Indication Diagnosis SNOMED-CT Code Diagnosis ICD10 Code Diagnosis Note [id number] Jama Jarvis MD [facility] [place] [address] [place] [address] 05/03/2021 00:00:00 05/03/2021 14:26:31 [id number] Jama Jarvis MD [facility] [place] [address] [place] [address] 09/25/2021 00:00:00 09/25/2021 16:24:59 [id number] Jeffrey Montesinos MD [facility] [place] [address] [place] [address] 12/10/2022 13:44:09 12/10/2022 15:58:02 Osteoarthritis of joint of left shoulder region 1312050792 31713 M19.012 Osteoarthr itis of joint of right shoulder region 8393923782 12197 M19.011 Bilateral shoulder joint pain 3845986619 2757579 M25.511 M25.325 [id number] Debi Garcia MD [facility] [place] [address] [place] [address] 05/29/2023 14:44:40 05/29/2023 15:55:57 Bilateral shoulder joint pain 4832864456 6661699 M25.511 M25.512 Localized, primary osteoarthritis of the shoulder region 784769071 M19.949 [id number] Debi Garcia MD [facility] [place] [address] [place] [address] 09/26/2023 12:10:05 09/26/2023 12:39:10 Bilateral shoulder joint pain 9508481159 5118619 M25.511 M25.512 Localized, primary osteoarthritis of the shoulder region 069910676 M19.320 [id number] Debi Garcia MD [facility] [place] [address] [place] [address] 01/26/2024 10:45:47 01/26/2024 12:28:49 Bilateral shoulder joint pain 1587296587 7872963 M25.511 M25.512 Localized, primary osteoarthritis of the shoulder region 586883900 M19.011 M19.474 [id number] [facility] [place] [address] [place] [address] 05/25/2024 14:22:01 05/25/2024 14:46:39 Bilateral shoulder joint pain 4608650816 1861534 M25.511 M25.512 Localized, primary osteoarthritis of the shoulder region 551293565 M19.011 M19.012 Health Concerns Section Related Observation LastModified by Organization Detai ls LastModified Time None Recorded Concern Status LastModified by Organization Details LastModified Time None Recorded Advance Directives Directive None Recorded Payers Encounter Date Sequence Insurance Name Policy Number Policy Jones Covered Member ID Jones Member ID Guarantor Name 12/10/2022 1 [employer] (MEDICARE REPLACEMENT/ ADVANTAGE - PPO) [id number] Cali Vasquez [id number] Cali Vasquez 05/29/2023 1 [employer] (MEDICARE REPLACEMENT/ ADVANTAGE - PPO) [id number] Cali Vasquez [id number] Cali Vasquez 09/26/2023 1 [employer] (MEDICARE REPLACEMENT/ ADVANTAGE - PPO) [id number] Cali Vasquez [id number] Cali Vasquez 01/26/2024 1 [employer] (MEDICARE REPLACEMENT/ ADVANTAGE - PPO) [id number] Cali Vasquez [id number] Cali Vasquez 05/25/2024 1 [employer] (MEDICARE REPLACEMENT/ ADVANTAGE - PPO) [id number] Cali Vasquez [id number] Cali Vasquez Notes Date Note Type Note Provider Name and Address Organization Details Recorded Time 12/10/2022 text/html Patient returns with bilateral shoulder pain. We have not seen him for over a year. We will get new x-rays today to check the progression of as osteoarthritis he has severe primary osteoarthritis both shoulders with trgo-zw-kuvg changes bilaterally. He states his left hurts worse than the right surprisingly has pretty good motion some limited motion on the left compared to the right more pain in the left but states His strength is pretty good gets by doing most things has aching pain that radiates into the upper arm somewhat. Left worse than right. It has been more than a year since he has had cortisone injections he would like to repeat these again today. Denies any new trauma or injury no new symptoms or complaints. Does have some stiffness on the left compared to the right.Past medical history sheet was reviewed and signed on intake sheet of today's date drug allergies current medications family social history previous surgical history 10 point review of systems was reviewed and discussed in detail today with the patient. Phillip Laguna, MARIANA [address] [facility], [facility] [address], [place], [address], [place] [facility] [employer] 12/10/2022 14:40:25 05/29/2023 text/html Patient returns complaining of bilateral shoulder pain we have not seen him for almost 6 months. He has severe primary osteoarthritis both shoulders with kpan-ak-ikyb changes in the glenohumeral joints left somewhat worse than right. Has some spurring on the inferior surface of the humeral head on the left compared to the right he has significant AC joint arthrosis but definitely has cfpb-lm-[id number] changes in both glenohumeral joints. He states he gets by for 3-4 months then puts up with it for a while before he decides to have another shot of cortisone in either shoulder. He would like both shoulders injected today. 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 He is 87 years of age and still very active has no new complaints no new trauma or injury to either shoulder. MARIANA Milner [address], [place], [address], [employer] [facility] [employer] 05/29/2023 15:29:11 09/26/2023 text/html patient returns with bilateral shoulder pain left worse than right he has severe glenohumeral osteoarthritis both shoulders left worse than right. Previous x-rays show mayn-kx-hiud glenohumeral changes in the right on the left as well but the left side has pretty significant spurring off the humeral head and neck inferiorly. He states if he does too much yd work this aggravates his symptoms he is 88 years of age but still quite active but limited in what he can do at times because of his bilateral shoulder pain. He denies any new symptoms no new trauma or injury it has been 4 months since his last injections he would like to have those repeated today. He is not interested in and probably not a good candidate for shoulder arthroplasty. MARIANA Milner [address], [place], [address], [employer] [facility] [employer] 09/26/2023 12:38:53 01/26/2024 text/html The patient retu rns with bilateral shoulder pain. He comes in every few months for cortisone it has been 4 months since his last injections. 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 He states he has fairly good motion overhead and strength also is good by his report he just has lots of aching pain if he overdoes it. As long as he takes it easy it is not too bad the shots typically last 4 months or more lately he has been a little more active and this is aggravating his symptoms. We have talked about shoulder arthroplasties but at 88 years of age and the fact that he gets along very well with cortisone it is probably a better idea for him to stick with conservative measures he agreed. He denies any new symptoms no new trauma or injury he would like to have both shoulders injected again today. A new past medical history sheet was reviewed and signed on the intake sheet of today's date drug allergies current medications family social history previous surgical history 10 point review of systems was reviewed and discussed in detail today with the patient. MARIANA Milner [address], [address], [place], [address], [place] [facility] 01/26/2024 11:50:46 05/25/2024 text/html The patient retu rns complaining of bilateral shoulder pain. He comes in every 4 months for cortisone injections recently his shoulders have started to bother him quite a bit again. His left shoulder hurts worse than the right previous x-rays show siap-bs-hzui glenohumeral osteoarthritis with marginal osteophytes off the inferior humeral head left worse than right. He has fairly good motion and strength but the pain prevents him from being as active as he would like to be. He does some yd work even at 88 years of age and is quite active cortisone helps him do with the things he would like to do. He does take Aleve occasionally with Tylenol this seems to help. He comes in today with no new symptoms no new trauma or injury he would like to have both shoulders injected again today. The last shots gave him really good relief for 2-3 months. He is not a candidate for shoulder arthroplasty due to his age and other medical issues. MARIANA Milner [address], [place], [address], [place] [facility] 05/25/2024 14:53:43
--- OUTSIDE RECORDS SUMMARY | 2024-07-02 06:48 | XMS_ITS | Continuity of Care Document ---
Author Organization [facility] Address [address] [place] [address] [place] [address] Phone Care Team Providers Care Manager Of Training And Development Name Role Phone Ambreen Isaac Unavailable Unavailable Procedures Procedure Date Eye Exam Established Pt Eye Exam & Treatment Refraction Advance Directives Directive Yes / No Effective Date File Name No Information Encounters Encounter Description Practice Location Reason(s) For Visit Diagnoses Date Provider Providers Copied on Encounter [facility], [address] [place] [address] [address], [place], [place], [id number], tel:[phone] [facility] No Information 2-201 0 Marlin Willams [address] [facility] , [address], [place], [place], [facility], . tel:[phone] [facility], [address] [place] [address] [address], [place], [place], [id number], tel:[phone] [facility] No Information 9-201 0 Marlin Willams [address] [facility] , [address], [place], [address], [place]. tel:[phone] Referring Provider: Ry Montes MD , [address] [facility] [address], [place], [address]. tel:[phone] Family History Family Member Type Diagnosis Age At Onset No Information Payers Payer name Insurance type Covered constitution party ID Authoriza tion(s) [place] [id number] Social History Type Description Quantity Date Captured [...]
[2024-07-02 07:33] LABS: Basophils Absolute Auto 0.1 K/mm3 (0.0-0.1); Basophils Percent Auto 0.4 % (0.2-1.2); Eosinophils Absolute Auto 0.2 K/mm3 (0-0.3); Eosinophils Percent Auto 1.5 % (0-4.4); Hematocrit 48.2 % (42.0-52.0); Hemoglobin 15.7 g/dL (14.0-18.0); Immature Granulocyte Absolute 0.04 K/mm3 (0.00-0.031); Immature Granulocyte Percent A 0.3 % (0-0.5); Lymphocytes Absolute Auto 1.63 K/mm3 (0.9-3.2); Mean Corpuscular HGB Conc 32.6 g/dl (32-36); Mean Corpuscular Hemoglobin 29.5 pg (26-34); Mean Corpuscular Volume 90.4 fl (80-100); Mean Platelet Volume 8.5 fl (7.4-10.4); Monocytes Absolute Auto 0.6 K/mm3 (0.1-0.6); Monocytes Percent Auto 4.6 % (2.6-8.5); Neutrophils Percent Auto 81.2 % (45.5-73.1); Platelet Count Result 155 k/mm3 (150-375); Red Blood Count 5.33 M/mm3 (4.6-6.20); Red Cell Distribution Width 13.1 % (11.5-14.5); White Blood Count 13.6 K/mm3 (4.5-10.0)
--- NOTE | 2024-07-02 07:37 | ED_ITS ---
HPI - Abdominal Pain General Chief Complaint: Abdominal Pain Stated Complaint: n/v Time Seen by Provider: 07/02/24 07:27 History of Present Illness HPI narrative: Pt presents with vomiting this morning. Pt denies abdominal pain. Pt has history of recurrent SBO so is concerned about that. Pt denies diarrhea or urinary symptoms or any abd pain at the moment just nausea. Related Data Home Medications ?Medication ?Instructions ?Recorded ?Confirmed ?Last Taken ?Type omega-3 fatty acids 1,000 mg 1,200 mg PO BID 10/07/19 07/02/24 07/01/24 History capsule (Fish Oil Concentrate) naproxen sodium 220 mg tablet 220 mg PO BID PRN Pain 07/03/22 07/02/24 07/01/24 History (Aleve) atorvastatin 10 mg tablet 10 mg PO QHS 02/24/24 07/02/24 07/01/24 History metoprolol tartrate 50 mg tablet 50 mg PO QHS 02/24/24 07/02/24 07/01/24 History ofloxacin 0.3 % eye drops 2 drp otic (ear) TID PRN ear wax 02/24/24 07/02/24 02/23/24 History diphenhydramine 25 15 ml PO QHS 07/02/24 07/02/24 07/01/24 History mg-acetaminophen 500 mg/15 mL oral solution olmesartan 40 1 tablet PO HS 07/02/24 07/02/24 07/01/24 History mg-hydrochlorothiazide 12.5 mg tablet omeprazole 40 mg capsule,delayed 40 mg PO HS 07/02/24 07/02/24 07/01/24 History release sitagliptin phosphate 100 mg 100 mg PO HS 07/02/24 07/02/24 07/01/24 History tablet (Januvia) Allergies Allergy/AdvReac Type Severity Reaction Status Date / Time haloperidol AdvReac Unknown Hallucinati Verified 07/02/24 07:02 ng Review of Systems 2 Review of Systems: All systems reviewed & are unremarkable except as noted in HPI and below PMFSH Past Medical History Medical History BMI 35.0-35.9,adult Small bowel obstruction 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 Esophageal stricture Status post dilatation. Gastroesophageal reflux disease Benign prostatic hyperplasia Essential hypertension, benign Diastolic CHF Diverticulosis With history of diverticulitis. Irritable bowel syndrome Type 2 diabetes mellitus with stage 1 chronic kidney disease Surgical History Surgical History History of carpal tunnel surgery of right wrist History of removal of cyst From chest wall. History of resection of small bowel (2006) With anastomosis. History of cholecystectomy History of laparotomy With adhesiolysis in 1998 and 2006. Family History Family History Father Family history of lung cancer Family history of malignant neoplasm Mother Family history of malignant neoplasm of breast in first degree relative Family history of malignant neoplasm Breast cancer Sibling Brain cancer Other Colon polyp Social History Social History Social History: Surrogate medical decision maker: Barrett Vasquez (sons). Code status: Full code. Smoking status: Never smoker Second hand tobacco smoke exposure: No Alcohol intake: current Drinks per week: 2 Alcohol use details: occasionally Substance use: never Substance use type: does not use Last use: 02/18/24 Do You Feel Safe in your Home?: Yes Lack of Transportation: No Lack of Food: Never True Current Housing: I Have Housing Concerned About Future Housing: No Difficulty Paying Gas/Electric Bills: No Difficulty Paying for Meds: No Currently Unemployed: No Education: Master's Degree or Higher Difficulty w/ Childcare or Family Care: No Living arrangements: alone Additional living arrangements comments: as of late 2020. He lives in his own home in [place]. He has 2 sons. 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 Spiritual care concerns: No Exam 2 Const: General: healthy appearing and no acute distress Nutritional Appearance: well nourished Orientation/consciousness: patient oriented x3 Limitations: no limitations Resp: Effort & Inspection: normal respiratory effort Auscultation: clear to auscultation bilaterally Cardio: Rate: regular rate Rhythm: regular rhythm GI: Auscultation: Hyperactive bowel sounds present Other: distended but not tender Skin: General skin exam: normal color Rashes: no rashes Wounds: no wounds Neuro: General: patient oriented x3, moves all extremities and no focal motor deficits Speech: normal speech Extrem: General: normal to inspection and no clubbing, cyanosis or edema Psych: Mental Status: mental status grossly normal Affect: normal affect Attitude: cooperative Course Vital Signs Vital signs: Vital Signs Temperature 96.5 F L 07/02/24 06:59 Pulse Rate 82 07/02/24 06:59 Respiratory Rate 16 07/02/24 06:59 Blood Pressure 130/62 07/02/24 06:59 Pulse Oximetry 97 07/02/24 06:59 Oxygen Delivery Room Air 07/02/24 06:59 Temperature 97.1 F L 07/02/24 13:49 Pulse Rate 91 07/02/24 13:49 Respiratory Rate 18 07/02/24 13:49 Blood Pressure 144/70 H 07/02/24 13:49 Pulse Oximetry 98 07/02/24 13:49 Oxygen Delivery Room Air 07/02/24 16:00 MDM - Abdominal Pain MDM Narrative Medical decision making narrative: Pt presents with vomiting and has long hx of sbo so will need to rule that out with labs and CT. could be gastroenteritis as well. will give zofran for nausea. pt has partial sbo on ct. discussed with Dr Xavier and said stomach is pretty full on ct so place ngt and admit to [facility] and they will consult. discussed with dr hope and agrees to admit. Lab Data 07/02/24 07:27 07/02/24 07:27 Labs: Lab Results 07/02/24 07/02/24 Range/Units 07:27 08:15 WBC 13.6 H (4.5-10.0) K/mm3 RBC 5.33 (4.6-6.20) M/mm3 Hgb 15.7 (14.0-18.0) g/dL Hct 48.2 (42.0-52.0) % MCV 90.4 (80-100) fl MCH 29.5 (26-34) pg MCHC 32.6 (32-36) g/dl RDW 13.1 (11.5-14.5) % Plt Count 155 (150-375) k/mm3 MPV 8.5 (7.4-10.4) fl Immature Gran % (Auto) 0.3 (0-0.5) % Neut % (Auto) 81.2 H (45.5-73.1) % Lymph % (Auto) 12.0 L (18.3-44.2) % [place] % (Auto) 4.6 (2.6-8.5) % Eos % (Auto) 1.5 (0-4.4) % Baso % (Auto) 0.4 (0.2-1.2) % Lymph # (Auto) 1.63 (0.9-3.2) K/mm3 [place] # (Auto) 0.6 (0.1-0.6) K/mm3 Eos # (Auto) 0.2 (0-0.3) K/mm3 Baso # (Auto) 0.1 (0.0-0.1) K/mm3 Abs Immat Gran (auto) 0.04 H (0.00-0.031) K/mm3 Absolute Neuts (auto) 11.0 H (1.3-6.7) K/mm3 Absolute Nucleated RBC 0.000 (0.0-0.012) K/mm3 Nucleated RBC % 0.0 (0.0-0.2) % PT 12.7 (11.1-14.7) Seconds INR 0.9 APTT 24.4 (22.3-36.8) Seconds Sodium 135 L (137-145) mmol/L Potassium 4.4 (3.4-5.0) mmol/L Chloride 100 (98-107) mmol/L Carbon Dioxide 28 (22-30) mmol/L Anion Gap 7 (4-12) mmol/L BUN 16 (9-20) mg/dL Creatinine 1.10 (0.7-1.3) mg/dL Estim Creat Clear Calc 54 ml/min Estimated GFR > 60 (59 - ) Glucose 168 H (65-110) mg/dL Calcium 9.7 (8.4-10.2) mg/dL Total Bilirubin 0.5 (0.2-1.3) mg/dL AST 28 (17-59) U/L ALT 24 (6-50) U/L Alkaline Phosphatase 46 (38-126) U/L Total Protein 7.0 (6.3-8.2) g/dL Albumin 4.4 (3.5-5.1) g/dL Lipase 237 (23-300) U/L Urine Color Yellow (Yellow) Urine Appearance Clear (Clear) Urine pH 7.5 (5.0-9.0) Ur Specific [place] > 1.045 H (1.001-1.035) Urine Protein Negative (Negative) mg/dL Urine Glucose (UA) Negative (Negative) mg/dL Urine Ketones Negative (Negative) mg/dL Ur Blood (Man) Negative (Negative) Urine Nitrate Negative (Negative) Urine Bilirubin Negative (Negative) Urine Urobilinogen 0.2 (<2.0) mg/dL Leukocyte Esterase Rfl Negative (Negative) MARILEE/UL Imaging Data Radiologist's impression: ITS Impressions Abdomen/Pelvis CT 07/02/24 08:18 IMPRESSION: 1. Dilated jejunal loops with transition zone seen in the left side of the pelvis which may indicate partial obstruction. Follow-up advised. Postoperative changes are seen in the area of transition. 2. Cholelithiasis. 3. Bilateral inguinal hernia with fat content. 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 Discharge Plan Discharge Clinical Impression: Partial small bowel obstruction Patient Disposition: Still a Patient Condition: Stable
[2024-07-02 07:43] LABS: Alanine Aminotransferase 24 U/L (6-50); Albumin Level 4.4 g/dL (3.5-5.1); Alkaline Phosphatase 46 U/L (38-126); Anion Gap 7 mmol/L (4-12); Aspartate Amino Transferase 28 U/L (17-59); Bilirubin,Total 0.5 mg/dL (0.2-1.3); Blood Urea Nitrogen 16 mg/dL (9-20); Calcium 9.7 mg/dL (8.4-10.2); Carbon Dioxide 28 mmol/L (22-30); Chloride 100 mmol/L (98-107); Estimated CRCL calculation 54 ml/min; Estimated Glomerular Filt Rate > 60; Glucose 168 mg/dL (65-110); Lipase 237 U/L (23-300); Potassium 4.4 mmol/L (3.4-5.0); Sodium 135 mmol/L (137-145)
--- OUTSIDE RECORDS SUMMARY | 2024-07-02 07:46 | XMS_ITS | Continuity of Care Document ---
Author Organization [facility] Address [address] [place] [address] [place] [address] Phone Care Team Providers Care Arch Cushion Skiving Machine Operator Name Role Phone Ambreen Isaac Unavailable Unavailable Procedures Procedure Date Eye Exam Established Pt Eye Exam & Treatment Refraction Advance Directives Directive Yes / No Effective Date File Name No Information Encounters Encounter Description Practice Location Reason(s) For Visit Diagnoses Date Provider Providers Copied on Encounter [facility], [address] [place] [address] [address], [place], [place], [id number], tel:[phone] [facility] No Information 2-201 [address] Marlin [address] [facility] , [address], [place], [place], [facility], . tel:[phone] [facility], [address] [place] [address] [address], [place], [place], [id number], tel:[phone] [facility] No Information 9-[address] [facility] , [address], [place], [address], [place]. tel:[phone] Referring Provider: Ry Montes MD , [address] [facility] [address], [place], [address]. tel:[phone] Family History Family Member Type Diagnosis Age At Onset No Information Payers Payer name Insurance type Covered libertarian ID Authoriza tion(s) [place] [id number] Social History Type Description Quantity Date Captured [...]
[2024-07-02] MEDS: ONDANSETRON INJ 4 MG/2 ML VIAL IV PUSH ×3 (07:51→16:47)
[2024-07-02 08:21] LABS: INR 0.9; Prothrombin Time 12.7 Seconds (11.1-14.7)
[2024-07-02 08:22] LABS: Partial Thromboplastin Time 24.4 Seconds (22.3-36.8)
[2024-07-02 08:31] LABS: Add Urine Microscopic? NO; Appearance Urine Clear (Clear); Bilirubin Urine Negative (Negative); Blood Urine Negative (Negative); Color Urine Yellow (Yellow); Glucose Urine UA Negative (Negative); Ketones Urine Negative (Negative); Leukocyte Esterase Ur Negative LEU/UL (Negative); Nitrate Urine Negative (Negative); Protein Urine Negative (Negative); Specific Grav Ur > 1.045 (1.001-1.035); Urobilinogen Urine 0.2 mg/dL (<2.0); pH Urine 7.5 (5.0-9.0)
[2024-07-02] MEDS: BENZOCAINE/TETRACAINE SPRAY (*SP) 56 ML AEROSOL 1 SPRAY (11:03)
[2024-07-02] MEDS: LIDOCAINE 2% GEL UROJET 10 ML PKG (11:04)
[2024-07-02 11:46] LABS: Glucose Point of Care 156 mg/dl (65-105)
--- NOTE | 2024-07-02 12:23 | PC.NURSE ---
ERP Dr Haley aware of CT results of coiled NG tube. ERP states pt can proceed to floor, 350ml from BG at this time. Pt has extensive hx of SBO and multiple surgeries.
--- NOTE | 2024-07-02 12:30 | P.HP_ITS ---
H&P: HPI History of Present Illness Date/Time: 07/02/24 13:30 Chief Complaint: Abdominal pain. Narrative: This is a very pleasant?89-year-old gentleman with history of multiple small- bowel obstructions, hypertension, and diabetes who presented to the emergency department for evaluation of nausea and vomiting. The patient provides the following history. He awoke at about 05:00 with nausea and had 3 episodes of emesis containing partially digested food from yesterday. He was able to have only a very small, soft bowel movement. He does not have any abdominal pain to speak of though maybe feels a bit distended. The symptoms are similar to those he has had with prior bowel obstructions and he came in for evaluation. He denies fever, chills sweats, chest pain, shortness of breath, diarrhea, hematemesis, melena, and hematochezia. In the ED: Vital signs were stable on arrival. Labs were significant for a WBC count of 13.6, sodium 135, glucose 168. CT of the abdomen and pelvis showed dilated jejunal loops with transition zone on the left side of the pelvis which may indicate partial obstruction and other incidental findings. He was given a dose of Zofran and and NG tube was inserted however was found to be kinked in the distal esophagus on imaging. He has been admitted to the medical floor for further treatment and close monitoring. Review of Systems Review of Systems: 12 systems were reviewed and are negativ e except for as per HPI. [facility] Past Medical History Medical History BMI 35.0-35.9,adult Small bowel obstruction 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 Esophageal stricture Status post dilatation. Gastroesophageal reflux disease Benign prostatic hyperplasia Essential hypertension, benign Diastolic CHF Diverticulosis With history of diverticulitis. Irritable bowel syndrome Type 2 diabetes mellitus with stage 1 chronic kidney disease Surgical History Surgical History History of carpal tunnel surgery of right wrist History of removal of cyst From chest wall. History of resection of small bowel (2006) With anastomosis. History of cholecystectomy History of laparotomy With adhesiolysis in 1998 and 2006. Family History Family History Father Family history of lung cancer Family history of malignant neoplasm Mother Family history of malignant neoplasm of breast in first degree relative Family history of malignant neoplasm Breast cancer Sibling Brain cancer Other Colon polyp Social History Social History Social History: Surrogate medical decision maker: Jay and Angel Vasquez (sons). Code status: Full code. Smoking status: Never smoker Second hand tobacco smoke exposure: No Alcohol intake: current Drinks per week: 2 Alcohol use details: occasionally Substance use: never Substance use type: does not use Last use: 02/18/24 Do You Feel Safe in your Home?: Yes Lack of Transportation: No Lack of Food: Never True Current Housing: I Have Housing Concerned About Future Housing: No Difficulty Paying Gas/Electric Bills: No Difficulty Paying for Meds: No Currently Unemployed: No Education: Master's Degree or Higher Difficulty w/ Childcare or Family Care: No Living arrangements: alone Additional living arrangements comments: as of late 2020. He lives in his own home in [place]. He has 2 sons. 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 care concerns: No Meds Home Medications and Allergies Home Medications ?Medication ?Instructions ?Recorded ?Confirmed ?Type omega-3 fatty acids 1,000 mg 1,200 mg PO BID 10/07/19 07/02/24 History capsule (Fish Oil Concentrate) naproxen sodium 220 mg tablet 220 mg PO BID PRN Pain 07/03/22 07/02/24 History (Aleve) glipizide 2.5 mg tablet 2.5 mg PO BID #180 tabs 01/12/24 07/02/24 Rx atorvastatin 10 mg tablet 10 mg PO QHS 02/24/24 07/02/24 History metoprolol tartrate 50 mg tablet 50 mg PO QHS 02/24/24 07/02/24 History ofloxacin 0.3 % eye drops 2 drp otic (ear) TID PRN ear wax 02/24/24 07/02/24 History lancets 33 gauge (OneTouch Delica #200 ea 04/09/24 07/02/24 Rx Plus Lancet) blood sugar diagnostic (OneTouch #100 ea 05/10/24 07/02/24 Rx Verio test strips) tadalafil 20 mg tablet See Rx Instructions .Route 06/22/24 07/02/24 Rx .COMPLEX #14 tabs diphenhydramine 25 15 ml PO QHS 07/02/24 07/02/24 History mg-acetaminophen 500 mg/15 mL oral solution olmesartan 40 1 tablet PO HS 07/02/24 07/02/24 History mg-hydrochlorothiazide 12.5 mg tablet omeprazole 40 mg capsule,delayed 40 mg PO HS 07/02/24 07/02/24 History release sitagliptin phosphate 100 mg 100 mg PO HS 07/02/24 07/02/24 History tablet (Januvia) Allergies Allergy/AdvReac Type Severity Reaction Status Date / Time haloperidol AdvReac Unknown Hallucinati Verified 07/02/24 07:02 ng Vital Signs Vital Signs - 24 hr 07/02/24 06:59 07/02/24 07:45 07/02/24 08:47 Temperature 96.5 F L Pulse Rate 82 79 78 Respiratory Rate 16 20 16 Blood Pressure 130/62 115/68 137/71 Pulse Oximetry 97 95 100 Oxygen Delivery Room Air 07/02/24 08:49 07/02/24 08:50 07/02/24 09:02 Temperature Pulse Rate Respiratory Rate Blood Pressure 137/71 124/67 Pulse Oximetry 99 98 100 Oxygen Delivery 07/02/24 09:04 07/02/24 09:15 07/02/24 09:31 Temperature Pulse Rate Respiratory Rate Blood Pressure Pulse Oximetry 96 99 98 Oxygen Delivery 07/02/24 09:45 07/02/24 09:52 07/02/24 10:00 Temperature Pulse Rate 92 89 87 Respiratory Rate 20 19 19 Blood Pressure 117/62 Pulse Oximetry 100 100 99 Oxygen Delivery 07/02/24 10:15 07/02/24 10:30 07/02/24 10:31 Temperature Pulse Rate 92 91 90 Respiratory Rate 19 19 22 H Blood Pressure 100/58 L Pulse Oximetry 100 95 94 Oxygen Delivery 07/02/24 10:45 07/02/24 11:12 07/02/24 11:13 Temperature Pulse Rate 94 97 104 H Respiratory Rate 18 20 18 Blood Pressure 111/97 H Pulse Oximetry 99 95 Oxygen Delivery Exam Narrative: General:?Nontoxic-appearing male sitting in a chair at side of bed in no distress. Weight: 13.5 kg. BMI: 33.9. HEENT:??PERRL, EOMI.? Sclerae anicteric. Changes of prior cataract surgery. Tacky mucous membranes. Neck:??Supple. No JVD. Respiratory:?Lungs are clear to auscultation bilaterally. Cardiovascular:??Regular rate and rhythm with S1-S2. Gastrointestinal:??Abdomen is mildly distended with rare high-pitched tinkling bowel sounds. Diffused area of tympany. No significant tenderness to palpation over the abdomen.? No guarding or rebound tenderness. Skin:??Warm and dry.? No rash or lesions on limited exam. Extremities:??No cyanosis, clubbing, or significant edema. Radial and pedal pulses intact. Neurological:??Alert.? Cranial nerves 2-12 are grossly intact. No gross focal deficits to casual conversation. Psychiatric:?Pleasant and cooperative with appropriate mood and affect. H&P: Results Labs Labs: Short CBC 07/02/24 Range/Units 07:27 WBC 13.6 H (4.5-10.0) K/mm3 Hgb 15.7 (14.0-18.0) g/dL Hct 48.2 (42.0-52.0) % Plt Count 155 (150-375) k/mm3 BMP 07/02/24 07:27 Sodium 135 L Potassium 4.4 Chloride 100 Carbon Dioxide 28 BUN 16 Creatinine 1.10 Glucose 168 H Calcium 9.7 Liver Function 07/02/24 Range/Units 07:27 Total Bilirubin 0.5 (0.2-1.3) mg/dL AST 28 (17-59) U/L ALT 24 (6-50) U/L Alkaline Phosphatase 46 (38-126) U/L Albumin 4.4 (3.5-5.1) g/dL Urine 07/02/24 Range/Units 08:15 Urine Color Yellow (Yellow) Urine Appearance Clear (Clear) Urine pH 7.5 (5.0-9.0) Ur Specific [place] > 1.045 H (1.001-1.035) Urine Protein Negative (Negative) mg/dL Urine Glucose (UA) Negative (Negative) mg/dL Imaging Abdomen/Pelvis CT 07/02/24 08:18 IMPRESSION: 1. Dilated jejunal loops with transition zone seen in the left side of the pelvis which may indicate partial obstruction. Follow-up advised. Postoperative changes are seen in the area of transition. 2. Cholelithiasis. 3. Bilateral inguinal hernia with fat content. 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 Assessment and Plan Assessment and plan (1) Partial small bowel obstruction: Code(s): K56.600 - Partial intestinal obstruction, unspecified as to cause Status: Acute (2) Type 2 diabetes mellitus: Qualifiers: Diabetes mellitus complication status: without complication Diabetes mellitus middle or intermediate school principal insulin use: without middle or intermediate school principal use Qualified Code(s): E11.9 - Type 2 diabetes mellitus without complications Code(s): E11.9 - Type 2 diabetes mellitus without complications Status: Chronic (3) Essential (primary) hypertension: Code(s): I10 - Essential (primary) hypertension Status: Chronic Plan The patient presented to the emergency department for evaluation of nausea, vomiting, and abdominal bloating since this morning as detailed HPI. Labs, imaging, EKG, and all reports were personally reviewed. NG tube inserted in the ED was kinked in the distal esophagus and has been removed. Another to will need to be inserted for decompression. Analgesics and antiemetics are available as needed. His home medications will be reviewed and transition to IV form if available. Initiate sliding scale insulin, Accu-Cheks, and hypoglycemic protocol. Vital signs were reviewed and they are stable. Findings and treatment plan were discussed with the patient. Questions were solicited and answered to satisfaction. The patient's medical management will be taken over by the hospitalist team in a.m. Quality VTE Prophylaxis VTE prophylaxis: mechanical ordered If No VTE Prophylaxis Answer both mechanical and pharmacologic: Reason no pharmacologic proph: medical contraindication (hold for now in case he requires surgery) The patient has been admitted under observation status. Hospitalist MIPS Advance Care Plan I have confirmed that the patient's Advanced Care Plan is present, code status is documented, or surrogate decision maker is listed in patient medical record.: Yes Medication Reconciliation I have utilized all available resources to obtain, update and review the patients current medications (includes all prescriptions, OTC, herbals, cannabis, and nutritional supplements).: Yes
--- NOTE | 2024-07-02 12:45 | ADMGEN ---
This patient, Cali Vasquez, was admitted to 3 [facility] Surg Room 307-02. Patient/family oriented to hospital policies and general routines including ID bracelet, bed and alarms, visiting hours, pain management, procedures, bathroom and other care routines, personal items, smoking policy, room service/diet, and visiting hours. Information on how to activate the Rapid Response Team has been discussed. Patient/Family are encouraged to report perceived risks to care and to ask questions if they do not understand what they are told or what they should do.
[2024-07-02] MEDS: SODIUM CHLORIDE 0.9% IV 1,000 ML 100 ML IV CONT (14:15)
[2024-07-02] MEDS: LORazepam INJ (*CRX) 2 MG/ML VIAL 0.25 MG IV PUSH (16:47)
[2024-07-02 18:21] LABS: Glucose Point of Care 135 mg/dl (65-105)
[2024-07-02] MEDS: METOPROLOL TARTRATE INJ 5 MG/5 ML VIAL IV PUSH (18:53)
[2024-07-03] VITALS (7 sets, daily range): BP systolic 116–154; BP diastolic 53–73; PULSE 83–109; RESP 16–18; TEMP 36.1–36.6; O2SAT 92–99
[2024-07-03] MEDS: SODIUM CHLORIDE 0.9% IV 1,000 ML 100 ML IV CONT ×2 (00:15→14:33)
[2024-07-03 00:23] LABS: Glucose Point of Care 160 mg/dl (65-105)
[2024-07-03] MEDS: METOPROLOL TARTRATE INJ 5 MG/5 ML VIAL IV PUSH ×4 (02:22→23:28)
[2024-07-03 05:47] LABS: Hematocrit 46.8 % (42.0-52.0); Hemoglobin 14.9 g/dL (14.0-18.0); Mean Corpuscular HGB Conc 31.8 g/dl (32-36); Mean Corpuscular Hemoglobin 29.6 pg (26-34); Mean Corpuscular Volume 92.9 fl (80-100); Mean Platelet Volume 8.5 fl (7.4-10.4); Platelet Count Result 149 k/mm3 (150-375); Red Blood Count 5.04 M/mm3 (4.6-6.20); Red Cell Distribution Width 13.2 % (11.5-14.5)
[2024-07-03 06:10] LABS: Anion Gap 10 mmol/L (4-12); Blood Urea Nitrogen 30 mg/dL (9-20); Calcium 9.1 mg/dL (8.4-10.2); Carbon Dioxide 26 mmol/L (22-30); Chloride 97 mmol/L (98-107); Estimated CRCL calculation 40 ml/min; Estimated Glomerular Filt Rate 44; Glucose 142 mg/dL (65-110); Magnesium 1.9 mg/dL (1.6-2.3); Potassium 4.8 mmol/L (3.4-5.0); Sodium 133 mmol/L (137-145)
--- NOTE | 2024-07-03 07:44 | P.PNIM_ITS ---
Progress Note: A&P Assessment and Plan (1) Partial small bowel obstruction: Code(s): K56.600 - Partial intestinal obstruction, unspecified as to cause Status: Acute Assessment and Plan: NG tube Monitor electrolytes Will consider TPN if necessary, on PRN pain control Water-soluble SBFT Gen surgery following Zofran for nausea Protonix for GI Protection CT abdomen/pelvis:1. Dilated jejunal loops with transition zone seen in the left side of the pelvis which may indicate partial obstruction. Follow-up advised. Postoperative changes are seen in the area of transition. 2. Cholelithiasis. 3. Bilateral inguinal hernia with fat content. 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 Patient had initial surgery in and later 2nd one in 2006. Patient reports the 2nd surgery was complicated and he was admitted in the ICU for more than a month. Patient does not desire any surgical intervention and he reports he was admitted more than 30 times due to the same issue. He does not want to be intubated but agrees with chest compression and giving medications during resuscitation. Review of Systems Review of Systems: 12 systems were reviewed and are negativ e except for as per HPI. All systems reviewed & are unremarkable except as noted in HPI and below Constitutional: Constitutional: Denies chills and Denies fever(s) Eyes: Eyes: Denies change in vision ENT: Denies hearing loss, Denies neck pain and Denies sore throat Cardiovascular: Cardiovascular: Denies chest pain and Denies dyspnea Respiratory: Respiratory: Denies cough, Denies dyspnea and Denies wheezing Gastrointestinal: Gastrointestinal: Reports as per HPI Genitourinary: Genitourinary: Denies hematuria and Denies dysuria Musculoskeletal: Musculoskeletal: Denies arthralgias, Denies joint swelling and Denies neck pain Allergic/Immunologic: Allergic/Immunologic: Denies wheezing Exam Narrative: General:?Nontoxic-appearing male sitting in a chair at side of bed in no distress. Weight: 13.5 kg. BMI: 33.9. HEENT:??PERRL, EOMI.? Sclerae anicteric. Changes of prior cataract surgery. Tacky mucous membranes. Neck:??Supple. No JVD. Respiratory:?Lungs are clear to auscultation bilaterally. Cardiovascular:??Regular rate and rhythm with S1-S2. Gastrointestinal:??Abdomen is mildly distended with rare high-pitched tinkling bowel sounds. Diffused area of tympany. No significant tenderness to palpation over the abdomen.? No guarding or rebound tenderness. Skin:??Warm and dry.? No rash or lesions on limited exam. Extremities:??No cyanosis, clubbing, or significant edema. Radial and pedal pulses intact. Neurological:??Alert.? Cranial nerves 2-12 are grossly intact. No gross focal deficits to casual conversation. Psychiatric:?Pleasant and cooperative with appropriate mood and affect. Const: General: healthy appearing, no acute distress, alert and well nourished; No acute distress Nutritional Appearance: well nourished Orientation/consciousness: patient oriented x3 Limitations: no limitations HENMT: Head: normocephalic and atraumatic Ears: hearing grossly normal bilaterally Face/Nose/Sinus: Normal external nose present and Normal nares present Mouth: Yes Normal oral and palatal mucosa present and Yes moist mucous membranes Eyes: General: appearance normal, both eyes and all related structures Conjunctivae: conjunctivae normal Sclera: sclerae normal Pupils: Equal, round and reactive pupils present EOM: EOMs intact bilaterally Neck: Neck: normal visual inspection, full ROM, no lymphadenopathy, supple and no JVD Lymphatic: no lymphadenopathy noted Chest: Chest palpation & inspection: normal inspection of the chest Resp: Effort & Inspection: normal respiratory effort and able to speak in complete sentences Auscultation: clear to auscultation bilaterally Percussion: percussion normal Cardio: Jugular venous distension: no JVD Rate: regular rate Rhythm: regular rhythm Heart sounds: S1 normal heart sound present and S2 normal heart sound present Peripheral pulses: Peripheral pulses 2+ throughout GI: Inspection: normal to inspection, non-distended and scar (Large midline scar) Auscultation: normal bowel sounds, Hyperactive bowel sounds present and Hypoactive bowel sounds present Other: distended but not tender : General: Yes no CVA tenderness Back/Spine/Pelvis: Back: no CVA tenderness Skin: General skin exam: normal color and dry skin Rashes: no rashes Wounds: no wounds Neuro: General: patient oriented x3, gait normal, moves all extremities, no focal motor deficits and CN's II-XI intact bilaterally Cranial nerves: Yes Equal, round and reactive pupils present Speech: normal speech Extrem: General: normal to inspection, capillary refill normal and no clubbing, cyanosis or edema Psych: Mental Status: mental status grossly normal Affect: normal affect Attitude: cooperative Objective Data Vital Signs Vital Signs: Vital Signs - 24 hr 07/02/24 07:45 07/02/24 08:47 07/02/24 08:49 Temperature Pulse Rate 79 78 Respiratory Rate 20 16 Blood Pressure 115/68 137/71 137/71 Pulse Oximetry 95 100 99 Oxygen Delivery 07/02/24 08:50 07/02/24 09:02 07/02/24 09:04 Temperature Pulse Rate Respiratory Rate Blood Pressure 124/67 Pulse Oximetry 98 100 96 Oxygen Delivery 07/02/24 09:15 07/02/24 09:31 07/02/24 09:45 Temperature Pulse Rate 92 Respiratory Rate 20 Blood Pressure 117/62 Pulse Oximetry 99 98 100 Oxygen Delivery 07/02/24 09:52 07/02/24 10:00 07/02/24 10:15 Temperature Pulse Rate 89 87 92 Respiratory Rate 19 19 19 Blood Pressure Pulse Oximetry 100 99 100 Oxygen Delivery 07/02/24 10:30 07/02/24 10:31 07/02/24 10:45 Temperature Pulse Rate 91 90 94 Respiratory Rate 19 22 H 18 Blood Pressure 100/58 L Pulse Oximetry 95 94 Oxygen Delivery 07/02/24 11:12 07/02/24 11:13 07/02/24 12:03 Temperature Pulse Rate 97 104 H Respiratory Rate 20 18 Blood Pressure 111/97 H Pulse Oximetry 99 95 100 Oxygen Delivery 07/02/24 12:15 07/02/24 12:30 07/02/24 13:49 Temperature 97.1 F L Pulse Rate 91 Respiratory Rate 18 Blood Pressure 144/70 H Pulse Oximetry 100 96 98 Oxygen Delivery 07/02/24 16:00 07/02/24 20:00 07/02/24 20:23 Temperature 98.2 F Pulse Rate 89 89 Respiratory Rate 16 16 Blood Pressure 123/51 L Pulse Oximetry 98 98 Oxygen Delivery Room Air Room Air 07/03/24 06:05 Temperature 97.8 F Pulse Rate 83 Respiratory Rate 16 Blood Pressure 116/53 L Pulse Oximetry 97 Oxygen Delivery Intake/Output Intake/Output: Intake & Output 06/30/24 07/01/24 07/02/24 07/03/24 23:59 23:59 23:59 23:59 Intake Total 0 Output Total 650 Balance -650 0 Meds/Results Medications: Active Medications Generic Name Dose Route Start Last Admin Trade Name Freq PRN Reason Stop Dose Admin Dextrose 12.5 gm 07/02/24 13:08 Dextrose 50% 25 Gm/50 Ml Syringe IV PUSH PRN PRN Hypoglycemia Protocol Glucagon 1 mg 07/02/24 13:08 Glucagon For Inj 1 Mg Vial IM PRN PRN Hypoglycemia Protocol Glucose 15 gm 07/02/24 13:08 Glucose Oral Gel 15 Gm Of Glucse In 37.5 Gm Tube PO PRN PRN Hypoglycemia Protocol Dextrose 1,000 mls @ 100 mls/hr 07/02/24 13:08 Dextrose 5% 1,000 Ml IVPB PRN PRN Hypoglycemia Protocol Sodium Chloride 1,000 mls @ 100 mls/hr 07/02/24 13:15 07/02/24 14:15 Normal Saline Iv IV CONT 100 mls/hr .Q10H [facility] Administration Insulin Aspart 3 - 6 units 07/02/24 18:00 07/03/24 06:13 Insulin Aspart (*Bkc) 100 Units/Ml SUB-Q Not Given Q6HR [facility] Protocol Metoprolol Tartrate 5 mg 07/02/24 18:00 07/03/24 06:13 Metoprolol Tartrate Inj 5 Mg/5 Ml Vial IV PUSH Not Given Q6H [facility] Ondansetron HCl 4 mg 07/02/24 10:57 07/02/24 16:47 Ondansetron Inj 4 Mg/2 Ml Vial IV PUSH 4 mg Q4H PRN Administration Nausea Pantoprazole Sodium 40 mg 07/03/24 09:00 Pantoprazole Sodium Iv 40 Mg [facility] [place] [facility] Results: ITS Impressions Abdomen/Pelvis CT 07/02/24 08:18 IMPRESSION: 1. Dilated jejunal loops with transition zone seen in the left side of the pelvis which may indicate partial obstruction. Follow-up advised. Postoperative changes are seen in the area of transition. 2. Cholelithiasis. 3. Bilateral inguinal hernia with fat content. 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 Labs Labs: Laboratory Results - last 24 hr 07/02/24 07/02/24 07/02/24 07:27 08:15 11:42 WBC RBC Hgb Hct MCV MCH MCHC RDW Plt Count MPV PT 12.7 INR 0.9 APTT 24.4 Sodium Potassium Chloride Carbon Dioxide Anion Gap BUN Creatinine Estim Creat Clear Calc Estimated GFR Glucose POC Capillary Glucose 156 H Calcium Magnesium Urine Color Yellow Urine Appearance Clear Urine pH 7.5 Ur Specific [place] > 1.045 H Urine Protein Negative Urine Glucose (UA) Negative Urine Ketones Negative Ur Blood (Man) Negative Urine Nitrate Negative Urine Bilirubin Negative Urine Urobilinogen 0.2 Leukocyte Esterase Rfl Negative 07/02/24 07/03/24 07/03/24 18:19 00:19 05:00 WBC 7.0 RBC 5.04 Hgb 14.9 Hct 46.8 MCV 92.9 MCH 29.6 MCHC 31.8 L RDW 13.2 Plt Count 149 L MPV 8.5 PT INR APTT Sodium 133 L Potassium 4.8 Chloride 97 L Carbon Dioxide 26 Anion Gap 10 BUN 30 H D Creatinine 1.50 H Estim Creat Clear Calc 40 Estimated GFR 44 L Glucose 142 H POC Capillary Glucose 135 H 160 H Calcium 9.1 Magnesium 1.9 Urine Color Urine Appearance Urine pH Ur Specific [place] Urine Protein Urine Glucose (UA) Urine Ketones Ur Blood (Man) Urine Nitrate Urine Bilirubin Urine Urobilinogen Leukocyte Esterase Rfl Quality VTE Prophylaxis VTE prophylaxis: mechanical ordered Hospitalist MIPS Advance Care Plan I have confirmed that the patient's Advanced Care Plan is present, code status is documented, or surrogate decision maker is listed in patient medical record.: Yes Medication Reconciliation I have utilized all available resources to obtain, update and review the patients current medications (includes all prescriptions, OTC, herbals, cannabis, and nutritional supplements).: Yes
[2024-07-03] MEDS: PANTOPRAZOLE SODIUM IV 40 MG VIAL IV PUSH (08:35)
[2024-07-03 12:01] LABS: Glucose Point of Care 129 mg/dl (65-105)
--- NOTE | 2024-07-03 12:13 | P.CONGS_ITS ---
Assessment and Plan Assessment and plan (1) Partial small bowel obstruction: Code(s): K56.600 - Partial intestinal obstruction, unspecified as to cause Status: Acute Assessment and Plan: * I reviewed the CT and follow-up abdominal x-rays. Patient has a recurrent bowel obstruction. Given his advanced age and prior surgical history, surgery would be extremely high risk. Will continue NG decompression and bowel rest at this time. Will consider small-bowel follow-through in the next 1-2 days if no significant improvement is noted. (2) Type 2 diabetes mellitus: Qualifiers: Diabetes mellitus penitentiary insulin use: without tank terminal gauger use Diabetes mellitus complication status: without complication Qualified Code(s): E11.9 - Type 2 diabetes mellitus without complications Code(s): E11.9 - Type 2 diabetes mellitus without complications Status: Chronic (3) CKD (chronic kidney disease): Qualifiers: Chronic kidney disease stage: unspecified stage Qualified Code(s): N 18.9 - Chronic kidney disease, unspecified Code(s): N18.9 - Chronic kidney disease, unspecified Status: Chronic History of Present Illness Consult details Consult date: 07/03/24 Reason for consult: other (bowel obstruction) Requesting physician: Bárbara Haley III, DO Narrative: This is an 89-year-old man who I am asked to see for a small-bowel obstruction. He presented to the emergency department yesterday morning with nausea and vomiting. He was not having very much pain but stated this felt similar to prior obstructions he has had in the past. The patient states that he has had likely over 30 bowel obstructions in the past. He has had 3 open abdominal surgeries related to bowel obstructions. In the past he has identified certain foods that may have caused his obstruction. This time he said he did eat some strawberries but it was not a significant amount. He has had small bowel obstructions in the past secondary to eating a large amount of strawberries. Currently the patient is not passing flatus. No bowel movement since admission. No significant abdominal pain currently. NG tube was placed in the emergency department, but this had to be repositioned a couple times due to it curling in his esophagus. Now the NG tube is in proper position. CT in the emergency department yesterday showed evidence of a partial small-bowel obstruction in the mid jejunum. He had a follow-up obstructive series this morning which showed mildly dilated loops of proximal jejunum. Review of Systems 2 Review of Systems: All systems reviewed & are unremarkable except as noted in HPI and below Constitutional: Constitutional: Denies chills and Denies fever(s) Eyes: Eyes: Denies change in vision ENT: Denies hearing loss, Denies neck pain and Denies sore throat Cardiovascular: Cardiovascular: Denies chest pain and Denies dyspnea Respiratory: Respiratory: Denies cough, Denies dyspnea and Denies wheezing Gastrointestinal: Gastrointestinal: Reports as per HPI Genitourinary: Genitourinary: Denies hematuria and Denies dysuria Musculoskeletal: Musculoskeletal: Denies arthralgias, Denies joint swelling and Denies neck pain Allergic/Immunologic: Allergic/Immunologic: Denies wheezing [facility] Past Medical History Medical History BMI 35.0-35.9,adult Small bowel obstruction 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 Esophageal stricture Status post dilatation. Gastroesophageal reflux disease Benign prostatic hyperplasia Essential hypertension, benign Diastolic CHF Diverticulosis With history of diverticulitis. Irritable bowel syndrome Type 2 diabetes mellitus with stage 1 chronic kidney disease Surgical History Surgical History (Updated 07/03/24 @ 12:19 by Santi Xavier DO) History of carpal tunnel surgery of right wrist History of removal of cyst From chest wall. History of resection of small bowel (2006) With anastomosis. History of laparotomy With adhesiolysis in 1998 and 2006. Family History Family History Father Family history of lung cancer Family history of malignant neoplasm Mother Family history of malignant neoplasm of breast in first degree relative Family history of malignant neoplasm Breast cancer Sibling Brain cancer Other Colon polyp Social History Social History Social History: Surrogate medical decision maker: Barrett Vasquez ([employer] [facility] [employer] [facility]). Code status: Full code. Smoking status: Never smoker Second hand tobacco smoke exposure: No Alcohol intake: current Drinks per week: 2 Alcohol use details: occasionally Substance use: never Substance use type: does not use Last use: 02/18/24 Do You Feel Safe in your Home?: Yes Lack of Transportation: No Lack of Food: Never True Current Housing: I Have Housing Concerned About Future Housing: No Difficulty Paying Gas/Electric Bills: No Difficulty Paying for Meds: No Currently Unemployed: No Education: Master's Degree or Higher Difficulty w/ Childcare or Family Care: No Living arrangements: alone Additional living arrangements comments: as of late 2020. He lives in his own home in [place]. He has 2 sons. 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 Spiritual care concerns: No Meds Home Medications and Allergies Home Medications ?Medication ?Instructions ?Recorded ?Confirmed ?Type omega-3 fatty acids 1,000 mg 1,200 mg PO BID 10/07/19 07/02/24 History capsule (Fish Oil Concentrate) naproxen sodium 220 mg tablet 220 mg PO BID PRN Pain 07/03/22 07/02/24 History (Aleve) glipizide 2.5 mg tablet 2.5 mg PO BID #180 tabs 01/12/24 07/02/24 Rx atorvastatin 10 mg tablet 10 mg PO QHS 02/24/24 07/02/24 History metoprolol tartrate 50 mg tablet 50 mg PO QHS 02/24/24 07/02/24 History ofloxacin 0.3 % eye drops 2 drp otic (ear) TID PRN ear wax 02/24/24 07/02/24 History lancets 33 gauge (N2CareTouch Delyoli #200 ea 04/09/24 07/02/24 Rx Plus Lancet) blood sugar diagnostic (N2CareTouch #100 ea 05/10/24 07/02/24 Rx Verio test strips) tadalafil 20 mg tablet See Rx Instructions .Route 06/22/24 07/02/24 Rx .COMPLEX #14 tabs diphenhydramine 25 15 ml PO QHS 07/02/24 07/02/24 History mg-acetaminophen 500 mg/15 mL oral solution olmesartan 40 1 tablet PO HS 07/02/24 07/02/24 History mg-hydrochlorothiazide 12.5 mg tablet omeprazole 40 mg capsule,delayed 40 mg PO HS 07/02/24 07/02/24 History release sitagliptin phosphate 100 mg 100 mg PO HS 07/02/24 07/02/24 History tablet (Januvia) Allergies Allergy/AdvReac Type Severity Reaction Status Date / Time haloperidol AdvReac Unknown Hallucinati Verified 07/02/24 07:02 ng Vital Signs Vital Signs - 24 hr 07/02/24 12:15 07/02/24 12:30 07/02/24 13:49 Temperature 97.1 F L Pulse Rate 91 Respiratory Rate 18 Blood Pressure 144/70 H Pulse Oximetry 100 96 98 Oxygen Delivery 07/02/24 16:00 07/02/24 20:00 07/02/24 20:23 Temperature 98.2 F Pulse Rate 89 89 Respiratory Rate 16 16 Blood Pressure 123/51 L Pulse Oximetry 98 98 Oxygen Delivery Room Air Room Air 07/03/24 06:05 07/03/24 08:01 Temperature 97.8 F Pulse Rate 83 Respiratory Rate 16 Blood Pressure 116/53 L Pulse Oximetry 97 98 Oxygen Delivery Room Air Exam 2 Const: General: alert; No acute distress Orientation/consciousness: patient oriented x3 Limitations: no limitations HENMT: Head: normocephalic and atraumatic Ears: hearing grossly normal bilaterally Face/Nose/Sinus: Normal external nose present and Normal nares present Mouth: Yes Normal oral and palatal mucosa present and Yes moist mucous membranes Eyes: General: appearance normal, both eyes and all related structures C onjunctivae: conjunctivae normal Sclera: sclerae normal Pupils: Equal, round and reactive pupils present EOM: EOMs intact bilaterally Neck: Neck: normal visual inspection, full ROM, no lymphadenopathy, supple and no JVD Lymphatic: no lymphadenopathy noted Chest: Chest palpation & inspection: normal inspection of the chest Resp: Effort & Inspection: normal respiratory effort and able to speak in complete sentences Auscultation: clear to auscultation bilaterally P ercussion: percussion normal Cardio: Jugular venous distension: no JVD Rate: regular rate Rhythm: r egular rhythm Heart sounds: S1 normal heart sound present and S2 normal heart sound present Peripheral pulses: Peripheral pulses 2+ throughout GI: Inspection: non-distended and scar (Large midline scar) GI Palp: Yes Soft to palpation, No Tenderness to palpation present (GI), No Guarding due to palpation present (GI) and No Rebound tenderness present Percussion: Yes normal to percussion Auscultation: normal bowel sounds and Hypoactive bowel sounds present : General: Yes no CVA tenderness Back/Spine/Pelvis: Back: no CVA tenderness Skin: General skin exam: normal color and dry skin Neuro: General: patient oriented x3, gait normal, moves all extremities, no focal motor deficits and CN's II-XI intact bilaterally Cranial nerves: Yes Equal, round and reactive pupils present Speech: normal speech Extrem: General: normal to inspection and capillary refill normal Results Labs 07/03/24 05:00 07/03/24 05:00 Labs: Abnormal lab results 07/02/24 07/03/24 07/03/24 Range/Units 18:19 00:19 05:00 MCHC 31.8 L (32-36) g/dl Plt Count 149 L (150-375) k/mm3 Sodium 133 L (137-145) mmol/L Chloride 97 L (98-107) mmol/L BUN 30 H D (9-20) mg/dL Creatinine 1.50 H (0.7-1.3) mg/dL Estimated GFR 44 L (59 - ) Glucose 142 H (65-110) mg/dL POC Capillary Glucose 135 H 160 H (65-105) mg/dl 07/03/24 Range/Units 11:59 MCHC (32-36) g/dl Plt Count (150-375) k/mm3 Sodium (137-145) mmol/L Chloride (98-107) mmol/L BUN (9-20) mg/dL Creatinine (0.7-1.3) mg/dL Estimated GFR (59 - ) Glucose (65-110) mg/dL POC Capillary Glucose 129 H (65-105) mg/dl Diabetes panel 07/03/24 Range/Units 05:00 Sodium 133 L (137-145) mmol/L Potassium 4.8 (3.4-5.0) mmol/L Chloride 97 L (98-107) mmol/L Carbon Dioxide 26 (22-30) mmol/L BUN 30 H D (9-20) mg/dL Creatinine 1.50 H (0.7-1.3) mg/dL Glucose 142 H (65-110) mg/dL Calcium 9.1 (8.4-10.2) mg/dL Calcium panel 07/03/24 Range/Units 05:00 Calcium 9.1 (8.4-10.2) mg/dL Pituitary panel 07/03/24 Range/Units 05:00 Sodium 133 L (137-145) mmol/L Potassium 4.8 (3.4-5.0) mmol/L Chloride 97 L (98-107) mmol/L Carbon Dioxide 26 (22-30) mmol/L BUN 30 H D (9-20) mg/dL Creatinine 1.50 H (0.7-1.3) mg/dL Glucose 142 H (65-110) mg/dL Calcium 9.1 (8.4-10.2) mg/dL Adrenal panel 07/03/24 Range/Units 05:00 Sodium 133 L (137-145) mmol/L Potassium 4.8 (3.4-5.0) mmol/L Chloride 97 L (98-107) mmol/L Carbon Dioxide 26 (22-30) mmol/L BUN 30 H D (9-20) mg/dL Creatinine 1.50 H (0.7-1.3) mg/dL Glucose 142 H (65-110) mg/dL Calcium 9.1 (8.4-10.2) mg/dL All other labs normal. Imaging Additional studies: ITS Impressions Abdomen/Pelvis CT 07/02/24 08:18 IMPRESSION: 1. Dilated jejunal loops with transition zone seen in the left side of the pelvis which may indicate partial obstruction. Follow-up advised. Postoperative changes are seen in the area of transition. 2. Cholelithiasis. 3. Bilateral inguinal hernia with fat content. 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 Abdomen X-Ray 07/03/24 11:57 IMPRESSION: 1. A couple mildly dilated loops of proximal jejunum in the left abdomen consistent with persistent ileus versus partial small bowel obstruction. 2. Cholelithiasis. 2. Nasogastric tube tip near the gastric pylorus. Could consider withdrawal by [address] the distal tip in proximal side port in the body of the stomach.
[2024-07-03 18:03] LABS: Glucose Point of Care 120 mg/dl (65-105)
[2024-07-03 23:19] LABS: Glucose Point of Care 134 mg/dl (65-105)
[2024-07-04] VITALS (8 sets, daily range): BP systolic 142–162; BP diastolic 64–78; PULSE 70–93; RESP 14–16; TEMP 36.1–36.3; O2SAT 93–98
[2024-07-04] MEDS: METOPROLOL TARTRATE INJ 5 MG/5 ML VIAL IV PUSH ×4 (05:09→23:52)
[2024-07-04 05:27] LABS: Glucose Point of Care 157 mg/dl (65-105)
[2024-07-04 05:47] LABS: Hematocrit 44.4 % (42.0-52.0); Hemoglobin 14.4 g/dL (14.0-18.0); Mean Corpuscular HGB Conc 32.4 g/dl (32-36); Mean Corpuscular Hemoglobin 29.5 pg (26-34); Mean Platelet Volume 8.6 fl (7.4-10.4); Platelet Count Result 142 k/mm3 (150-375); Red Blood Count 4.88 M/mm3 (4.6-6.20); White Blood Count 5.6 K/mm3 (4.5-10.0)
[2024-07-04 06:06] LABS: Alanine Aminotransferase 24 U/L (6-50); Albumin Level 3.8 g/dL (3.5-5.1); Alkaline Phosphatase 43 U/L (38-126); Anion Gap 9 mmol/L (4-12); Aspartate Amino Transferase 25 U/L (17-59); Blood Urea Nitrogen 26 mg/dL (9-20); Carbon Dioxide 27 mmol/L (22-30); Chloride 99 mmol/L (98-107); Estimated CRCL calculation 57 ml/min; Estimated Glomerular Filt Rate > 60; Glucose 142 mg/dL (65-110); Potassium 3.9 mmol/L (3.4-5.0); Sodium 135 mmol/L (137-145)
[2024-07-04] MEDS: SODIUM CHLORIDE 0.9% IV 1,000 ML 100 ML IV CONT ×2 (08:10→17:52)
[2024-07-04] MEDS: PANTOPRAZOLE SODIUM IV 40 MG VIAL IV PUSH (08:10)
--- NOTE | 2024-07-04 08:55 | PM.IMPN ---
Progress Note: A&P Assessment and Plan (1) Partial small bowel obstruction: Code(s): K56.600 - Partial intestinal obstruction, unspecified as to cause Status: Acute Assessment and Plan: NG tube Monitor electrolytes Will consider TPN if necessary, on PRN pain control Water-soluble SBFT Gen surgery following Zofran for nausea Protonix for GI Protection CT abdomen/pelvis:1. Dilated jejunal loops with transition zone seen in the left side of the pelvis which may indicate partial obstruction. Follow-up advised. Postoperative changes are seen in the area of transition. 2. Cholelithiasis. 3. Bilateral inguinal hernia with fat content. 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 (2) Type 2 diabetes mellitus: Qualifiers: Diabetes mellitus complication status: without complication Diabetes mellitus chcf insulin use: without watermelon harvesting supervisor use Qualified Code(s): E11.9 - Type 2 diabetes mellitus without complications Code(s): E11.9 - Type 2 diabetes mellitus without complications Status: Chronic Assessment and Plan: SSI Hypoglycemic protocol (3) Essential (primary) hypertension: Code(s): I10 - Essential (primary) hypertension Status: Chronic Assessment and Plan: Metoprolol tartrate 5 mg IV push q.6 hours Subjective Date/time seen: 07/04/24 08:55 Interval history: Interval Hx:Patient is admitted in the setting of partial small bowel obstruction and surgery is consulted. Patient had initial surgery in and later 2nd one in 2006. Patient reports the 2nd surgery was complicated and he was admitted in the ICU for more than a month. Patient does not desire any surgical intervention and he reports he was admitted more than 30 times due to the same issue. He does not want to be intubated but agrees with chest compression and giving medications during resuscitation. 07/04; Passing flatus. Doing better than yesterday. Review of Systems Review of Systems: 12 systems were reviewed and are negative except for as per HPI. All systems reviewed & are unremarkable except as noted in HPI and below Constitutional: Constitutional: Denies chills and Denies fever(s) Eyes: Eyes: Denies change in vision ENT: Denies hearing loss, Denies neck pain and Denies sore throat Cardiovascular: Cardiovascular: Denies chest pain and Denies dyspnea Respiratory: Respiratory: Denies cough, Denies dyspnea and Denies wheezing Gastrointestinal: Gastrointestinal: Reports as per HPI Genitourinary: Genitourinary: Denies hematuria and Denies dysuria Musculoskeletal: Musculoskeletal: Denies arthralgias, Denies joint swelling and Denies neck pain Allergic/Immunologic: Allergic/Immunologic: Denies wheezing Exam Narrative: General:?Nontoxic-appearing male sitting in a chair at side of bed in no distress. Weight: 13.5 kg. BMI: 33.9. HEENT:??PERRL, EOMI.? Sclerae anicteric. Changes of prior cataract surgery. Tacky mucous membranes. Neck:??Supple. No JVD. Respiratory:?Lungs are clear to auscultation bilaterally. Cardiovascular:??Regular rate and rhythm with S1-S2. Gastrointestinal:??Abdomen is mildly distended with rare high-pitched tinkling bowel sounds. Diffused area of tympany. No significant tenderness to palpation over the abdomen.? No guarding or rebound tenderness. Skin:??Warm and dry.? No rash or lesions on limited exam. Extremities:??No cyanosis, clubbing, or significant edema. Radial and pedal pulses intact. Neurological:??Alert.? Cranial nerves 2-12 are grossly intact. No gross focal deficits to casual conversation. Psychiatric:?Pleasant and cooperative with appropriate mood and affect. Const: General: healthy appearing, no acute distress, alert and well nourished; No acute distress Nutritional Appearance: well nourished Orientation/consciousness: patient oriented x3 Limitations: no limitations HENMT: Head: normocephalic and atraumatic Ears: hearing grossly normal bilaterally Face/Nose/Sinus: Normal external nose present and Normal nares present Mouth: Yes Normal oral and palatal mucosa present and Yes moist mucous membranes Eyes: General: appearance normal, both eyes and all related structures Conjunctivae: conjunctivae normal Sclera: sclerae normal Pupils: Equal, round and reactive pupils present EOM: EOMs intact bilaterally Neck: Neck: normal visual inspection, full ROM, no lymphadenopathy, supple and no JVD Lymphatic: no lymphadenopathy noted Chest: Chest palpation & inspection: normal inspection of the chest Resp: Effort & Inspection: normal respiratory effort and able to speak in complete sentences Auscultation: clear to auscultation bilaterally Percussion: percussion normal Cardio: Jugular venous distension: no JVD Rate: regular rate Rhythm: regular rhythm Heart sounds: S1 normal heart sound present and S2 normal heart sound present Peripheral pulses: Peripheral pulses 2+ throughout GI: Inspection: normal to inspection, non-distended and scar (Large midline scar) Auscultation: normal bowel sounds, Hyperactive bowel sounds present and Hypoactive bowel sounds present Other: distended but not tender : General: Yes no CVA tenderness Back/Spine/Pelvis: Back: no CVA tenderness Skin: General skin exam: normal color and dry skin Rashes: no rashes Wounds: no wounds Neuro: General: patient oriented x3, gait normal, moves all extremities, no focal motor deficits and CN's II-XI intact bilaterally Cranial nerves: Yes Equal, round and reactive pupils present Speech: normal speech Extrem: General: normal to inspection, capillary refill normal and no clubbing, cyanosis or edema Psych: Mental Status: mental status grossly normal Affect: normal affect Attitude: cooperative Objective Data Vital Signs Vital Signs: Vital Signs - 24 hr 07/03/24 14:00 07/03/24 14:23 07/03/24 18:50 Temperature 97.0 F L Pulse Rate 98 92 109 H Respiratory Rate 18 Blood Pressure 119/59 L Pulse Oximetry 99 Oxygen Delivery Fraction of Inspired Oxygen 07/03/24 18:50 07/03/24 20:00 07/03/24 20:20 Temperature Pulse Rate 86 Respiratory Rate Blood Pressure 154/73 H Pulse Oximetry 92 Oxygen Delivery Room Air Room Air Fraction of Inspired Oxygen 21 07/03/24 20:39 07/04/24 05:52 07/04/24 07:45 Temperature 97.4 F L 97.0 F L Pulse Rate 87 76 Respiratory Rate 16 14 Blood Pressure 139/60 142/64 H Pulse Oximetry 93 94 93 Oxygen Delivery Room Air Fraction of Inspired Oxygen 21 Intake/Output Intake/Output: Intake & Output 07/01/24 07/02/24 07/03/24 07/04/24 23:59 23:59 23:59 23:59 Intake Total 1999 1150 Output Total 650 1150 700 Balance -650 850 450 Meds/Results Medications: Active Medications Generic Name Dose Route Start Last Admin Trade Name Freq PRN Reason Stop Dose Admin Dextrose 12.5 gm 07/02/24 13:08 Dextrose 50% 25 Gm/50 Ml Syringe IV PUSH PRN PRN Hypoglycemia Protocol Glucagon 1 mg 07/02/24 13:08 Glucagon For Inj 1 Mg Vial IM PRN PRN Hypoglycemia Protocol Glucose 15 gm 07/02/24 13:08 Glucose Oral Gel 15 Gm Of Glucse In 37.5 Gm Tube PO PRN PRN Hypoglycemia Protocol Dextrose 1,000 mls @ 100 mls/hr 07/02/24 13:08 Dextrose 5% 1,000 Ml IVPB PRN PRN Hypoglycemia Protocol Sodium Chloride 1,000 mls @ 100 mls/hr 07/02/24 13:15 07/04/24 08:10 Normal Saline Iv IV CONT 100 mls/hr .Q10H JACE Administration Insulin Aspart 3 - 6 units 07/02/24 18:00 07/04/24 05:57 Insulin Aspart (*Bkc) 100 Units/Ml SUB-Q Not Given Q6HR JACE Protocol Metoprolol Tartrate 5 mg 07/02/24 18:00 07/04/24 05:09 Metoprolol Tartrate Inj 5 Mg/5 Ml Vial IV PUSH 5 mg Q6H JACE Administration Ondansetron HCl 4 mg 07/02/24 10:57 07/02/24 16:47 Ondansetron Inj 4 Mg/2 Ml Vial IV PUSH 4 mg Q4H PRN Administration Nausea Pantoprazole Sodium 40 mg 07/03/24 09:00 07/04/24 08:10 Pantoprazole Sodium Iv 40 Mg Vial IV PUSH 40 mg QAM JACE Administration Radiology Results: ITS Impressions Abdomen/Pelvis CT 07/02/24 08:18 IMPRESSION: 1. Dilated jejunal loops with transition zone seen in the left side of the pelvis which may indicate partial obstruction. Follow-up advised. Postoperative changes are seen in the area of transition. 2. Cholelithiasis. 3. Bilateral inguinal hernia with fat content. 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 Abdomen X-Ray 07/03/24 11:57 IMPRESSION: 1. A couple mildly dilated loops of proximal jejunum in the left abdomen consistent with persistent ileus versus partial small bowel obstruction. 2. Cholelithiasis. 2. Nasogastric tube tip near the gastric pylorus. Could consider withdrawal by [address] the distal tip in proximal side port in the body of the stomach. Labs Labs: Laboratory Results - last 24 hr 07/03/24 07/03/24 07/03/24 11:59 17:57 23:16 WBC RBC Hgb Hct MCV MCH MCHC RDW Plt Count MPV Sodium Potassium Chloride Carbon Dioxide Anion Gap BUN Creatinine Estim Creat Clear Calc Estimated GFR Glucose POC Capillary Glucose 129 H 120 H 134 H Calcium Total Bilirubin AST ALT Alkaline Phosphatase Total Protein Albumin 07/04/24 07/04/24 05:07 05:20 WBC 5.6 RBC 4.88 Hgb 14.4 Hct 44.4 MCV 91.0 MCH 29.5 MCHC 32.4 RDW 13.0 Plt Count 142 L MPV 8.6 Sodium 135 L Potassium 3.9 Chloride 99 Carbon Dioxide 27 Anion Gap 9 BUN 26 H Creatinine 1.01 Estim Creat Clear Calc 57 Estimated GFR > 60 Glucose 142 H POC Capillary Glucose 157 H Calcium 9.0 Total Bilirubin 1.0 AST 25 ALT 24 Alkaline Phosphatase 43 Total Protein 6.0 L Albumin 3.8 Quality VTE Prophylaxis VTE prophylaxis: mechanical ordered Hospitalist [facility] Advance Care Plan I have confirmed that the patient's Advanced Care Plan is present, code status is documented, or surrogate decision maker is listed in patient medical record.: Yes Medication Reconciliation I have utilized all available resources to obtain, update and review the patients current medications (includes all prescriptions, OTC, herbals, cannabis, and nutritional supplements).: Yes
[2024-07-04 11:49] LABS: Glucose Point of Care 130 mg/dl (65-105)
--- NOTE | 2024-07-04 15:03 | PM.PNGS ---
Progress Note: A&P Assessment and Plan (1) Partial small bowel obstruction: Code(s): K56.600 - Partial intestinal obstruction, unspecified as to cause Status: Acute Assessment and Plan: Patient showing signs of resolution. Will clamp NG tube and give a dose of milk of magnesia. Get KUB to follow up for any residual dilated bowel. Will consider small-bowel follow-through tomorrow if no significant improvement. 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 Denies abdominal pain or bloating. Still no BM. Exam GI: Inspection: non-distended GI Palp: Yes Soft to palpation, No Tenderness to palpation present (GI), No Guarding due to palpation present (GI) and No Rebound tenderness present Percussion: Yes normal to percussion Auscultation: normal bowel sounds Objective Data Vital Signs Vital Signs: Vital Signs - 24 hr 07/03/24 18:50 07/03/24 18:50 07/03/24 20:00 Temperature Pulse Rate 109 H Respiratory Rate Blood Pressure 154/73 H Pulse Oximetry Oxygen Delivery Room Air Fraction of Inspired Oxygen 07/03/24 20:20 07/03/24 20:39 07/04/24 05:52 Temperature 97.4 F L 97.0 F L Pulse Rate 86 87 76 Respiratory Rate 16 14 Blood Pressure 139/60 142/64 H Pulse Oximetry 92 93 94 Oxygen Delivery Room Air Fraction of Inspired Oxygen 07/04/24 07:45 07/04/24 08:00 07/04/24 12:37 Temperature 96.9 F L Pulse Rate 92 Respiratory Rate 16 Blood Pressure 157/78 H Pulse Oximetry 93 95 Oxygen Delivery Room Air Room Air Fraction of Inspired Oxygen 21 07/04/24 12:45 07/04/24 14:00 Temperature 97.4 F L Pulse Rate 78 93 Respiratory Rate 16 Blood Pressure 162/72 H Pulse Oximetry 98 Oxygen Delivery Fraction of Inspired Oxygen Intake/Output Intake/Output: Intake & Output 07/01/24 07/02/24 07/03/24 07/04/24 23:59 23:59 23:59 23:59 Intake Total 1999 1150 Output Total 650 1150 700 Balance -650 850 450 Meds/Results Medications: Active Medications Generic Name Dose Route Start Last Admin Trade Name Freq PRN Reason Stop Dose Admin Dextrose 12.5 gm 07/02/24 13:08 Dextrose 50% 25 Gm/50 Ml Syringe IV PUSH PRN PRN Hypoglycemia Protocol Glucagon 1 mg 07/02/24 13:08 Glucagon For Inj 1 Mg Vial IM PRN PRN Hypoglycemia Protocol Glucose 15 gm 07/02/24 13:08 Glucose Oral Gel 15 Gm Of Glucse In 37.5 Gm Tube PO PRN PRN Hypoglycemia Protocol Dextrose 1,000 mls @ 100 mls/hr 07/02/24 13:08 Dextrose 5% 1,000 Ml IVPB PRN PRN Hypoglycemia Protocol Sodium Chloride 1,000 mls @ 100 mls/hr 07/02/24 13:15 07/04/24 08:10 Normal Saline Iv IV CONT 100 mls/hr .Q10H JACE Administration Insulin Aspart 3 - 6 units 07/02/24 18:00 07/04/24 12:24 Insulin Aspart (*Bkc) 100 Units/Ml SUB-Q Not Given Q6HR JACE Protocol Magnesium Hydroxide 30 ml 07/04/24 15:02 Magnesium Hydroxide Susp 30 Ml Udc PO 07/04/24 15:03 ONCE ONE Metoprolol Tartrate 5 mg 07/02/24 18:00 07/04/24 12:45 Metoprolol Tartrate Inj 5 Mg/5 Ml Vial IV PUSH 5 mg Q6H JACE Administration Ondansetron HCl 4 mg 07/02/24 10:57 07/02/24 16:47 Ondansetron Inj 4 Mg/2 Ml Vial IV PUSH 4 mg Q4H PRN Administration Nausea Pantoprazole Sodium 40 mg 07/03/24 09:00 07/04/24 08:10 Pantoprazole Sodium Iv 40 Mg Vial IV PUSH 40 mg QAM JACE Administration Radiology Results: ITS Impressions Abdomen/Pelvis CT 07/02/24 08:18 IMPRESSION: 1. Dilated jejunal loops with transition zone seen in the left side of the pelvis which may indicate partial obstruction. Follow-up advised. Postoperative changes are seen in the area of transition. 2. Cholelithiasis. 3. Bilateral inguinal hernia with fat content. 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 Abdomen X-Ray 07/03/24 11:57 IMPRESSION: 1. A couple mildly dilated loops of proximal jejunum in the left abdomen consistent with persistent ileus versus partial small bowel obstruction. 2. Cholelithiasis. 2. Nasogastric tube tip near the gastric pylorus. Could consider withdrawal by [address] the distal tip in proximal side port in the body of the stomach. Labs Labs: Laboratory Results - last 24 hr 07/03/24 07/03/24 07/04/24 17:57 23:16 05:07 WBC 5.6 RBC 4.88 Hgb 14.4 Hct 44.4 MCV 91.0 MCH 29.5 MCHC 32.4 RDW 13.0 Plt Count 142 L MPV 8.6 Sodium 135 L Potassium 3.9 Chloride 99 Carbon Dioxide 27 Anion Gap 9 BUN 26 H Creatinine 1.01 Estim Creat Clear Calc 57 Estimated GFR > 60 Glucose 142 H POC Capillary Glucose 120 H 134 H Calcium 9.0 Total Bilirubin 1.0 AST 25 ALT 24 Alkaline Phosphatase 43 Total Protein 6.0 L Albumin 3.8 07/04/24 07/04/24 05:20 11:42 WBC RBC Hgb Hct MCV MCH MCHC RDW Plt Count MPV Sodium Potassium Chloride Carbon Dioxide Anion Gap BUN Creatinine Estim Creat Clear Calc Estimated GFR Glucose POC Capillary Glucose 157 H 130 H Calcium Total Bilirubin AST ALT Alkaline Phosphatase Total Protein Albumin
[2024-07-04] MEDS: MAGNESIUM HYDROXIDE SUSP 30 ML UDC PO (15:31)
[2024-07-04 17:52] LABS: Glucose Point of Care 191 mg/dl (65-105)
[2024-07-05] VITALS (7 sets, daily range): BP systolic 122–152; BP diastolic 60–77; PULSE 76–100; RESP 16–20; TEMP 36.1–36.2; O2SAT 94–99
[2024-07-05 00:31] LABS: Glucose Point of Care 150 mg/dl (65-105)
[2024-07-05] MEDS: SODIUM CHLORIDE 0.9% IV 1,000 ML 100 ML IV CONT (04:19)
[2024-07-05] MEDS: METOPROLOL TARTRATE INJ 5 MG/5 ML VIAL IV PUSH ×2 (05:40→12:45)
[2024-07-05 05:41] LABS: Glucose Point of Care 165 mg/dl (65-105)
[2024-07-05 06:07] LABS: Hematocrit 43.2 % (42.0-52.0); Hemoglobin 14.5 g/dL (14.0-18.0); Mean Corpuscular HGB Conc 33.6 g/dl (32-36); Mean Corpuscular Hemoglobin 29.9 pg (26-34); Mean Corpuscular Volume 89.1 fl (80-100); Mean Platelet Volume 8.6 fl (7.4-10.4); Platelet Count Result 142 k/mm3 (150-375); Red Blood Count 4.85 M/mm3 (4.6-6.20); Red Cell Distribution Width 12.6 % (11.5-14.5); White Blood Count 6.8 K/mm3 (4.5-10.0)
[2024-07-05 06:18] LABS: Alanine Aminotransferase 17 U/L (6-50); Albumin Level 3.6 g/dL (3.5-5.1); Alkaline Phosphatase 42 U/L (38-126); Anion Gap 5 mmol/L (4-12); Aspartate Amino Transferase 20 U/L (17-59); Bilirubin,Total 0.9 mg/dL (0.2-1.3); Blood Urea Nitrogen 14 mg/dL (9-20); Calcium 8.7 mg/dL (8.4-10.2); Carbon Dioxide 28 mmol/L (22-30); Chloride 102 mmol/L (98-107); Estimated CRCL calculation 66 ml/min; Estimated Glomerular Filt Rate > 60; Glucose 157 mg/dL (65-110); Potassium 3.9 mmol/L (3.4-5.0); Sodium 135 mmol/L (137-145)
[2024-07-05 07:43] LABS: Glucose Point of Care 159 mg/dl (65-105)
--- NOTE | 2024-07-05 08:38 | PM.IMPN ---
Progress Note: A&P Assessment and Plan (1) Partial small bowel obstruction: Code(s): K56.600 - Partial intestinal obstruction, unspecified as to cause Status: Acute Assessment and Plan: NG tube removed Tolerating clear liquid diet Monitor electrolytes Abdominal KUB shows nonobstructive bowel gas pattern on PRN pain control Water-soluble SBFT Gen surgery following Zofran for nausea Protonix for GI Protection CT abdomen/pelvis:1. Dilated jejunal loops with transition zone seen in the left side of the pelvis which may indicate partial obstruction. Follow-up advised. Postoperative changes are seen in the area of transition. 2. Cholelithiasis. 3. Bilateral inguinal hernia with fat content. 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 Patient had initial surgery in and later 2nd one in 2006. Patient reports the 2nd surgery was complicated and he was admitted in the ICU for more than a month. Patient does not desire any surgical intervention and he reports he was admitted more than 30 times due to the same issue. He does not want to be intubated but agrees with chest compression and giving medications during resuscitation. 07/04; Passing flatus. Doing better than yesterday. 07/05: Tolerating clear liquid diet. NG tube removed. Had 1 bowel movement yesterday night. Passing flatus.Yesterday given dose of milk of magnesium. Abdomen KUB shows nonobstructive bowel gas pattern. Following surgery recommendation Review of Systems Review of Systems: 12 systems were reviewed and are negative except for as per HPI. All systems reviewed & are unremarkable except as noted in HPI and below Constitutional: Constitutional: Denies chills and Denies fever(s) Eyes: Eyes: Denies change in vision ENT: Denies hearing loss, Denies neck pain and Denies sore throat Cardiovascular: Cardiovascular: Denies chest pain and Denies dyspnea Respiratory: Respiratory: Denies cough, Denies dyspnea and Denies wheezing Gastrointestinal: Gastrointestinal: Reports as per HPI Genitourinary: Genitourinary: Denies hematuria and Denies dysuria Musculoskeletal: Musculoskeletal: Denies arthralgias, Denies joint swelling and Denies neck pain Allergic/Immunologic: Allergic/Immunologic: Denies wheezing Exam Narrative: General:?Nontoxic-appearing male sitting in a chair at side of bed in no distress. Weight: 13.5 kg. BMI: 33.9. HEENT:??PERRL, EOMI.? Sclerae anicteric. Changes of prior cataract surgery. Tacky mucous membranes. Neck:??Supple. No JVD. Respiratory:?Lungs are clear to auscultation bilaterally. Cardiovascular:??Regular rate and rhythm with S1-S2. Gastrointestinal:??Abdomen is mildly distended with rare high-pitched tinkling bowel sounds. Diffused area of tympany. No significant tenderness to palpation over the abdomen.? No guarding or rebound tenderness. Skin:??Warm and dry.? No rash or lesions on limited exam. Extremities:??No cyanosis, clubbing, or significant edema. Radial and pedal pulses intact. Neurological:??Alert.? Cranial nerves 2-12 are grossly intact. No gross focal deficits to casual conversation. Psychiatric:?Pleasant and cooperative with appropriate mood and affect. Const: General: healthy appearing, no acute distress, alert and well nourished; No acute distress Nutritional Appearance: well nourished Orientation/consciousness: patient oriented x3 Limitations: no limitations HENMT: Head: normocephalic and atraumatic Ears: hearing grossly normal bilaterally Face/Nose/Sinus: Normal external nose present and Normal nares present Mouth: Yes Normal oral and palatal mucosa present and Yes moist mucous membranes Eyes: General: appearance normal, both eyes and all related structures Conjunctivae: conjunctivae normal Sclera: sclerae normal Pupils: Equal, round and reactive pupils present EOM: EOMs intact bilaterally Neck: Neck: normal visual inspection, full ROM, no lymphadenopathy, supple and no JVD Lymphatic: no lymphadenopathy noted Chest: Chest palpation & inspection: normal inspection of the chest Resp: Effort & Inspection: normal respiratory effort and able to speak in complete sentences Auscultation: clear to auscultation bilaterally Percussion: percussion normal Cardio: Jugular venous distension: no JVD Rate: regular rate Rhythm: regular rhythm Heart sounds: S1 normal heart sound present and S2 normal heart sound present Peripheral pulses: Peripheral pulses 2+ throughout GI: Inspection: normal to inspection, non-distended and scar (Large midline scar) Auscultation: normal bowel sounds, Hyperactive bowel sounds present and Hypoactive bowel sounds present Other: distended but not tender : General: Yes no CVA tenderness Back/Spine/Pelvis: Back: no CVA tenderness Skin: General skin exam: normal color and dry skin Rashes: no rashes Wounds: no wounds Neuro: General: patient oriented x3, gait normal, moves all extremities, no focal motor deficits and CN's II-XI intact bilaterally Cranial nerves: Yes Equal, round and reactive pupils present Speech: normal speech Extrem: General: normal to inspection, capillary refill normal and no clubbing, cyanosis or edema Psych: Mental Status: mental status grossly normal Affect: normal affect Attitude: cooperative Objective Data Vital Signs Vital Signs: Vital Signs - 24 hr 07/04/24 12:37 07/04/24 12:45 07/04/24 14:00 Temperature 96.9 F L 97.4 F L Pulse Rate 92 78 93 Respiratory Rate 16 16 Blood Pressure 157/78 H 162/72 H Pulse Oximetry 95 98 07/04/24 17:49 07/04/24 19:51 07/04/24 23:52 Temperature 97.2 F L Pulse Rate 70 87 80 Respiratory Rate 16 Blood Pressure 149/77 H Pulse Oximetry 96 07/05/24 05:36 07/05/24 05:40 Temperature 97.1 F L Pulse Rate 76 76 Respiratory Rate 20 Blood Pressure 152/69 H Pulse Oximetry 95 Intake/Output Intake/Output: Intake & Output 07/02/24 07/03/24 07/04/24 07/05/24 23:59 23:59 23:59 23:59 Intake Total 19998 1400 Output Total 650 1150 1300 400 Balance -424 979 8461 1000 Meds/Results Medications: Active Medications Generic Name Dose Route Start Last Admin Trade Name Freq PRN Reason Stop Dose Admin Dextrose 12.5 gm 07/02/24 13:08 Dextrose 50% 25 Gm/50 Ml Syringe IV PUSH PRN PRN Hypoglycemia Protocol Glucagon 1 mg 07/02/24 13:08 Glucagon For Inj 1 Mg Vial IM PRN PRN Hypoglycemia Protocol Glucose 15 gm 07/02/24 13:08 Glucose Oral Gel 15 Gm Of Glucse In 37.5 Gm Tube PO PRN PRN Hypoglycemia Protocol Dextrose 1,000 mls @ 100 mls/hr 07/02/24 13:08 Dextrose 5% 1,000 Ml IVPB PRN PRN Hypoglycemia Protocol Sodium Chloride 1,000 mls @ 100 mls/hr 07/02/24 13:15 07/05/24 04:19 Normal Saline Iv IV CONT 100 mls/hr .Q10H JACE Administration Insulin Aspart 3 - 6 units 07/02/24 18:00 07/05/24 05:44 Insulin Aspart (*Bkc) 100 Units/Ml SUB-Q Not Given Q6HR JACE Protocol Metoprolol Tartrate 5 mg 07/02/24 18:00 07/05/24 05:40 Metoprolol Tartrate Inj 5 Mg/5 Ml Vial IV PUSH 5 mg Q6H JACE Administration Ondansetron HCl 4 mg 07/02/24 10:57 07/02/24 16:47 Ondansetron Inj 4 Mg/2 Ml Vial IV PUSH 4 mg Q4H PRN Administration Nausea Pantoprazole Sodium 40 mg 07/03/24 09:00 07/04/24 08:10 Pantoprazole Sodium Iv 40 Mg Vial IV PUSH 40 mg QAM JACE Administration Radiology Results: ITS Impressions Abdomen/Pelvis CT 07/02/24 08:18 IMPRESSION: 1. Dilated jejunal loops with transition zone seen in the left side of the pelvis which may indicate partial obstruction. Follow-up advised. Postoperative changes are seen in the area of transition. 2. Cholelithiasis. 3. Bilateral inguinal hernia with fat content. 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 Abdomen X-Ray 07/04/24 19:19 IMPRESSION: NO ACUTE ABDOMINAL FINDINGS. Labs Labs: Laboratory Results - last 24 hr 07/04/24 07/04/24 07/05/24 11:42 17:49 00:28 WBC RBC Hgb Hct MCV MCH MCHC RDW Plt Count MPV Sodium Potassium Chloride Carbon Dioxide Anion Gap BUN Creatinine Estim Creat Clear Calc Estimated GFR Glucose POC Capillary Glucose 130 H 191 H 150 H Calcium Total Bilirubin AST ALT Alkaline Phosphatase Total Protein Albumin 07/05/24 07/05/24 07/05/24 05:25 05:38 07:41 WBC 6.8 RBC 4.85 Hgb 14.5 Hct 43.2 MCV 89.1 MCH 29.9 MCHC 33.6 RDW 12.6 Plt Count 142 L MPV 8.6 Sodium 135 L Potassium 3.9 Chloride 102 Carbon Dioxide 28 Anion Gap 5 BUN 14 D Creatinine 0.87 Estim Creat Clear Calc 66 Estimated GFR > 60 Glucose 157 H POC Capillary Glucose 165 H 159 H Calcium 8.7 Total Bilirubin 0.9 AST 20 ALT 17 Alkaline Phosphatase 42 Total Protein 6.0 L Albumin 3.6 Quality VTE Prophylaxis VTE prophylaxis: mechanical ordered Hospitalist MIPS Advance Care Plan I have confirmed that the patient's Advanced Care Plan is present, code status is documented, or surrogate decision maker is listed in patient medical record.: Yes Medication Reconciliation I have utilized all available resources to obtain, update and review the patients current medications (includes all prescriptions, OTC, herbals, cannabis, and nutritional supplements).: Yes
[2024-07-05] MEDS: PANTOPRAZOLE SODIUM IV 40 MG VIAL IV PUSH (09:07)
--- NOTE | 2024-07-05 10:00 | P.PNGS_ITS ---
Progress Note: A&P Assessment and Plan (1) Partial small bowel obstruction: Code(s): K56.600 - Partial intestinal obstruction, unspecified as to cause Status: Acute Assessment and Plan: * Resolving by exam and repeat plain films. Tolerated NG tube clamping trial. * Will remove NG tube and start full liquids. Will give a Dulcolax suppository this morning. (2) Type 2 diabetes mellitus: Qualifiers: Diabetes mellitus group home insulin use: without group home use Diabetes mellitus complication status: without complication Qualified Code(s): E11.9 - Type 2 diabetes mellitus without complications Code(s): E11.9 - Type 2 diabetes mellitus without complications Status: Chronic (3) Essential (primary) hypertension: Code(s): I10 - Essential (primary) hypertension Status: Chronic Subjective Subjective Date/Time Seen: 07/05/24 10:00 Patient reports: tolerating liquids well, flatus, bowel movement and afebrile Interval history: Patient feeling well. Denies any abdominal pain, nausea, vomiting, or bloating. His NG tube has been clamped all night and he is tolerating clear liquids well. Plain films last evening showed a normal bowel gas pattern. He had 1 bowel movement last night. He is passing lots of flatus this morning. Exam GI: Inspection: non-distended GI Palp: Yes Soft to palpation, No Tenderness to palpation present (GI), No Guarding due to palpation present (GI) and No Rebound tenderness present Auscultation: normal bowel sounds Objective Data Vital Signs Vital Signs: Vital Signs - 24 hr 07/04/24 12:37 07/04/24 12:45 07/04/24 14:00 Temperature 96.9 F L 97.4 F L Pulse Rate 92 78 93 Respiratory Rate 16 16 Blood Pressure 157/78 H 162/72 H Pulse Oximetry 95 98 07/04/24 17:49 07/04/24 19:51 07/04/24 23:52 Temperature 97.2 F L Pulse Rate 70 87 80 Respiratory Rate 16 Blood Pressure 149/77 H Pulse Oximetry 96 07/05/24 05:36 07/05/24 05:40 Temperature 97.1 F L Pulse Rate 76 76 Respiratory Rate 20 Blood Pressure 152/69 H Pulse Oximetry 95 Intake/Output Intake/Output: Intake & Output 07/02/24 07/03/24 07/04/24 07/05/24 23:59 23:59 23:59 23:59 Intake Total 1999 7430 1400 Output Total 650 1150 1300 400 Balance -694 106 2829 1000 Meds/Results Medications: Active Medications Generic Name Dose Route Start Last Admin Trade Name Freq PRN Reason Stop Dose Admin Dextrose 12.5 gm 07/02/24 13:08 Dextrose 50% 25 Gm/50 Ml Syringe IV PUSH PRN PRN Hypoglycemia Protocol Glucagon 1 mg 07/02/24 13:08 Glucagon For Inj 1 Mg Vial IM PRN PRN Hypoglycemia Protocol Glucose 15 gm 07/02/24 13:08 Glucose Oral Gel 15 Gm Of Glucse In 37.5 Gm Tube PO PRN PRN Hypoglycemia Protocol Dextrose 1,000 mls @ 100 mls/hr 07/02/24 13:08 Dextrose 5% 1,000 Ml IVPB PRN PRN Hypoglycemia Protocol Sodium Chloride 1,000 mls @ 100 mls/hr 07/02/24 13:15 07/05/24 04:19 Normal Saline Iv IV CONT 100 mls/hr .Q10H JACE Administration Insulin Aspart 3 - 6 units 07/02/24 18:00 07/05/24 05:44 Insulin Aspart (*Bkc) 100 Units/Ml SUB-Q Not Given Q6HR JACE Protocol Metoprolol Tartrate 5 mg 07/02/24 18:00 07/05/24 05:40 Metoprolol Tartrate Inj 5 Mg/5 Ml Vial IV PUSH 5 mg Q6H JACE Administration Ondansetron HCl 4 mg 07/02/24 10:57 07/02/24 16:47 Ondansetron Inj 4 Mg/2 Ml Vial IV PUSH 4 mg Q4H PRN Administration Nausea Pantoprazole Sodium 40 mg 07/03/24 09:00 07/05/24 09:07 Pantoprazole Sodium Iv 40 Mg Vial IV PUSH 40 mg QAM JACE Administration Radiology Results: ITS Impressions Abdomen/Pelvis CT 07/02/24 08:18 IMPRESSION: 1. Dilated jejunal loops with transition zone seen in the left side of the pelvis which may indicate partial obstruction. Follow-up advised. Postoperative changes are seen in the area of transition. 2. Cholelithiasis. 3. Bilateral inguinal hernia with fat content. 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 Abdomen X-Ray 07/04/24 19:19 IMPRESSION: NO ACUTE ABDOMINAL FINDINGS. Labs Labs: Laboratory Results - last 24 hr 07/04/24 07/04/24 07/05/24 11:42 17:49 00:28 WBC RBC Hgb Hct MCV MCH MCHC RDW Plt Count MPV Sodium Potassium Chloride Carbon Dioxide Anion Gap BUN Creatinine Estim Creat Clear Calc Estimated GFR Glucose POC Capillary Glucose 130 H 191 H 150 H Calcium Total Bilirubin AST ALT Alkaline Phosphatase Total Protein Albumin 07/05/24 07/05/24 07/05/24 05:25 05:38 07:41 WBC 6.8 RBC 4.85 Hgb 14.5 Hct 43.2 MCV 89.1 MCH 29.9 MCHC 33.6 RDW 12.6 Plt Count 142 L MPV 8.6 Sodium 135 L Potassium 3.9 Chloride 102 Carbon Dioxide 28 Anion Gap 5 BUN 14 D Creatinine 0.87 Estim Creat Clear Calc 66 Estimated GFR > 60 Glucose 157 H POC Capillary Glucose 165 H 159 H Calcium 8.7 Total Bilirubin 0.9 AST 20 ALT 17 Alkaline Phosphatase 42 Total Protein 6.0 L Albumin 3.6
[2024-07-05 11:54] LABS: Glucose Point of Care 230 mg/dl (65-105)
[2024-07-05] MEDS: INSULIN ASPART (*BKC) 100 UNITS/ML SUB-Q (12:44)
[2024-07-05 16:07] LABS: Glucose Point of Care 108 mg/dl (65-105)
[2024-07-05 16:31] LABS: Glucose Point of Care 90 mg/dl (65-105)
[2024-07-05] MEDS: OMEGA 3 POLYUNSAT FATTY ACIDS 1 GM CAP PO (17:34)
[2024-07-05 19:37] LABS: Glucose Point of Care 149 mg/dl (65-105)
[2024-07-05] MEDS: hydroCHLOROthiazide 12.5 MG CAPSULE PO (20:38)
[2024-07-05] MEDS: METOPROLOL TARTRATE 50 MG TAB PO (20:38)
[2024-07-05] MEDS: OLMESARTAN MEDOXOMIL 20 MG TABLET 40 MG PO (20:38)
[2024-07-05] MEDS: ATORVASTATIN 10 MG TABLET PO (20:38)
[2024-07-06] MEDS: BISACODYL 10 MG SUPPOSITORY RECTAL (01:02)
[2024-07-06 05:30] VITALS: BP 139/48; PULSE 71; RESP 20; TEMP 36.5; O2SAT 97
[2024-07-06 06:17] LABS: Hematocrit 42.6 % (42.0-52.0); Hemoglobin 13.9 g/dL (14.0-18.0); Mean Corpuscular HGB Conc 32.6 g/dl (32-36); Mean Corpuscular Hemoglobin 29.8 pg (26-34); Mean Corpuscular Volume 91.2 fl (80-100); Mean Platelet Volume 8.5 fl (7.4-10.4); Platelet Count Result 137 k/mm3 (150-375); Red Blood Count 4.67 M/mm3 (4.6-6.20); Red Cell Distribution Width 12.5 % (11.5-14.5); White Blood Count 5.8 K/mm3 (4.5-10.0)
[2024-07-06 06:50] LABS: Alanine Aminotransferase 18 U/L (6-50); Albumin Level 3.5 g/dL (3.5-5.1); Alkaline Phosphatase 46 U/L (38-126); Anion Gap 4 mmol/L (4-12); Aspartate Amino Transferase 21 U/L (17-59); Bilirubin,Total 0.7 mg/dL (0.2-1.3); Blood Urea Nitrogen 8 mg/dL (9-20); Carbon Dioxide 29 mmol/L (22-30); Chloride 101 mmol/L (98-107); Estimated CRCL calculation 67 ml/min; Estimated Glomerular Filt Rate > 60; Glucose 167 mg/dL (65-110); Potassium 3.7 mmol/L (3.4-5.0); Sodium 134 mmol/L (137-145)
[2024-07-06 08:11] LABS: Glucose Point of Care 182 mg/dl (65-105)
[2024-07-06] MEDS: OMEGA 3 POLYUNSAT FATTY ACIDS 1 GM CAP PO (08:57)
[2024-07-06] MEDS: PANTOPRAZOLE SODIUM IV 40 MG VIAL IV PUSH (08:57)
[2024-07-06 12:07] LABS: Glucose Point of Care 177 mg/dl (65-105)
--- NOTE | 2024-07-06 12:12 | P.PNGS_ITS ---
Progress Note: A&P Assessment and Plan (1) Partial small bowel obstruction: Code(s): K56.600 - Partial intestinal obstruction, unspecified as to cause Status: Acute Assessment and Plan: * Patient tolerated soft diet well. If he tolerates full diet with lunch, he is safe to be discharged from a surgical standpoint. (2) Type 2 diabetes mellitus: Qualifiers: Diabetes mellitus assisted insulin use: without computer terminal operator use Diabetes mellitus complication status: without complication Qualified Code(s): E11.9 - Type 2 diabetes mellitus without complications Code(s): E11.9 - Type 2 diabetes mellitus without complications Status: Chronic (3) Essential (primary) hypertension: Code(s): I10 - Essential (primary) hypertension Status: Chronic Subjective Subjective Date/Time Seen: 07/06/24 12:12 Interval history: No acute events overnight. Patient is tolerating full liquids well and will be advanced to a full diet for lunch. He is passing flatus and regular BMs. Denies any abdominal pain, nausea, or vomiting. He expresses interest in discharge from hospital today. Exam GI: Inspection: non-distended GI Palp: Yes Soft to palpation, No Firmness to palpation present (GI), No Tenderness to palpation present (GI) and No Gua rding due to palpation present (GI) Auscultation: normal bowel sounds Objective Data Vital Signs Vital Signs: Vital Signs - 24 hr 07/05/24 12:45 07/05/24 14:00 07/05/24 20:00 Temperature 96.9 F L Pulse Rate 100 88 82 Respiratory Rate 18 16 Blood Pressure 122/60 Pulse Oximetry 94 99 Oxygen Delivery Room Air Fraction of Inspired Oxygen 21 07/05/24 20:38 07/05/24 20:44 07/06/24 05:30 Temperature 97.2 F L 97.7 F Pulse Rate 84 82 71 Respiratory Rate 16 20 Blood Pressure 146/77 H 139/48 L Pulse Oximetry 99 97 Oxygen Delivery Fraction of Inspired Oxygen 07/06/24 09:00 Temperature Pulse Rate Respiratory Rate Blood Pressure Pulse Oximetry Oxygen Delivery Room Air Fraction of Inspired Oxygen Intake/Output Intake/Output: Intake & Output 07/03/24 07/04/24 07/05/24 07/06/24 23:59 23:59 23:59 23:59 Intake Total 1999 2478 2893.3 550 Output Total 1150 1300 400 Balance 850 1178 2493.3 550 Meds/Results Medications: Active Medications Generic Name Dose Route Start Last Admin Trade Name Freq PRN Reason Stop Dose Admin Atorvastatin Calcium 10 mg 07/05/24 21:00 07/05/24 20:38 Atorvastatin 10 Mg Tablet PO 10 mg QHS JACE Administration Dextrose 12.5 gm 07/02/24 13:08 Dextrose 50% 25 Gm/50 Ml Syringe IV PUSH PRN PRN Hypoglycemia Protocol Fish Oil 1 gm 07/05/24 17:00 07/06/24 08:57 [place] 3 Polyunsat Fatty Acids 1 Gm Cap PO 1 gm BID JACE Administration Glucagon 1 mg 07/02/24 13:08 Glucagon For Inj 1 Mg Vial IM PRN PRN Hypoglycemia Protocol Glucose 15 gm 07/02/24 13:08 Glucose Oral Gel 15 Gm Of Glucse In 37.5 Gm Tube PO PRN PRN Hypoglycemia Protocol Hydrochlorothiazide 12.5 mg 07/05/24 21:00 07/05/24 20:38 Hydrochlorothiazide 12.5 Mg Capsule PO 12.5 mg HS JACE Administration Dextrose 1,000 mls @ 100 mls/hr 07/02/24 13:08 Dextrose 5% 1,000 Ml IVPB PRN PRN Hypoglycemia Protocol Insulin Aspart 3 - 6 units 07/05/24 17:00 07/06/24 08:51 Insulin Aspart (*Bkc) 100 Units/Ml SUB-Q Not Given TIDWM JACE Protocol Metoprolol Tartrate 50 mg 07/05/24 21:00 07/05/24 20:38 Metoprolol Tartrate 50 Mg Tab PO 50 mg QHS JACE Administration Ofloxacin 2 drop 07/05/24 13:43 Ofloxacin 0.3% Ophth Soln 5 Ml Btl EACH EAR TID PRN ear wax Olmesartan 40 mg 07/05/24 21:00 07/05/24 20:38 Olmesartan Medoxomil 20 Mg Tablet PO 40 mg HS JACE Administration Ondansetron HCl 4 mg 07/02/24 10:57 07/02/24 16:47 Ondansetron Inj 4 Mg/2 Ml Vial IV PUSH 4 mg Q4H PRN Administration Nausea Pantoprazole Sodium 40 mg 07/03/24 09:00 07/06/24 08:57 Pantoprazole Sodium Iv 40 Mg Vial IV PUSH 40 mg QAM JACE Administration Radiology Results: ITS Impressions Abdomen/Pelvis CT 07/02/24 08:18 IMPRESSION: 1. Dilated jejunal loops with transition zone seen in the left side of the pelvis which may indicate partial obstruction. Follow-up advised. Postoperative changes are seen in the area of transition. 2. Cholelithiasis. 3. Bilateral inguinal hernia with fat content. 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 Abdomen X-Ray 07/04/24 19:19 IMPRESSION: NO ACUTE ABDOMINAL FINDINGS. Labs Labs: Laboratory Results - last 24 hr 07/05/24 07/05/24 07/05/24 15:13 16:19 19:15 WBC RBC Hgb Hct MCV MCH MCHC RDW Plt Count MPV Sodium Potassium Chloride Carbon Dioxide Anion Gap BUN Creatinine Estim Creat Clear Calc Estimated GFR Glucose POC Capillary Glucose 108 H 90 149 H Calcium Total Bilirubin AST ALT Alkaline Phosphatase Total Protein Albumin 07/06/24 07/06/24 07/06/24 05:38 07:44 11:53 WBC 5.8 RBC 4.67 Hgb 13.9 L Hct 42.6 MCV 91.2 MCH 29.8 MCHC 32.6 RDW 12.5 Plt Count 137 L MPV 8.5 Sodium 134 L Potassium 3.7 Chloride 101 Carbon Dioxide 29 Anion Gap 4 BUN 8 L D Creatinine 0.85 Estim Creat Clear Calc 67 Estimated GFR > 60 Glucose 167 H POC Capillary Glucose 182 H 177 H Calcium 9.0 Total Bilirubin 0.7 AST 21 ALT 18 Alkaline Phosphatase 46 Total Protein 6.0 L Albumin 3.5
--- NOTE | 2024-07-06 14:12 | P.DS_ITS ---
DS: Admitting Diagnosis Discharge Date 07/06/24 Admitting Diagnosis Abdominal pain. DS: Discharge Diagnosis Discharge Diagnosis (1) Partial small bowel obstruction: Code(s): K56.600 - Partial intestinal obstruction, unspecified as to cause Status: Acute DS: Summary Hospital Course Hospital Course: This is a very pleasant?89-year-old gentleman with history of multiple small- bowel obstructions, hypertension, and diabetes who presented to the emergency department for evaluation of nausea and vomiting. The patient provides the following history. He awoke at about 05:00 with nausea and had 3 episodes of emesis containing partially digested food from yesterday. He was able to have only a very small, soft bowel movement. He does not have any abdominal pain to speak of though maybe feels a bit distended. The symptoms are similar to those he has had with prior bowel obstructions and he came in for evaluation. He denies fever, chills sweats, chest pain, shortness of breath, diarrhea, hematemesis, melena, and hematochezia. In the ED: Vital signs were stable on arrival. Labs were significant for a WBC count of 13.6, sodium 135, glucose 168. CT of the abdomen and pelvis showed dilated jejunal loops with transition zone on the left side of the pelvis which may indicate partial obstruction and other incidental findings. He was given a dose of Zofran and and NG tube was inserted however was found to be kinked in the distal esophagus on imaging. He has been admitted to the medical floor for further treatment and close monitoring. Patient was placed on NPO and gradually diet was advanced to regular diet today. Surgery was consulted adn follow him during this stay Patient tolerated regular diet today no vomiting or abd pain F/u with PCP in 3-5 days F/u with [facility] surgery as instructed Time Spent with Patient Time attestation: Total time spent providing and/or coordinating discharge services: DS: Data Data Completed and Pending Labs on day of discharge: Labs from last 24 hours 07/06/24 07/06/24 07/06/24 11:53 07:44 05:38 WBC 5.8 RBC 4.67 Hgb 13.9 L Hct 42.6 MCV 91.2 MCH 29.8 MCHC 32.6 RDW 12.5 Plt Count 137 L MPV 8.5 Sodium 134 L Potassium 3.7 Chloride 101 Carbon Dioxide 29 Anion Gap 4 BUN 8 L D Creatinine 0.85 Estim Creat Clear Calc 67 Estimated GFR > 60 Glucose 167 H POC Capillary Glucose 177 H 182 H Calcium 9.0 Total Bilirubin 0.7 AST 21 ALT 18 Alkaline Phosphatase 46 Total Protein 6.0 L Albumin 3.5 07/05/24 07/05/24 07/05/24 19:15 16:19 15:13 WBC RBC Hgb Hct MCV MCH MCHC RDW Plt Count MPV Sodium Potassium Chloride Carbon Dioxide Anion Gap BUN Creatinine Estim Creat Clear Calc Estimated GFR Glucose POC Capillary Glucose 149 H 90 108 H Calcium Total Bilirubin AST ALT Alkaline Phosphatase Total Protein Albumin Discharge Plan Discharge Attending physician on discharge: Zbigniew Mccain Consulting providers: Santi Xavier Discharging Clinician: Zbigniew Mccain Anticipated Discharge Date/Time: 07/06/24 14:10 Patient Disposition: Home Activity: as tolerated Diet: as tolerated and diabetic Patient Instructions: Antibiotic Form Patient Language: Tristanian Stand Alone Forms: General Discharge Information Follow-up/Referrals: Yusuf Herndon APRN [Primary Care Provider] - (F/u with PCP in 3-5 days ) Santi Xavier DO [Physician] - (F/u with Surgery as instructed ) Discharge Medications: Continued omega-3 fatty acids [Fish Oil Concentrate] 1,000 mg capsule 1,200 mg PO BID naproxen sodium [Aleve] 220 mg Tablet 220 mg PO BID PRN (Reason: Pain) atorvastatin 10 mg tablet 10 mg PO QHS ofloxacin 0.3 % drops 2 drp otic (ear) TID PRN (Reason: ear wax) Rx Instructions: put 4 drops in left ear with ear up toward the ceiling 3 times daily prn metoprolol tartrate 50 mg tablet 50 mg PO QHS diphenhydramine-acetaminophen 25-500 mg-mg/mL solution 15 ml PO QHS omeprazole 40 mg capsule,delayed release(DR/EC) 40 mg PO HS Rx Instructions: TAKE 1 CAPSULE BY MOUTH DAILY olmesartan-hydrochlorothiazide 40-12.5 mg tablet 1 tablet PO HS Januvia 100 mg tablet 100 mg PO HS Rx Instructions: TAKE 1 TABLET BY MOUTH DAILY glipizide 2.5 mg tablet 2.5 mg PO BID Qty: 180 1RF (DME) lancets [OneTouch Delica Plus Lancet] 33 gauge misc See Rx Instructions .ROUTE .COMPLEX Qty: 200 2RF Dose Instruction: USE TO TEST BLOOD SUGARS ONCE DAILY Rx Instructions: USE TO TEST BLOOD SUGARS ONCE DAILY (DME) OneTouch Verio test strips Strip See Rx Instructions .Route Qty: 100 3RF Rx Instructions: Test once daily tadalafil 20 mg tablet See Rx Instructions .ROUTE .COMPLEX Qty: 14 0RF Dose Instruction: TAKE 1 TABLET BY MOUTH ABOUT 30 MINUTES BEFORE SEXUAL ACTIVITY; DO NO EXCEED MORE THAN 1 TABLET DAILY Rx Instructions: TAKE 1 TABLET BY MOUTH ABOUT 30 MINUTES BEFORE SEXUAL ACTIVITY; DO NO EXCEED MORE THAN 1 TABLET DAILY Date of admission: 07/03/24 16:06 Primary Care Provider: Yusuf Herndon Admitting Provider: Annette Paredes Attending physician on admission: Annette Paredes Condition: Stable
== END 2024-07-06 14:47 | disposition home or self-care (01) | DRG 389 ==
LOC: ANHED 10:57 → ANH3MEDSUR 12:16
PROVIDERS: General Practice; Physician Assistant; Admitting Provider Family Medicine; Emergency Provider Emergency Medicine; PCP Nurse Practitioner; Visit Provider Internal Medicine
DX: K56.600 Partial intestinal obstruction, unspecified as to cause (principal); I13.0 Hypertensive heart and chronic kidney disease with heart failure and stage 1 through stage 4 chronic kidney disease, or unspecified chronic kidney disease; I50.32 Chronic diastolic (congestive) heart failure; N18.31 Chronic kidney disease, stage 3a; E11.22 Type 2 diabetes mellitus with diabetic chronic kidney disease; K21.9 Gastro-esophageal reflux disease without esophagitis; K57.30 Diverticulosis of large intestine without perforation or abscess without bleeding; K58.9 Irritable bowel syndrome, unspecified; N40.0 Benign prostatic hyperplasia without lower urinary tract symptoms
CPT/HCPCS: 36415; 74018; 74019; 74177; 80048; 80053; 81003; 82948; 83690; 83735; 85025; 85027; 85610; 85730; 96361; 96374; 96375; 96376; 99285; A9270; G0378; J1815; J2060; J2405; J2470; J7030; Q9967

== ENCOUNTER 2024-10-24 03:58 | Emergency (ER) | payer MEDICARE, SELFPAY ==
--- NOTE | ~2024-10-24 | CT_ITS ---
Cali Vasquez EXAMINATION: CT abdomen pelvis w con COMPARISON: None HISTORY: abd pain, hx of sbo TECHNIQUE: Axial images were obtained through the abdomen, pelvis post administration of IV contrast. Oral contrast was also administered. Coronal reconstruction images were obtained from the axial views. CT scan performed using dose optimization techniques including the following automated exposure control; adjustment of mA and/or kV; use of iterative reconstruction technique. Automatic exposure control was used to reduce radiation dose. Permanent radiation dose record is archived to PACS. FINDINGS: CT abdomen: LUNG BASES: Chronic changes in the lung bases. LIVER: Portal venous gas left and right lobes of the liver. Main portal vein patent. SPLEEN: Punctate calcified splenic granulomas.. KIDNEYS: Right Kidney: Right kidney simple cyst 2 x 2 cm. Left Kidney: Left kidney simple cyst 1 x 1 cm. ADRENAL GLANDS: Unremarkable. PANCREAS: Unremarkable. GALLBLADDER/BILIARY: Cholelithiasis. STOMACH AND ESOPHAGUS: Visualized stomach and esophagus within normal limits. BOWEL/MESENTERY: Multiple dilated loops of small bowel the largest measures 4.4 cm with decompressed small bowel loops, several hyperemic small bowel loops noted. No colitis or diverticulitis. Appendix normal. ADENOPATHY/RETROPERITONEUM: No lymphadenopathy. AORTA/VASCULATURE: Normal caliber aorta. FREE FLUID OR FREE AIR: None. CT pelvis: SOLID ORGANS/REPRODUCTIVE: Prostate enlarged, correlate with PSA. BLADDER: Within normal limits. OSSEOUS STRUCTURES: Moderate degenerative changes lumbar spine. OVERLYING SOFT TISSUES: Small bilateral fat-containing inguinal hernia. IMPRESSION: Small bowel obstruction. Evidence of small bowel ischemia detailed above with portal venous gas. Surgical consult recommended. Findings discussed with the ED immediately Reviewed, dictated and finalized at location A. IMPRESSION: Small bowel obstruction. Evidence of small bowel ischemia detailed above with p ortal venous gas. Surgical consult recommended. Findings discussed with the ED immediately
[2024-10-24 04:03] VITALS: BP 145/63; PULSE 85; RESP 17; TEMP 36.4; O2SAT 96
[2024-10-24 04:36] VITALS: BP 114/83; PULSE 102; RESP 20; O2SAT 98
[2024-10-24 04:50] LABS: Hematocrit 45.2 % (42.0-52.0); Hemoglobin 14.9 g/dL (14.0-18.0); Immature Granulocyte Percent A 0.2 % (0-0.5); Lymphocytes Absolute Auto 1.66 K/mm3 (0.9-3.2); Mean Corpuscular HGB Conc 33.0 g/dl (32-36); Mean Corpuscular Hemoglobin 29.8 pg (26-34); Mean Corpuscular Volume 90.4 fl (80-100); Nucleated Red Blood Cells Absolute Auto 0.000 K/mm3 (0.0-0.012); Nucleated Red Blood Cells Perc 0.0 % (0.0-0.2); Platelet Count Result 165 k/mm3 (150-375); Red Blood Count 5.00 M/mm3 (4.6-6.20); White Blood Count 8.7 K/mm3 (4.5-10.0)
[2024-10-24 04:55] LABS: Add Urine Microscopic? YES; Appearance Urine Clear (Clear); Glucose Urine UA Negative (Negative); Leukocyte Esterase Ur Negative LEU/UL (Negative); Nitrate Urine Negative (Negative); Non Pathogenic Casts 0-2; Specific Grav Ur 1.023 (1.001-1.035)
[2024-10-24 05:09] LABS: Alanine Aminotransferase 21 U/L (6-50); Albumin Level 4.0 g/dL (3.5-5.1); Alkaline Phosphatase 50 U/L (38-126); Anion Gap 5 mmol/L (4-12); Aspartate Amino Transferase 27 U/L (17-59); Bilirubin,Total 1.1 mg/dL (0.2-1.3); Blood Urea Nitrogen 26 mg/dL (9-20); Calcium 9.1 mg/dL (8.4-10.2); Carbon Dioxide 28 mmol/L (22-30); Chloride 98 mmol/L (98-107); Estimated CRCL calculation 56 ml/min; Estimated Glomerular Filt Rate > 60; Glucose 160 mg/dL (65-110); Lipase 139 U/L (23-300); Potassium 4.8 mmol/L (3.4-5.0); Sodium 131 mmol/L (137-145); Total Protein 6.7 g/dL (6.3-8.2)
[2024-10-24] MEDS: ONDANSETRON INJ 4 MG/2 ML VIAL IV PUSH (05:12)
--- NOTE | 2024-10-24 06:18 | ED.ABDPAIN ---
HPI - Abdominal Pain General Chief Complaint: Abdominal Pain <Paul Farmer MD - Last Filed: 10/25/24 03:53> Stated Complaint: ABD pain, n/v, Hx SBO <Paul Farmer MD - Last Filed: 10/25/24 03:53> Time Seen by Provider: 10/24/24 05:44 <Paul Farmer MD - Last Filed: 10/25/24 03:53> History of Present Illness HPI narrative: Patient is an 89-year-old male who presents emergency department this evening complaining of abdominal cramps and pain for the past 3-4 days. Patient states that he thought that he might be constipated so he took some milk of Mag and states that he has been having bowel movements with that. States that he has also been passing a lot a gas but despite that he still has abdominal cramps. He wanted to come in and get checked out as he does have a history of bowel obstruction. Patient states that though with his previous bowel obstructions he is usually not passing any gas or bowel movement so he is unsure. States that he did have 1 vomiting episode when he came to the emergency department but no vomiting at home. At this moment, he is denying any abdominal pain. Patient is passing a lot a gas. <Paul Farmer MD - Last Filed: 10/25/24 03:53> Related Data Home Medications: Home Medications ?Medication ?Instructions ?Recorded ?Confirmed ?Last Taken ?Type omega-3 fatty acids 1,000 mg 1,200 mg PO BID 10/07/19 09/28/24 07/01/24 History capsule (Fish Oil Concentrate) naproxen sodium 220 mg tablet 220 mg PO BID PRN Pain 07/03/22 09/28/24 07/01/24 History (Aleve) ofloxacin 0.3 % eye drops 2 drp otic (ear) TID PRN ear wax 02/24/24 09/28/24 02/23/24 History diphenhydramine 25 15 ml PO QHS 07/02/24 09/28/24 07/01/24 History mg-acetaminophen 500 mg/15 mL oral solution <Paul Farmer MD - Last Filed: 10/25/24 03:53> Allergies/Adverse Reactions: Allergies Allergy/AdvReac Type Severity Reaction Status Date / Time haloperidol AdvReac Unknown Hallucinati Verified 10/24/24 13:27 ng <Paul Farmer MD - Last Filed: 10/25/24 03:53> Review of Systems Review of Systems: All systems are reviewed and are negative unless stated otherwise in the HPI. 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 Esophageal stricture Status post dilatation. Gastroesophageal reflux disease Benign prostatic hyperplasia Essential hypertension, benign Diastolic CHF Diverticulosis With history of diverticulitis. Irritable bowel syndrome Type 2 diabetes mellitus with stage 1 chronic kidney disease <Paul Farmer MD - Last Filed: 10/25/24 03:53> Surgical History Surgical History: Surgical History History of carpal tunnel surgery of right wrist History of removal of cyst From chest wall. History of resection of small bowel (2006) With anastomosis. History of laparotomy With adhesiolysis in 1998 and 2006. <Paul Farmer MD - Last Filed: 10/25/24 03:53> Family History Family History: Family History Father Family history of lung cancer Family history of malignant neoplasm Mother Family history of malignant neoplasm of breast in first degree relative Family history of malignant neoplasm Breast cancer Sibling Brain cancer Other Colon polyp <Paul Farmer MD - Last Filed: 10/25/24 03:53> Social History Social History: Social History Social History: Surrogate medical decision maker: Barrett Vasquez ([facility] [place]). Code status: Full code. Smoking status: Never smoker Second hand tobacco smoke exposure: No Alcohol intake: current Drinks per week: 2 Alcohol use details: occasionally Substance use: never Substance use type: does not use Last use: 02/18/24 Do You Feel Safe in your Home?: Yes Lack of Transportation: No Lack of Food: Never True Current Housing: I Have Housing Concerned About Future Housing: No Difficulty Paying Gas/Electric Bills: No Difficulty Paying for Meds: No Currently Unemployed: No Education: Master's Degree or Higher Difficulty w/ Childcare or Family Care: No Living arrangements: alone Additional living arrangements comments: as of late 2020. He lives in his own home in [place]. He has 2 sons. 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 Spiritual care concerns: No <Paul Farmer MD - Last Filed: 10/25/24 03:53> Exam Narrative: General: Alert, awake, afebrile, in no acute distress. HEENT: PERRL, no rhinorrhea, no post nasal drip, oropharynx clear. Neck: Trachea midline, no JVD, no lymphadenopathy. Cardiovascular: Regular rate and rhythm, no murmurs, rubs or gallops, no peripheral edema. Respiratory: Clear to auscultation bilaterally, no tachypnea, no wheezing, no rhonchi, no rubs, no respiratory distress. Abdomen: Soft, nontender, distended, no rebound, no guarding, no peritoneal signs. Musculoskeletal: No joint swelling or deformity, normal muscle tone. Skin: No rashes or petechia, no signs of infection. Psychiatric: Alert and oriented, normal behavior and judgment for situation. Neurological: Alert and oriented to person, place, and time. Follows all commands. No focal deficits, speech is clear and fluent. <Paul Farmer MD - Last Filed: 10/25/24 03:53> Course Course Emergency Course: Patient signed out to me pending CT abdomen pelvis. CT Abd/pelvis Stat Rad w/ contrast: Pneumobilia. Bladder is decompressed although suggestion bladder wall thickening. Consider correlation with urinalysis for cystitis. Fluid density is seen within the colonic lumen suggesting increased transit state and possible underlying colitis. Dilated loops of small bowel are seen within the abdomen and pelvis with a transition point seen in the area of small bowel wall thickening seen within the anterior pelvis seen on series 3, image 124 concerning for developing small-bowel obstruction. Underlying infectious or inflammatory process is not excluded. Urine did not appear infected. Patient reassessed at bedside. He states he is feeling better. Discussed the findings of colitis on his imaging as well as the findings of the small bowel that do not appear to be a small-bowel obstruction at this time although there was concern for possibly developing 1. Patient amenable to having a consultation with a general surgeon for their opinion. He states he does not want to undergo surgery if he can avoid it and/or without talking to a surgeon and he really does not want an NG tube if that is possible, especially because he is otherwise feeling better. Discussed patient's complicated history including reviewing the wording of the CT scan as well as labs. Concurs that discharged with strict emergency department return precautions is reasonable. Occurs with Bentyl. Also recommends antibiotics and this is reasonable because even without a leukocytosis he does have a complicated history. Received 1st dose in the emergency department with rest the course prescribed. Also recommends the patient follow-up with him in clinic this week. Patient otherwise stable for discharge at this time. == Received phone call from radiologist noting the concern for portal venous gas and small bowel obstruction on the interpretation of the CT study. Based on this, I discussed these findings with Dr. Martin who agrees with the recommendation that patient should come back to the emergency department to be evaluated. He would recommend that a lactic acid be obtained this time as well as type and screen and coags if not yet obtained. He noted that an NG tube could be deferred until evaluation as there are also several reasons for portal venous gas. I called the patient at 12:15pm and spoke with him at length at this finding. He states , Oh, I guess I'm doing ok...just trying to take it easy. He states he would not want to proceed with surgery without his sons present (one is a physician at [employer] and the other lives in [place]). He is concerned he would not live through surgery and would want a living will and/or his wishes known. He asks who is recommending that he return and I told him 3 physicians: radiologist, surgeon, and myself. I advised that I would tell triage to be on the lookout for him and continued to strongly encourage that he return and be NPO in the interim. <Dayna Herbert MD - Last Filed: 10/24/24 12:25> Vital Signs Vital signs: Vital Signs Temperature 97.6 F 10/24/24 04:03 Pulse Rate 85 10/24/24 04:03 Respiratory Rate 17 10/24/24 04:03 Blood Pressure 145/63 H 10/24/24 04:03 Pulse Oximetry 96 10/24/24 04:03 Oxygen Delivery Room Air 10/24/24 04:03 Temperature 97.9 F 10/24/24 10:10 Pulse Rate 68 10/24/24 10:10 Respiratory Rate 16 10/24/24 10:10 Blood Pressure 141/77 H 10/24/24 10:10 Pulse Oximetry 99 10/24/24 10:10 Oxygen Delivery Room Air 10/24/24 04:03 <Paul Farmer MD - Last Filed: 10/25/24 03:53> Vital Signs Temperature 97.6 F 10/24/24 04:03 Pulse Rate 85 10/24/24 04:03 Respiratory Rate 17 10/24/24 04:03 Blood Pressure 145/63 H 10/24/24 04:03 Pulse Oximetry 96 10/24/24 04:03 Oxygen Delivery Room Air 10/24/24 04:03 Temperature 97.9 F 10/24/24 10:10 Pulse Rate 68 10/24/24 10:10 Respiratory Rate 16 10/24/24 10:10 Blood Pressure 141/77 H 10/24/24 10:10 Pulse Oximetry 99 10/24/24 10:10 Oxygen Delivery Room Air 10/24/24 04:03 <Dayna Herbert MD - Last Filed: 10/24/24 12:25> MDM - Abdominal Pain MDM Narrative Medical decision making narrative: The patient was evaluated by myself in the emergency department. History is obtained from patient who is an independent historian and physical exam was performed. External medical records were reviewed at this time. IV was established and pertinent tests were ordered. Patient was administered 4 mg IV Zofran for nausea/vomiting. Laboratory results obtained revealing no acute process. Imaging studies obtained included CT abdomen pelvis with IV contrast which currently pending Patient was signed out to AM ED physician pending remainder of the workup. <Paul Farmer MD - Last Filed: 10/25/24 03:53> Lab Data Result diagrams: 10/24/24 04:42 10/24/24 04:42 <Paul Farmer MD - Last Filed: 10/25/24 03:53> Labs: Lab Results 10/24/24 Range/Units 04:42 WBC 8.7 (4.5-10.0) K/mm3 RBC 5.00 (4.6-6.20) M/mm3 Hgb 14.9 (14.0-18.0) g/dL Hct 45.2 (42.0-52.0) % MCV 90.4 (80-100) fl MCH 29.8 (26-34) pg MCHC 33.0 (32-36) g/dl RDW 13.4 (11.5-14.5) % Plt Count 165 (150-375) k/mm3 MPV 8.6 (7.4-10.4) fl Immature Gran % (Auto) 0.2 (0-0.5) % Neut % (Auto) 70.6 (45.5-73.1) % Lymph % (Auto) 19.1 (18.3-44.2) % Thomas % (Auto) 8.8 H (2.6-8.5) % Eos % (Auto) 1.0 (0-4.4) % Baso % (Auto) 0.3 (0.2-1.2) % Lymph # (Auto) 1.66 (0.9-3.2) K/mm3 Thomas # (Auto) 0.8 H (0.1-0.6) K/mm3 Eos # (Auto) 0.1 (0-0.3) K/mm3 Baso # (Auto) 0.0 (0.0-0.1) K/mm3 Abs Immat Gran (auto) 0.02 (0.00-0.031) K/mm3 Absolute Neuts (auto) 6.1 (1.3-6.7) K/mm3 Absolute Nucleated RBC 0.000 (0.0-0.012) K/mm3 Nucleated RBC % 0.0 (0.0-0.2) % Sodium 131 L (137-145) mmol/L Potassium 4.8 (3.4-5.0) mmol/L Chloride 98 (98-107) mmol/L Carbon Dioxide 28 (22-30) mmol/L Anion Gap 5 (4-12) mmol/L BUN 26 H D (9-20) mg/dL Creatinine 1.08 (0.7-1.3) mg/dL Estim Creat Clear Calc 56 ml/min Estimated GFR > 60 (59 - ) Glucose 160 H (65-110) mg/dL Calcium 9.1 (8.4-10.2) mg/dL Total Bilirubin 1.1 (0.2-1.3) mg/dL AST 27 (17-59) U/L ALT 21 (6-50) U/L Alkaline Phosphatase 50 (38-126) U/L Total Protein 6.7 (6.3-8.2) g/dL Albumin 4.0 (3.5-5.1) g/dL Lipase 139 (23-300) U/L Urine Color Yellow (Yellow) Urine Appearance Clear (Clear) Urine pH 6.5 (5.0-9.0) Ur Specific [place] 1.023 (1.001-1.035) Urine Protein Trace (Negative) mg/dL Urine Glucose (UA) Negative (Negative) mg/dL Urine Ketones Trace H (Negative) mg/dL Ur Blood (Man) Negative (Negative) Urine Nitrate Negative (Negative) Urine Bilirubin Negative (Negative) Urine Urobilinogen 1.0 (<2.0) mg/dL Leukocyte Esterase Rfl Negative (Negative) MARILEE/UL Urine RBC 0-2 (0-2) /hpf Urine WBC 0-5 (0-3) /hpf Ur Squamous Epith Cells None seen (Few) /hpf Urine Bacteria None seen /hpf Urine Casts 0-2 <Paul Farmer MD - Last Filed: 10/25/24 03:53> Lab Results 10/24/24 Range/Units 04:42 WBC 8.7 (4.5-10.0) K/mm3 RBC 5.00 (4.6-6.20) M/mm3 Hgb 14.9 (14.0-18.0) g/dL Hct 45.2 (42.0-52.0) % MCV 90.4 (80-100) fl MCH 29.8 (26-34) pg MCHC 33.0 (32-36) g/dl RDW 13.4 (11.5-14.5) % Plt Count 165 (150-375) k/mm3 MPV 8.6 (7.4-10.4) fl Immature Gran % (Auto) 0.2 (0-0.5) % Neut % (Auto) 70.6 (45.5-73.1) % Lymph % (Auto) 19.1 (18.3-44.2) % Thomas % (Auto) 8.8 H (2.6-8.5) % Eos % (Auto) 1.0 (0-4.4) % Baso % (Auto) 0.3 (0.2-1.2) % Lymph # (Auto) 1.66 (0.9-3.2) K/mm3 Thomas # (Auto) 0.8 H (0.1-0.6) K/mm3 Eos # (Auto) 0.1 (0-0.3) K/mm3 Baso # (Auto) 0.0 (0.0-0.1) K/mm3 Abs Immat Gran (auto) 0.02 (0.00-0.031) K/mm3 Absolute Neuts (auto) 6.1 (1.3-6.7) K/mm3 Absolute Nucleated RBC 0.000 (0.0-0.012) K/mm3 Nucleated RBC % 0.0 (0.0-0.2) % Sodium 131 L (137-145) mmol/L Potassium 4.8 (3.4-5.0) mmol/L Chloride 98 (98-107) mmol/L Carbon Dioxide 28 (22-30) mmol/L Anion Gap 5 (4-12) mmol/L BUN 26 H D (9-20) mg/dL Creatinine 1.08 (0.7-1.3) mg/dL Estim Creat Clear Calc 56 ml/min Estimated GFR > 60 (59 - ) Glucose 160 H (65-110) mg/dL Calcium 9.1 (8.4-10.2) mg/dL Total Bilirubin 1.1 (0.2-1.3) mg/dL AST 27 (17-59) U/L ALT 21 (6-50) U/L Alkaline Phosphatase 50 (38-126) U/L Total Protein 6.7 (6.3-8.2) g/dL Albumin 4.0 (3.5-5.1) g/dL Lipase 139 (23-300) U/L Urine Color Yellow (Yellow) Urine Appearance Clear (Clear) Urine pH 6.5 (5.0-9.0) Ur Specific [place] 1.023 (1.001-1.035) Urine Protein Trace (Negative) mg/dL Urine Glucose (UA) Negative (Negative) mg/dL Urine Ketones Trace H (Negative) mg/dL Ur Blood (Man) Negative (Negative) Urine Nitrate Negative (Negative) Urine Bilirubin Negative (Negative) Urine Urobilinogen 1.0 (<2.0) mg/dL Leukocyte Esterase Rfl Negative (Negative) MARILEE/UL Urine RBC 0-2 (0-2) /hpf Urine WBC 0-5 (0-3) /hpf Ur Squamous Epith Cells None seen (Few) /hpf Urine Bacteria None seen /hpf Urine Casts 0-2 <Dayna Herbert MD - Last Filed: 10/24/24 12:25> Imaging Data Radiologist's impression: ITS Impressions Abdomen/Pelvis CT 10/24/24 11:29 IMPRESSION: Small bowel obstruction. Evidence of small bowel ischemia detailed above with portal venous gas. Surgical consult recommended. Findings discussed with the ED immediately <Paul Farmer MD - Last Filed: 10/25/24 03:53> ITS Impressions Abdomen/Pelvis CT 10/24/24 11:29 IMPRESSION: Small bowel obstruction. Evidence of small bowel ischemia detailed above with portal venous gas. Surgical consult recommended. Findings discussed with the ED immediately <Dayna Herbert MD - Last Filed: 10/24/24 12:25> Discharge Plan Discharge Clinical Impression: Abdominal pain, Colitis, Abnormal CT scan <Paul Farmer MD - Last Filed: 10/25/24 03:53> Patient Disposition: Home <Paul Farmer MD - Last Filed: 10/25/24 03:53> Condition: Stable <Paul Farmer MD - Last Filed: 10/25/24 03:53> Instructions: Antibiotic Form, Abdominal Pain (ED), Colitis (ED) <Paul Farmer MD - Last Filed: 10/25/24 03:53> Additional Instructions: As we discussed, no evidence of small-bowel obstruction this time and you are passing gas and having bowel movements. It is important to return to the ED with any new/worsening symptoms though as that could represent a small bowel obstruction has occurred/developed. You can take the prescribed Bentyl/dicyclomine to help with any abdominal pain and cramping related to the colitis that was seen on CT imaging. Combination of antibiotics have also been prescribed and you received the first dose in the ED today. The General surgeon would like to see you for outpatient follow up this week. Call his office tomorrow to set up an appointment. Do not drink alcohol while on metronidazole/Flagyl. Oral disintegrating tablets of Zofran/ondansetron can help with nausea/vomiting <Paul Farmer MD - Last Filed: 10/25/24 03:53> Patient Language: Thai <Paul Farmer MD - Last Filed: 10/25/24 03:53> Prescriptions: New metronidazole 500 mg tablet 500 mg PO Q8H 5 Days Qty: 15 0RF ciprofloxacin HCl 500 mg tablet 500 mg PO Q12H 5 Days Qty: 10 0RF dicyclomine 20 mg tablet 20 mg PO BID Qty: 20 0RF ondansetron 4 mg tablet,disintegrating 4 mg PO Q8H PRN (Reason: nausea and vomiting) Qty: 7 0RF No Action omega-3 fatty acids [Fish Oil Concentrate] 1,000 mg capsule 1,200 mg PO BID tadalafil 20 mg tablet See Rx Instructions .ROUTE .COMPLEX Qty: 14 3RF Dose Instruction: TAKE 1 TABLET BY MOUTH ABOUT 30 MINUTES BEFORE SEXUAL ACTIVITY; DO NO EXCEED MORE THAN 1 TABLET DAILY Rx Instructions: TAKE 1 TABLET BY MOUTH ABOUT 30 MINUTES BEFORE SEXUAL ACTIVITY; DO NO EXCEED MORE THAN 1 TABLET DAILY ofloxacin 0.3 % drops 4 drp otic (ear) TID Qty: 10 2RF Rx Instructions: put 4 drops in left ear with ear up towards healing for 20 seconds afterwards t.i.d. naproxen sodium [Aleve] 220 mg Tablet 220 mg PO BID PRN (Reason: Pain) ofloxacin 0.3 % drops 2 drp otic (ear) TID PRN (Reason: ear wax) Rx Instructions: put 4 drops in left ear with ear up toward the ceiling 3 times daily prn diphenhydramine-acetaminophen 25-500 mg-mg/mL solution 15 ml PO QHS (DME) lancets [OneTouch Delica Plus Lancet] 33 gauge misc See Rx Instructions .ROUTE .COMPLEX Qty: 200 2RF Dose Instruction: USE TO TEST BLOOD SUGARS ONCE DAILY Rx Instructions: USE TO TEST BLOOD SUGARS ONCE DAILY (DME) OneTouch Verio test strips Strip See Rx Instructions .Route Qty: 100 3RF Rx Instructions: Test once daily Januvia 100 mg tablet 100 mg PO HS Qty: 90 1RF Rx Instructions: TAKE 1 TABLET BY MOUTH DAILY omeprazole 40 mg capsule,delayed release(DR/EC) 40 mg PO HS Qty: 90 1RF Rx Instructions: TAKE 1 CAPSULE BY MOUTH DAILY olmesartan-hydrochlorothiazide 40-12.5 mg tablet 1 tablet PO HS Qty: 90 1RF metoprolol tartrate 50 mg tablet 50 mg PO QHS Qty: 90 0RF glipizide 2.5 mg tablet 2.5 mg PO BID Qty: 180 1RF atorvastatin 10 mg tablet 10 mg PO QHS Qty: 90 1RF ofloxacin 0.3 % drops 4 drp otic (ear) TID Qty: 10 2RF Rx Instructions: put 4 drops in each ear t.i.d. with ear up towards the ceiling for 20 seconds afterwards <Paul Farmer MD - Last Filed: 10/25/24 03:53> Follow-up/Referrals: Geeta Martin MD [Physician, General Surgery] Yusuf Herndon APRN [Primary Care Provider, Internal Medicine] <Paul Farmer MD - Last Filed: 10/25/24 03:53> Time of Disposition: 10:10 <Paul Farmer MD - Last Filed: 10/25/24 03:53> 10:10 <Dayna Herbert MD - Last Filed: 10/24/24 12:25>
[2024-10-24 06:57] VITALS: PULSE 85; RESP 20; TEMP 36.7; O2SAT 100
--- NOTE | 2024-10-24 07:32 | PC.NURSE ---
Assumed care. Pt states that he is having large bowel movements. Awaiting CT report.
[2024-10-24 10:10] VITALS: BP 141/77; PULSE 68; RESP 16; TEMP 36.6; O2SAT 99
[2024-10-24] MEDS: CIPROFLOXACIN 500 MG TAB PO (10:11)
[2024-10-24] MEDS: DICYCLOMINE HCL 10 MG CAPSULE 20 MG PO (10:11)
== END 2024-10-24 10:41 | disposition home or self-care (01) ==
PROVIDERS: Emergency Medicine; Emergency Provider Student in an Organized Health Care Education/Training Program; PCP Nurse Practitioner
DX: K52.9 Noninfective gastroenteritis and colitis, unspecified (principal); R93.89 Abnormal findings on diagnostic imaging of other specified body structures; K21.9 Gastro-esophageal reflux disease without esophagitis; E11.22 Type 2 diabetes mellitus with diabetic chronic kidney disease; I13.0 Hypertensive heart and chronic kidney disease with heart failure and stage 1 through stage 4 chronic kidney disease, or unspecified chronic kidney disease; N18.1 Chronic kidney disease, stage 1; I50.9 Heart failure, unspecified; K57.90 Diverticulosis of intestine, part unspecified, without perforation or abscess without bleeding
CPT/HCPCS: 36415; 74177; 80053; 81001; 83605; 83690; 85025; 85610; 85730; 86850; 86900; 86901; 96374; 99284; A9270; J2405; Q9967

== ENCOUNTER 2024-10-24 13:16 | Emergency (ER) | payer MEDICARE, SELFPAY ==
--- OUTSIDE RECORDS SUMMARY | 2009-12-01 03:30 | XMS_ITS | Continuity of Care Document ---
Author Organization [facility] Address [address] [place] [address] [place] [address] Phone Care Team Providers Care Typewriter Assembler Name Role Phone Ambreen Isaac Unavailable Unavailable Procedures Procedure Date Eye Exam Established Pt Eye Exam & Treatment Refraction Advance Directives Directive Yes / No Effective Date File Name No Information Encounters Encounter Description Practice Location Reason(s) For Visit Diagnoses Date Provider Providers Copied on Encounter [facility], [address] [place] [address] [address], [place], [place], [id number], tel:[phone] [facility] No Information 2-201 0 Marlin Willams [address] [facility] , [address], [place], [place], [facility], . tel:[phone] [facility], [address] [place] [address] [address], [place], [place], [id number], tel:[phone] [facility] No Information 9-201 0 Marlin Willams [address] [facility] , [address], [place], [address], [place]. tel:[phone] Referring Provider: Ry Montes MD , [address] [facility] [address], [place], [address]. tel:[phone] Family History Family Member Type Diagnosis Age At Onset No Information Payers Payer name Insurance type Covered democrat ID Authoriza tion(s) [place] [id number] Social History Type Description Quantity Date Captured Comments Sex Male Smoking Status No Information Chief Complaint And Reason For Visit No Information Reason For Referral Reason For Referral No Information History Of Present Illness Encounter Date Complaint History Of Prese nt Illness No Information Functional Status Date Functional Assessmen t No Information Instructions Date Instruction Additional Infor mation No Information Assessments Type Assessment Date No Information Patient Care Teams Name Effective Dates (start - stop) Status Members No Information
[2024-10-24 13:21] VITALS: BP 134/73; PULSE 78; RESP 23; TEMP 36.7; O2SAT 97
[2024-10-24 14:01] LABS: INR 1.0; Prothrombin Time 13.0 Seconds (11.1-14.7)
[2024-10-24 14:02] LABS: Partial Thromboplastin Time 25.3 Seconds (22.3-36.8)
--- NOTE | 2024-10-24 14:30 | ED.NAVMDI ---
HPI - Nausea/Vomiting/Diarrhea General Chief complaint: Nausea/Vomiting/Diarrhea Stated complaint: Nausea-poss small bowel obstruction Time Seen by Provider: 10/24/24 13:29 Source: patient and family (son) Mode of arrival: ambulatory Limitations: no limitations History of Present Illness HPI Narrative: Patient presents after being advised to do so by me a few hours earlier based on over-read of overnight CT scan by in-house radiologist who had concerns for small bowel obstruction and portal vein gas. After discussion with propulsion generator repairer general surgeon (who had been consulted earlier regarding the patient), patient had been called and now presents. Notes that his only symptom is some mild nausea although states the Zofran helped. Has not picked up Rx for Zofran, is referring to the Zofran he received overnight. Denies any vomiting. Continues to pass loose stool but not diarrhea. No abdominal pain. Passing flatus. Has some burning phlegm in throat otherwise. Related Data Home Medications ?Medication ?Instructions ?Recorded ?Confirmed ?Last Taken ?Type omega-3 fatty acids 1,000 mg 1,200 mg PO BID 10/07/19 09/28/24 07/01/24 History capsule (Fish Oil Concentrate) naproxen sodium 220 mg tablet 220 mg PO BID PRN Pain 07/03/22 09/28/24 07/01/24 History (Aleve) ofloxacin 0.3 % eye drops 2 drp otic (ear) TID PRN ear wax 02/24/24 09/28/24 02/23/24 History diphenhydramine 25 15 ml PO QHS 07/02/24 09/28/24 07/01/24 History mg-acetaminophen 500 mg/15 mL oral solution Allergies Allergy/AdvReac Type Severity Reaction Status Date / Time haloperidol AdvReac Unknown Hallucinati Verified 10/24/24 13:27 ng [facility] Past Medical History Medical History BMI 37.0-37.9, adult BMI 35.0-35.9,adult Small bowel obstruction 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 Esophageal stricture Status post dilatation. Gastroesophageal reflux disease Benign prostatic hyperplasia Essential hypertension, benign Diastolic CHF Diverticulosis With history of diverticulitis. Irritable bowel syndrome Type 2 diabetes mellitus with stage 1 chronic kidney disease Surgical History Surgical History History of carpal tunnel surgery of right wrist History of removal of cyst From chest wall. History of resection of small bowel (2006) With anastomosis. History of laparotomy With adhesiolysis in 1998 and 2006. Family History Family History Father Family history of lung cancer Family history of malignant neoplasm Mother Family history of malignant neoplasm of breast in first degree relative Family history of malignant neoplasm Breast cancer Sibling Brain cancer Other Colon polyp Social History Social History (Updated 10/25/24 @ 23:03 by Dayna Herbert MD) Social History: Surrogate medical decision maker: Jay and Angel Vasquez (sons, one of whom is a doctor and one is a [employer] drm consultant/grinder set up operator surface). Code status: Full code. Smoking status: Never smoker Second hand tobacco smoke exposure: No Alcohol intake: current Drinks per week: 2 Alcohol use details: occasionally Substance use: never Substance use type: does not use Last use: 02/18/24 Do You Feel Safe in your Home?: Yes Lack of Transportation: No Lack of Food: Never True Current Housing: I Have Housing Concerned About Future Housing: No Difficulty Paying Gas/Electric Bills: No Difficulty Paying for Meds: No Currently Unemployed: No Education: Master's Degree or Higher Difficulty w/ Childcare or Family Care: No Living arrangements: alone Additional living arrangements comments: as of late 2020. He lives in his own home in [place]. He has 2 sons. 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 Spiritual care concerns: No Exam Narrative: GENERAL: Well-appearing, well-nourished, and in no acute distress. HEAD: Normocephalic, atraumatic. EYES: Non injected, non icteric ENT: Nares clear, no rhinorrhea or epistaxis. Gross auditory acuity intact. NECK: Supple. No meningismus. CHEST: Speaking in full sentences. No respiratory distress. HEART: Regular rate and rhythm. . ABDOMEN: Soft, nondistended. No rigidity or guarding. Not peritoneal EXTREMITIES: Normal range of motion. No lower extremity edema. SKIN: Warm, dry, no rash. NEURO: No focal deficits. Alert and oriented. Answering questions. Following commands. Normal speech without aphasia or dysarthria. PSYCH: Normal mood and affect. Course Vital Signs Vital signs: Vital Signs Temperature 98.1 F 10/24/24 13:21 Pulse Rate 78 10/24/24 13:21 Respiratory Rate 23 H 10/24/24 13:21 Blood Pressure 134/73 10/24/24 13:21 Pulse Oximetry 97 10/24/24 13:21 Oxygen Delivery Room Air 10/24/24 13:21 Temperature 98.1 F 10/24/24 13:21 Pulse Rate 78 10/24/24 13:21 Respiratory Rate 23 H 10/24/24 13:21 Blood Pressure 134/73 10/24/24 13:21 Pulse Oximetry 97 10/24/24 13:21 Oxygen Delivery Room Air 10/24/24 13:21 MDM - Nausea/Vomiting/Diarrhea MDM Narrative Medical decision making narrative: Patient presents as instruted/advised to do so by myself earlier via phone call based on CT interpretation by in-house radiologist which was concerning for small bowel obstruction. In the emergency department he is afebrile with vital signs that show mild tachypnea. Lactic acid normal. Patient states other than some mild nausea and phlegm in his throat he is asymptomatic. Discussed with Dr. Martin again who notes that if patient and family's desire is to go home and he is otherwise reliable if given strict ED return precautions, this is reasonable to do, although admission could be offered to monitor/watch. Patient desires to follow up with either Dr Martin or Dr Garcia in the outpatient setting. Verify understanding of the plan. Otherwise stable for discharge. Advised picking up the Rx electronically sent earlier this morning. Lab Data Labs: Lab Results 10/24/24 Range/Units 13:43 PT 13.0 (11.1-14.7) Seconds INR 1.0 APTT 25.3 (22.3-36.8) Seconds Lactic Acid 1.0 (0.7-2.0) mmol/L Blood Type O Positive Antibody Screen Negative Discharge Plan Discharge Clinical Impression: Nausea Patient Disposition: Home Condition: Stable Instructions: Antibiotic Form, Acute Nausea and Vomiting (ED) Additional Instructions: As we discussed this morning, reasonable to go home and return if new/worsening/recurring symptoms. Use the medications prescribed earlier this morning and still call tomorrow morning to follow up either with Dr Martin or Dr Garcia later this week in the outpatient clinic. Thank you for coming back to the ED and apologies for the confusion given the disagreement between CT interpretations. Patient Language: Lao Prescriptions: No Action omega-3 fatty acids [Fish Oil Concentrate] 1,000 mg capsule 1,200 mg PO BID tadalafil 20 mg tablet See Rx Instructions .ROUTE .COMPLEX Qty: 14 3RF Dose Instruction: TAKE 1 TABLET BY MOUTH ABOUT 30 MINUTES BEFORE SEXUAL ACTIVITY; DO NO EXCEED MORE THAN 1 TABLET DAILY Rx Instructions: TAKE 1 TABLET BY MOUTH ABOUT 30 MINUTES BEFORE SEXUAL ACTIVITY; DO NO EXCEED MORE THAN 1 TABLET DAILY ofloxacin 0.3 % drops 4 drp otic (ear) TID Qty: 10 2RF Rx Instructions: put 4 drops in left ear with ear up towards healing for 20 seconds afterwards t.i.d. naproxen sodium [Aleve] 220 mg Tablet 220 mg PO BID PRN (Reason: Pain) ofloxacin 0.3 % drops 2 drp otic (ear) TID PRN (Reason: ear wax) Rx Instructions: put 4 drops in left ear with ear up toward the ceiling 3 times daily prn diphenhydramine-acetaminophen 25-500 mg-mg/mL solution 15 ml PO QHS metronidazole 500 mg tablet 500 mg PO Q8H 5 Days Qty: 15 0RF ciprofloxacin HCl 500 mg tablet 500 mg PO Q12H 5 Days Qty: 10 0RF dicyclomine 20 mg tablet 20 mg PO BID Qty: 20 0RF ondansetron 4 mg tablet,disintegrating 4 mg PO Q8H PRN (Reason: nausea and vomiting) Qty: 7 0RF (DME) lancets [OneTouch Delica Plus Lancet] 33 gauge misc See Rx Instructions .ROUTE .COMPLEX Qty: 200 2RF Dose Instruction: USE TO TEST BLOOD SUGARS ONCE DAILY Rx Instructions: USE TO TEST BLOOD SUGARS ONCE DAILY (DME) OneTouch Verio test strips Strip See Rx Instructions .Route Qty: 100 3RF Rx Instructions: Test once daily Januvia 100 mg tablet 100 mg PO HS Qty: 90 1RF Rx Instructions: TAKE 1 TABLET BY MOUTH DAILY omeprazole 40 mg capsule,delayed release(DR/EC) 40 mg PO HS Qty: 90 1RF Rx Instructions: TAKE 1 CAPSULE BY MOUTH DAILY olmesartan-hydrochlorothiazide 40-12.5 mg tablet 1 tablet PO HS Qty: 90 1RF metoprolol tartrate 50 mg tablet 50 mg PO QHS Qty: 90 0RF glipizide 2.5 mg tablet 2.5 mg PO BID Qty: 180 1RF atorvastatin 10 mg tablet 10 mg PO QHS Qty: 90 1RF ofloxacin 0.3 % drops 4 drp otic (ear) TID Qty: 10 2RF Rx Instructions: put 4 drops in each ear t.i.d. with ear up towards the ceiling for 20 seconds afterwards Follow-up/Referrals: Geeta Martin MD [Physician, General Surgery] Yusuf Herndon APRN [Primary Care Provider, Internal Medicine] Tulio Garcia MD [Physician, General Surgery] Time of Disposition: 14:41
== END 2024-10-24 14:56 | disposition home or self-care (01) ==
PROVIDERS: Emergency Provider Student in an Organized Health Care Education/Training Program; PCP Nurse Practitioner
DX: R11.0 Nausea (principal); K21.9 Gastro-esophageal reflux disease without esophagitis; N40.0 Benign prostatic hyperplasia without lower urinary tract symptoms; I50.9 Heart failure, unspecified; K57.90 Diverticulosis of intestine, part unspecified, without perforation or abscess without bleeding; E11.22 Type 2 diabetes mellitus with diabetic chronic kidney disease; I13.0 Hypertensive heart and chronic kidney disease with heart failure and stage 1 through stage 4 chronic kidney disease, or unspecified chronic kidney disease; N18.9 Chronic kidney disease, unspecified
CPT/HCPCS: 36415; 83605; 85610; 85730; 86850; 86900; 86901; 99283